=== PATIENT | female | born 1950 | race African-American/Black ===

== ENCOUNTER 2020-06-19 00:21 | Inpatient (IN) | payer MEDICARE, SELFPAY ==
[2020-06-19] VITALS (215 sets, daily range): BP systolic 77–139; BP diastolic 38–87; PULSE 59–93; RESP 18–24; TEMP 34.8–37.1; O2SAT 84–99
[2020-06-19] MEDS: DOPamine drip 400 MG/250 ML PREMIX 9.5 MG IV (00:21)
[2020-06-19 00:55] LABS: ABG PCO2 25.8 mmHg (35-45); ABG PH Result 7.26 (7.35-7.45); Base Excess ABG -14.2 mmol/L (-2.0-2.0); Blood Gas Operator Identificat HARKR; Blood Gas Sample Site Brachial, right; Blood Gas Sample Type Arterial; HCO3 ABG 11.5 mmol/L (22-26); Oxygen Device VENT
[2020-06-19 01:41] LABS: Basophils % 0.1 %; Hematocrit 26.6 % (37.0-47.0); Hemoglobin 8.3 g/dL (11.5-15.3); Lymphocytes # 0.5 10^3/uL (0.8-4.8); Lymphocytes % 3.6 %; Mean Corpuscular HGB Conc 31.2 g/dL (30.0-36.0); Mean Corpuscular Hemoglobin 25.2 pg (28.0-34.0); Mean Corpuscular Volume 80.9 fL (81-99); Mean Platelet Volume 9.8 fL (7.4-10.4); Monocytes # 0.3 10^3/uL (0.2-0.9); Monocytes % 2.1 %; Neutrophils # 13.28 10^3/uL (1.8-7.7); Neutrophils % 92.3 %; Nucleated Red Blood Cells % 0.1 %; Platelet Count 378 10^3/cmm (130-400); Red Blood Count 3.29 10^6/uL (4.1-5.3); Red Cell Distribution Width 15.2 % (12.1-15.1); White Blood Count 14.4 10^3/uL (4.0-10.0)
[2020-06-19 02:02] LABS: Lactate (Lactic Acid level) 2.1 mmol/L (0.5-2.2)
[2020-06-19 02:07] LABS: Slide Review Slide Review Perform
[2020-06-19 02:11] LABS: NT Pro B Type Natriuretic Pept 7933 pg/mL (0-125)
[2020-06-19] MEDS: insulin regular-human 10 UNIT in SYRINGE 1 EACH IVP (02:24)
--- NOTE | 2020-06-19 03:01 | ED_ITS ---
HPI - COVID COVID Results: No Data to Display Procedures Central Line Placement Left IJ: Time Out Performed: Yes Patient Placed on Monitor/Pulse Ox: Yes MD Prep: mask, gown and gloves Central Line Prep: Chlorhexidine scrub Ultrasound Used for Placement: Yes Central Line Lumen Inserted: triple Post Procedure: sutured in place, good blood return, all ports aspirated, flushed, capped and sterile dressing applied Post Procedure X-Ray: tip of catheter in good position and other (pneumothorax) Patient Tolerated Procedure: well Complications: pneumothorax Chest Tube Chest Tube 1: Chest Tube Location: left and mid axillary line Size of Tube (cm): 28 Chest Tube Prep: Yes betadine prep and sterile drapes applied Incision Made With: #11 blade Post Procedure: sutured to skin and sterile dressing applied Tube Drainage: none Post Procedure CXR?: Yes Patient Tolerated Procedure: Yes Course Vital Signs: Vital signs: Vital Signs Respiratory Rate 24 H 06/19/20 02:30 MDM - COVID MDM Narrative: Medical decision making narrative: I was called over to the VICU to help with a central line placement. When I arrived Dr. Mccord was attempting central line and had multiple attempts. I placed the line under ultrasound guidance with the first stick. I had no ear return. Did the x-ray and the pneumothorax was present unsure if it was caused by previous attempts before I got there. I then placed a 28 Pashto chest tube in the left side got good air return and x-ray showed chest tube in place. Lab Data: Labs: Lab Results 06/19/20 06/19/20 06/19/20 Range/Units 00:20 01:20 01:20 WBC 14.4 H (4.0-10.0) 10^3/ uL RBC 3.29 L (4.1-5.3) 10^6/u L Hgb 8.3 L (11.5-15.3) g/dL Hct 26.6 L (37.0-47.0) % MCV 80.9 L (81-99) fL MCH 25.2 L (28.0-34.0) pg MCHC 31.2 (30.0-36.0) g/dL RDW 15.2 H (12.1-15.1) % Plt Count 378 (130-400) 10^3/c mm MPV 9.8 (7.4-10.4) fL Neut % (Auto) 92.3 % Lymph % (Auto) 3.6 % [place] % (Auto) 2.1 % Eos % (Auto) 0.0 % Baso % (Auto) 0.1 % Neut # (Auto) 13.28 H (1.8-7.7) 10^3/u L Lymph # (Auto) 0.5 L (0.8-4.8) 10^3/u L [place] # (Auto) 0.3 (0.2-0.9) 10^3/u L Eos # (Auto) 0.0 (0.0-0.8) 10^3/u L Baso # (Auto) 0.0 (0.0-0.1) 10^3/u L Nucleated RBC % (a uto) 0.1 % Nucleated RBCs # 0.0 /100WBC D-Dimer (0-0.59) ug/mIFE U Specimen Type Arterial Sample Site Brachial, right ABG pH 7.26 L (7.35-7.45) ABG pCO2 25.8 L (35-45) mmHg ABG pO2 257.0 H (80.0-100.0) mmH g ABG HCO3 11.5 L (22-26) mmol/L ABG Base Excess -14.2 L (-2.0-2.0) mmol/ L Jaguar Test N/a Hematocrit 26.0 L (37-47) % O2 Delivery Device Vent FiO2 100.0 % Tidal Volume 0.40 PEEP 10.0 cmH20 Tufting Machine Fixer ID Harkr Lactate (0.5-2.2) mmol/L NT-Pro-B Natriuret Pep 7933 H (0-125) pg/mL 06/19/20 06/19/20 Range/Units 01:20 01:20 WBC (4.0-10.0) 10^3/ uL RBC (4.1-5.3) 10^6/u L Hgb (11.5-15.3) g/dL Hct (37.0-47.0) % MCV (81-99) fL MCH (28.0-34.0) pg MCHC (30.0-36.0) g/dL RDW (12.1-15.1) % Plt Count (130-400) 10^3/c mm MPV (7.4-10.4) fL Neut % (Auto) % Lymph % (Auto) % [place] % (Auto) % Eos % (Auto) % Baso % (Auto) % Neut # (Auto) (1.8-7.7) 10^3/u L Lymph # (Auto) (0.8-4.8) 10^3/u L [place] # (Auto) (0.2-0.9) 10^3/u L Eos # (Auto) (0.0-0.8) 10^3/u L Baso # (Auto) (0.0-0.1) 10^3/u L Nucleated RBC % (a uto) % Nucleated RBCs # /100WBC D-Dimer 3.60 H (0-0.59) ug/mIFE U Specimen Type Sample Site ABG pH (7.35-7.45) ABG pCO2 (35-45) mmHg ABG pO2 (80.0-100.0) mmH g ABG HCO3 (22-26) mmol/L ABG Base Excess (-2.0-2.0) mmol/ L Jaguar Test Hematocrit (37-47) % O2 Delivery Device FiO2 % Tidal Volume PEEP cmH20 Tufting Machine Fixer ID Lactate 2.1 (0.5-2.2) mmol/L NT-Pro-B Natriuret Pep (0-125) pg/mL COVID Results: No Data to Display Coding Level of Care Code ED Senior Php Developer for Chg Eliot
--- NOTE | 2020-06-19 03:03 | P.HP_ITS ---
Providers/Chief Complaint Admitting Physician: Candice Mccord MD Chief Complaint: covid, pneumonia History of Present Illness Thomas Rain is a 69 year old female who got transferred from [facility]. This patient has history of cardiovascular disease femoral bypass bilateral, breast cancer, she was seen at the clinic 4 days ago for anorexia, generalized malaise and fever. She was sent to the ER for further evaluation secondary to pneumonia and ERUM she was admitted and was kept in the ER because there was no bed availability and most of the hospitals were on divert. Her baseline creatinine seems to be around 1.5-1.6 her creatinine was 3.8 in the ER she was also complaining of anorexia nausea vomiting decreased p.o. intake, her O2 saturation was 83% on 5 L which was subsequently switched to nonrebreather mask ABG 7.2 02/10//100% on nonrebreather mask and she was saturating 99% until today when her shortness of breath got worse and she was intubated in the ER. She was intubated around 1900 on 06/18, PRVC vent settings tidal volume 300 respiratory 12 PEEP 5 and she was started on propofol and she was at 21 I called to get the report, her heart rate was in 60s blood pressure 102/52 bicarb improved from 7-13 1 amp of bicarb was given there. She was also given calcium because of hypocalcemia which improved from 5-8, calcium chloride 20 mg was given in the ER I requested calcium gluconate as well, she was also given mag sulfate. Lactic acid 1.1, CRP 13, chest x-ray was showing worsening patchy infiltrate. Sodium 137 Potassium 6.2 Chloride 106 bicarb 30 BUN 76 Creatinine 3.7 Leukocytosis 14, hemoglobin 8, platelet 325 I requested to switch propofol to fentanyl because of her bradycardia however did not have fentanyl at their facility I requested them to hold bicarb infusion secondary to hypercalcemia and give calcium gluconate At the time of transfer patient was intubated and sedated on propofol. At the time of evaluation in vital ICU her pH 7.26 PCO2 25 PO2 257 bicarb 11 she is showing signs of metabolic acidosis I placed right radial arterial line, and left central line was placed by Dr Gonzalez Her propofol was switched to fentanyl, she was started on Levophed and dopamine after giving atropine because of bradycardia which seemed to improve her heart rate, I am still waiting on BMP to know about her calcium before starting bicarb Currently she is on 2 pressors Levophed and dopamine Sedated with fentanyl Follow-up chest x-ray after central line placement revealed left-sided tension pneumothorax, chest tube was placed by Dr. Gonzalez Patient's vitals stayed stable throughout her procedure Review of Systems General: Reports: ROS unobtainable due to endotracheal tube PFSH Acute PFSH: Medical History Breast cancer, left Coronary atherosclerosis GERD (gastroesophageal reflux disease) Hyperlipidemia Hypertensive disorder Myocardial infarction Ovarian cancer Disseminated Surgical History H/O abdominal hysterectomy H/O heart artery stent S/P femoral-femoral bypass surgery Bilateral femoral bypass S/P lumpectomy of breast Family History Other Unknown family medical history Social History Smoking and tobacco status: former smoker Alcohol intake: never Substance/Drug Use: never Household members: family Housing: House Vitals/I&O/Wt Last Vital Signs Resp 24 H 06/19/20 02:30 Weight last 48 hrs Weight 50.802 kg Weight 50.802 kg Physical Exam Narrative: EXAM NARRATIVE: -[place] middle-aged female who appears more than stated age Currently sedated with fentanyl, intubated, currently on Levophed and dopamine Heart rate improved to 70s after starting Levophed and dopamine on arrival her heart rate was in 40s S1, S2 no murmur appreciated clinically does not look fluid overloaded Abdomen soft nondistended Right radial arterial line Left IJ central line Left-sided chest tube fourth intercostal space mid axillary Mean arterial pressure range 65-69 Neuro exam limited Bilateral assisted breath sounds improved after placement of chest Data : 06/19/20 01:20 A&P Assessment and plan (1) Acute respiratory failure with hypoxia: Status: Acute (2) Metabolic acidosis: Status: Acute (3) Acute kidney injury superimposed on chronic kidney disease: Status: Acute (4) Hyperkalemia: Status: Acute (5) New onset of congestive heart failure: Status: Acute (6) COVID-19: Status: Acute Additional A&P Information Sepsis and acute hypoxic respiratory failure secondary to COVID-19 pneumonia Intubated at outside facility Currently ABGs revealing metabolic acidosis I am holding off on bicarb infusion because of hypocalcemia, I am still waiting on BMP before making decision to start bicarb Lactic acid 2.1 Sepsis criteria met with leukocytosis, tachypnea secondary to COVID-19 We will check procalcitonin level before initiating antibiotics Metabolic acidosis This most likely is due to uremia lactic acid is 2 We will check ketone level Also noticed hyperglycemia, rule out DKA Most of her lab work is pending because she was critically ill at the time of presentation and a lot of effort was put in for stabilization putting lines and chest tube Bradycardia As per the report she was showing signs of sinus bradycardia however at the time of my evaluation she was hypothermic temperature 94 she was started on bear hugger's, she was also given 1 mg of atropine and then was started on Levophed and dopamine We will follow EKG and serial troponin Avoid propofol as it has cardio suppressant effect Check TSH, magnesium Acute on chronic kidney disease Creatinine at outside facility 3.8, her baseline creatinine seems to be 1.5-1.6 as per previous records This seems multifactorial to hypotension, sepsis and CHF exacerbation Hold nephrotoxic agents Hyperkalemia: She was given 10 units of regular insulin, I also administer 1 g calcium gluconate Her bradycardia seems to be sinus, will repeat EKG and administer Kayexalate via OG tube 10 mg albuterol x1 Hold off on bicarb secondary to hypercalcemia New onset CHF with underlying history of coronary disease and peripheral vascular disease Patient carries history of coronary disease but I do not see any mention of CHF in her records We will repeat echo in the morning Not a candidate to be on Lasix clinically looks euvolemic BNP around 8000 Will obtain serial EKGs and troponin High D-dimer: Patient recently had chest tube placement I would wait to start any anticoagulation to cover for a possible PE However high D-dimer is also seen with severe COVID-19 inflammation Tension pneumothorax After placement of central line however no earlier x-ray available, chest tube was placed by Dr. Lisa shirley in lung inflation Procedures on 06/19 lines: Right radial artery Left central line Santoyo catheter will be placed Left chest tube Full code DVT prophylaxis I would use SCDs for now she just had chest tube placed, I would avoid anticoagulation to avoid postprocedural hemorrhage Guarded prognosis N.p.o. Attestations Medical Necessity Statement*: Spitting stay in the hospital cross more than 2 midnights for multiple comorbidities carries guarded prognosis for sepsis, CHF, ERUM hyperkalemia Time Spent in Patient Care: 120mins Critical Care Time: Initial evaluation, data gathering, right radial artery placement, assisted for chest tube placement and central line Critical Care Time (min): 90 Coding Level of Care Code Acute Laboratory Geneticist for g Fwd Diagnoses Acute respiratory failure with hypoxia J96.01 Metabolic acidosis E87.2 Acute kidney injury superimposed on chronic kidney disease N17.9; N18.9 Hyperkalemia E87.5 New onset of congestive heart failure I50.9 COVID-19 U07.1
--- NOTE | 2020-06-19 03:05 | XR_ITS ---
WS: [id number] Exam: XR chest 1V portable [id number] Date/Time of Exam: 06/19/2020 3:05 AM Reason For Exam: CENTRAL LINE PLACEMENT No priors. There is approximately 75% pneumothorax of the left lung. There are diffuse bilateral pulmonary infil trates. Endotracheal tube is in place appearing to be in good position ending about 4 cm above the ca jessie. A left-sided IJ catheter ends near the cavoatrial junction. Signs of median sternotomy. The med iastinum is not widened. Bony structures are grossly intact. XR/XR chest 1V portable [id number] IMPRESSION: 1. 75% pneumothorax of the left lung. No significant tension or shift noted. 2. ET tube and left-sided IJ catheter both in good position. 3. Diffuse interstitial infiltrates throughout both lungs.
--- NOTE | 2020-06-19 03:08 | XR_ITS ---
WS: [id number] Exam: XR chest 1V portable [id number] Date/Time of Exam: 06/19/2020 3:08 AM Reason For Exam: CHEST TUBE PLACEMENT Comparison with the most recent study on 06/19/2020 at 0218 hours. A left-sided chest tube has been placed. There is almost complete expansion of the left lung. Very sm all left upper lobe pneumothorax remains. There are bilateral interstitial infiltrates throughout bot h lungs. Normal heart size. The mediastinum is not widened. An ET tube is in place ending about 4 cm above the rylan. A left-sided IJ catheter ends near the cavoatrial junction. XR/XR chest 1V portable [id number] IMPRESSION: 1. Left-sided chest tube position in the upper medial left pleural cavity. The left lung is almost completely expanded with very small left upper lobe pneumot horax. 2. Diffuse interstitial infiltrates throughout both lungs. 3. ET tube and left-sided IJ catheter both in good position.
--- NOTE | 2020-06-19 03:36 | PM.ACPR ---
Procedure/Consent Procedure Narrative: Right radial artery placement for monitoring of blood pressure due to bradycardia Acute Procedures Arterial Line: Time out performed: Yes Size (Gauge): 18 Technique used: guide wire technique Post-Procedure: dry sterile dressing placed Patient tolerated procedure: well Complications: none Site: right Additional comments: 5 mL blood loss
--- NOTE | 2020-06-19 03:38 | USCV_ITS ---
Koffi Alainagaurav Age: 69 Gender: F : 1950 Exam Date: 06/19/2020 06:13 Ordering Phys: Candice Mccord MD Technologist: Hailey Ng [place] [facility] [place]: COVID ICU CHF BP: 122 / 52 HR: 79 Rhythm: Sinus Technical Quality: Fair MEASUREMENTS (Male / Female) Normal Values 2D ECHO LV Diastolic Diameter PLAX 3.6 cm 4.2 - 5.9 / 3.9 - 5.3 cm LV Systolic Diameter PLAX 2.8 cm LV Chamber Size 3.3 cm IVS Diastolic Thickness 1.6 cm 0.6 - 1.0 / 0.6 - 0.9 cm IVS Systolic Thickness 1.7 cm LVPW Diastolic Thickness 1.4 cm 0.6 - 1.0 / 0.6 - 0.9 cm LVPW Systolic Thickness 1.9 cm RV Chamber Size 3.1 cm LVOT Diameter 2.0 cm LV Ejection Fraction 2D Teich 46.1 % LV Ejection Fraction MOD 2C 68.0 % LV Ejection Fraction 2C AL 69.1 % LA Diameter 2.8 cm LA Width 2.5 cm LA Height 3.8 cm RA Width 2.8 cm RA Height 2.9 cm Aorta at Sinotubular Diameter 3.0 cm M-MODE LV Diastolic Diameter MM 4.7 cm 4.2 - 5.9 / 3.9 - 5.3 cm LV Systolic Diameter MM 3.9 cm LV Ejection Fraction MM Teich 36.6 % IVS Diastolic Thickness MM 0.9 cm 0.6 - 1.0 / 0.6 - 0.9 cm IVS Systolic Thickness MM 1.4 cm LVPW Diastolic Thickness MM 0.8 cm 0.6 - 1.0 / 0.6 - 0.9 cm LVPW Systolic Thickness MM 1.3 cm RV Diastolic Diameter MM 1.3 cm Aortic Annulus Diameter 3.4 cm LA Ao Ratio MM 0.9 MV E Point Septal Separation 0.8 cm DOPPLER AV Peak Velocity 172.0 cm/s LVOT Peak Velocity 77.0 cm/s AV Area Cont Eq vti 2.2 cm squared AV Area Cont Eq pk 1.5 cm squared MV Area PHT 3.9 cm squared Mitral E to A Ratio 1.3 MV E' Velocity 57.5 cm/s Mitral E to MV E' Ratio 15.4 Mitral E to LV E' Lateral Ratio 14.9 Mitral E to LV E' Septal Ratio 15.8 TR Peak Velocity 258.3 cm/s TR Peak Gradient 26.7 mmHg TR Mean Velocity 203.6 cm/s TR Mean Gradient 17.7 mmHg TR Velocity Time Integral 73.2 cm TV Peak E Velocity 53.0 cm/s Right Atrial Pressure 15.0 mmHg Pulmonary Artery Systolic Pressu 41.7 mmHg PV Peak Velocity 74.0 cm/s RV Acceleration Time 0.1 s RV Ejection Time 0.3 s RV AcT/ET 0.4 FINDINGS Left Ventricle Normal left ventricular size and systolic function with EF of 50 to 55%. No regional wall motion abnormalities are noted. Abnormal diastolic function. Right Ventricle The right ventricle is normal in size and function. Right Atrium The right atrium is normal in size. Left Atrium The left atrium is normal in size. Mitral Valve Mitral valve is thickened. No significant stenosis is noted. There is no mitral regurgitation. Aortic Valve Aortic valve is thickened. There is no significant aortic stenosis noted. There is no aortic regurgitation. Tricuspid Valve Structurally normal tricuspid valve without significant stenosis or regurgitation. Insufficient TR jet to calculate RVSP. RA Pressure is 0 to 5 mmHg. Pulmonic Valve Not well-visualized. Pericardium Normal pericardium without effusion. Aorta Normal ascending aorta dimension. CONCLUSIONS LV systolic function is normal with EF of 50 to 55%. Diastolic function is abnormal. Mitral and aortic valves are thickened. However no significant aortic or mitral stenosis is noted. Insufficient TR jet to calculate RVSP. RA pressure is 0 to 5 mmHg. No comparison studies are available José Luis Unger MD (Electronically Signed) Final Date: 19 June 2020 15:43 S
--- NOTE | 2020-06-19 03:39 | ECG_ITS ---
[facility] ED Test Date: 2020-06-19 Pat Name: Thomas Rain Department: Room: ICU19 Gender: Female Pourer Metal: : 1950 Requested By: Candice Mccord Order Number: [id number] Marianna MD: Pamella William M.D. Measurements Intervals [place] Rate: 70 P: [place]: QRS: 68 QRSD: 108 T: 62 QT: 372 QTc: 403 Interpretive Statements SUPRAVENTRICULAR RHYTHM WITH PVC'S NONSPECIFIC T-WAVE ABNORMALITY INTERPRETATION BASED ON A DEFAULT AGE OF 40 YEARS No previous ECG available for comparison Electronically Signed On 06-19-2020 21:29:55 SAND SYSTEM OPERATOR by Pamella William M.D. [id number] f
[2020-06-19 03:54] LABS: ABG PCO2 25.7 mmHg (35-45); ABG PH Result 7.21 (7.35-7.45); Arterial Blood Gas Hematocrit 24.2 % (37-47); Blood Gas Operator Identificat CAK; Blood Gas Sample Site ALINE; Blood Gas Sample Type Arterial; Blood Gas Tidal Volume 0.38; HCO3 ABG 10.3 mmol/L (22-26); Oxygen Device VENT
--- NOTE | 2020-06-19 04:17 | P.PCN_ITS ---
Procedure/Consent Procedure Narrative: Patient was hypotensive, was requiring on 2 vasopressors, decision was made to insert central line and left internal jugular vein Patient was prepped and draped, two ICU nurses were present at the bedside Trendelenburg position PPE MD, sterile gloves, gown, glasses, head covering, shoe covering, probe covering, Clinical landmarks were identified, ultrasound probe was used to identify left internal jugular vein, site was prepped in sterile fashion Under ultrasound guidance needle was inserted, after 2 attempts I did not get venous flush, requested Dr. Gonzalez from the ER to assist with the central line placement. Kindly review his procedure note for further details. Postpro cedural x-ray revealed pneumothorax, Dr. Gonzalez placed 28F chest tube with good air return, chest x-ray shows chest tube placement with tip pointing towards the apex of the left lung
--- NOTE | 2020-06-19 04:35 | PC.NURSE ---
Patient arrived via flight ambulance as a direct admit to VICU at 0000. Patient already intubated at admission. Flight ambulance had Levophed running to maintain BP. Called Dr. Mccord to floor to administer interventions to stabilize patient. Upon arrival crash cart was opened per Dr. Mccord at 0043 to administer atropine 1mg IVP per verbal orders from Dr. Mccord at bedside. 0050 Dopamine gtt administered from crash cart per orders and protocol. Arterial line placed via Dr. Mccord at 0110 in right radial wrist and hooked to transducer. 0140 Dr Mccord attempted to place central line in left jugular vein using sterile technique, unsuccessfully. Dr. Gonzalez joined Dr Mccord and helped with placement. After placement of central line, patients O2 sats began to decrease, stat chest xray ordered, which showed a pnuemothorax, Dr. Gonzalez inserted chest tube on left side chest at 0244. [place] atrium used and hooked to intermittent suction per orders.
--- NOTE | 2020-06-19 05:21 | PC.NURSE ---
Heparin gtt not administered per MAR due to placement of chest tube. MD gave orders to hold heparin and apply SCDs.
--- NOTE | 2020-06-19 05:35 | PC.NURSE ---
Patient's granddaughter Argelia Rasmussen phoned this AM for update on patient's status. RN explained there was a Wilbur Rain listed as her next of kin. Granddaughter conference called pt's daughter, and both explained that she had been for many years at this point. Daughter Dalila Green gave permission for information and status updates to be given to the pt's granddaughter Argelia. RN verbalized a need for family to contact hospital facility to update contact information. According to patient's family, the patient is to remain a full code, with no restorationist factors affecting her care. Argelia Green [phone] Dalila Green [phone]
--- NOTE | 2020-06-19 05:39 | ECG_ITS ---
[facility] ED Test Date: 2020-06-19 Pat Name: Thomas Rain Department: Room: ICU19 Gender: Female Shake Cutter: : 1950 Requested By: Candice Mccord Order Number: [id number] Marianna MD: Pamella William M.D. Measurements Intervals [place] Rate: 74 P: 85 MS: 148 QRS: 73 QRSD: 98 T: -31 QT: 348 QTc: 387 Interpretive Statements SINUS RHYTHM NONSPECIFIC T-WAVE ABNORMALITY Compared to ECG 06/19/2020 04:31:43 Supraventricular rhythm no longer present T-wave abnormality still present Electronically Signed On 06-19-2020 16:54:58 SHEARING MACHINE TENDER by Pamella William M.D. [id number] f
[2020-06-19 05:42] LABS: Basophils % 0.1 %; Eosinophils % 0.1 %; Hematocrit 26.3 % (37.0-47.0); Hemoglobin 8.3 g/dL (11.5-15.3); Lymphocytes # 0.6 10^3/uL (0.8-4.8); Mean Corpuscular HGB Conc 31.6 g/dL (30.0-36.0); Mean Corpuscular Hemoglobin 25.5 pg (28.0-34.0); Mean Corpuscular Volume 80.7 fL (81-99); Monocytes # 0.4 10^3/uL (0.2-0.9); Monocytes % 2.5 %; Neutrophils # 14.31 10^3/uL (1.8-7.7); Neutrophils % 92.8 %; Nucleated Red Blood Cells % 0 %; Platelet Count 374 10^3/cmm (130-400); Red Blood Count 3.26 10^6/uL (4.1-5.3); Red Cell Distribution Width 15.2 % (12.1-15.1); White Blood Count 15.4 10^3/uL (4.0-10.0)
[2020-06-19 05:57] LABS: D Dimer 3.52 ug/mIFEU (0-0.59)
[2020-06-19 06:11] LABS: Glucose Point of Care 317 mg/dL (70-110)
[2020-06-19 07:45] LABS: Lactic Sepsis W/Reflex 1.7 mmol/L (0.5-2.2)
[2020-06-19] MEDS: ipratropium-albuterol 3 mL Neb INHALATION ×3 (07:53→19:45)
--- NOTE | 2020-06-19 08:00 | XR_ITS ---
WS: [id number] Exam: XR chest 1V portable [id number] Date/Time of Exam: 06/19/2020 6:01 AM Reason For Exam: PTX Comparison 06/19/2020 at 0245 hours Diffuse infiltrates noted throughout both lungs showing slight increase since previous exam. Right pl eural effusion has developed. Normal cardiomediastinal structures. ET tube is in good position ending about 4 cm above the rylan. Left-sided IJ catheter ends in the lower one third of the SVC in good p osition. An enteric tube is positioned in the body the stomach. Monitoring leads superimpose the ches t. Signs of previous median sternotomy. Left-sided chest tube in place unchanged in position. XR/XR chest 1V portable [id number] IMPRESSION: 1. Bilateral pulmonary infiltrates slightly increased since previous exam. Right-sided pleural effusion. 2. Left-sided chest tube in place unchanged. 3. ET tube, enteric tube and central line all in satisfactory position.
--- NOTE | 2020-06-19 08:10 | PC.NURSE ---
Patient's family was updated on her current status as well as the emergency interventions that were done including central line placement, art line placement, bare hugger, and chest tube placement.
[2020-06-19 08:49] LABS: Troponin(5th) Baseline 48 ng/L (0-10)
[2020-06-19] MEDS: aspirin 81 mg EC Tablet PO (09:04)
[2020-06-19] MEDS: clopidogrel 75 mg Tablet PO (09:04)
[2020-06-19] MEDS: sennosides-docusate Tablet 1 TAB PO (09:04)
[2020-06-19 09:20] LABS: Procalcitonin 16.44 ng/mL (0-0.5); Thyroid Stimulating Hormone 0.22 uIU/mL (0.27-4.20)
[2020-06-19 09:34] LABS: Alanine Aminotransferase 11 U/L (0-33); Albumin Level 2.4 g/dL (3.5-5.2); Alkaline Phosphatase 68 IU/L (35-105); Anion Gap 23.8 (5-19); Aspartate Amino Transferase 27 U/L (0-32); Blood Urea Nitrogen 73 mg/dL (8-23); C Reactive Protein 216.9 mg/L (0.0-4.9); Calcium 8.6 mg/dL (8.5-10.5); Carbon Dioxide 12 mmol/L (22-29); Chloride 108 mmol/L (98-107); Globulin 3.5 g/dL (1.3-4.6); Glomerular Filtration Rate 13.1 mL/min (90-130); Glucose 371 mg/dL (65-115); Lactate Dehydrogenase 342 U/L (135-214); Magnesium 2.4 mg/dL (1.7-2.3); Osmolality Calculated 323 mOsm/kg (285-295); Potassium 5.8 mmol/L (3.5-5.1); Sodium 138 mmol/L (136-145); Total Bilirubin 0.2 mg/dL (0.15-1.2); Total Protein 5.9 g/dL (6.6-8.7)
--- NOTE | 2020-06-19 09:39 | ECG_ITS ---
[facility] ED Test Date: 2020-06-19 Pat Name: Thomas Rain Department: Room: ICU19 Gender: Female Science Liaison: : 1950 Requested By: Candice Mccord Order Number: [id number] Marianna MD: Pamella William M.D. Measurements Intervals [place] Rate: 87 P: [place]: QRS: 71 QRSD: 96 T: 78 QT: 333 QTc: 402 Interpretive Statements SUPRAVENTRICULAR RHYTHM NONSPECIFIC T-WAVE ABNORMALITY Compared to ECG 06/19/2020 07:08:10 No significant changes Electronically Signed On 06-28-2020 14:00:35 LINUX SYSTEM ADMIN by Pamella William M.D. [id number]
[2020-06-19] MEDS: sodium polystyrene sulfonate 15 gm/60 mL Btl PO (09:54)
[2020-06-19 10:13] LABS: Troponin 5 2HR 46.77 ng/L (0-10)
[2020-06-19 10:16] LABS: Troponin 5 2HR Delta -1.23 ABS# (0-10)
[2020-06-19 10:32] LABS: ABG PCO2 25.7 mmHg (35-45); ABG PH Result 7.29 (7.35-7.45); Alveolar-Arterial Oxygen Gradi 35.1 mmHg (5-10); Arterial Blood Gas Hematocrit 26.3 % (37-47); Blood Gas Operator Identificat CAK; Blood Gas Sample Site ALINE; Blood Gas Sample Type Arterial; Blood Gas Tidal Volume 0.38; Carboxyhemoglobin 0.8 %THgb (0.4-20.1); HCO3 ABG 12.3 mmol/L (22-26); HGB O2 Sat 85.2 % (95-100); Ionized Calcium Level - ABG 1.2 mmol/L (1.1-1.4); Methemoglobin 0.9 % (0.4-1.5); Oxygen Device VENT; Oxygen Saturation ABG 86.6; PO2 ABG 53.8 mmHg (80.0-100.0); Potassium Level - ABG 5.4 mmol/L (3.5-5.0); Total Hemoglobin 8.6 g/dL (12-16)
[2020-06-19 10:44] LABS: Ketone (Acetest) Serum Positive (Negative)
[2020-06-19] MEDS: vancomycin 750 MG in sodium chloride 0.9% 250 ML 250 MG IV (11:28)
[2020-06-19 11:46] LABS: Glucose Point of Care 406 mg/dL (70-110)
[2020-06-19] MEDS: insulin regular-human 250 UNIT in sodium chloride 0.9% 250 ML 10.5 UNIT IV (12:13)
[2020-06-19] MEDS: DOPamine drip 400 MG/250 ML PREMIX 23.8 MG IV (12:43)
[2020-06-19 12:58] LABS: Glucose Point of Care 337 mg/dL (70-110)
[2020-06-19 13:50] LABS: Glucose Point of Care 286 mg/dL (70-110)
[2020-06-19] MEDS: FUROsemide 10 mg/mL SDV 4mL 40 MG IVP (13:55)
[2020-06-19 15:32] LABS: Glucose Point of Care 222 mg/dL (70-110)
--- NOTE | 2020-06-19 15:45 | P.PN_ITS ---
Subjective Subjective: Interval history: 69-year-old female with past medical history significant for breast cancer completed chemotherapy 2 years prior, coronary artery disease with history of CABG, gastroesophageal reflux disease, hypertension, hyperlipidemia, peripheral vascular disease with prior bilateral femoral bypass and chronic kidney disease with a baseline creatinine around 1.4 who presented to the [facility] in [place] with respiratory distress. this was associated with fever and generalized weakness. The symptoms have been progressing for about 4 days prior. While in emergency room a rapid COVID 19 antigen was checked and found to be positive. PCR was sent however this is still pending. Initially she was noted to have hypoxia with O2 saturation of 83% while on 5 L of O2. This was transitioned to non-rebreather however ventrally patient was intubated and placed on mechanical ventilation. She was initially started on propofol however due to bradycardia this was transition to fentanyl drip. Prior to that she was given atropine. Patient was then airlifted to [facility] for further care. Upon arrival to be ICU patient had repeat laboratory workup performed. WBC of 14.4, hemoglobin of 8.3, hematocrit of 26.6 and a platelet count of 378. sodium 138, potassium 5.8, chloride 108, bicarb 12, BUN 73 and creatinine of 4.1. Glucose of 317. Calcium 8.6. LDH 342. C reactive protein of 216. troponin delta of -1.23. Procalcitonin was elevated at 16.44. TSH of 0.22. Noted to be hypotensive and bradycardic on initial evaluation. She was started on Levophed and dopamine drip. Arterial line was placed . Subsequently a central line was placed. Chest x-ray performed for line placement assessment noted left-sided pneumothorax For which a chest tube was placed and noted to be in position in the upper left pleural cavity. Appeared to be in sepsis with shock for which she required up to 3 pressers including levofed,vasopressin and dopamine to maintain MAP > 65. Patient was started on broad-spectrum antibiotics including vancomycin and Primaxin 500 mg IV q.6 hours. Blood cultures were taken. Sputum culture was also taken. Pulmonary Medicine was consulted. Patient was found to be oliguria. No improvement in urine out put after lasix 40 mg IV x 1 challenge. Nephrology was consulted. Femoral HD catheter was placed by surgery and with consent from family she was imitated on dialysis. Multiple discussions with family included daughter and step daughter regarding poor prognosis. Code status was discussed and at family request was changed to D.N.R status with limited interventions. Ok to continue vent, hd, pressers, icu care, shock if needed however no resuscitation in the event of cardiac arrest. Medications: Reviewed: Yes Medication Review Details: Current Medications Albuterol/Ipratropium (Ipratropium-Albuterol 3 Ml Neb) 3 ml INHALATION Q6H PRN PRN Reason: SHORTNESS OF BREATH Last Admin: 06/20/20 02:01 Dose: 3 ml Documented by: Aspirin (Aspirin 81 Mg Ec Tablet) 81 mg PO DAILY IGOR Last Admin: 06/19/20 09:04 Dose: 81 mg Documented by: Atorvastatin Calcium (Atorvastatin 40 Mg Tablet) 20 mg PO BEDTIME IGOR Last Admin: 06/19/20 21:04 Dose: 20 mg Documented by: Clopidogrel Bisulfate (Clopidogrel 75 Mg Tablet) 75 mg PO DAILY IGOR Last Admin: 06/19/20 09:04 Dose: 75 mg Documented by: Dextrose (Dextrose 50% Syringe 50 Ml) 25 ml IVP ONCE PRN; Protocol PRN Reason: hypoglycemia protocol Dextrose (Dextrose 50% Syringe 50 Ml) 50 ml IVP PRN PRN; Protocol PRN Reason: hypoglycemia protocol Famotidine (Famotidine 20 Mg/2 Ml Inj) 40 mg IVP Q12H IGOR Last Admin: 06/19/20 23:48 Dose: 40 mg Documented by: Glucagon (Glucagon 1 Mg/Ml Inj 1 Ml) 1 mg IM ONCE PRN; Protocol PRN Reason: Adult Acute Hypoglycemia Prot. Dopamine HCl/Dextrose (Intropin Drip) 400 mg in 250 mls @ 9.525 mls/hr IV CONT GIOR; Protocol Last Titration: 06/20/20 00:12 Dose: 0 mcg/kg/min, 0 mls/hr Documented by: Fentanyl 1,000 mcg/ Sodium (Chloride) 100 mls @ 0 mls/hr IV .Q0M IGOR; Protocol Last Titration: 06/20/20 04:39 Dose: 50 mcg/hr, 5 mls/hr Documented by: Midazolam HCl 100 mg/ Sodium (Chloride) 100 mls @ 0 mls/hr IV .Q0M IGOR; Protocol Last Admin: 06/19/20 03:41 Dose: 1 mg/hr, 1 mls/hr Documented by: Dextrose (D5w) 500 mls @ 100 mls/hr IV ONCE PRN; Protocol PRN Reason: Adult Acute Hypoglycemia Prot Vancomycin HCl 750 mg/ Sodium (Chloride) 250 mls @ 250 mls/hr IV Q48H IGOR; Protocol Last Infusion: 06/19/20 14:32 Dose: Infused Documented by: Imipenem/Cilastatin Sodium 250 (mg/ Sodium Chloride) 100 mls @ 200 mls/hr IV Q12H IGOR; Protocol Last Infusion: 06/20/20 00:40 Dose: Infused Documented by: Insulin Human Regular 250 unit (/ Sodium Chloride) 252.5 mls @ 0 mls/hr IV .Q0M IGOR; Protocol Last Titration: 06/20/20 05:11 Dose: 5 unit/hr, 5.1 mls/hr Documented by: Vasopressin 100 unit/ Sodium (Chloride) 100 mls @ 0 mls/hr IV .Q0M IGOR; Protocol Last Admin: 06/19/20 14:53 Dose: 0.04 unit/min, 2.4 mls/hr Documented by: Norepinephrine Bitartrate 8 mg (/ Dextrose) 508 mls @ 0 mls/hr IV .Q0M IGOR; Protocol Last Admin: 06/20/20 04:39 Dose: 12 mcg/min, 45.7 mls/hr Documented by: Albumin Human (Albumin) 12.5 gm in 50 mls @ 60 mls/hr IV PRN PRN PRN Reason: Hypotension and/or symptomatic Insulin Aspart (Insulin Aspart 100 Unit/1 Ml) 0 unit SUBCUT WM&BEDTIME IGOR; Protocol Last Admin: 06/19/20 21:05 Dose: Not Given Documented by: Lanolin (Lanolin Oint 7 Gm) 1 applic TOPICAL PRN PRN PRN Reason: DRYNESS Last Admin: 06/20/20 03:07 Dose: 1 applic Documented by: Senna/Docusate Sodium (Sennosides-Docusate Tablet) 1 tab PO DAILY IGOR Last Admin: 06/19/20 09:04 Dose: 1 tab Documented by: Vitals/I&O/Wt Last Vital Signs Temp 98.2 F 06/19/20 12:00 Pulse 78 06/19/20 15:01 Resp 22 H 06/19/20 14:56 BP 128/50 06/19/20 14:05 Pulse Ox 90 06/19/20 14:56 06/19/20 06/19/20 06/19/20 06:59 14:59 22:59 Intake Total 168.435 / 168.435 929.503 / 929.503 226.324 / 1155.827 Output Total 240 / 240 220 / 220 Balance -71.565 / -71.565 709.503 / 709.503 226.324 / 935.827 Weight last 48 hrs Weight 50.802 kg Weight 50.802 kg Physical Exam Narrative: EXAM NARRATIVE: General- sedated on mechanical ventilation HEENT-ET tube in place Chest -Nonlabored respiration, on vent CVS- Normal sinus rhythm Abdomen -Nondistended Extremities-No edema Lines- Left IJ, right femoral dialysis, [place], ET tube, left chest tube Data : 06/20/20 03:52 06/20/20 11:45 Micro: Microbiology 06/19/20 11:13 Blood Culture - Preliminary Blood SPECIMEN COLLECTED 06/19/20 11:02 Blood Culture - Preliminary Blood SPECIMEN COLLECTED 06/19/20 04:30 Gram Stain - Final Sputum - Endotracheal Tube Aspirate A&P Assessment and plan (1) Acute respiratory failure with hypoxia: Status: Acute (2) Metabolic acidosis: Status: Acute (3) Acute kidney injury superimposed on chronic kidney disease: Status: Acute (4) Hyperkalemia: Status: Acute (5) New onset of congestive heart failure: Status: Acute (6) COVID-19: Status: Acute (7) Septic shock: Status: Acute Acute hypoxic respiratory failure - Etiology multifactorial - COVID-19 pneumonia, pneumothorax status post chest tube, superimposed bacterial pneumonia suspected - Continue vent, pulmonary consulted Suspected superimposed Bacterial Pneumonia - Procalcitonin 16.44 -> 15.48 - Empirically started on Vancomycin pharmacy to dose - Primixin 250 mg IV q12 hr - Renal dosing of meds - Thacker culture Acute kidney injury / ATN on CKD stage 3 - Creatinine baseline 1.4 - Cr. 4.1 - Nephrology consulted - Femoral HD catheter placed by general surgery - Started on HD Diabetes Mellitus with hyperglycemia / DKA on arrival - AG metabolic acidosis - Multi-factorial component of acidosis - Was started on Insulin ggt - Goal Blood sugar 140-180 - Q1hr BS checks - Ketone positive Acute anemia - Multifactorial - Acute blood loss from CT in setting of renal disease - Hb 8.3 on arrival - Monitor h/h Coronary artery disease s/p CABG / PVD s/p b/l femoral bypass / Hypertension - Holding aspirin 81 mg PO daily and Plavix 75 mg PO daily - Will resume once hemoglobin stabilizes - ECHO - pEF - Continue Lipitor 20 mg PO daily - Monitor on tele Hx of Breast cancer - S/P chemo > 2 year prior - No new recommendation FEN - Tube feeding - Dietary consulted - Pulmcal 1.2 at 20ml/hr - Will increase to goal based on residuals and recs GI ppx - Pepcid 20 mg IV daily DVT ppx - SCDSs only due to anemia Condition: Critical Prognosis : Poor Code status- Changed to DNR, allow natural as discussed above in HPI Attestations Medical Necessity Statement*: Require further hospitalization for management of COVID-19 respiratory failure, pneumothorax status post chest tube, renal failure requiring dialysis. Time Spent in Patient Care: Greater than 35 minutes (>than 50% of time spent in counselling and/or direct pt care on unit) . Critical Care Time: Critical Care Time (min): 70 Procedures Arterial Line Size (Gauge): 18 Coding Level of Care Code Acute Silver Lap Machine Tender for Chg Fwd Diagnoses Acute respiratory failure with hypoxia J96.01 Metabolic acidosis E87.2 Acute kidney injury superimposed on chronic kidney disease N17.9; N18.9 Hyperkalemia E87.5 New onset of congestive heart failure I50.9 COVID-19 U07.1 Septic shock A41.9; R65.21
[2020-06-19 16:11] LABS: Glucose Point of Care 214 mg/dL (70-110)
[2020-06-19 16:32] LABS: ABG PCO2 28.4 mmHg (35-45); ABG PH Result 7.22 (7.35-7.45); Base Excess ABG -14.7 mmol/L (-2.0-2.0); Blood Gas Allen Test Pos; Blood Gas Sample Site ART LINE; Blood Gas Sample Type Arterial; Carboxyhemoglobin 0.7 %THgb (0.4-20.1); HCO3 ABG 11.7 mmol/L (22-26); HGB O2 Sat 92.1 % (95-100); Ionized Calcium Level - ABG 1.1 mmol/L (1.1-1.4); Methemoglobin 0.7 % (0.4-1.5); Oxygen Saturation ABG 93.5; PO2 ABG 77.4 mmHg (80.0-100.0); Potassium Level - ABG 4.2 mmol/L (3.5-5.0); Total Hemoglobin 7.5 g/dL (12-16)
[2020-06-19 16:33] LABS: Alveolar-Arterial Oxygen Gradi 50.1 mmHg (5-10); Blood Gas Operator Identificat MONROous; Blood Gas Tidal Volume 0.38; Oxygen Device VENT
[2020-06-19 17:05] LABS: Glucose Point of Care 144 mg/dL (70-110)
[2020-06-19 17:31] LABS: Hematocrit 27.3 % (37.0-47.0); Hemoglobin 8.4 g/dL (11.5-15.3)
[2020-06-19 18:03] LABS: Calcium 8.3 mg/dL (8.5-10.5); Carbon Dioxide 13 mmol/L (22-29); Chloride 108 mmol/L (98-107); Glomerular Filtration Rate 12.4 mL/min (90-130); Glucose 177 mg/dL (65-115); Osmolality Calculated 313 mOsm/kg (285-295); Sodium 137 mmol/L (136-145)
[2020-06-19 18:05] LABS: Troponin 5 6HR 48.47 ng/L (0-10)
--- NOTE | 2020-06-19 18:19 | P.CONIM_ITS ---
Providers/Reason For Consult Consulting Physican/Specialty*: Ruben Perla MD / telenephrology Reason for Consult*: ERUM/ metabolic acidosis Attending Physician: Olga Dumont History of Present Illness History of Present Illness Thomas Rain is a 69 year old female who was transferred from [facility]. She has H/O CAD s/p CABG, CKD stage 3 - b/l cr 1.5, PVD s/p femoral bypass bilateral, breast cancer. She was admitted for COVID-19 + PNA. She c/o anorexia, generalized malaise and fever. In the ER, her cr was 3.7,hyperkalemic, and acidotic. She had an a-line and central line placed. She was hypoxic and intubated. Follow-up chest x-ray after central line placement revealed left-sided tension pneumothorax, chest tube was placed by Dr. Gonzalez Patient had a chest tube and admitted to [facility]- ICU. Renal called as pt is oliguric, hyperkalemic, and ERUM. She is on multiple pressers and intubated w/ Fi02 requirements of 70%. Review of Systems General: Reports: ROS unobtainable due to mental status Meds/Allergies Home Medications and Allergies Allergies Allergy/AdvReac Type Severity Reaction Status Date / Time No Known Allergies Allergy Verified 06/19/20 04:35 Current Medications Current Medications Generic Name Dose Route Start Last Admin Trade Name Freq PRN Reason Stop Dose Admin Albuterol/Ipratropium 3 ml 06/19/20 03:38 06/19/20 14:56 Ipratropium-Albuterol 3 Ml Neb INHALATION 3 ml Q6H PRN Administration SHORTNESS OF BREATH Aspirin 81 mg 06/19/20 09:00 06/19/20 09:04 Aspirin 81 Mg Ec Tablet PO 81 mg DAILY IGOR Administration Clopidogrel Bisulfate 75 mg 06/19/20 09:00 06/19/20 09:04 Clopidogrel 75 Mg Tablet PO 75 mg DAILY IGOR Administration Dopamine HCl/Dextrose 400 mg in 250 mls @ 9.525 mls/hr 06/19/20 01:00 06/19/20 15:31 Intropin Drip IV 5 mcg/kg/min CONT IGOR 9.5 mls/hr Titration Protocol 5 MCG/KG/MIN Fentanyl 1,000 mcg/ Sodium 100 mls @ 0 mls/hr 06/19/20 01:00 06/19/20 16:42 Chloride IV 100 mcg/hr .Q0M IGOR 10 mls/hr Administration Protocol Per Protocol Midazolam HCl 100 mg/ Sodium 100 mls @ 0 mls/hr 06/19/20 01:15 06/19/20 03:41 Chloride IV 1 mg/hr .Q0M IGOR 1 mls/hr Administration Protocol Per Protocol Vancomycin HCl 750 mg/ Sodium 250 mls @ 250 mls/hr 06/19/20 11:30 06/19/20 14:32 Chloride IV Infused Q48H IGOR Infusion Protocol Imipenem/Cilastatin Sodium 250 100 mls @ 200 mls/hr 06/19/20 11:00 06/19/20 12:15 mg/ Sodium Chloride IV Infused Q12H IGOR Infusion Protocol Insulin Human Regular 250 unit 252.5 mls @ 0 mls/hr 06/19/20 10:30 06/19/20 17:14 / Sodium Chloride IV 0 unit/hr .Q0M IGOR 0 mls/hr Titration Protocol Per Protocol Vasopressin 100 unit/ Sodium 100 mls @ 0 mls/hr 06/19/20 13:45 06/19/20 14:53 Chloride IV 0.04 unit/min .Q0M IGOR 2.4 mls/hr Administration Protocol Per Protocol Insulin Aspart 0 unit 06/19/20 08:00 06/19/20 17:13 Insulin Aspart 100 Unit/1 Ml SUBCUT Not Given WM&BEDTIME IGOR Protocol Senna/Docusate Sodium 1 tab 06/19/20 09:00 06/19/20 09:04 Sennosides-Docusate Tablet PO 1 tab DAILY IGOR Administration PFSH Acute PFSH: Medical History Breast cancer, left Coronary atherosclerosis GERD (gastroesophageal reflux disease) Hyperlipidemia Hypertensive disorder Myocardial infarction Ovarian cancer Disseminated Surgical History H/O abdominal hysterectomy H/O heart artery stent S/P femoral-femoral bypass surgery Bilateral femoral bypass S/P lumpectomy of breast Family History Other Unknown family medical history Social History Smoking and tobacco status: former smoker Alcohol intake: never Substance/Drug Use: never Household members: family Housing: House Vitals/I&O/Wt Last Vital Signs Temp 98.2 F 06/19/20 12:00 Pulse 78 06/19/20 15:01 Resp 18 06/19/20 16:59 BP 128/50 06/19/20 14:05 Pulse Ox 90 06/19/20 14:56 06/19/20 06/19/20 06/19/20 06:59 14:59 22:59 Intake Total 168.435 / 168.435 929.503 / 929.503 248.361 / 1177.864 Output Total 240 / 240 220 / 220 Balance -71.565 / -71.565 709.503 / 709.503 248.361 / 957.864 Weight last 48 hrs Weight 50.802 kg Weight 50.802 kg Physical Exam Narrative: EXAM NARRATIVE: intubated, fio2=70%, TV 380, PEEP 8, RR18 pressers norepi 20, dopamine 5, vasopressin 0.04 heent- nca/t lungs ronchi and crfackles heart reg abd soft ext edema neuro- sedated exam by TELEGRAPHER AGENT Data Micro: Micro: Microbiology 06/19/20 11:13 Blood Culture - Pr eliminary Blood SPECIMEN [facility] 06/19/20 11:02 Blood Culture - Pr eliminary Blood SPECIMEN [facility] 06/19/20 04:30 Gram Stain - Final Sputum - Endotrac heal Tube Aspirate Other Data: Other data: echo- ef-50-55%, abnormal diastolic dysfunction A&P Additional A&P Information 69 yr old female CAD, PVD, CKD stage 3- b/l cr 1.5. Pt here w/ septic shock f rom COVID-19 pna. Pt has VDRF and oligo-anuric renal failure 1. ERUM- likely ATN- u/a acidotic w/ 1+ ketones, 2+ blood -can check ck -check renal us -check urine lytes -pt has metabolic acidosis w/ resp compensation, hyperkalemia, and hypoxemia- her prognosis is very poor. this was discussed w/ Dr. Dumont who discussed this with family. Pt is now DNR. However, family understands the risks of dialysis and are willing to attempt HD. -surgery will place access -HD for 3 hrs, 2k, no fluid removal, QB 300, QD 500 -monitor vs pressers as needed renal dose meds poor prognosis discussed w/ RN and hospitalist Consult Attestations Medical Necessity Statement: erum, septic shock, covid-19 pna Time Spent in Patient Care: Greater than 35 minutes Procedures Arterial Line Size (Gauge): 18 Coding Level of Care Code Acute Marble Worker for Chg Eliot
[2020-06-19 18:20] LABS: Urine Appearance Clear (CLEAR); Urine Color Yellow (Yellow)
[2020-06-19 18:21] LABS: Add Urine Culture? Yes; Add Urine Microscopic? YES; Amorphous Sediment Urine 1+ /hpf; Bacteria Urine 2+ /hpf; Bilirubin Urine Neg (Negative); Blood Urine 2+ (Negative); Glucose Urine UA Norm (Normal); Ketones Urine 1+ (Negative); Leukocyte Esterase Urine Negative (Negative); Nitrate Urine Negative (Negative); Protein Urine Neg (Negative); Specific Gravity, Urine 1.025 (1.005-1.030); Squamous Epithelial Cell Urine 0-4 /hpf (0-5); Urobilinogen Urine Norm (Negative); WBC Urine 0-4 /hpf (0-5); pH Urine 5 (5-7)
[2020-06-19 18:22] LABS: Glucose Point of Care 156 mg/dL (70-110)
[2020-06-19 18:50] LABS: Blood Urea Nitrogen 83 mg/dL (8-23)
[2020-06-19 18:52] LABS: Troponin 5 6HR Delta -0.47 ng/L (0-12)
[2020-06-19 19:13] LABS: Creatine Phosphokinase 184 U/L (26-192)
[2020-06-19 19:24] LABS: Hepatitis B Surface AB 44.1 (0-8.5); Hepatitis B Surface Antigen Non-Reactive (Nonreactive); Hepatitis C Virus Antibody Non-Reactive (Nonreactive)
--- NOTE | 2020-06-19 19:29 | P.PCN_ITS ---
Procedure/Consent Procedure Narrative: Left Femoral line HD 11.5 Fr 16 cm Pre Procedure diagnosis; acute renal failure associated with sepsis and severe acidosis Postprocedure diagnoses the same Procedure done; placement of 11.5 Burkinan temporary dialysis catheter left femoral vein Indication acute renal failure under ultrasound guidance and all interpretation was done by me through the whole entire procedure. Medications were reviewed to assess for anticoagulant usage. Risks and benefits and prevention of central line associated blood stream infection (CLABSI) were discussed with the patient/CPOA, and a consent was obtained. Monitors were in place and monitored throughout the procedure. All necessary supplies were available prior to start. Hand hygiene was completed prior to starting. Maximum barrier technique was utilized including a sterile gown, sterile gloves with a hat and mask. Site was was prepped with [chlorhexidine] and a full body drape was placed. 5 mL of 2% lidocaine was injected into the skin with a 25 gauge needle. Description Pre-prep ultrasound was done shows patency of the left femoral vein without intraluminal thrombosis with my personal interpretation Local anesthetic in the form of 1% lidocaine infiltrated at the site of insertion of the catheter Prep& drape was done under the usual sterile technique of left groin area,ultrasound guidance left femoral vein stick showed retrieval of venous blood,then a guidewire was placed through the needle, the guidewire was secured to the drapes with a hemostat and the needle was taken out, 11 blade knife was used to create a skin incision at the site of insertion of the catheter followed by that serial dilators, yet there was some bending of the wire and I have to withdraw it and hold pressure for 10-minute and use a new kit with a new stick to the left femoral vein which again retrieved venous blood, followed by placement of the guidewire and serial dilators were placed the dilator was then taken out, guide wire maintained to be in good position and the hemodialysis catheter 11.5 Burkinan was introduced onto the guidewire, with venous and arterial hubs were flushed and retrieved venous blood without difficulty. Hep-Lock's were then applied Followed by 3-0 Nylon sutures were applied to secure the catheter to the marla ent's skin TYPE OF PLACEMENT: Temporary dialysis catheter Left femoral vein TUNNELED:(NO) IMAGING UTILIZED:~ [Ultrasound guided approach/and interpretation of images done by me through the procedure] Piano Case And Bench Assembler Caring Nurs ANESTHESIA: [Local lidocaine 1%], Estimated blood loss less than 10 ml No specimen Location VICU I was present for the whole entire procedure Acute Procedures Arterial Line: Size (Gauge): 18
[2020-06-19] MEDS: norepinephrine 8 MG in dextrose 5 % 500 ML 68.6 MG IV (19:33)
[2020-06-19 19:38] LABS: Glucose Point of Care 165 mg/dL (70-110)
[2020-06-19 20:31] LABS: Glucose Point of Care 163 mg/dL (70-110)
[2020-06-19] MEDS: atorvastatin 40 mg Tablet 20 MG PO (21:04)
--- NOTE | 2020-06-19 21:21 | PM.CONSULT ---
Providers/Reason For Consult Consulting Physican/Specialty*: Josue Edwards MD/ Pulmonary Critical Care Reason for Consult*: Acute hypoxic respiratory failure secondary to COVID-19 pneumonia complicated by left chest pneumothorax Requesting Mariocian: Olga Dumont Attending Physician: Olga Dumont History of Present Illness History of Present Illness Thomas Rain is a 69 year old female with past medical history of CAD, femoral bypass bilateral, CKD stage III, h/o breast cancer and metastatic ovarian cancer,, transferred from [facility]. Patient was intubated in the ER, noted to be hypothermic, hypotensive, bradycardic, hypocalcemic, metabolic acidosis. Left central line placed during admission to start pressors. Postprocedure chest x-ray showed large left pneumothorax for which 28 English chest tube placed. Pulmonary critical care consult called for management of critically ill patient including hemodynamics, vent management, metabolic acidosis Patient seen at bedside today morning Left chest tube connected to suction and air leak still noted Poor urine output since August insertion yesterday night < 150 mL over 12 hours Review of Systems General: Reports: ROS unobtainable due to endotracheal tube, ROS unobtainable due to medical condition and ROS unobtainable due to mental status Meds/Allergies Home Medications and Allergies Allergies Allergy/AdvReac Type Severity Reaction Status Date / Time No Known Allergies Allergy Verified 06/19/20 04:35 Current Medications Current Medications Generic Name Dose Route Start Last Admin Trade Name Freq PRN Reason Stop Dose Admin Albuterol/Ipratropium 3 ml 06/19/20 03:38 06/19/20 19:45 Ipratropium-Albuterol 3 Ml Neb INHALATION 3 ml Q6H PRN Administration SHORTNESS OF BREATH Aspirin 81 mg 06/19/20 09:00 06/19/20 09:04 Aspirin 81 Mg Ec Tablet PO 81 mg DAILY IGOR Administration Atorvastatin Calcium 20 mg 06/19/20 21:00 06/19/20 21:04 Atorvastatin 40 Mg Tablet PO 20 mg BEDTIME IGOR Administration Clopidogrel Bisulfate 75 mg 06/19/20 09:00 06/19/20 09:04 Clopidogrel 75 Mg Tablet PO 75 mg DAILY IGOR Administration Dopamine HCl/Dextrose 400 mg in 250 mls @ 9.525 mls/hr 06/19/20 01:00 06/19/20 21:17 Intropin Drip IV 5 mcg/kg/min CONT IGOR 9.5 mls/hr Titration Protocol 5 MCG/KG/MIN Fentanyl 1,000 mcg/ Sodium 100 mls @ 0 mls/hr 06/19/20 01:00 06/19/20 16:42 Chloride IV 100 mcg/hr .Q0M IGOR 10 mls/hr Administration Protocol Per Protocol Midazolam HCl 100 mg/ Sodium 100 mls @ 0 mls/hr 06/19/20 01:15 06/19/20 03:41 Chloride IV 1 mg/hr .Q0M IGOR 1 mls/hr Administration Protocol Per Protocol Vancomycin HCl 750 mg/ Sodium 250 mls @ 250 mls/hr 06/19/20 11:30 06/19/20 14:32 Chloride IV Infused Q48H IGOR Infusion Protocol Imipenem/Cilastatin Sodium 250 100 mls @ 200 mls/hr 06/19/20 11:00 06/19/20 12:15 mg/ Sodium Chloride IV Infused Q12H IGOR Infusion Protocol Insulin Human Regular 250 unit 252.5 mls @ 0 mls/hr 06/19/20 10:30 06/19/20 17:14 / Sodium Chloride IV 0 unit/hr .Q0M IGOR 0 mls/hr Titration Protocol Per Protocol Vasopressin 100 unit/ Sodium 100 mls @ 0 mls/hr 06/19/20 13:45 06/19/20 14:53 Chloride IV 0.04 unit/min .Q0M IGOR 2.4 mls/hr Administration Protocol Per Protocol Norepinephrine Bitartrate 8 mg 508 mls @ 0 mls/hr 06/19/20 15:45 06/19/20 21:16 / Dextrose IV 20 mcg/min .Q0M IGOR 76.2 mls/hr Titration Protocol Per Protocol Insulin Aspart 0 unit 06/19/20 08:00 06/19/20 21:05 Insulin Aspart 100 Unit/1 Ml SUBCUT Not Given WM&BEDTIME IGOR Protocol Senna/Docusate Sodium 1 tab 06/19/20 09:00 06/19/20 09:04 Sennosides-Docusate Tablet PO 1 tab DAILY IGOR Administration PFSH Acute PFSH: Medical History Breast cancer, left Coronary atherosclerosis GERD (gastroesophageal reflux disease) Hyperlipidemia Hypertensive disorder Myocardial infarction Ovarian cancer Disseminated Surgical History H/O abdominal hysterectomy H/O heart artery stent S/P femoral-femoral bypass surgery Bilateral femoral bypass S/P lumpectomy of breast Family History Other Unknown family medical history Social History Smoking and tobacco status: former smoker Alcohol intake: never Substance/Drug Use: never Household members: family Housing: House Vitals/I&O/Wt Last Vital Signs Temp 98.7 F 06/19/20 16:00 Pulse 68 06/19/20 21:06 Resp 18 06/19/20 21:06 BP 121/59 06/19/20 18:25 Pulse Ox 98 06/19/20 21:06 06/19/20 06/19/20 06/19/20 06:59 14:59 22:59 Intake Total 168.435 / 168.435 929.503 / 929.503 420.907 / 1350.410 Output Total 240 / 240 220 / 220 10 / 230 Balance -71.565 / -71.565 709.503 / 709.503 410.907 / 1120.410 Weight last 48 hrs Weight 112 lb Weight 112 lb Physical Exam Narrative: EXAM NARRATIVE: PHYSICAL EXAM: General: lying in bed, sedated and intubated. HEENT:NCAT, PERRLA, EOMI Neck: Supple Lungs: Bibasilar crepitations Heart: s1/s2, RRR Abd: soft, NT, ND, BS + Normoactive Extremities: 1+ pedal edema DONOR SERVICES TECHNICIAN: sedated and limited DONOR SERVICES TECHNICIAN exam possible. SKIN: no rash LDA: # CVC: Left IJ 06/18/2020 # HD Cath : Left femoral HD 06/19/2020 # August: 06/18/2020 # A line: Right radial 06/18/2020 # Chest tubes: 42 English left chest tube 06/19 Data Micro: Micro: Microbiology 06/19/20 11:13 Blood Culture - Pr eliminary Blood SPECIMEN [facility] MARISOL 06/19/20 11:02 Blood Culture - Pr eliminary Blood SPECIMEN [facility] MAR[facility]OL 06/19/20 04:30 Gram Stain - Final Sputum - Endotrac heal Tube Aspirate Other Data: Other data: Reviewed labs, imaging, other investigations in [facility] A&P Assessment and plan (1) COVID-19: Status: Acute (2) New onset of congestive heart failure: Status: Acute (3) Acute respiratory failure with hypoxia: Status: Acute (4) Acute kidney injury superimposed on chronic kidney disease: Status: Acute (5) Metabolic acidosis: Status: Acute (6) Septic shock: Status: Acute 69-year-old female with metastatic ovarian cancer, CKD, admitted to viral ICU for acute hypoxic respiratory failure secondary to COVID-19 pneumonia, septic shock due to unspecified organism requiring 3 pressors, leading to acute renal failure on top of chronic kidney disease. NEURO: #Altered mental status secondary to sedation #Cannot rule out hypoxic encephalopathy due to hypoperfusion -Currently on fentanyl 100/Versed 1 PULM: #Acute hypoxic respiratory failure secondary to ARDS due to COVID pna cannot rule out coexisting bacterial infection #Left pneumothorax -Intubated on 06/18/2020 -ABG On CMV TV 380/FiO2 80 %/RR 18/PEEP 8-7.2 08/18//11/92% -Post central line placement chest x-ray showed today morning showed left pneumothorax -Post left chest tube chest x-ray showed Left-sided chest tube position in the upper medial left pleural cavity. The left lung is almost completely expanded with very small left upper lobe pneumothorax. Diffuse interstitial infiltrates throughout both lungs. -Recommended to maintain PEEP less than 8 to avoid high positive pressures and increased FiO2 if required for oxygenation -Small air leak noted in the chamber under suction. -When no air leak is noted then recommended to turn off suction and clamp chest tube. Repeat x-ray after 6 to 8 hours to see for any recurrence of pneumothorax. If no pneumothorax seen after 12 hours of clamping then can take out the chest tube. If there is recurrence of pneumothorax then unclamp and connect to suction again and increased FiO2 100%. -Increased inflammatory markers D-dimer, LDH, CRP, and repeat every 2 days to trend markers of inflammation Cannot give remdesivir due to impaired renal function -On vancomycin, imipenem; Follow-up final cultures and adjust antibiotics CVS: -Septic shock likely secondary to sepsis -Elevated troponins can be secondary to renal failure and demand ischemia -Currently on Levophed 15 (can go up to 30 max dose), vasopressin 0.04 and on dopamine 12 -Please maintain MAP > 65 -Monitor blood pressure and taper of pressors as feasible -BNP is 7933, Echo ejection fraction 50 to 55% impaired diastolic function -Held aspirin and Plavix (history of CAD) held in view of bleeding from ET tube yesterday -On Lipitor GI: -N.p.o. -On senna 1 tab p.o. daily -Start PPI daily for GI prophylaxis > 48 hours of mechanical ventilation -LFTs normal today morning-likely to worsen in the next couple of days due to hypoperfusion please monitor LFTs RENAL: #Acute on chronic CKD -worsened due to hypoperfusion secondary to septic shock -Worsening renal functions -K5.8-patient on insulin drip and repeat potassium 5 -Severe metabolic acidosis based on pH and bicarb and significantly decreased urine output since admission -no response to Lasix 40 -Nephrology consulted and recommended sled and family agreed -Start the replaced left femoral hemodialysis catheter today evening -Continue august cath for input output monitoring -Avoid nephrotoxins -Monitor BUN/creatinine and electrolytes and supplement accordingly if clinically indicated -Nephrology to follow-up HEM: #History of? Disseminated ovarian cancer and breast cancer H&H stable Plts stable,will trend DVT prophylaxis: Held as patient has bloody secretions from the ET tube ENDO: -Uncontrolled sugars frequently more than 300 -Currently on IV insulin-monitor sugars every hour -Monitor potassium supplement on hold IV insulin if potassium less than 3.3 ID: #Septic shock secondary to COVID pna and possible coexisting bacterial infection -WBC 14 K> 15 K -hypothermia on admission 94.6 and hypotension requiring 3 pressors -Covered with vancomycin, imipenem -Procalcitonin 16 and lactic acid 1.7 -Follow-up final sputum and blood cultures - send urine culture Prognosis: Extremely critical Disposition: Remains in ICU Code: DNR Plan of care and recommendations conveyed to Dr. Dumont hospitalist on the case, RN and RT ICU CHECKLIST: Problem list updated Verbal orders reviewed and signed Analgesia: Fentanyl Glycemic Control: IV insulin Nutrition: N.p.o. Restraint Renewal (within 24 hrs): Yes Ulcer Prophylaxis:PPI not yet Chemical Thromboprophylaxis: Prophylaxis: Held in view of bleeding ET tube Mechanical Thromboprophylaxis: Yes Need for Central line: Yes requiring any infusions sedation and pressors Need for August catheter: Yes for urine output monitoring Critical Care Time (No Overlap): 45 min This patient has a high probability of sudden, clinically significant deterioration, which requires the highest level of physician preparedness to intervene urgently. I managed/supervised life or organ supporting interventions that required frequent physician assessment. I devoted my full attention in the ICU to the direct care of this patient for the period of time indicated above. Time I spent with family or surrogate(s) is included only if the patient was incapable of providing necessary information or participating in decision making. Time devoted to teaching and to any procedures I billed separately is not included. Services Provided: Telemetry review Mechanical Ventilation Hemodynamic interpretation, assessment and management Review and interpretation of CXR Review and interpretation of lab values Review and interpretation of microbiologic data and culture results Review of medications and administration Review and interpretation of Nutrition requirements and management Discussion of management with other consultants and services Clinical update to family members Consult Attestations Medical Necessity Statement: acute hypoxic respiratory failure secondary to COVID-19 pneumonia, septic shock due to unspecified organism requiring 3 pressors, leading to acute renal failure requiring dialysis complicated by left pneumothorax. Patient is extremely critical requiring close hemodynamic monitoring and ventilator management along with slow dialysis while on 3 pressors and IV insulin for management of sugars. Time Spent in Patient Care: Greater than 35 minutes (>than 50% of time spent in counselling and/or direct pt care on unit). Critical Care Time: Critical Care Time (min): 60 Procedures Arterial Line Size (Gauge): 18 Coding Level of Care Code New Pt Acute Yeast Maker for Chg Fwd Patient Type New History Comprehensive Exam Comprehensive Medical Decision Making High Complexity Diagnoses COVID-19 U07.1 New onset of congestive heart failure I50.9 Acute respiratory failure with hypoxia J96.01 Acute kidney injury superimposed on chronic kidney disease N17.9; N18.9 Metabolic acidosis E87.2 Septic shock A41.9; R65.21 Time Spent (min) 60
[2020-06-19 21:32] LABS: Glucose Point of Care 146 mg/dL (70-110)
--- NOTE | 2020-06-19 21:50 | PC.NURSE ---
0 -- Received bedside report form BELINDA Rodriguez. Dr. Woods at bedside placing Dual luman Dialysis cath. V/S stable with levophed, vasopressin, and dopamine infusing. Resp unlabored to vent. L Pleural Chest tube noted to have a + air leak with respirations. 1999 -- Left femoral dual lumen dialysis cath placed per Dr. woods using sterile technique. Cleaned with chlorhexadine and sterile dressing placed over site. 2043 -- Consent obtained from patients daughter Argelia Rasmussen for Hemodialysis to be performed. 2099 -- Hemodialysis started.
[2020-06-19 22:13] LABS: Potassium, Radom Urine 38 mmol/L; Urine Random Chloride 74 mmol/L; Urine Random Sodium 63 mmol/L
--- NOTE | 2020-06-19 22:24 | PC.NURSE ---
2130 -- Core temp 96.3, warming blanket placed back on patient.
[2020-06-19 22:31] LABS: Glucose Point of Care 140 mg/dL (70-110)
[2020-06-19] MEDS: famotidine 20 mg/2 mL INJ 40 MG IVP (23:48)
[2020-06-19 23:57] LABS: Glucose Point of Care 146 mg/dL (70-110)
[2020-06-20] VITALS (110 sets, daily range): BP systolic 92–142; BP diastolic 46–66; PULSE 61–78; RESP 18–21; TEMP 36.1–37.1; O2SAT 89–98
[2020-06-20 00:44] LABS: Glucose Point of Care 196 mg/dL (70-110)
[2020-06-20] MEDS: ipratropium-albuterol 3 mL Neb INHALATION ×4 (02:01→20:19)
[2020-06-20 02:06] LABS: Glucose Point of Care 208 mg/dL (70-110)
--- NOTE | 2020-06-20 02:57 | PC.NURSE ---
0210 - Family here to see patient. Instructed family on donning full PPE. Full PPE donned. Informed family that they would be entering the viral unit which has Covid + patients and that they are doing this at their own risk. Family understands. Daughter Argelia and her to bedside.
[2020-06-20] MEDS: lanolin oint 7 gm 1 APPLIC TOPICAL (03:07)
[2020-06-20 03:20] LABS: Glucose Point of Care 219 mg/dL (70-110)
[2020-06-20 03:53] LABS: ABG PCO2 28.1 mmHg (35-45); ABG PH Result 7.43 (7.35-7.45); Arterial Blood Gas Hematocrit 23.3 % (37-47); Blood Gas Allen Test Pos; Blood Gas Sample Type Arterial; HCO3 ABG 18.6 mmol/L (22-26); PO2 ABG 71.2 mmHg (80.0-100.0)
[2020-06-20 04:00] LABS: Blood Gas Sample Site Not specified; Blood Gas Tidal Volume 0.38; Oxygen Device VENT
[2020-06-20 04:09] LABS: Basophils % 0.1 %; Hemoglobin 7.1 g/dL (11.5-15.3); Lymphocytes # 0.8 10^3/uL (0.8-4.8); Lymphocytes % 4.4 %; Mean Corpuscular HGB Conc 34.1 g/dL (30.0-36.0); Mean Corpuscular Hemoglobin 25.4 pg (28.0-34.0); Mean Corpuscular Volume 74.6 fL (81-99); Mean Platelet Volume 9.8 fL (7.4-10.4); Monocytes # 0.2 10^3/uL (0.2-0.9); Monocytes % 1.4 %; Neutrophils # 15.68 10^3/uL (1.8-7.7); Neutrophils % 92.8 %; Nucleated Red Blood Cells # 0.1 /100WBC; Nucleated Red Blood Cells % 0.3 %; Platelet Count 354 10^3/cmm (130-400); Red Blood Count 2.79 10^6/uL (4.1-5.3); Red Cell Distribution Width 14.6 % (12.1-15.1); White Blood Count 16.9 10^3/uL (4.0-10.0)
[2020-06-20 04:20] LABS: Glucose Point of Care 208 mg/dL (70-110)
[2020-06-20 04:27] LABS: Lactate (Lactic Acid level) 1.5 mmol/L (0.5-2.2)
[2020-06-20 04:36] LABS: C Reactive Protein 136.6 mg/L (0.0-4.9)
[2020-06-20 04:37] LABS: Procalcitonin 15.48 ng/mL (0-0.5)
[2020-06-20] MEDS: norepinephrine 8 MG in dextrose 5 % 500 ML 45.7 MG IV (04:39)
[2020-06-20 04:44] LABS: Calcium 7.6 mg/dL (8.5-10.5); Parathyroid Hormone 228.7 pg/mL (15-65)
[2020-06-20 04:48] LABS: Alanine Aminotransferase 10 U/L (0-33); Albumin Level 2.2 g/dL (3.5-5.2); Alkaline Phosphatase 69 IU/L (35-105); Anion Gap 17.2 (5-19); Aspartate Amino Transferase 27 U/L (0-32); Blood Urea Nitrogen 54 mg/dL (8-23); Calcium 7.5 mg/dL (8.5-10.5); Carbon Dioxide 18 mmol/L (22-29); Chloride 105 mmol/L (98-107); Globulin 2.6 g/dL (1.3-4.6); Glucose 214 mg/dL (65-115); Osmolality Calculated 303 mOsm/kg (285-295); Phosphorus 4.1 mg/dL (2.5-4.5); Potassium 4.2 mmol/L (3.5-5.1); Sodium 136 mmol/L (136-145); Total Bilirubin 0.2 mg/dL (0.15-1.2); Total Protein 4.8 g/dL (6.6-8.7)
[2020-06-20 05:14] LABS: Glucose Point of Care 210 mg/dL (70-110)
[2020-06-20 05:21] LABS: Ferritin 1235 ng/mL (15-150)
[2020-06-20 05:46] LABS: Hematocrit 20.8 % (37.0-47.0)
[2020-06-20 06:04] LABS: Glucose Point of Care 201 mg/dL (70-110)
--- NOTE | 2020-06-20 06:32 | PM.PN ---
Subjective Subjective: Interval history: intubated, sedated Medications: Reviewed: Yes Medication Review Details: Current Medications Albuterol/Ipratropium (Ipratropium-Albuterol 3 Ml Neb) 3 ml INHALATION Q6H PRN PRN Reason: SHORTNESS OF BREATH Last Admin: 06/20/20 02:01 Dose: 3 ml Documented by: Aspirin (Aspirin 81 Mg Ec Tablet) 81 mg PO DAILY IGOR Last Admin: 06/19/20 09:04 Dose: 81 mg Documented by: Atorvastatin Calcium (Atorvastatin 40 Mg Tablet) 20 mg PO BEDTIME IGOR Last Admin: 06/19/20 21:04 Dose: 20 mg Documented by: Clopidogrel Bisulfate (Clopidogrel 75 Mg Tablet) 75 mg PO DAILY IGOR Last Admin: 06/19/20 09:04 Dose: 75 mg Documented by: Dextrose (Dextrose 50% Syringe 50 Ml) 25 ml IVP ONCE PRN; Protocol PRN Reason: hypoglycemia protocol Dextrose (Dextrose 50% Syringe 50 Ml) 50 ml IVP PRN PRN; Protocol PRN Reason: hypoglycemia protocol Famotidine (Famotidine 20 Mg/2 Ml Inj) 40 mg IVP Q12H IGOR Last Admin: 06/19/20 23:48 Dose: 40 mg Documented by: Glucagon (Glucagon 1 Mg/Ml Inj 1 Ml) 1 mg IM ONCE PRN; Protocol PRN Reason: Adult Acute Hypoglycemia Prot. Dopamine HCl/Dextrose (Intropin Drip) 400 mg in 250 mls @ 9.525 mls/hr IV CONT IGOR; Protocol Last Titration: 06/20/20 00:12 Dose: 0 mcg/kg/min, 0 mls/hr Documented by: Fentanyl 1,000 mcg/ Sodium (Chloride) 100 mls @ 0 mls/hr IV .Q0M IGOR; Protocol Last Titration: 06/20/20 04:39 Dose: 50 mcg/hr, 5 mls/hr Documented by: Midazolam HCl 100 mg/ Sodium (Chloride) 100 mls @ 0 mls/hr IV .Q0M IGOR; Protocol Last Admin: 06/19/20 03:41 Dose: 1 mg/hr, 1 mls/hr Documented by: Dextrose (D5w) 500 mls @ 100 mls/hr IV ONCE PRN; Protocol PRN Reason: Adult Acute Hypoglycemia Prot Vancomycin HCl 750 mg/ Sodium (Chloride) 250 mls @ 250 mls/hr IV Q48H IGOR; Protocol Last Infusion: 06/19/20 14:32 Dose: Infused Documented by: Imipenem/Cilastatin Sodium 250 (mg/ Sodium Chloride) 100 mls @ 200 mls/hr IV Q12H IGOR; Protocol Last Infusion: 06/20/20 00:40 Dose: Infused Documented by: Insulin Human Regular 250 unit (/ Sodium Chloride) 252.5 mls @ 0 mls/hr IV .Q0M IGOR; Protocol Last Titration: 06/20/20 05:11 Dose: 5 unit/hr, 5.1 mls/hr Documented by: Vasopressin 100 unit/ Sodium (Chloride) 100 mls @ 0 mls/hr IV .Q0M IGOR; Protocol Last Admin: 06/19/20 14:53 Dose: 0.04 unit/min, 2.4 mls/hr Documented by: Norepinephrine Bitartrate 8 mg (/ Dextrose) 508 mls @ 0 mls/hr IV .Q0M IGOR; Protocol Last Admin: 06/20/20 04:39 Dose: 12 mcg/min, 45.7 mls/hr Documented by: Albumin Human (Albumin) 12.5 gm in 50 mls @ 60 mls/hr IV PRN PRN PRN Reason: Hypotension and/or symptomatic Insulin Aspart (Insulin Aspart 100 Unit/1 Ml) 0 unit SUBCUT WM&BEDTIME [facility]; Protocol Last Admin: 06/19/20 21:05 Dose: Not Given Documented by: Lanolin (Lanolin Oint 7 Gm) 1 applic TOPICAL PRN PRN PRN Reason: DRYNESS Last Admin: 06/20/20 03:07 Dose: 1 applic Documented by: Senna/Docusate Sodium (Sennosides-Docusate Tablet) 1 tab PO DAILY [facility] Last Admin: 06/19/20 09:04 Dose: 1 tab Documented by: Vitals/I&O/Wt Last Vital Signs Temp 97.7 F 06/20/20 06:00 Pulse 66 06/20/20 06:15 Resp 21 H 06/20/20 06:00 BP 100/52 06/20/20 06:15 Pulse Ox 97 06/20/20 06:15 06/19/20 06/19/20 06/20/20 14:59 22:59 06:59 Intake Total 929.503 / 929.503 503.907 / 1433.410 600.270 / 2033.680 Output Total 220 / 220 30 / 250 190 / 440 Balance 709.503 / 709.503 473.907 / 1183.410 410.270 / 1593.680 Weight last 48 hrs Weight 52.617 kg Weight 50.802 kg Weight 50.802 kg Physical Exam Narrative: EXAM NARRATIVE: intubated, fio2=70%, TV 380, PEEP 8, RR18 pressers norepi 12, dopamine off, vasopressin 0.04 heent- nca/t lungs ronchi and crackles left sided chest tube w/ air leak heart reg abd soft ext edemadec rt femral catrachito neuro- sedated exam by ENVIRONMENTAL ENGINEER SCIENTIST Data : 06/20/20 03:52 06/20/20 03:52 Micro: Microbiology 06/19/20 11:13 Blood Culture - Preliminary Blood SPECIMEN COLLECTED 06/19/20 11:02 Blood Culture - Preliminary Blood SPECIMEN COLLECTED 06/19/20 04:30 Gram Stain - Final Sputum - Endotracheal Tube Aspirate A&P Additional A&P Information 69 yr old female CAD, PVD, CKD stage 3- b/l cr 1.5. Pt here w/ septic shock from COVID-19 pna. Pt has VDRF and oligo-anuric renal failure 1. ERUM- likely ATN- u/a acidotic w/ 1+ ketones, 2+ blood -can check ck doubt rhabdo - normal lfts -check renal us - urine lytes noted- ur na 63- c/w ATN s/p HD last night and improved acidosis ph 7.43- w/ resp alkalosis from vent k 4.2 -surgery- Dr. Woods placed rt femoral access -will give lasix -repeat labs at noon to assess for further HD needs -or if pulm feels that they need fluids removed. -pt had clots w/ HD- a/c per pulm/ medicine 2. met acidosis improved w/ HD 3. leukocytosis- renal dose abx 4. anemia- w/u per medicine. consider 1-2 u prbc tx 5. dm control 6. s/p chest tube for pneumothorax 7. renal dose meds poor prognosis discussed w/ RN and hospitalist Attestations Medical Necessity Statement*: erum, vdrf, covid-19 SARS, anemia Time Spent in Patient Care: Greater than 35 minutes Procedures Arterial Line Size (Gauge): 18 Coding Level of Care Code Acute [employer] for Ezra Mccabe
[2020-06-20 06:57] LABS: Glucose Point of Care 178 mg/dL (70-110)
[2020-06-20] MEDS: FUROsemide 10 mg/mL SDV 4mL 60 MG IVP ×2 (07:39→18:12)
[2020-06-20 08:23] LABS: Glucose Point of Care 142 mg/dL (70-110)
[2020-06-20] MEDS: sennosides-docusate Tablet 1 TAB PO (08:26)
[2020-06-20 09:19] LABS: Glucose Point of Care 126 mg/dL (70-110)
[2020-06-20 10:02] LABS: Glucose Point of Care 141 mg/dL (70-110)
[2020-06-20] MEDS: famotidine 20 mg/2 mL INJ 40 MG IVP ×2 (10:16→23:38)
[2020-06-20 11:09] LABS: Glucose Point of Care 150 mg/dL (70-110)
[2020-06-20 12:57] LABS: Glucose Point of Care 191 mg/dL (70-110)
[2020-06-20 12:58] LABS: Glucose Point of Care 159 mg/dL (70-110)
[2020-06-20 13:07] LABS: Anion Gap 17.5 (5-19); Blood Urea Nitrogen 58 mg/dL (8-23); Calcium 7.4 mg/dL (8.5-10.5); Carbon Dioxide 18 mmol/L (22-29); Chloride 106 mmol/L (98-107); Glomerular Filtration Rate 15.7 mL/min (90-130); Glucose 169 mg/dL (65-115); Osmolality Calculated 304 mOsm/kg (285-295); Potassium 4.5 mmol/L (3.5-5.1); Sodium 137 mmol/L (136-145)
[2020-06-20 13:12] LABS: Creatine Phosphokinase 393 U/L (26-192)
[2020-06-20 14:29] LABS: Glucose Point of Care 205 mg/dL (70-110)
--- NOTE | 2020-06-20 14:54 | PM.PN ---
Subjective Subjective: Interval history: 69-year-old female with past medical history significant for breast cancer completed chemotherapy 2 years prior, coronary artery disease with history of CABG, gastroesophageal reflux disease, hypertension, hyperlipidemia, peripheral vascular disease with prior bilateral femoral bypass and chronic kidney disease with a baseline creatinine around 1.[address] [facility] in [place] with respiratory distress. this was associated with fever and generalized weakness. The symptoms have been progressing for about 4 days prior. While in emergency room a rapid COVID 19 antigen was checked and found to be positive. PCR was sent however this is still pending. Initially she was noted to have hypoxia with O2 saturation of 83% while on 5 L of O2. This was transitioned to non-rebreather however ventrally patient was intubated and placed on mechanical ventilation. She was initially started on propofol however due to bradycardia this was transition to fentanyl drip. Prior to that she was given atropine. Patient was then airlifted to [facility] for further care. Upon arrival to be ICU patient had repeat laboratory workup performed. WBC of 14.4, hemoglobin of 8.3, hematocrit of 26.6 and a platelet count of 378. sodium 138, potassium 5.8, chloride 108, bicarb 12, BUN 73 and creatinine of 4.1. Glucose of 317. Calcium 8.6. LDH 342. C reactive protein of 216. troponin delta of -1.23. Procalcitonin was elevated at 16.44. TSH of 0.22. Noted to be hypotensive and bradycardic on initial evaluation. She was started on Levophed and dopamine drip. Arterial line was placed . Subsequently a central line was placed. Chest x-ray performed for line placement assessment noted left-sided pneumothorax For which a chest tube was placed and noted to be in position in the upper left pleural cavity. Appeared to be in sepsis with shock for which she required up to 3 pressors including levofed,vasopressin and dopamine to maintain MAP > 65. Patient was started on broad-spectrum antibiotics including vancomycin and Primaxin 500 mg IV q.6 hours. Blood cultures were taken. Sputum culture was also taken. Pulmonary Medicine was consulted. Patient was found to be oliguria. No improvement in urine out put after lasix 40 mg IV x 1 challenge. Nephrology was consulted. Femoral HD catheter was placed by surgery and with consent from family she was imitated on dialysis. Multiple discussions with family included daughter and step daughter regarding poor prognosis. Code status was discussed and at family request was changed to D.N.R status with limited interventions. Ok to continue vent, hd, pressors, icu care, shock if needed however no resuscitation in the event of cardiac arrest. On day 2 of hospitalization patients overall condition remained critical however stabilized. She was weaned off dopamine after which she maintained normal sinus rhythm and vasopressin. Continued to levophed. Repeat chest x-ray showed bilateral pulmonary infiltrates slightly increased since prior. Right-sided pleural effusion. Left-sided chest tube in place and ET tube in satisfactory position. Medications: Reviewed: Yes Vitals/I&O/Wt Last Vital Signs Temp 98.8 F 06/20/20 12:00 Pulse 70 06/20/20 14:15 Resp 18 06/20/20 14:02 BP 97/47 06/20/20 14:15 Pulse Ox 90 06/20/20 14:15 06/19/20 06/20/20 06/20/20 22:59 06:59 14:59 Intake Total 503.907 / 1433.410 604.895 / 2038.305 944.133 / 944.133 Output Total 30 / 250 190 / 440 Balance 473.907 / 1183.410 414.895 / 1598.305 924.133 / 924.133 Weight last 48 hrs Weight 52.617 kg Weight 50.802 kg Weight 50.802 kg Physical Exam Narrative: EXAM NARRATIVE: General- sedated on mechanical ventilation HEENT-ET tube in place Chest -Nonlabored respiration, on vent CVS- Normal sinus rhythm Abdomen -Nondistended Extremities-No edema Lines- Left IJ, right femoral dialysis, Santoyo, ET tube Data : 06/20/20 03:52 06/20/20 11:45 Micro: Microbiology 06/19/20 11:02 Blood Culture - Preliminary Blood NEGATIVE TO DATE 06/19/20 11:13 Blood Culture - Preliminary Blood NEGATIVE TO DATE 06/19/20 04:30 Gram Stain - Final Sputum - Endotracheal Tube Aspirate Sputum Culture - Preliminary A&P Assessment and plan (1) Septic shock: Status: Acute (2) COVID-19: Status: Acute (3) Hyperkalemia: Status: Acute (4) Acute kidney injury superimposed on chronic kidney disease: Status: Acute (5) Metabolic acidosis: Status: Acute (6) Acute respiratory failure with hypoxia: Status: Acute Acute hypoxic respiratory failure - Etiology multifactorial - COVID-19 pneumonia, pneumothorax status post chest tube, superimposed bacterial pneumonia suspected - Vent settings- CMV, tidal volume 380, respiratory rate 18, PIP 25, I-time 1:2, peep of 8 with FiO2 at 60% - Patients actual RR 18, minute ventilation 6.8, lung compliance 20 and airway resistance 16. - Follow-up on repeat ABGs from above vent settings - Chest x-ray - bilateral pulmonary infiltrates slightly increased, left-sided chest tube in place, ET tube in satisfactory position. - Continue to wean Fio2 - Continue chest tube management - Repeat ABG/Chest x-ray in am COVID-19 pneumonia - Will initiate Decadron 6 mg IV daily - Will hold of on Remdesivir ( based on new guidelines - no added benefit ) - Ferritin 1235, LDH 342, Pro-moe as below - Droplet precautions Suspected superimposed Bacterial Pneumonia - Procalcitonin 16.44 -> 15.48 - Empirically started on Vancomycin pharmacy to dose - Primixin 250 mg IV q12 hr - Renal dosing of meds - 06/19- Blood culture x 2 - NGTD - 06/19 -Sputum culture - negative to date - Continue to trend pro-moe Acute kidney injury / ATN on CKD stage 3 - Creatinine baseline 1.4 - Cr. 4.1 -> 3.5 - Nephrology consulted - Femoral HD catheter placed - HD on 06/19 - next session per nephro - K.5.8 -> 4.5 - CK -> 393 - Lasix 60 mg IV x 1 again today - Minimal urine output - Santoyo in place Diabetes Mellitus with hyperglycemia / DKA on arrival - AG metabolic acidosis - Multi-factorial component of acidosis - Was started on Insulin ggt - Goal Blood sugar 140-180 - Q1hr BS checks Acute anemia - Multifactorial - Acute blood loss from CT in setting of renal disease - Hb 8.3 - > 7.1 - Will transfuse 1 unit of PRBC with HD - Epo per HD - Will d/w nephrology - Holding heparin/asa/plavix for dvt ppx due to worsening anemia Coronary artery disease s/p CABG / PVD s/p b/l femoral bypass / Hypertension - Holding aspirin 81 mg PO daily and Plavix 75 mg PO daily - Will resume once hemoglobin stabilizes - ECHO - pEF - Continue Lipitor 20 mg PO daily - Monitor on tele Hx of Breast cancer - S/P chemo > 2 year prior - No new recommendation FEN - Tube feeding - Dietary consulted - Pulmcal 1.2 at 20ml/hr - Will increase to goal based on residuals and recs GI ppx - Pepcid 20 mg IV daily DVT ppx - SCDSs only due to anemia Condition: Critical Prognosis : Poor Attestations Medical Necessity Statement*: Require further hospitalization for management of COVID-19 related respiratory failure requiring mechanical ventilation, shock requiring pressor support renal failure requiring dialysis. Time Spent in Patient Care: Greater than 35 minutes (>than 50% of time spent in counselling and/or direct pt care on unit). Critical Care Time: Critical Care Time (min): 65 Procedures Arterial Line Size (Gauge): 18 Coding Level of Care Code Acute Director Regulatory Affairs for Chg Fwd Diagnoses Septic shock A41.9; R65.21 COVID-19 U07.1 Hyperkalemia E87.5 Acute kidney injury superimposed on chronic kidney disease N17.9; N18.9 Metabolic acidosis E87.2 Acute respiratory failure with hypoxia J96.01
[2020-06-20 15:16] LABS: Glucose Point of Care 192 mg/dL (70-110)
[2020-06-20] MEDS: dexamethasone 4 mg/mL INJ 6 MG IVP (15:58)
[2020-06-20 16:09] LABS: Glucose Point of Care 203 mg/dL (70-110)
[2020-06-20 17:41] LABS: Glucose Point of Care 156 mg/dL (70-110)
[2020-06-20 18:11] LABS: Glucose Point of Care 156 mg/dL (70-110)
[2020-06-20 18:49] LABS: Glucose Point of Care 140 mg/dL (70-110)
[2020-06-20] MEDS: norepinephrine 8 MG in dextrose 5 % 500 ML 38.1 MG IV (20:19)
[2020-06-20 20:23] LABS: Glucose Point of Care 188 mg/dL (70-110)
--- NOTE | 2020-06-20 20:57 | PC.NURSE ---
Received in report that instructions to titrate insulin gtt are to titrate per nursing judgment. Also was informed that the insulin gtt was for metabolic acidosis et hyperkalemia not for hyperglycemia or DKA. Insulin gtt was off when RN assumed care. 2000 BG within target glucose range. To seek clarification on management, notified Dr. Mccord for further instructions. Notified Dr. Mccord of patient's ABG, K+ level, anion gap levels, etc. Order to discontinue insulin gtt given. Will continue to monitor.
[2020-06-20] MEDS: atorvastatin 40 mg Tablet 20 MG PO (21:36)
[2020-06-21] VITALS (106 sets, daily range): BP systolic 77–143; BP diastolic 33–73; PULSE 58–104; RESP 0–20; TEMP 36.2–37.4; O2SAT 86–98
[2020-06-21 00:32] LABS: Glucose Point of Care 227 mg/dL (70-110)
[2020-06-21] MEDS: ipratropium-albuterol 3 mL Neb INHALATION ×2 (02:00→08:44)
[2020-06-21 04:52] LABS: Basophils % 0.1 %; Hematocrit 25.6 % (37.0-47.0); Hemoglobin 8.9 g/dL (11.5-15.3); Lymphocytes # 0.7 10^3/uL (0.8-4.8); Lymphocytes % 4.2 %; Mean Corpuscular HGB Conc 34.8 g/dL (30.0-36.0); Mean Corpuscular Hemoglobin 27.1 pg (28.0-34.0); Mean Platelet Volume 9.4 fL (7.4-10.4); Monocytes # 0.5 10^3/uL (0.2-0.9); Monocytes % 2.9 %; Neutrophils # 13.98 10^3/uL (1.8-7.7); Neutrophils % 91.2 %; Nucleated Red Blood Cells # 0.1 /100WBC; Nucleated Red Blood Cells % 0.5 %; Platelet Count 276 10^3/cmm (130-400); Red Blood Count 3.28 10^6/uL (4.1-5.3); Red Cell Distribution Width 16.5 % (12.1-15.1); White Blood Count 15.3 10^3/uL (4.0-10.0)
--- NOTE | 2020-06-21 05:00 | XR_ITS ---
WS: [id number] Exam: XR chest 1V portable [id number] Date/Time of Exam: 06/21/2020 7:16 AM Reason For Exam: Intubation Comparison 06/19/2020. Bilateral pulmonary infiltrates show minimal improvement since prior study. The lungs are fully infla charleen. No pleural effusions noted. Heart size is normal. The mediastinum is not widened. An ET tube rem ains in good position ending about 4 cm above the rylan. Left IJ catheter ends at the cavoatrial hayes ction. An NG tube enters the stomach but the tip is out of the colna-vg-kofl. Left-sided chest tube r emains in place unchanged. No pneumothorax is noted XR/XR chest 1V portable [id number] IMPRESSION: 1. Diffuse bilateral infiltrates show some improvement since previous exam. No other change.
[2020-06-21 06:22] LABS: Alanine Aminotransferase 10 U/L (0-33); Albumin Level 2.2 g/dL (3.5-5.2); Alkaline Phosphatase 67 IU/L (35-105); Aspartate Amino Transferase 28 U/L (0-32); Blood Urea Nitrogen 67 mg/dL (8-23); Calcium 7.4 mg/dL (8.5-10.5); Carbon Dioxide 17 mmol/L (22-29); Globulin 2.7 g/dL (1.3-4.6); Glomerular Filtration Rate 12.7 mL/min (90-130); Glucose 189 mg/dL (65-115); Phosphorus 4.5 mg/dL (2.5-4.5); Total Bilirubin 0.4 mg/dL (0.15-1.2); Total Protein 4.9 g/dL (6.6-8.7)
[2020-06-21] MEDS: FUROsemide 10 mg/mL SDV 4mL 60 MG IVP ×2 (06:22→21:18)
[2020-06-21 06:56] LABS: Anion Gap 18.1 (5-19); Chloride 102 mmol/L (98-107); Osmolality Calculated 300 mOsm/kg (285-295); Potassium 4.1 mmol/L (3.5-5.1); Sodium 133 mmol/L (136-145)
--- NOTE | 2020-06-21 07:00 | PC.NURSE ---
Vassopressin infusing at 0.02 units/min upon shift change.
[2020-06-21 08:45] LABS: Glucose Point of Care 182 mg/dL (70-110)
[2020-06-21] MEDS: famotidine 20 mg/2 mL INJ 40 MG IVP ×2 (10:15→23:24)
[2020-06-21] MEDS: sodium chloride 0.9% (100 ml) 100 ML (10:15)
[2020-06-21] MEDS: vancomycin 750 MG in sodium chloride 0.9% 250 ML 250 MG IV (11:08)
[2020-06-21 11:45] LABS: Glucose Point of Care 172 mg/dL (70-110)
--- NOTE | 2020-06-21 12:04 | PM.PN ---
Subjective Subjective: Interval history: She remains intubated, ventilated, critically sick in the intensive care unit. She did have a unit of blood yesterday, dialysis planned for today for her second unit of blood. Ventilator settings noted FiO2 50% PEEP of 8, Levophed down at 2 with fixed dose vasopressin. Urine output noted to be 500 cc yesterday and 200 cc so far today. Vitals/I&O/Wt Last Vital Signs Temp 97.8 F 06/21/20 08:30 Pulse 65 06/21/20 11:15 Resp 17 06/21/20 10:54 BP 125/57 06/21/20 11:15 Pulse Ox 95 06/21/20 11:15 06/20/20 06/21/20 06/21/20 22:59 06:59 14:59 Intake Total 680.227 / 1624.360 247.035 / 1871.395 100 / 100 Output Total 160 / 180 500 / 680 Balance 520.227 / 1444.360 -252.965 / 1191.395 100 / 100 Weight last 48 hrs Weight 55.973 kg Weight 52.617 kg Physical Exam Narrative: EXAM NARRATIVE: Constitutional: sedated and vented HEENT: Wet mucosa, no jvp, non icteric Lungs: Bilaterally diminished without discernible wheeze or rales in all lung zones CVS: S1 S2, no murmurs Abdo: Soft, BS ok Ext 4: Minimal edema, peripheral perfusion with no cyanosis Neurological: Sedated Data : 06/21/20 04:00 06/21/20 04:00 Micro: Microbiology 06/19/20 04:30 Gram Stain - Final Sputum - Endotracheal Tube Aspirate Sputum Culture - Final 06/19/20 13:35 Urine Culture - Final Urine Catheterized 06/19/20 11:02 Blood Culture - Preliminary Blood NEGATIVE TO DATE 06/19/20 11:13 Blood Culture - Preliminary Blood NEGATIVE TO DATE A&P Additional A&P Information 1. Oliguiric Renal failure - ischemic/septic ATN - creatinine still increasing and remains oliguric - dialysis planned for today - am eval - dose meds for eGFR < 15 on dialysis - strict Is and Os 2. Covid pneumonitis - on Abx coverage, steroids etc - VDRF; mgmt per ICU team, weaning as tolerated 3. Lytes stable 4. Anemia - second unit of blood with dialysis today Thank you for consultation, it is a pleasure to follow these cases with you Exam and interview performed with aid of bedside RN using telemedicine Time spent 20 min inc > 50% of time in face to face counseling Kiran Stephens MD [facility] [place] [id number] Attestations Medical Necessity Statement*: eval for ERUM Procedures Arterial Line Size (Gauge): 18 Coding Level of Care Code Acute Catering Administrative Assistant for g Eliot
--- NOTE | 2020-06-21 12:52 | PC.NURSE ---
Vasopressin infusing at 0.03mcg/min upon shift change.
[2020-06-21 14:22] LABS: Glucose Point of Care 188 mg/dL (70-110)
[2020-06-21] MEDS: dexamethasone 4 mg/mL INJ 6 MG IVP (16:13)
--- NOTE | 2020-06-21 16:19 | XRR_ITS ---
PROCEDURE INFORMATION: Exam: XR Chest, 1 View Exam date and time: 06/21/2020 4:41 PM Age: 69 years old Clinical indication: Shortness of breath; Additional info: Neck swelling TECHNIQUE: Imaging protocol: XR of the chest Views: 1 view. COMPARISON: CR XR chest 1V portable [id number] 06/21/2020 7:32 AM FINDINGS: Lungs: A diffuse interstitial densities seen in the right mid and lower lobe. There also parenchymal densities in the left lower lobe Pleural space: Bilateral lower lobe pleural effusion. No pneumothorax. Heart/Mediastinum: Unremarkable. No cardiomegaly. Bones/joints: Metallic sternotomy wires are in place. A left central line extends into the SVC NG tube extends into the subdiaphragmatic tissues the distal aspect is not visible. A chest tube is present in the left upper lobe. The side hole of this tube is in the chest wall stable since prior Comparison to prior examination similar findings is seen XR/XR chest 1V [id number] IMPRESSION: 1. Bilateral lower lobe pleural effusions. 2. Diffuse interstitial densities right mid, and bilateral lower lobe. 3. Endotracheal tube is above the rylan. 4. Enteric tube is in the subdiaphragmatic tissues 5. Left central line extends to the SVC 6. Chest tube extends into the left upper lung.
[2020-06-21 16:31] LABS: ABG PCO2 28.4 mmHg (35-45); Arterial Blood Gas Hematocrit 32.2 % (37-47); Base Excess ABG -0.1 mmol/L (-2.0-2.0); Blood Gas Sample Site Not specified; Blood Gas Sample Type Arterial; Carboxyhemoglobin 0.8 %THgb (0.4-20.1); HCO3 ABG 22.3 mmol/L (22-26); HGB O2 Sat 94.3 % (95-100); Methemoglobin 0.3 % (0.4-1.5); Oxygen Device VENT; Oxygen Saturation ABG 95.4; PO2 ABG 70.7 mmHg (80.0-100.0); Potassium Level - ABG 3.1 mmol/L (3.5-5.0); Total Hemoglobin 10.5 g/dL (12-16)
--- NOTE | 2020-06-21 16:46 | CTR_ITS ---
PROCEDURE INFORMATION: Exam: CT Chest Without Contrast; Diagnostic Exam date and time: 06/21/2020 4:59 PM Age: 69 years old Clinical indication: Dyspnea; Additional info: Chest tube TECHNIQUE: Imaging protocol: Diagnostic computed tomography of the chest without contrast. Radiation optimization: All CT scans at this facility use at least one of these dose optimization techniques: automated exposure control; mA and/or kV adjustment per patient size (includes targeted exams where dose is matched to clinical indication); or iterative reconstruction. COMPARISON: CR XR chest 1V [id number] 06/21/2020 4:36 PM RADIATION DOSE METRICS: Total DLP (mGy-cm): 639.08 FINDINGS: Tubes, catheters and devices: There is a left-sided chest tube. There is an ET tube with tip just below the clavicular heads and well above the rylan. There is an orogastric tube with tip off the film. Lungs: Nonspecific bibasilar consolidation is present, consistent with atelectasis, edema, or pneumonia. Severe emphysematous changes are noted. Multifocal less dense diffuse interstitial and ground-glass opacities are noted in the remaining lungs compatible with less dense pneumonic infiltrates and/or airspace edema. Pleural space: There is a small right pleural effusion. There is a moderate sized left pneumothorax greatest at the left lung base. Heart: The heart is enlarged. Sternotomy wires and mediastinal surgical clips are present, consistent with previous coronary arterial bypass grafting. Aorta: Unremarkable. No aortic aneurysm. Lymph nodes: Unremarkable. No enlarged lymph nodes. Gallbladder and bile ducts: The gallbladder demonstrates layering density consistent with noncalcified stones or sludge. There is no common bile duct dilation. There is no gallbladder wall thickening or pericholecystic fluid to suggest cholecystitis. Kidneys and ureters: There are multiple bilateral renal collecting system calcifications. There is no evidence of hydronephrosis. Bones/joints: Chronic appearing anterior wedging fracture deformity of L1 is noted. No acute bony abnormality. Soft tissues: There is poorly marginated abundant infiltration of the subcutaneous fat and skin of the neck and upper chest wall concerning for hematoma/soft tissue hemorrhage without well-defined fluid collection. No discrete mass. CT/CT chest wo con [id number] IMPRESSION: 1. There is poorly marginated abundant infiltration of the subcutaneous fat and skin of the neck and upper chest wall concerning for poorly marginated hematoma/soft tissue hemorrhage without well-defined fluid collection. No discrete mass. 2. Nonspecific bibasilar consolidation is present, consistent with atelectasis, edema, or pneumonia. There is a right pleural effusion. 3. Multifocal less dense diffuse interstitial and ground-glass opacities are noted in the remaining lungs compatible with less dense pneumonic infiltrates and/or airspace edema. 4. There is a moderate sized left basilar pneumothorax. A chest tube is present. Severe emphysematous changes are noted. Radiation Dose CTDIVOL = (mGy): DLP = 639.08 (mGy-cm)
[2020-06-21 18:14] LABS: Glucose Point of Care 111 mg/dL (70-110)
--- NOTE | 2020-06-21 18:51 | XRR_ITS ---
PROCEDURE INFORMATION: Exam: XR Chest, 1 View Exam date and time: 06/21/2020 7:12 PM Age: 69 years old Clinical indication: Device placement; Chest tube; Additional info: Chest tube placement TECHNIQUE: Imaging protocol: XR of the chest Views: 1 view. COMPARISON: CT chest wo con [id number] 06/21/2020 5:16 PM FINDINGS: Tubes, catheters and devices: There is an ET tube with tip at the clavicular heads, orogastric tube with tip off the film and a left IJ central line with tip in the superior vena cava. Lungs: Previously visualized pneumothorax is smaller but there is still a component loculated between the left lung base and diaphragm. Bilateral peripheral ground-glass and interstitial lung opacities are noted concerning for pneumonic infiltrates/pneumonitis versus CHF. Pleural space: See Lungs finding. Heart/Mediastinum: Unremarkable. No cardiomegaly. Bones/joints: Previously visualized chest tube has been removed and now there is a pigtail catheter in the left thoracic cavity. XR/XR chest 1V [id number] IMPRESSION: 1. Previously visualized pneumothorax is smaller after new chest tube but there is still a component loculated between the left lung base and diaphragm. 2. Unchanged bilateral peripheral ground-glass and interstitial lung opacities are noted concerning for pneumonic infiltrates/pneumonitis versus CHF.
--- NOTE | 2020-06-21 19:16 | PC.NURSE ---
1600- This nurse entered room and notice swelling to left side of neck. Doctor notified immediately. Chest xray ordered.
[2020-06-21] MEDS: atorvastatin 40 mg Tablet 20 MG PO (21:31)
--- NOTE | 2020-06-21 22:42 | PM.PN ---
Subjective Subjective: Interval history: 69-year-old female with past medical history significant for breast cancer completed chemotherapy 2 years prior, coronary artery disease with history of CABG, gastroesophageal reflux disease, hypertension, hyperlipidemia, peripheral vascular disease with prior bilateral femoral bypass and chronic kidney disease with a baseline creatinine around 1.4 who presented to the [facility] in [place] with respiratory distress. this was associated with fever and generalized weakness. The symptoms have been progressing for about 4 days prior. While in emergency room a rapid COVID 19 antigen was checked and found to be positive. PCR was sent however this is still pending. Initially she was noted to have hypoxia with O2 saturation of 83% while on 5 L of O2. This was transitioned to non-rebreather however ventrally patient was intubated and placed on mechanical ventilation. She was initially started on propofol however due to bradycardia this was transition to fentanyl drip. Prior to that she was given atropine. Patient was then airlifted to [facility] for further care. Upon arrival to be ICU patient had repeat laboratory workup performed. WBC of 14.4, hemoglobin of 8.3, hematocrit of 26.6 and a platelet count of 378. sodium 138, potassium 5.8, chloride 108, bicarb 12, BUN 73 and creatinine of 4.1. Glucose of 317. Calcium 8.6. LDH 342. C reactive protein of 216. troponin delta of -1.23. Procalcitonin was elevated at 16.44. TSH of 0.22. Noted to be hypotensive and bradycardic on initial evaluation. She was started on Levophed and dopamine drip. Arterial line was placed . Subsequently a central line was placed. Chest x-ray performed for line placement assessment noted left-sided pneumothorax For which a chest tube was placed and noted to be in position in the upper left pleural cavity. Appeared to be in sepsis with shock for which she required up to 3 pressers including levofed,vasopressin and dopamine to maintain MAP > 65. Patient was started on broad-spectrum antibiotics including vancomycin and Primaxin 500 mg IV q.6 hours. Blood cultures were taken. Sputum culture was also taken. Pulmonary Medicine was consulted. Patient was found to be oliguria. No improvement in urine out put after lasix 40 mg IV x 1 challenge. Nephrology was consulted. Femoral HD catheter was placed by surgery and with consent from family she was imitated on dialysis. Multiple discussions with family included daughter and step daughter regarding poor prognosis. Code status was discussed and at family request was changed to D.N.R status with limited interventions. Ok to continue vent, hd, pressers, icu care, shock if needed however no resuscitation in the event of cardiac arrest. Subjective - Patient was started on HD, noted to have developed SQ emphysema. No fever. remained on vent. Medications: Reviewed: Yes Medication Review Details: Current Medications Albuterol/Ipratropium (Ipratropium-Albuterol 3 Ml Neb) 3 ml INHALATION Q6H PRN PRN Reason: SHORTNESS OF BREATH Last Admin: 06/20/20 02:01 Dose: 3 ml Documented by: Aspirin (Aspirin 81 Mg Ec Tablet) 81 mg PO DAILY IGOR Last Admin: 06/19/20 09:04 Dose: 81 mg Documented by: Atorvastatin Calcium (Atorvastatin 40 Mg Tablet) 20 mg PO BEDTIME IGOR Last Admin: 06/19/20 21:04 Dose: 20 mg Documented by: Clopidogrel Bisulfate (Clopidogrel 75 Mg Tablet) 75 mg PO DAILY IGOR Last Admin: 06/19/20 09:04 Dose: 75 mg Documented by: Dextrose (Dextrose 50% Syringe 50 Ml) 25 ml IVP ONCE PRN; Protocol PRN Reason: hypoglycemia protocol Dextrose (Dextrose 50% Syringe 50 Ml) 50 ml IVP PRN PRN; Protocol PRN Reason: hypoglycemia protocol Famotidine (Famotidine 20 Mg/2 Ml Inj) 40 mg IVP Q12H IGOR Last Admin: 06/19/20 23:48 Dose: 40 mg Documented by: Glucagon (Glucagon 1 Mg/Ml Inj 1 Ml) 1 mg IM ONCE PRN; Protocol PRN Reason: Adult Acute Hypoglycemia Prot. Dopamine HCl/Dextrose (Intropin Drip) 400 mg in 250 mls @ 9.525 mls/hr IV CONT IGOR; Protocol Last Titration: 06/20/20 00:12 Dose: 0 mcg/kg/min, 0 mls/hr Documented by: Fentanyl 1,000 mcg/ Sodium (Chloride) 100 mls @ 0 mls/hr IV .Q0M IGOR; Protocol Last Titration: 06/20/20 04:39 Dose: 50 mcg/hr, 5 mls/hr Documented by: Midazolam HCl 100 mg/ Sodium (Chloride) 100 mls @ 0 mls/hr IV .Q0M IGOR; Protocol Last Admin: 06/19/20 03:41 Dose: 1 mg/hr, 1 mls/hr Documented by: Dextrose (D5w) 500 mls @ 100 mls/hr IV ONCE PRN; Protocol PRN Reason: Adult Acute Hypoglycemia Prot Vancomycin HCl 750 mg/ Sodium (Chloride) 250 mls @ 250 mls/hr IV Q48H IGOR; Protocol Last Infusion: 06/19/20 14:32 Dose: Infused Documented by: Imipenem/Cilastatin Sodium 250 (mg/ Sodium Chloride) 100 mls @ 200 mls/hr IV Q12H IGOR; Protocol Last Infusion: 06/20/20 00:40 Dose: Infused Documented by: Insulin Human Regular 250 unit (/ Sodium Chloride) 252.5 mls @ 0 mls/hr IV .Q0M IGOR; Protocol Last Titration: 06/20/20 05:11 Dose: 5 unit/hr, 5.1 mls/hr Documented by: Vasopressin 100 unit/ Sodium (Chloride) 100 mls @ 0 mls/hr IV .Q0M IGOR; Protocol Last Admin: 06/19/20 14:53 Dose: 0.04 unit/min, 2.4 mls/hr Documented by: Norepinephrine Bitartrate 8 mg (/ Dextrose) 508 mls @ 0 mls/hr IV .Q0M IGOR; Protocol Last Admin: 06/20/20 04:39 Dose: 12 mcg/min, 45.7 mls/hr Documented by: Albumin Human (Albumin) 12.5 gm in 50 mls @ 60 mls/hr IV PRN PRN PRN Reason: Hypotension and/or symptomatic Insulin Aspart (Insulin Aspart 100 Unit/1 Ml) 0 unit SUBCUT WM&BEDTIME IGOR; Protocol Last Admin: 06/19/20 21:05 Dose: Not Given Documented by: Lanolin (Lanolin Oint 7 Gm) 1 applic TOPICAL PRN PRN PRN Reason: DRYNESS Last Admin: 06/20/20 03:07 Dose: 1 applic Documented by: Senna/Docusate Sodium (Sennosides-Docusate Tablet) 1 tab PO DAILY [facility] Last Admin: 06/19/20 09:04 Dose: 1 tab Documented by: Vitals/I&O/Wt Last Vital Signs Temp 97.9 F 06/21/20 13:45 Pulse 72 06/21/20 19:19 Resp 18 06/21/20 19:19 BP 77/50 06/21/20 19:15 Pulse Ox 97 06/21/20 19:19 06/21/20 06/21/20 06/21/20 06:59 14:59 22:59 Intake Total 247.035 / 1871.395 117.54 / 117.54 93.417 / 210.957 Output Total 500 / 680 650 / 650 Balance -252.965 / 1191.395 117.54 / 117.54 -556.583 / -439.043 Weight last 48 hrs Weight 55.973 kg Weight 52.617 kg Physical Exam Narrative: EXAM NARRATIVE: General- sedated on mechanical ventilation HEENT-ET tube in place Chest -Nonlabored respiration, on vent - Hemilich valve palced. CVS- Normal sinus rhythm Abdomen -Nondistended Extremities-No edema Lines- Left IJ, right femoral dialysis, [place], ET tube, left hemilich valve Data : 06/22/20 03:45 06/22/20 03:45 Micro: Microbiology 06/19/20 04:30 Gram Stain - Final Sputum - Endotracheal Tube Aspirate Sputum Culture - Final 06/19/20 13:35 Urine Culture - Final Urine Catheterized A&P Assessment and plan (1) Acute respiratory failure with hypoxia: Status: Acute (2) Metabolic acidosis: Status: Acute (3) Acute kidney injury superimposed on chronic kidney disease: Status: Acute (4) Hyperkalemia: Status: Acute (5) New onset of congestive heart failure: Status: Acute (6) COVID-19: Status: Acute (7) Septic shock: Status: Acute Acute hypoxic respiratory failure - Etiology multifactorial - COVID-19 pneumonia, pneumothorax status post chest tube, superimposed bacterial pneumonia suspected - Continue vent, pulmonary consulted. - Continue to wean FIo2 - Repeat chest x-ray / abg in am Left sided tension pneumothorax with development of SQ emphysema - Noted on admission - Left -sided chest tube placed - Now noted to have air leak - Chest x-ray / CT chest obtained - Consult with general surgery - Left tube removed - Hemlich one way valve was placed ( see procedure note ) - Chest -xray in am Suspected superimposed Bacterial Pneumonia - Procalcitonin 16.44 -> 15.48 - Empirically started on Vancomycin pharmacy to dose - Primixin 250 mg IV q12 hr - Renal dosing of meds - Thacker culture - NGTD Acute kidney injury / ATN on CKD stage 3 - Creatinine baseline 1.4 - Cr. 4.1 - Nephrology consulted - Femoral HD catheter placed by general surgery - Started on HD today - Continue per nephrology Diabetes Mellitus with hyperglycemia / DKA on arrival - AG metabolic acidosis - Multi-factorial component of acidosis - Was started on Insulin ggt - Goal Blood sugar 140-180 - Q1hr BS checks - Ketone positive - Repeat labs in am Acute anemia - Multifactorial - Acute blood loss from CT in setting of renal disease - Hb 8.3 on arrival - Monitor h/h Coronary artery disease s/p CABG / PVD s/p b/l femoral bypass / Hypertension - Holding aspirin 81 mg PO daily and Plavix 75 mg PO daily - Will resume once hemoglobin stabilizes - ECHO - pEF - Continue Lipitor 20 mg PO daily - Monitor on tele Hx of Breast cancer - S/P chemo > 2 year prior - No new recommendation FEN - Tube feeding - Dietary consulted - Pulmcal 1.2 at 20ml/hr - Will increase to goal based on residuals and recs GI ppx - Pepcid 20 mg IV daily DVT ppx - SCDSs only due to anemia Condition: Critical Prognosis : Poor Code status- Changed to DNR, allow natural as discussed above in HPI Attestations Medical Necessity Statement*: Patient tena require further hospitalization for managment of sepsis with shock on vent Time Spent in Patient Care: Greater than 35 minutes (>than 50% of time spent in counselling and/or direct pt care on unit). Critical Care Time: Critical Care Time (min): 75 Procedures Arterial Line Size (Gauge): 18 Chest Tube^ Chest Tube 1: Chest tube location: Mid-Clavicular Chest Size of tube: 13 Chest tube procedure: Yes sterile drapes applied and other Tube sutured to skin: Yes Sterile dressing applied: Yes Anesthesia: 1% Lidocaine Volume anesthetic (ml): 5 Incision made with: #11 blade Post procedure: sutured to skin Nielson of air heard: No Tube Drainage: none Post procedure CXR?: Yes Patient tolerated procedure: Yes Progress: Procedure : Heimlich valve Chest tube placement Supervision: Dr. Woods Consent: Emergency Procedure Indication: 69 year old admitted to hospital with acute respiratory failure on mechanical ventilation who on arrival developed a pneumothorax. Left chest tube was placed however in afternoon patient developed air leak leading to subcutaneous emphysema. This was noted to be progressively worsening. Chest tube was noted to have air-leak. Due to this chest tube was placed: Time out was called. Left second intercostal space in mid-clavicular line was identified by manual palpation. Skin was preped wiht chlorhexidine solution. Drape was placed. Lidocaine 1% was injected in SQ space. Eleven blade scalpel was used to create a 1 cm incision at site. 13 tuvaluan catheter was then inserted, obturator removed and subscequenlty connected to heimlich one-way valve. This was then secured to patient via adhesive tape and sutured via 2-0 silk. Post procedure chest x-ray was obtained and placement confirmed. This was then connected to pleur-evac. Complications : None Coding Level of Care Code Acute Heel Coverer for [facility] Fwd Diagnoses Acute respiratory failure with hypoxia J96.01 Metabolic acidosis E87.2 Acute kidney injury superimposed on chronic kidney disease N17.9; N18.9 Hyperkalemia E87.5 New onset of congestive heart failure I50.9 COVID-19 U07.1 Septic shock A41.9; R65.21
--- NOTE | 2020-06-21 22:59 | XRR_ITS ---
PROCEDURE INFORMATION: Exam: XR Chest, 1 View Exam date and time: 06/21/2020 11:02 PM Age: 69 years old Clinical indication: Shortness of breath; Prior surgery; Surgery type: Chest tube; Patient HX: Decreased 02 sats. Covid +. Intubated. ; Additional info: Change in patient condition/oxygen desaturation TECHNIQUE: Imaging protocol: XR of the chest Views: 1 view. COMPARISON: CR XR chest 1V [id number] 06/21/2020 7:02 PM FINDINGS: Lungs: Pigtail catheter left hemithorax is again identified but has retracted and the tip is outside of the pleural cavity. Improving interstitial and ground-glass opacities are noted in the lungs. Pleural space: The left pneumothorax is smaller than the prior exam. There is a small right pleural effusion. Heart/Mediastinum: Unremarkable. No cardiomegaly. Vasculature: There is an ET tube with tip at the clavicular heads and a left IJ central line with tip in the superior vena cava. Bones/joints: No acute abnormality. Soft tissues: There is increasing subcutaneous emphysema along the left chest wall. XR/XR chest 1V portable [id number] IMPRESSION: 1. Pigtail catheter left hemithorax is again identified but has retracted and the tip is outside of the pleural cavity. 2. The left pneumothorax is smaller than the prior exam. 3. Improving interstitial and ground-glass opacities are noted in the lungs.
--- NOTE | 2020-06-21 23:45 | PC.NURSE ---
Upon turning patient to change bloody sheets, previous chest tube site dressing was saturated with blood et coming off. Air was was heard coming out of previous chest tube site. After air was heard coming from previous site, patient was turned back to her back. Since the dressing was coming off et saturated with blood, RN obtained some new vasaline gauze et 4x4s to attempt to reinforce or potentially replace the current dressing if was unable to keep the previous site occlusive. The dressing status was assessed et determined by two RNs that reinforcing the current drain was not feasible. Current chest tube dressing was changed. New vasaline gauze et 4x4s were quickly placed over site to make it occlusive. Patient tolerated it well. No audible noise from air coming from previous chest tube site.
[2020-06-22] VITALS (97 sets, daily range): BP systolic 83–148; BP diastolic 51–98; PULSE 67–89; RESP 16–17; TEMP 36.6–37.1; O2SAT 92–100
--- NOTE | 2020-06-22 00:30 | PC.NURSE ---
Patient's swelling of the left side of the neck et left face appears to be increasing. Bilateral breath sounds are present but patient's hemodynamic status has been worsening. Chest x-ray obtained. Will notify physician commercial solar sales consultant.
--- NOTE | 2020-06-22 00:45 | PC.NURSE ---
Called Dr. Mccord to notify of patient's changing hemodyanmic status et chest x-ray results. Updated on patient condition et chest x-ray results. No new orders given.
--- NOTE | 2020-06-22 01:15 | PC.NURSE ---
RN decided to notify Dr. Woods of patient's chest x-ray results et changing hemodynamic status. Dr Woods was not please with RN changing the dressing of the previous chest tube site. RN attempted to explain that the dressing was not intact, that air et blood were coming from the previous chest tube site et that the dressing was not occlusive et was unable to be reinforced to make it occlusive. The physician was also read the chest x-ray report word for word to inform him that the pigtail chest tube catheter was no longer in the pleural space but the pneumothorax was improved from the previous exam. RN et physian had a long discussion about this patient's current status, changes in condition et gtt changes. New orders were placed et implemented. RN will complete an incident report as instructed by the physician.
--- NOTE | 2020-06-22 02:30 | PC.NURSE ---
Dr. Woods called wanting the RN to check for blood return on left IJ central line. RN checked all three lumens on the central line. The proximal et medial lumens returned blood when checked. The distal lumen did not. Informed Dr. Woods of findings. He would like for the distal lumen to not be used for infusion. All patient's gtts were switched to the proximal et medial lumens as instructed.
--- NOTE | 2020-06-22 02:30 | PC.NURSE ---
Invasive milliner helper form comment: Proximal et medial lumens returned blood flow. All gtts were switched to proximal et medial lumens.
[2020-06-22 03:47] LABS: ABG PCO2 27.2 mmHg (35-45); Arterial Blood Gas Hematocrit 21.9 % (37-47); Base Excess ABG -6.9 mmol/L (-2.0-2.0); Blood Gas Sample Type Arterial; Blood Gas Tidal Volume 0.38; Oxygen Device VENT
[2020-06-22 03:57] LABS: Glucose Point of Care 271 mg/dL (70-110)
--- NOTE | 2020-06-22 04:00 | XRR_ITS ---
PROCEDURE INFORMATION: Exam: XR Chest, 1 View Exam date and time: 06/22/2020 2:37 AM Age: 69 years old Clinical indication: Other vascular access device placement or adjustment; Central line, tunnelled; Additional info: Chest and central line placement TECHNIQUE: Imaging protocol: XR of the chest Views: 1 view. COMPARISON: CR XR chest 1V portable [id number] 06/21/2020 11:07 PM FINDINGS: Tubes, catheters and devices: An endotracheal tube nasogastric tube and central venous catheter projects in satisfactory position. A catheter projects along the left upper lateral chest wall and it appears outside the chest cavity. There is adjacent subcutaneous emphysema. Lungs: Bilateral interstitial pulmonary infiltrates are present especially in the left upper lobe. The left upper lobe infiltrate has significantly worsened since previous study. There is left basilar atelectasis which is stable. Pleural space: There is stable loculated pneumothorax in the left base. A small right pleural effusion is present and stable. Heart/Mediastinum: Unremarkable. No cardiomegaly. Bones/joints: Unremarkable. XR/XR chest 1V portable [id number] IMPRESSION: 1. The left chest tube lies along the lateral aspect of the chest and appears outside the pleural cavity. 2. Stable loculated pneumothorax in the left base. 3. Worsening interstitial pulmonary infiltrates especially in the left upper lobe.
[2020-06-22] MEDS: norepinephrine 8 MG in dextrose 5 % 500 ML 41.9 MG IV (05:43)
[2020-06-22 06:03] LABS: Basophils % 0.1 %; Hematocrit 23.1 % (37.0-47.0); Hemoglobin 7.9 g/dL (11.5-15.3); Lymphocytes # 0.7 10^3/uL (0.8-4.8); Lymphocytes % 4.1 %; Mean Corpuscular HGB Conc 34.2 g/dL (30.0-36.0); Mean Corpuscular Hemoglobin 27.7 pg (28.0-34.0); Mean Corpuscular Volume 81.1 fL (81-99); Mean Platelet Volume 10.2 fL (7.4-10.4); Monocytes # 0.8 10^3/uL (0.2-0.9); Monocytes % 4.3 %; Neutrophils # 16.02 10^3/uL (1.8-7.7); Neutrophils % 89.1 %; Nucleated Red Blood Cells # 0.8 /100WBC; Nucleated Red Blood Cells % 4.7 %; Platelet Count 256 10^3/cmm (130-400); Red Blood Count 2.85 10^6/uL (4.1-5.3); Red Cell Distribution Width 15.5 % (12.1-15.1)
[2020-06-22 06:22] LABS: Alanine Aminotransferase 9 U/L (0-33); Albumin Level 2.1 g/dL (3.5-5.2); Alkaline Phosphatase 62 IU/L (35-105); Anion Gap 18.1 (5-19); Aspartate Amino Transferase 23 U/L (0-32); Blood Urea Nitrogen 41 mg/dL (8-23); Calcium 6.9 mg/dL (8.5-10.5); Carbon Dioxide 19 mmol/L (22-29); Chloride 99 mmol/L (98-107); Globulin 2.1 g/dL (1.3-4.6); Glomerular Filtration Rate 17.4 mL/min (90-130); Glucose 273 mg/dL (65-115); Magnesium 1.8 mg/dL (1.7-2.3); Osmolality Calculated 294 mOsm/kg (285-295); Phosphorus 5.7 mg/dL (2.5-4.5); Potassium 4.1 mmol/L (3.5-5.1); Sodium 132 mmol/L (136-145); Total Bilirubin 0.4 mg/dL (0.15-1.2); Total Protein 4.2 g/dL (6.6-8.7)
--- NOTE | 2020-06-22 06:30 | P.CONIM_ITS ---
Providers/Reason For Consult Consulting Physican/Specialty*: Dr Titus Reason for Consult*: Dialysis access catheter placement and Chest tube care Attending Physician: Olga Dumont History of Present Illness History of Present Illness Ms. Rain is a pleasant 69 years old female patient with multiple medical comorbidities including but not limited to cardiovascular disease, femoral bypass, history of breast cancer.Patient initially had generalized malaise anorexia and fever and she was further evaluated in the ER as she was found to have pneumonia and acute kidney injury.Patient subsequently was intubated and was admitted to the VICU on the hospitalist service. Patient was found to be septic and severely acidotic as nephrology service last Wednesday contacted me for urgent placement of hemodialysis catheter to start acutely hemodialysis for her worsening acidosis.That was placed uneventfully at the left femoral vein and patient received hemodialysis and started to show some improvement At some point patient did have a central line placement and developed subsequently a left pneumothorax and a chest tube was placed by the ER team.Yesterday hospitalist service contacted me that the patient has subcutaneous emphysema concerning for malposition of the chest tube.At the same time a CT scan of the chest was ordered that showed: 1. There is poorly marginated abundant infiltration of the subcutaneous fat and skin of the neck and upper chest wall concerning for poorly marginated hematoma/soft tissue hemorrhage without well-defined fluid collection. No discrete mass. 2. Nonspecific bibasilar consolidation is present, consistent with atelectasis, edema, or pneumonia. There is a right pleural effusion. 3. Multifocal less dense diffuse interstitial and ground-glass opacities are noted in the remaining lungs compatible with less dense pneumonic infiltrates and/or airspace edema. 4. There is a moderate sized left basilar pneumothorax. A chest tube is present. Severe emphysematous changes are noted. Upon further evaluation and clinical examination in the VICU,was noticed that the patient had a segment of the chest tube inserted on the left hemithorax in the subcutaneous layer with obvious leak.At this point emergently Heimlich valve 13 Maltese chest tube was placed in the left second intercostal space and the ind ex chest tube was removed bedside.And following the procedure a chest x-ray was done that showed: 1. Previously visualized pneumothorax is smaller after new chest tube but there is still a component loculated between the left lung base and diaphragm. 2. Unchanged bilateral peripheral ground-glass and interstitial lung opacities are noted concerning for pneumonic infiltrates/pneumonitis versus CHF. Overnight a repeat chest x-ray was done and showed: 1. Pigtail catheter left hemithorax is again identified but has retracted and the tip is outside of the pleural cavity. 2. The left pneumothorax is smaller than the prior exam. 3. Improving interstitial and ground-glass opacities are noted in the lungs. And today's chest x-ray was done as a follow-up at 4 am: 1. The left chest tube lies along the lateral aspect of the chest and appears outside the pleural cavity. 2. Stable loculated pneumothorax in the left base. 3. Worsening interstitial pulmonary infiltrates especially in the left upper lobe. At this point as I continue to follow on the patient I elected to remove the left 13 Maltese tube since it is outside the pleural cavity likely due to the expansion of the left lung. Patient continues to be on mechanical ventilation requiring relativley less pressors due to her septic picture and maintained to have stable uncomplicated left femoral vein hemodialysis catheter. Overnight per nursing report the dressing was soaked at the site of the index chest tube removal and that was changed but apparently the wound was exposed without sealing for few minutes ~Fresh dressing was applied. A repaet CXR at 1300 today showed: IMPRESSION: 1. Decreasing size of a small loculated pneumothorax in the left base. 2. Stable bilateral interstitial pulmonary infiltrates. Patient at FiO2 of 35 making improvement and less surgical emphysema per nursing reporting. Review of Systems General: Reports: ROS unobtainable due to endotracheal tube and ROS unobtainable due to medical condition Meds/Allergies Home Medications and Allergies Allergies Allergy/AdvReac Type Severity Reaction Status Date / Time No Known Allergies Allergy Verified 06/22/20 06:32 Current Medications Current Medications Generic Name Dose Route Start Last Admin Trade Name Freq PRN Reason Stop Dose Admin Albuterol/Ipratropium 3 ml 06/19/20 03:38 06/21/20 08:44 Ipratropium-Albuterol 3 Ml Neb INHALATION 3 ml Q6H PRN Administration SHORTNESS OF BREATH Aspirin 81 mg 06/19/20 09:00 06/19/20 09:04 Aspirin 81 Mg Ec Tablet PO 81 mg DAILY IGOR Administration Atorvastatin Calcium 20 mg 06/19/20 21:00 06/21/20 21:31 Atorvastatin 40 Mg Tablet PO 20 mg BEDTIME IGOR Administration Clopidogrel Bisulfate 75 mg 06/19/20 09:00 06/19/20 09:04 Clopidogrel 75 Mg Tablet PO 75 mg DAILY IGOR Administration Dexamethasone 6 mg 06/20/20 15:00 06/21/20 16:13 Dexamethasone 4 Mg/Ml Inj IVP 6 mg Q24H IGOR Administration Famotidine 40 mg 06/19/20 23:15 06/21/20 23:24 Famotidine 20 Mg/2 Ml Inj IVP 40 mg Q12H IGOR Administration Furosemide 60 mg 06/20/20 07:00 06/21/20 21:18 Furosemide 10 Mg/Ml Sdv 4ml IVP 60 mg Q12H IGOR Administration Dopamine HCl/Dextrose 400 mg in 250 mls @ 9.525 mls/hr 06/19/20 01:00 06/22/20 00:52 Intropin Drip IV Not Given CONT IGOR Protocol 5 MCG/KG/MIN Fentanyl 1,000 mcg/ Sodium 100 mls @ 0 mls/hr 06/19/20 01:00 06/21/20 15:02 Chloride IV 50 mcg/hr .Q0M IGOR 5 mls/hr Administration Protocol Per Protocol Midazolam HCl 100 mg/ Sodium 100 mls @ 0 mls/hr 06/19/20 01:15 06/22/20 06:05 Chloride IV Infused .Q0M IGOR Titration Protocol Per Protocol Vancomycin HCl 750 mg/ Sodium 250 mls @ 250 mls/hr 06/19/20 11:30 06/21/20 11:08 Chloride IV 250 mls/hr Q48H IGOR Administration Protocol Imipenem/Cilastatin Sodium 250 100 mls @ 200 mls/hr 06/19/20 11:00 06/21/20 23:51 mg/ Sodium Chloride IV Infused Q12H IGOR Infusion Protocol Vasopressin 100 unit/ Sodium 100 mls @ 0 mls/hr 06/19/20 13:45 06/21/20 23:45 Chloride IV 0.04 unit/min .Q0M IGOR 2.4 mls/hr Titration Protocol Per Protocol Norepinephrine Bitartrate 8 mg 508 mls @ 0 mls/hr 06/19/20 15:45 06/22/20 06:04 / Dextrose IV 10 mcg/min .Q0M IGOR 38.1 mls/hr Titration Protocol Per Protocol Insulin Aspart 0 unit 06/21/20 06:00 06/21/20 18:14 Insulin Aspart 100 Unit/1 Ml SUBCUT Not Given TIDWM [facility] Protocol Lanolin 1 applic 06/20/20 02:20 06/20/20 03:07 Lanolin Oint 7 Gm TOPICAL 1 applic PRN PRN Administration DRYNESS Senna/Docusate Sodium 1 tab 06/19/20 09:00 06/21/20 08:09 Sennosides-Docusate Tablet PO Not Given DAILY [facility] PFSH Acute PFSH: Medical History Breast cancer, left Coronary atherosclerosis GERD (gastroesophageal reflux disease) Hyperlipidemia Hypertensive disorder Myocardial infarction Ovarian cancer Disseminated Surgical History H/O abdominal hysterectomy H/O heart artery stent S/P femoral-femoral bypass surgery Bilateral femoral bypass S/P lumpectomy of breast Family History Other Unknown family medical history Social History Smoking and tobacco status: former smoker Alcohol intake: never Substance/Drug Use: never Household members: family Housing: House Vitals/I&O/Wt Last Vital Signs Temp 98.8 F 06/22/20 05:00 Pulse 76 06/22/20 05:15 Resp 17 06/22/20 03:18 BP 129/66 06/22/20 05:15 Pulse Ox 100 06/22/20 05:15 06/21/20 06/21/20 06/22/20 14:59 22:59 06:59 Intake Total 217.54 / 217.54 289.792 / 507.332 414.821 / 922.153 Output Total 650 / 650 400 / 1050 Balance 217.54 / 217.54 -360.208 / -142.668 14.821 / -127.847 Weight last 48 hrs Weight 122 lb 9.6 oz Weight 123 lb 6.4 oz Physical Exam Narrative: EXAM NARRATIVE: Patient is conscious alert oriented X3 BMI 22 Head and neck examination shows much less surgical emphysema definitely responding to chest tube placement yesterday. Cardiac examination audible S1-S2 no murmurs no gallops no arrhythmias Chest fair air entry bilateral,less surgical emphysema Left second intercostal space chest tube in place without complication Left lateral dressing in place status post removal of the index chest tube Abdomen nontender nondistended soft no organomegaly guarding or rigidity/no signs of peritonitis Anasarca, left groin HD catheter in place without complications or hematoma formation Data Micro: Micro: Microbiology 06/19/20 04:30 Gram Stain - Final Sputum - Endotrac heal Tube Aspirate Sputum Culture - F inal 06/19/20 13:35 Urine Culture - Fi nal Urine Catheterize d A&P Assessment and plan (1) Septic shock: Plan of care; After history physical examination and reviewing the chart,Family was counseled for Temporary Hemodialysis catheter placement, indications, risks potential injury of major vascular structures, benefits,indications and alternatives were all discussed with the patient's family, patient's family understands and is interested to proceed. Appropriate informed consent have been reviewed and signed on urgent basis. Follow nephrology recommendations for further hemodialysis Continue sepsis managment per Hospitalist service Status: Acute (2) Pneumothorax on left: Plan to replace the current chest tube by 13 latvian Hemlich valve catheter and discontinuation of the left Hemithorax chest tube previuosly placed due to worsening Chest tube leak and surgical emphysema.On emergency basis.06/21/20 Emergency consent obtained by Attendings at bed side in the VICU.Family was informed in the intreim. Today's plan DC chest tube Obtain chest x-ray in 4 to 6 hours as a follow-up If patient continues to have localized pneumothorax with any clinical concern I would recommend a CT-guided placement of pigtail catheter by interventional r adiology. 14:45 Plan to repeat cxr tomorrow at 4 am Thank you for consulting general surgery to participate taking care Status: Acute Consult Attestations Medical Necessity Statement: Continue inpatient hospitalization for critical care Time Spent in Patient Care: Greater than 35 minutes (>than 50% of time spent in counselling and/or direct pt care on unit) . Procedures Arterial Line Size (Gauge): 18 Coding Level of Care Code Acute Car Rider for Chg Fwd Diagnoses Septic shock A41.9; R65.21 Pneumothorax on left J93.9
--- NOTE | 2020-06-22 07:00 | PC.NURSE ---
Patient's 0700 lasix dose held. Reported to day shift RN et requested that the 60 mg lasix dose be clarified with physician due to patient's hemodynamic status.
--- NOTE | 2020-06-22 07:00 | PC.NURSE ---
Report given to Anna TREVINO. New bags of Fentanyl, Versed, vasopressin and Levophed handed off.
--- NOTE | 2020-06-22 07:45 | PC.SOCIAL ---
IM follow up discussed with daughter Dalila by phone. She verbalized understanding. Daughter did not need number at this time since patient is currently still intubated and knows not close to discharge.
[2020-06-22 07:52] LABS: Glucose Point of Care 209 mg/dL (70-110)
[2020-06-22] MEDS: ipratropium-albuterol 3 mL Neb INHALATION (08:21)
[2020-06-22] MEDS: sennosides-docusate Tablet 1 TAB PO (09:07)
--- NOTE | 2020-06-22 10:34 | P.PCN_ITS ---
Procedure/Consent Time out: Time Out Performed: Yes Consent: Consent for Procedure: Emergency procedure Procedure Narrative: Pre Procedure diagnosis;Surgical emphysema status post left chest tube placement with air leak Post procedure diagnosis the same Procedure done; placement of 13 Cypriot catheter connected to Heimlich valve chamber under local anesthetic done in emergency setting Description Local anesthetic in the form of 1% lidocaine infiltrated at the second intercostal space midclavicular line on the left hemithorax. Prep and drape of the left pectoral region under the standard sterile technique. Small incision created by 11 blade knife comes with the kit Placement of the catheter loaded by the obturator, once the catheter is in good position the obturator was taken out, immediately the patient felt relief The Heimlich valve chamber was secured to the chest wall by the adhesive component of the chamber, additional 2-0 silk were used to secure the box to the anterior chest wall. Pleur-evac was connected to the Heimlich valve Postprocedure imaging showed improvement and inflation of the lung Patient tolerated the procedure well No immediate complication Estimated blood loss less than 5 mm I Was present for the whole entire procedure Reading Efficiency Course Director Hospitalist RN Anna Acute Procedures Arterial Line: Size (Gauge): 18 Epistaxis Control: Time out performed: Yes
[2020-06-22] MEDS: famotidine 20 mg/2 mL INJ 40 MG IVP ×2 (11:41→22:26)
[2020-06-22 11:50] LABS: Glucose Point of Care 181 mg/dL (70-110)
--- NOTE | 2020-06-22 12:03 | P.PN_ITS ---
Subjective Subjective: Interval history: Remains intubated and ventilated. Chest tube has now been removed. Remains on Levophed at 10 without recent escalation and also vasopressin. Dialysis went well yesterday tolerating ultrafiltration. FiO2 also decreased to 40, maintaining oxygen saturation of 99%. UO ~1L last 24hrs Medications: Reviewed: Yes Medication Review Details: Current Medications Albuterol/Ipratropium (Ipratropium-Albuterol 3 Ml Neb) 3 ml INHALATION Q6H PRN PRN Reason: SHORTNESS OF BREATH Last Admin: 06/20/20 02:01 Dose: 3 ml Documented by: Aspirin (Aspirin 81 Mg Ec Tablet) 81 mg PO DAILY IGOR Last Admin: 06/19/20 09:04 Dose: 81 mg Documented by: Atorvastatin Calcium (Atorvastatin 40 Mg Tablet) 20 mg PO BEDTIME IGOR Last Admin: 06/19/20 21:04 Dose: 20 mg Documented by: Clopidogrel Bisulfate (Clopidogrel 75 Mg Tablet) 75 mg PO DAILY IGOR Last Admin: 06/19/20 09:04 Dose: 75 mg Documented by: Dextrose (Dextrose 50% Syringe 50 Ml) 25 ml IVP ONCE PRN; Protocol PRN Reason: hypoglycemia protocol Dextrose (Dextrose 50% Syringe 50 Ml) 50 ml IVP PRN PRN; Protocol PRN Reason: hypoglycemia protocol Famotidine (Famotidine 20 Mg/2 Ml Inj) 40 mg IVP Q12H IGOR Last Admin: 06/19/20 23:48 Dose: 40 mg Documented by: Glucagon (Glucagon 1 Mg/Ml Inj 1 Ml) 1 mg IM ONCE PRN; Protocol PRN Reason: Adult Acute Hypoglycemia Prot. Dopamine HCl/Dextrose (Intropin Drip) 400 mg in 250 mls @ 9.525 mls/hr IV CONT IGOR; Protocol Last Titration: 06/20/20 00:12 Dose: 0 mcg/kg/min, 0 mls/hr Documented by: Fentanyl 1,000 mcg/ Sodium (Chloride) 100 mls @ 0 mls/hr IV .Q0M IGOR; Protocol Last Titration: 06/20/20 04:39 Dose: 50 mcg/hr, 5 mls/hr Documented by: Midazolam HCl 100 mg/ Sodium (Chloride) 100 mls @ 0 mls/hr IV .Q0M IGOR; Protocol Last Admin: 06/19/20 03:41 Dose: 1 mg/hr, 1 mls/hr Documented by: Dextrose (D5w) 500 mls @ 100 mls/hr IV ONCE PRN; Protocol PRN Reason: Adult Acute Hypoglycemia Prot Vancomycin HCl 750 mg/ Sodium (Chloride) 250 mls @ 250 mls/hr IV Q48H IGOR; Protocol Last Infusion: 06/19/20 14:32 Dose: Infused Documented by: Imipenem/Cilastatin Sodium 250 (mg/ Sodium Chloride) 100 mls @ 200 mls/hr IV Q12H IGOR; Protocol Last Infusion: 06/20/20 00:40 Dose: Infused Documented by: Insulin Human Regular 250 unit (/ Sodium Chloride) 252.5 mls @ 0 mls/hr IV .Q0M IGOR; Protocol Last Titration: 06/20/20 05:11 Dose: 5 unit/hr, 5.1 mls/hr Documented by: Vasopressin 100 unit/ Sodium (Chloride) 100 mls @ 0 mls/hr IV .Q0M IGOR; Protocol Last Admin: 06/19/20 14:53 Dose: 0.04 unit/min, 2.4 mls/hr Documented by: Norepinephrine Bitartrate 8 mg (/ Dextrose) 508 mls @ 0 mls/hr IV .Q0M IGOR; Protocol Last Admin: 06/20/20 04:39 Dose: 12 mcg/min, 45.7 mls/hr Documented by: Albumin Human (Albumin) 12.5 gm in 50 mls @ 60 mls/hr IV PRN PRN PRN Reason: Hypotension and/or symptomatic Insulin Aspart (Insulin Aspart 100 Unit/1 Ml) 0 unit SUBCUT WM&BEDTIME IGOR; Protocol Last Admin: 06/19/20 21:05 Dose: Not Given Documented by: Lanolin (Lanolin Oint 7 Gm) 1 applic TOPICAL PRN PRN PRN Reason: DRYNESS Last Admin: 06/20/20 03:07 Dose: 1 applic Documented by: Senna/Docusate Sodium (Sennosides-Docusate Tablet) 1 tab PO DAILY [facility] Last Admin: 06/19/20 09:04 Dose: 1 tab Documented by: Vitals/I&O/Wt Last Vital Signs Temp 98.8 F 06/22/20 05:00 Pulse 74 06/22/20 06:00 Resp 16 06/22/20 11:06 BP 129/66 06/22/20 05:15 Pulse Ox 100 06/22/20 05:15 06/21/20 06/22/20 06/22/20 22:59 06:59 14:59 Intake Total 289.792 / 507.332 414.821 / 922.153 Output Total 650 / 650 400 / 1050 Balance -360.208 / -142.668 14.821 / -127.847 Weight last 48 hrs Weight 55.61 kg Weight 55.973 kg Physical Exam Narrative: EXAM NARRATIVE: Constitutional: sedated and vented HEENT: Wet mucosa, no jvp, non icteric Lungs: Bilaterally diminished without discernible wheeze or rales in all lung zones CVS: S1 S2, no murmurs Abdo: Soft, BS ok Ext 4: Minimal edema, peripheral perfusion with no cyanosis Neurological: Sedated Data : 06/22/20 03:45 06/22/20 03:45 Micro: Microbiology 06/19/20 04:30 Gram Stain - Final Sputum - Endotracheal Tube Aspirate Sputum Culture - Final 06/19/20 13:35 Urine Culture - Final Urine Catheterized A&P Additional A&P Information 1. Oliguiric Renal failure - ischemic/septic ATN - UO picked up since yesterday, now 1L! This may herald recovery of renal f ailure - am eval - dose meds for eGFR < 15 on dialysis - strict Is and Os 2. Covid pneumonitis - on Abx coverage, steroids etc - VDRF; mgmt per ICU team, weaning as tolerated; SBTs and hopefully extubation today 3. Lytes stable 4. Anemia - second unit of blood with dialysis yesterday - serial H/Hs Thank you for consultation, it is a pleasure to follow these cases with you Exam and interview performed with aid of bedside RN using telemedicine Time spent 20 min inc > 50% of time in face to face counseling Kiran Stephens MD [facility] [phone] Attestations Medical Necessity Statement*: Eval for ERUM Procedures Arterial Line Size (Gauge): 18 Coding Level of Care Code Acute [employer] Executive Producer for Chg Eliot
--- NOTE | 2020-06-22 13:00 | XRR_ITS ---
PROCEDURE INFORMATION: Exam: XR Chest, 1 View Exam date and time: 06/22/2020 1:16 PM Age: 69 years old Clinical indication: Device placement; Other: Removal of left upper chest tube; Additional info: S/P removal of left upper chest tube TECHNIQUE: Imaging protocol: XR of the chest Views: 1 view. COMPARISON: CR (CHEST, ) 06/22/2020 7:23 AM FINDINGS: Tubes, catheters and devices: An endotracheal tube, nasogastric tube and central venous catheter projects in satisfactory position. The left chest tube has been removed. Lungs: Bilateral interstitial pulmonary infiltrates are present which are unchanged since previous examination. There is atelectasis in the medial left lung base. Pleural space: Unremarkable. No pleural effusion. There is small loculated pneumothorax in the left base along the diaphragm. This may have decreased in size since previous study.. Heart/Mediastinum: Unremarkable. No cardiomegaly. Bones/joints: Unremarkable. Soft tissues: Small amount of subcutaneous emphysema is present over the left side of the chest. XR/XR chest 1V portable [id number] IMPRESSION: 1. Decreasing size of a small loculated pneumothorax in the left base. 2. Stable bilateral interstitial pulmonary infiltrates.
[2020-06-22] MEDS: dexamethasone 4 mg/mL INJ 6 MG IVP (14:28)
[2020-06-22 17:24] LABS: Glucose Point of Care 113 mg/dL (70-110)
[2020-06-22] MEDS: FUROsemide 10 mg/mL SDV 4mL 60 MG IVP (19:03)
--- NOTE | 2020-06-22 19:45 | P.PN_ITS ---
Subjective Subjective: Interval history: 69-year-old female with past medical history significant for breast cancer completed chemotherapy 2 years prior, coronary artery disease with history of CABG, gastroesophageal reflux disease, hypertension, hyperlipidemia, peripheral vascular disease with prior bilateral femoral bypass and chronic kidney disease with a baseline creatinine around 1.4 who presented to the [facility] in [place] with respiratory distress. this was associated with fever and generalized weakness. The symptoms have been progressing for about 4 days prior. While in emergency room a rapid COVID 19 antigen was checked and found to be positive. PCR was sent however this is still pending. Initially she was noted to have hypoxia with O2 saturation of 83% while on 5 L of O2. This was transitioned to non-rebreather however ventrally patient was intubated and placed on mechanical ventilation. She was initially started on propofol however due to bradycardia this was transition to fentanyl drip. Prior to that she was given atropine. Patient was then airlifted to [facility] for further care. Upon arrival to be ICU patient had repeat laboratory workup performed. WBC of 14.4, hemoglobin of 8.3, hematocrit of 26.6 and a platelet count of 378. sodium 138, potassium 5.8, chloride 108, bicarb 12, BUN 73 and creatinine of 4.1. Glucose of 317. Calcium 8.6. LDH 342. C reactive protein of 216. troponin delta of -1.23. Procalcitonin was elevated at 16.44. TSH of 0.22. Noted to be hypotensive and bradycardic on initial evaluation. She was started on Levophed and dopamine drip. Arterial line was placed . Subsequently a central line was placed. Chest x-ray performed for line placement assessment noted left-sided pneumothorax For which a chest tube was placed and noted to be in position in the upper left pleural cavity. Appeared to be in sepsis with shock for which she required up to 3 pressers including levofed,vasopressin and dopamine to maintain MAP > 65. Patient was started on broad-spectrum antibiotics including vancomycin and Primaxin 500 mg IV q.6 hours. Blood cultures were taken. Sputum culture was also taken. Pulmonary Medicine was consulted. Patient was found to be oliguria. No improvement in urine out put after lasix 40 mg IV x 1 challenge. Nephrology was consulted. Femoral HD catheter was placed by surgery and with consent from family she was imitated on dialysis. Multiple discussions with family included daughter and step daughter regarding poor prognosis. Code status was discussed and at family request was changed to D.N.R status with limited interventions. Ok to continue vent, hd, pressers, icu care, shock if needed however no resuscitation in the event of cardiac arrest. Subjective 06/21/19 Patient was started on HD, noted to have developed SQ emphysema. No fever. remained on vent. 06/22/19 Patient overnight was noted have developement of SQ emphysema. Chest tube was removed and replaced. Fio2 was weaned to 35%. No fever overnight. Medications: Reviewed: Yes Medication Review Details: Current Medications Albuterol/Ipratropium (Ipratropium-Albuterol 3 Ml Neb) 3 ml INHALATION Q6H PRN PRN Reason: SHORTNESS OF BREATH Last Admin: 06/20/20 02:01 Dose: 3 ml Documented by: Aspirin (Aspirin 81 Mg Ec Tablet) 81 mg PO DAILY [facility] Last Admin: 06/19/20 09:04 Dose: 81 mg Documented by: Atorvastatin Calcium (Atorvastatin 40 Mg Tablet) 20 mg PO BEDTIME [facility] Last Admin: 06/19/20 21:04 Dose: 20 mg Documented by: Clopidogrel Bisulfate (Clopidogrel 75 Mg Tablet) 75 mg PO DAILY [facility] Last Admin: 06/19/20 09:04 Dose: 75 mg Documented by: Dextrose (Dextrose 50% Syringe 50 Ml) 25 ml IVP ONCE PRN; Protocol PRN Reason: hypoglycemia protocol Dextrose (Dextrose 50% Syringe 50 Ml) 50 ml IVP PRN PRN; Protocol PRN Reason: hypoglycemia protocol Famotidine (Famotidine 20 Mg/2 Ml Inj) 40 mg IVP Q12H [facility] Last Admin: 06/19/20 23:48 Dose: 40 mg Documented by: Glucagon (Glucagon 1 Mg/Ml Inj 1 Ml) 1 mg IM ONCE PRN; Protocol PRN Reason: Adult Acute Hypoglycemia Prot. Dopamine HCl/Dextrose (Intropin Drip) 400 mg in 250 mls @ 9.525 mls/hr IV CONT [facility]; Protocol Last Titration: 06/20/20 00:12 Dose: 0 mcg/kg/min, 0 mls/hr Documented by: Fentanyl 1,000 mcg/ Sodium (Chloride) 100 mls @ 0 mls/hr IV .Q0M [facility]; Protocol Last Titration: 06/20/20 04:39 Dose: 50 mcg/hr, 5 mls/hr Documented by: Midazolam HCl 100 mg/ Sodium (Chloride) 100 mls @ 0 mls/hr IV .Q0M [facility]; Protocol Last Admin: 06/19/20 03:41 Dose: 1 mg/hr, 1 mls/hr Documented by: Dextrose (D5w) 500 mls @ 100 mls/hr IV ONCE PRN; Protocol PRN Reason: Adult Acute Hypoglycemia Prot Vancomycin HCl 750 mg/ Sodium (Chloride) 250 mls @ 250 mls/hr IV Q48H [facility]; Protocol Last Infusion: 06/19/20 14:32 Dose: Infused Documented by: Imipenem/Cilastatin Sodium 250 (mg/ Sodium Chloride) 100 mls @ 200 mls/hr IV Q12H [facility]; Protocol Last Infusion: 06/20/20 00:40 Dose: Infused Documented by: Insulin Human Regular 250 unit (/ Sodium Chloride) 252.5 mls @ 0 mls/hr IV .Q0M [facility]; Protocol Last Titration: 06/20/20 05:11 Dose: 5 unit/hr, 5.1 mls/hr Documented by: Vasopressin 100 unit/ Sodium (Chloride) 100 mls @ 0 mls/hr IV .Q0M [facility]; Protocol Last Admin: 06/19/20 14:53 Dose: 0.04 unit/min, 2.4 mls/hr Documented by: Norepinephrine Bitartrate 8 mg (/ Dextrose) 508 mls @ 0 mls/hr IV .Q0M [facility]; Protocol Last Admin: 06/20/20 04:39 Dose: 12 mcg/min, 45.7 mls/hr Documented by: Albumin Human (Albumin) 12.5 gm in 50 mls @ 60 mls/hr IV PRN PRN PRN Reason: Hypotension and/or symptomatic Insulin Aspart (Insulin Aspart 100 Unit/1 Ml) 0 unit SUBCUT WM&BEDTIME [facility]; Protocol Last Admin: 06/19/20 21:05 Dose: Not Given Documented by: Lanolin (Lanolin Oint 7 Gm) 1 applic TOPICAL PRN PRN PRN Reason: DRYNESS Last Admin: 06/20/20 03:07 Dose: 1 applic Documented by: Senna/Docusate Sodium (Sennosides-Docusate Tablet) 1 tab PO DAILY [facility] Last Admin: 06/19/20 09:04 Dose: 1 tab Documented by: Vitals/I&O/Wt Last Vital Signs Temp 97.8 F 06/22/20 15:00 Pulse 70 06/22/20 19:15 Resp 16 06/22/20 16:25 BP 112/58 06/22/20 19:15 Pulse Ox 98 06/22/20 19:15 06/22/20 06/22/20 06/22/20 06:59 14:59 22:59 Intake Total 414.821 / 922.153 295.275 / 295.275 40.667 / 335.942 Output Total 400 / 1050 200 / 200 Balance 14.821 / -127.847 295.275 / 295.275 -159.333 / 135.942 Weight last 48 hrs Weight 55.61 kg Weight 55.973 kg Physical Exam Narrative: EXAM NARRATIVE: General- sedated on mechanical ventilation HEENT-ET tube in place Chest -Nonlabored respiration, on vent Hemilich valve removed - dressing covered CVS- Normal sinus rhythm Abdomen -Nondistended Extremities-No edema Lines- Left IJ, right femoral dialysis, [place], ET tube, left hemilich valve revmoved Data : 06/22/20 03:45 06/22/20 03:45 A&P Assessment and plan (1) Acute respiratory failure with hypoxia: Status: Acute (2) Metabolic acidosis: Status: Acute (3) Acute kidney injury superimposed on chronic kidney disease: Status: Acute (4) Hyperkalemia: Status: Acute (5) New onset of congestive heart failure: Status: Acute (6) COVID-19: Status: Acute (7) Septic shock: Status: Acute Acute Hypoxic respiratory failure - Etiology multi-factorial - COVID-19 pneumonia, PTX, superimposed bacterial - Vent Settings: CMV, TV 380, RR 16, PEEP of 8 Fio2 of 35% - Patient: RR of 16, M.V of 8.1 - ABG: PH 7.40, Po2 of 108, HCO3 17 - On Fio2 of 50 percent -> 35% - Chest x-ray - > Decreasing size of small loculated ptx in the left base, stable b/l interstitial pulmonary infiltrates - Propofol, Fentanyl, versed per protocol for sedation - Maintain RASS - 3 - Unable to prone - Repeat chest x-ray / abg in am - Pulmonary medcine on board Septic shock due to COVID-19 Pneumonia - Suspected superimposed Bacterial Pneumonia - Procalcitonin 16.44 -> 15.48 - Renal dosing of meds - Lactic Acid 1.7 - 06/19 - Sputum culture - Negative - 06/19 - Blood culture x 2 - NGTD - 06/19 - Urine culture - negative - Vancomycin pharmacy to dose - Primixin 250 mg IV q12 hr - Repeat Pro-calcitonin in am - Afebrile Left sided tension pneumothorax with development of SQ emphysema - Noted on admission - Left -sided chest tube was placed - 06/21 - Helmich valve placed - Removed on 06/22 - Repeat chest x-ray reviewed - Consult with general surgery - SQ emphysema improving - Repeat chest x-ray in am Acute kidney injury / ATN on CKD stage 3 - Creatinine baseline 1.4- > Cr. 4.1 - Nephrology consulted - Femoral HD catheter placed by general surgery - HD on 06/21/19 - > plan for next HD on 06/23 - Continue per nephrology Diabetes Mellitus with hyperglycemia mild DKA on arrival - AG metabolic acidosis - Multi-factorial component of acidosis - continue insulin - Goal Blood sugar 140-180 - Q1hr BS checks - Repeat labs in am Acute anemia - Multi-factorial - Acute blood loss from CT in setting of renal disease - Hb 8.3 on arrival - Monitor h/h Coronary artery disease s/p CABG / PVD s/p b/l femoral bypass / Hypertension - Holding aspirin 81 mg PO daily and Plavix 75 mg PO daily - Will resume once hemoglobin stabilizes and no further invasive procedures - ECHO - pEF - Continue Lipitor 20 mg PO daily - Monitor on tele Hx of Breast cancer - S/P chemo > 2 year prior - No new recommendation FEN - Tube feeding - Dietary consulted - Pulmcal 1.2 at 20ml/hr - Will increase to goal based on residuals and recs GI ppx - Pepcid 20 mg IV daily DVT ppx - SCDs only due to anemia Condition: Critical Prognosis : Poor Code status- Changed to DNR, allow natural as discussed above in HPI Attestations Medical Necessity Statement*: Continue hospital stay for managment of acute respiratory failure on vent, renal failure on HD Procedures Arterial Line Size (Gauge): 18 Coding Level of Care Code Acute Consumer Relations Complaint Clerk for g Fwd Diagnoses Acute respiratory failure with hypoxia J96.01 Metabolic acidosis E87.2 Acute kidney injury superimposed on chronic kidney disease N17.9; N18.9 Hyperkalemia E87.5 New onset of congestive heart failure I50.9 COVID-19 U07.1 Septic shock A41.9; R65.21
--- NOTE | 2020-06-22 20:00 | PC.NURSE ---
Gastric Tube Maintenance comment: Patient's TF currently on hold due to high residuals. Confirmed gastric tube placement via bolus. Aspirated 125 mL of preston/ tube feeding colored contents out of stomach. Will hold tube feeds for an hour et re-assess.
[2020-06-22] MEDS: atorvastatin 40 mg Tablet 20 MG PO (21:16)
[2020-06-22 22:56] LABS: Glucose Point of Care 120 mg/dL (70-110)
[2020-06-23] VITALS (100 sets, daily range): BP systolic 63–193; BP diastolic 31–125; PULSE 70–102; RESP 14–22; TEMP 36.1–37.1; O2SAT 88–98; BMI 21.7
[2020-06-23 03:43] LABS: ABG PCO2 31.5 mmHg (35-45); ABG PH Result 7.43 (7.35-7.45); Arterial Blood Gas Hematocrit 23.7 % (37-47); Base Excess ABG -2.8 mmol/L (-2.0-2.0); Blood Gas Sample Type Arterial; Blood Gas Tidal Volume 0.38; Oxygen Device VENT; PO2 ABG 73.4 mmHg (80.0-100.0)
[2020-06-23 03:52] LABS: Basophils % 0.1 %; Lymphocytes # 0.8 10^3/uL (0.8-4.8); Lymphocytes % 5.6 %; Mean Corpuscular HGB Conc 32.8 g/dL (30.0-36.0); Mean Corpuscular Hemoglobin 27.4 pg (28.0-34.0); Mean Corpuscular Volume 83.5 fL (81-99); Mean Platelet Volume 10.1 fL (7.4-10.4); Monocytes # 0.4 10^3/uL (0.2-0.9); Neutrophils # 11.95 10^3/uL (1.8-7.7); Neutrophils % 88.6 %; Nucleated Red Blood Cells # 0.5 /100WBC; Nucleated Red Blood Cells % 3.4 %; Platelet Count 164 10^3/cmm (130-400); Red Cell Distribution Width 15.2 % (12.1-15.1); White Blood Count 13.5 10^3/uL (4.0-10.0)
--- NOTE | 2020-06-23 04:00 | XRR_ITS ---
PROCEDURE INFORMATION: Exam: XR Chest, 1 View Exam date and time: 06/22/2020 11:59 PM Age: 69 years old Clinical indication: Shortness of breath; Additional info: Pneumothorax TECHNIQUE: Imaging protocol: XR of the chest Views: 1 view. COMPARISON: CR (CHEST, ) 06/22/2020 1:08 PM FINDINGS: Tubes, catheters and devices: An endotracheal tube is present in satisfactory position. The tip of the nasogastric tube is about 10 cm below the diaphragm in the projection of the stomach. A central venous catheter projects on the SVC. Lungs: There is increasing opacity of the left lung base consistent with lower lobe atelectasis. Hazy interstitial pulmonary infiltrates are present and unchanged. Pleural space: No pneumothorax is seen. Heart/Mediastinum: Unremarkable. No cardiomegaly. Bones/joints: Unremarkable. XR/XR chest 1V portable [id number] IMPRESSION: 1. Increasing left basilar atelectasis. 2. No pneumothorax. 3. Stable interstitial pulmonary infiltrates.
[2020-06-23 04:18] LABS: Hematocrit 19.2 % (37.0-47.0); Hemoglobin 6.3 g/dL (11.5-15.3)
[2020-06-23 04:19] LABS: Lactate (Lactic Acid level) 1.2 mmol/L (0.5-2.2)
[2020-06-23 04:29] LABS: Procalcitonin 4.04 ng/mL (0-0.5)
--- NOTE | 2020-06-23 04:30 | PC.NURSE ---
Received critical lab values from lab. Called Dr. Mccord to notify. New orders noted et implemented. Will continue to monitor.
[2020-06-23 04:43] LABS: Alanine Aminotransferase 18 U/L (0-33); Albumin Level 2.1 g/dL (3.5-5.2); Alkaline Phosphatase 69 IU/L (35-105); Anion Gap 17.1 (5-19); Aspartate Amino Transferase 38 U/L (0-32); Blood Urea Nitrogen 57 mg/dL (8-23); Calcium 6.7 mg/dL (8.5-10.5); Carbon Dioxide 20 mmol/L (22-29); Chloride 99 mmol/L (98-107); Ferritin 969 ng/mL (15-150); Globulin 2.2 g/dL (1.3-4.6); Glomerular Filtration Rate 13.4 mL/min (90-130); Glucose 179 mg/dL (65-115); Osmolality Calculated 294 mOsm/kg (285-295); Potassium 4.1 mmol/L (3.5-5.1); Sodium 132 mmol/L (136-145); Total Bilirubin 0.4 mg/dL (0.15-1.2); Total Protein 4.3 g/dL (6.6-8.7)
--- NOTE | 2020-06-23 07:19 | PM.PN ---
Subjective Subjective: Interval history: sedated, intubated, pressers Medications: Reviewed: Yes Medication Review Details: Current Medications Albuterol/Ipratropium (Ipratropium-Albuterol 3 Ml Neb) 3 ml INHALATION Q6H PRN PRN Reason: SHORTNESS OF BREATH Last Admin: 06/22/20 08:21 Dose: 3 ml Documented by: Aspirin (Aspirin 81 Mg Ec Tablet) 81 mg PO DAILY [facility] Last Admin: 06/19/20 09:04 Dose: 81 mg Documented by: Atorvastatin Calcium (Atorvastatin 40 Mg Tablet) 20 mg PO BEDTIME [facility] Last Admin: 06/22/20 21:16 Dose: 20 mg Documented by: Clopidogrel Bisulfate (Clopidogrel 75 Mg Tablet) 75 mg PO DAILY [facility] Last Admin: 06/19/20 09:04 Dose: 75 mg Documented by: Dexamethasone (Dexamethasone 4 Mg/Ml Inj) 6 mg IVP Q24H [facility] Last Admin: 06/22/20 14:28 Dose: 6 mg Documented by: Dextrose (Dextrose 50% Syringe 50 Ml) 25 ml IVP ONCE PRN; Protocol PRN Reason: hypoglycemia protocol Dextrose (Dextrose 50% Syringe 50 Ml) 50 ml IVP PRN PRN; Protocol PRN Reason: hypoglycemia protocol Famotidine (Famotidine 20 Mg/2 Ml Inj) 40 mg IVP Q12H [facility] Last Admin: 06/22/20 22:26 Dose: 40 mg Documented by: Furosemide (Furosemide 10 Mg/Ml Sdv 4ml) 60 mg IVP Q12H [facility] Last Admin: 06/22/20 19:03 Dose: 60 mg Documented by: Glucagon (Glucagon 1 Mg/Ml Inj 1 Ml) 1 mg IM ONCE PRN; Protocol PRN Reason: Adult Acute Hypoglycemia Prot. Dopamine HCl/Dextrose (Intropin Drip) 400 mg in 250 mls @ 9.525 mls/hr IV CONT [facility]; Protocol Last Admin: 06/22/20 00:52 Dose: Not Given Documented by: Dextrose (D5w) 500 mls @ 100 mls/hr IV ONCE PRN; Protocol PRN Reason: Adult Acute Hypoglycemia Prot Vancomycin HCl 750 mg/ Sodium (Chloride) 250 mls @ 250 mls/hr IV Q48H [facility]; Protocol Last Admin: 06/21/20 11:08 Dose: 250 mls/hr Documented by: Imipenem/Cilastatin Sodium 250 (mg/ Sodium Chloride) 100 mls @ 200 mls/hr IV Q12H [facility]; Protocol Last Infusion: 06/22/20 22:34 Dose: Infused Documented by: Vasopressin 100 unit/ Sodium (Chloride) 100 mls @ 0 mls/hr IV .Q0M [facility]; Protocol Last Titration: 06/21/20 23:45 Dose: 0.04 unit/min, 2.4 mls/hr Documented by: Norepinephrine Bitartrate 8 mg (/ Dextrose) 508 mls @ 0 mls/hr IV .Q0M [facility]; Protocol Last Titration: 06/22/20 21:45 Dose: 3 mcg/min, 11.4 mls/hr Documented by: Albumin Human (Albumin) 12.5 gm in 50 mls @ 60 mls/hr IV PRN PRN PRN Reason: Hypotension and/or symptomatic Insulin Aspart (Insulin Aspart 100 Unit/1 Ml) 0 unit SUBCUT TIDWM [facility]; Protocol Last Admin: 06/22/20 17:53 Dose: Not Given Documented by: Lanolin (Lanolin Oint 7 Gm) 1 applic TOPICAL PRN PRN PRN Reason: DRYNESS Last Admin: 06/20/20 03:07 Dose: 1 applic Documented by: Senna/Docusate Sodium (Sennosides-Docusate Tablet) 1 tab PO DAILY [facility] Last Admin: 06/22/20 09:07 Dose: 1 tab Documented by: Vitals/I&O/Wt Last Vital Signs Temp 97 F L 06/23/20 06:00 Pulse 82 06/23/20 07:00 Resp 14 06/23/20 06:00 BP 142/62 06/23/20 07:00 Pulse Ox 94 06/23/20 07:00 06/22/20 06/23/20 06/23/20 22:59 06:59 14:59 Intake Total 263.032 / 658.307 Output Total 400 / 400 450 / 850 Balance -136.968 / 258.307 -450 / -191.693 Weight last 48 hrs Weight 55.61 kg Weight 55.61 kg Physical Exam Narrative: EXAM NARRATIVE: intubated,CMV, fio2=35%, TV 380, PEEP 8, RR15 pressers norepi 1.5, vasopressin 0.04 heent- nca/t lungs ronchi and crackles. chest tube removed heart reg abd soft ext edema 3+ rt femral shiley neuro- sedated exam by RN CORONARY CARE UNIT Data : 06/23/20 03:40 06/23/20 03:40 A&P Additional A&P Information 1. Oliguiric Renal failure - ischemic/septic ATN - cr still rising. swollen, repeat HD 3 hrs, 3k, remove 2l - dose meds for eGFR < 15 on dialysis - strict Is and Os 2. Covid pneumonitis - on Abx coverage, steroids etc - VDRF; mgmt per ICU team, weaning as tolerated; SBTs and hopefully extubation today 3. Lytes stable 4. Anemia - tx 2 u prbc. -not sure where bleeding from 5. DM control 6. chest tube removed- monitor improving pneumothorax 7. renal dose abx 8. hyponatremia -from erum 9. replace ca- check vit d levels -if eating- use ca based phos binder pth 228- zemplar Thank you for consultation, it is a pleasure to follow these cases with you Exam and interview performed with aid of bedside RN using telemedicine Time spent 30 min inc > 50% of time in face to face counseling Attestations Medical Necessity Statement*: ERUM, VDRF, anemia Time Spent in Patient Care: Greater than 35 minutes Procedures Arterial Line Size (Gauge): 18 Coding Level of Care Code Acute Director Report for Ch[facility]
[2020-06-23] MEDS: FUROsemide 10 mg/mL SDV 4mL 60 MG IVP (07:29)
--- NOTE | 2020-06-23 08:54 | PM.PN ---
Subjective Subjective: Interval history: No acute events from surgical standpoint of view, still in critical condition requiring pressors but being requiring less. Repeat chest x-ray today showed: 1. Increasing left basilar atelectasis. 2. No pneumothorax. 3. Stable interstitial pulmonary infiltrates. Still on mechanical ventilation Vitals/I&O/Wt Last Vital Signs Temp 97 F L 06/23/20 06:00 Pulse 82 06/23/20 07:00 Resp 15 06/23/20 08:03 BP 142/62 06/23/20 07:00 Pulse Ox 94 06/23/20 07:00 06/22/20 06/23/20 06/23/20 22:59 06:59 14:59 Intake Total 263.032 / 658.307 77.72 / 77.72 Output Total 400 / 400 450 / 850 Balance -136.968 / 258.307 -450 / -191.693 77.72 / 77.72 Weight last 48 hrs Weight 122 lb 9.6 oz Weight 122 lb 9.6 oz Physical Exam Narrative: EXAM NARRATIVE: Patient is sedated on mechanical ventilation BMI 22 Head and neck examination shows almost subsidence of the surgical emphysema but as the left upper chest Air entry is fair bilateral on chest examination Chest tube sites shows no bleeding except for some scanty sanguinous on the left upper chest Otherwise dressing is intact Abdomen nontender nondistended soft no organomegaly guarding or rigidity/no signs of peritonitis Left groin stable dialysis catheter Data : 06/23/20 03:40 06/23/20 03:40 A&P Assessment and plan (1) Septic shock: Plan of care; Follow nephrology recommendations for further hemodialysis Continue sepsis managment per Hospitalist service Blood transfusion per protocol Status: Acute (2) Pneumothorax on left: Condition resolved Caution is needed when dressing is changed at the explantation of the chest tube sites to prevent potential recurrent pneumothorax. Vaseline gauze followed by 4 x 4's and secure tape Thank you for consulting general surgery to participate taking care Status: Acute Attestations Medical Necessity Statement*: Patient requires critical medical care at the [facility] ICU Time Spent in Patient Care: (>than 50% of time spent in counselling and/or direct pt care on unit). Procedures Arterial Line Size (Gauge): 18 Coding Level of Care Code Acute Sales Representative [employer] for [facility] Fwd Diagnoses Septic shock A41.9; R65.21 Pneumothorax on left J93.9
[2020-06-23 09:32] LABS: 25 Hydroxy Vitamin D 18 ng/mL (30-100)
[2020-06-23] MEDS: calcitriol 0.25 mcg Capsule PO (09:37)
[2020-06-23] MEDS: sennosides-docusate Tablet 1 TAB PO (09:37)
[2020-06-23 09:50] LABS: Glucose Point of Care 191 mg/dL (70-110)
[2020-06-23] MEDS: sodium chloride 0.9% (100 ml) 100 ML (10:58)
--- NOTE | 2020-06-23 11:07 | PC.NURSE ---
ended blood time previous blood transfusion time not completed by previous nurse. this nurse completed blood time so intractions with vital signs do not occur.
[2020-06-23 11:17] LABS: Vancomycin Trough 15.4 ug/mL (10-15)
[2020-06-23] MEDS: famotidine 20 mg/2 mL INJ 40 MG IVP ×2 (11:49→23:34)
[2020-06-23 12:17] LABS: Glucose Point of Care 140 mg/dL (70-110)
[2020-06-23] MEDS: vancomycin 750 MG in sodium chloride 0.9% 250 ML 250 MG IV (12:22)
--- NOTE | 2020-06-23 13:25 | PM.PN ---
Subjective Subjective: Interval history: 69-year-old female with past medical history significant for breast cancer completed chemotherapy 2 years prior, coronary artery disease with history of CABG, gastroesophageal reflux disease, hypertension, hyperlipidemia, peripheral vascular disease with prior bilateral femoral bypass and chronic kidney disease with a baseline creatinine around 1.4 who presented to the [facility] in [place] with respiratory distress. this was associated with fever and generalized weakness. The symptoms have been progressing for about 4 days prior. While in emergency room a rapid COVID 19 antigen was checked and found to be positive. PCR was sent however this is still pending. Initially she was noted to have hypoxia with O2 saturation of 83% while on 5 L of O2. This was transitioned to non-rebreather however ventrally patient was intubated and placed on mechanical ventilation. She was initially started on propofol however due to bradycardia this was transition to fentanyl drip. Prior to that she was given atropine. Patient was then airlifted to [facility] for further care. Upon arrival to be ICU patient had repeat laboratory workup performed. WBC of 14.4, hemoglobin of 8.3, hematocrit of 26.6 and a platelet count of 378. sodium 138, potassium 5.8, chloride 108, bicarb 12, BUN 73 and creatinine of 4.1. Glucose of 317. Calcium 8.6. LDH 342. C reactive protein of 216. troponin delta of -1.23. Procalcitonin was elevated at 16.44. TSH of 0.22. Noted to be hypotensive and bradycardic on initial evaluation. She was started on Levophed and dopamine drip. Arterial line was placed . Subsequently a central line was placed. Chest x-ray performed for line placement assessment noted left-sided pneumothorax For which a chest tube was placed and noted to be in position in the upper left pleural cavity. Appeared to be in sepsis with shock for which she required up to 3 pressers including levofed,vasopressin and dopamine to maintain MAP > 65. Patient was started on broad-spectrum antibiotics including vancomycin and Primaxin 500 mg IV q.6 hours. Blood cultures were taken. Sputum culture was also taken. Pulmonary Medicine was consulted. Patient was found to be oliguria. No improvement in urine out put after lasix 40 mg IV x 1 challenge. Nephrology was consulted. Femoral HD catheter was placed by surgery and with consent from family she was imitated on dialysis. Multiple discussions with family included daughter and step daughter regarding poor prognosis. Code status was discussed and at family request was changed to D.N.R status with limited interventions. Ok to continue vent, hd, pressers, icu care, shock if needed however no resuscitation in the event of cardiac arrest. Subjective 06/21/19 Patient was started on HD, noted to have developed SQ emphysema. No fever. remained on vent. 06/22/20 Patient overnight was noted have developement of SQ emphysema. Chest tube was removed and replaced. Fio2 was weaned to 35%. No fever overnight. 06/23/20 unchanged Medications: Reviewed: Yes Medication Review Details: Current Medications Albuterol/Ipratropium (Ipratropium-Albuterol 3 Ml Neb) 3 ml INHALATION Q6H PRN PRN Reason: SHORTNESS OF BREATH Last Admin: 06/20/20 02:01 Dose: 3 ml Documented by: Aspirin (Aspirin 81 Mg Ec Tablet) 81 mg PO DAILY [facility] Last Admin: 06/19/20 09:04 Dose: 81 mg Documented by: Atorvastatin Calcium (Atorvastatin 40 Mg Tablet) 20 mg PO BEDTIME [facility] Last Admin: 06/19/20 21:04 Dose: 20 mg Documented by: Clopidogrel Bisulfate (Clopidogrel 75 Mg Tablet) 75 mg PO DAILY [facility] Last Admin: 06/19/20 09:04 Dose: 75 mg Documented by: Dextrose (Dextrose 50% Syringe 50 Ml) 25 ml IVP ONCE PRN; Protocol PRN Reason: hypoglycemia protocol Dextrose (Dextrose 50% Syringe 50 Ml) 50 ml IVP PRN PRN; Protocol PRN Reason: hypoglycemia protocol Famotidine (Famotidine 20 Mg/2 Ml Inj) 40 mg IVP Q12H [facility] Last Admin: 06/19/20 23:48 Dose: 40 mg Documented by: Glucagon (Glucagon 1 Mg/Ml Inj 1 Ml) 1 mg IM ONCE PRN; Protocol PRN Reason: Adult Acute Hypoglycemia Prot. Dopamine HCl/Dextrose (Intropin Drip) 400 mg in 250 mls @ 9.525 mls/hr IV CONT IGOR; Protocol Last Titration: 06/20/20 00:12 Dose: 0 mcg/kg/min, 0 mls/hr Documented by: Fentanyl 1,000 mcg/ Sodium (Chloride) 100 mls @ 0 mls/hr IV .Q0M [facility]; Protocol Last Titration: 06/20/20 04:39 Dose: 50 mcg/hr, 5 mls/hr Documented by: Midazolam HCl 100 mg/ Sodium (Chloride) 100 mls @ 0 mls/hr IV .Q0M [facility]; Protocol Last Admin: 06/19/20 03:41 Dose: 1 mg/hr, 1 mls/hr Documented by: Dextrose (D5w) 500 mls @ 100 mls/hr IV ONCE PRN; Protocol PRN Reason: Adult Acute Hypoglycemia Prot Vancomycin HCl 750 mg/ Sodium (Chloride) 250 mls @ 250 mls/hr IV Q48H [facility]; Protocol Last Infusion: 06/19/20 14:32 Dose: Infused Documented by: Imipenem/Cilastatin Sodium 250 (mg/ Sodium Chloride) 100 mls @ 200 mls/hr IV Q12H [facility]; Protocol Last Infusion: 06/20/20 00:40 Dose: Infused Documented by: Insulin Human Regular 250 unit (/ Sodium Chloride) 252.5 mls @ 0 mls/hr IV .Q0M [facility]OR; Protocol Last Titration: 06/20/20 05:11 Dose: 5 unit/hr, 5.1 mls/hr Documented by: Vasopressin 100 unit/ Sodium (Chloride) 100 mls @ 0 mls/hr IV .Q0M [facility]; Protocol Last Admin: 06/19/20 14:53 Dose: 0.04 unit/min, 2.4 mls/hr Documented by: Norepinephrine Bitartrate 8 mg (/ Dextrose) 508 mls @ 0 mls/hr IV .Q0M [facility]; Protocol Last Admin: 06/20/20 04:39 Dose: 12 mcg/min, 45.7 mls/hr Documented by: Albumin Human (Albumin) 12.5 gm in 50 mls @ 60 mls/hr IV PRN PRN PRN Reason: Hypotension and/or symptomatic Insulin Aspart (Insulin Aspart 100 Unit/1 Ml) 0 unit SUBCUT WM&BEDTIME [facility]OR; Protocol Last Admin: 06/19/20 21:05 Dose: Not Given Documented by: Lanolin (Lanolin Oint 7 Gm) 1 applic TOPICAL PRN PRN PRN Reason: DRYNESS Last Admin: 06/20/20 03:07 Dose: 1 applic Documented by: Senna/Docusate Sodium (Sennosides-Docusate Tablet) 1 tab PO DAILY [facility] Last Admin: 06/19/20 09:04 Dose: 1 tab Documented by: Vitals/I&O/Wt Last Vital Signs Temp 97.3 F L 06/23/20 17:00 Pulse 92 06/23/20 20:07 Resp 16 06/23/20 20:07 BP 119/74 06/23/20 19:30 Pulse Ox 94 06/23/20 20:07 06/23/20 06/23/20 06/23/20 06:59 14:59 22:59 Intake Total 1149.598 / 1149.598 765.285 / 4.883 Output Total 450 / 850 Balance -450 / -972.908 6997.598 / 1149.598 765.285 / 1914.883 Weight last 48 hrs Weight 55.61 kg Weight 55.61 kg Physical Exam Narrative: EXAM NARRATIVE: General- sedated on mechanical ventilation HEENT-ET tube in place Chest -Nonlabored respiration, on vent Hemilich valve removed - dressing covered CVS- Normal sinus rhythm Abdomen -Nondistended Extremities-No edema Lines- Left IJ, right femoral dialysis, [place], ET tube, left hemilich valve revmoved Data : 06/23/20 03:40 06/23/20 03:40 A&P Assessment and plan (1) Acute respiratory failure with hypoxia: Status: Acute (2) Metabolic acidosis: Status: Acute (3) Acute kidney injury superimposed on chronic kidney disease: Status: Acute (4) Hyperkalemia: Status: Acute (5) New onset of congestive heart failure: Status: Acute (6) COVID-19: Status: Acute (7) Septic shock: Status: Acute Acute Hypoxic respiratory failure - Etiology multi-factorial - COVID-19 pneumonia, PTX, superimposed bacterial - Vent Settings: CMV, TV 380, RR 16, PEEP of 8 Fio2 of 35% - Patient: RR of 16, M.V of 8.1 - ABG: PH 7.40, Po2 of 108, HCO3 17 - On Fio2 of 50 percent -> 35% - Chest x-ray - > Decreasing size of small loculated ptx in the left base, stable b/l interstitial pulmonary infiltrates - Propofol, Fentanyl, versed per protocol for sedation - Maintain RASS - 3 - Unable to prone - Repeat chest x-ray / abg in am - Pulmonary medcine on board Septic shock due to COVID-19 Pneumonia - Suspected superimposed Bacterial Pneumonia - Procalcitonin 16.44 -> 15.48 - Renal dosing of meds - Lactic Acid 1.7 - 06/19 - Sputum culture - Negative - 06/19 - Blood culture x 2 - NGTD - 06/19 - Urine culture - negative - Vancomycin pharmacy to dose - Primixin 250 mg IV q12 hr - Repeat Pro-calcitonin in am - Afebrile Left sided tension pneumothorax with development of SQ emphysema - Noted on admission - Left -sided chest tube was placed - 06/21 - Helmich valve placed - Removed on 06/22 - Repeat chest x-ray reviewed - Consult with general surgery - SQ emphysema improving - Repeat chest x-ray in am Acute kidney injury / ATN on CKD stage 3 - Creatinine baseline 1.4- > Cr. 4.1 - Nephrology consulted - Femoral HD catheter placed by general surgery - HD on 06/21/19 - > plan for next HD on 06/23 - Continue per nephrology Diabetes Mellitus with hyperglycemia mild DKA on arrival - AG metabolic acidosis - Multi-factorial component of acidosis - continue insulin - Goal Blood sugar 140-180 - Q1hr BS checks - Repeat labs in am Acute anemia - Multi-factorial - Acute blood loss from CT in setting of renal disease - Hb 8.3 on arrival - Monitor h/h Coronary artery disease s/p CABG / PVD s/p b/l femoral bypass / Hypertension - Holding aspirin 81 mg PO daily and Plavix 75 mg PO daily - Will resume once hemoglobin stabilizes and no further invasive procedures - ECHO - pEF - Continue Lipitor 20 mg PO daily - Monitor on tele Hx of Breast cancer - S/P chemo > 2 year prior - No new recommendation FEN - Tube feeding - Dietary consulted - Pulmcal 1.2 at 20ml/hr - Will increase to goal based on residuals and recs GI ppx - Pepcid 20 mg IV daily DVT ppx - SCDs only due to anemia Condition: Critical Prognosis : Poor Code status- Changed to DNR, allow natural as discussed above in HPI Attestations Medical Necessity Statement*: critical continue hospitalization Procedures Arterial Line Size (Gauge): 18 Coding Level of Care Code Acute School Social Worker for Chg Fwd Diagnoses Acute respiratory failure with hypoxia J96.01 Metabolic acidosis E87.2 Acute kidney injury superimposed on chronic kidney disease N17.9; N18.9 Hyperkalemia E87.5 New onset of congestive heart failure I50.9 COVID-19 U07.1 Septic shock A41.9; R65.21
[2020-06-23] MEDS: dexamethasone 4 mg/mL INJ 6 MG IVP (15:25)
[2020-06-23 17:11] LABS: Glucose Point of Care 141 mg/dL (70-110)
--- NOTE | 2020-06-23 18:35 | PC.NURSE ---
blood pressure during dialysis patient blood pressure dropped to MAP of 40. vasopressin increased to 0.04mcg, levophed increased to 10mcg. call to physician to inform of patient condition, no answer. in unit, verbal to order phenylepharine gtt. Patient blood pressure is currently 156/49.all other vital signs WNL
--- NOTE | 2020-06-23 19:48 | PC.NURSE ---
On dialysis at this time, does not follow commands but turns away from oral suctioning, tolorating Vent at this time, degrees call light within reach
[2020-06-23 22:04] LABS: Glucose Point of Care 235 mg/dL (70-110)
[2020-06-23] MEDS: atorvastatin 40 mg Tablet 20 MG PO (22:07)
[2020-06-24] VITALS (57 sets, daily range): BP systolic 82–170; BP diastolic 49–77; PULSE 71–104; RESP 14–24; TEMP 35.9–36.3; O2SAT 92–99
[2020-06-24] MEDS: norepinephrine 8 MG in dextrose 5 % 500 ML 22.9 MG IV (00:16)
--- NOTE | 2020-06-24 00:17 | PC.NURSE ---
Levo running at 8 mcg/kg/min at beginning of shift, Mar shows running at 10 mcg/kg/min, decreased to 6 mcg/kg/min for BP per protocol
[2020-06-24] MEDS: FUROsemide 10 mg/mL SDV 4mL 60 MG IVP ×2 (06:01→18:34)
[2020-06-24 06:07] LABS: Alanine Aminotransferase 13 U/L (0-33); Albumin Level 2.5 g/dL (3.5-5.2); Alkaline Phosphatase 85 IU/L (35-105); Anion Gap 18.9 (5-19); Aspartate Amino Transferase 25 U/L (0-32); Blood Urea Nitrogen 49 mg/dL (8-23); Carbon Dioxide 21 mmol/L (22-29); Chloride 96 mmol/L (98-107); Globulin 2.2 g/dL (1.3-4.6); Glucose 254 mg/dL (65-115); Magnesium 1.9 mg/dL (1.7-2.3); Osmolality Calculated 296 mOsm/kg (285-295); Phosphorus 5.1 mg/dL (2.5-4.5); Potassium 3.9 mmol/L (3.5-5.1); Sodium 132 mmol/L (136-145); Total Bilirubin 0.5 mg/dL (0.15-1.2); Total Protein 4.7 g/dL (6.6-8.7)
[2020-06-24 07:51] LABS: Glucose Point of Care 254 mg/dL (70-110)
--- NOTE | 2020-06-24 08:51 | XRR_ITS ---
PROCEDURE INFORMATION: Exam: XR Chest, 1 View Exam date and time: 06/24/2020 9:24 AM Age: 69 years old Clinical indication: Device placement; Other: Hd cath placement TECHNIQUE: Imaging protocol: XR of the chest Views: 1 view. COMPARISON: CR (CHEST, ) 06/23/2020 7:43 AM FINDINGS: Tubes, catheters and devices: The endotracheal tube is above the level of the rylan. Central venous catheter via the left jugular approach with the tip projecting over the superior vena cava. nasogastric tube extends below the diaphragm although the location of the tip not identified as it is outside of the [id number]. Lungs: Mild airspace disease within the left lung base. Pleural space: Unremarkable. No pleural effusion. No pneumothorax. Heart/Mediastinum: Unremarkable. No cardiomegaly. Vasculature: Dialysis catheter via the right internal jugular approach with the tip in the region of the superior vena cava. Bones/joints: Prior sternotomy XR/XR chest 1V portable [id number] IMPRESSION: Mild airspace disease within the left lung base.
--- NOTE | 2020-06-24 08:56 | PM.PN ---
Subjective Subjective: Interval history: sedated, low dose levo, remains intubated- new dialysis catheter Medications: Reviewed: Yes Medication Review Details: Current Medications Albuterol/Ipratropium (Ipratropium-Albuterol 3 Ml Neb) 3 ml INHALATION Q6H PRN PRN Reason: SHORTNESS OF BREATH Last Admin: 06/22/20 08:21 Dose: 3 ml Documented by: Aspirin (Aspirin 81 Mg Ec Tablet) 81 mg PO DAILY [facility] Last Admin: 06/19/20 09:04 Dose: 81 mg Documented by: Atorvastatin Calcium (Atorvastatin 40 Mg Tablet) 20 mg PO BEDTIME [facility] Last Admin: 06/23/20 22:07 Dose: 20 mg Documented by: Calcitriol (Calcitriol 0.25 Mcg Capsule) 0.25 mcg PO DAILY [facility] Last Admin: 06/23/20 09:37 Dose: 0.25 mcg Documented by: Clopidogrel Bisulfate (Clopidogrel 75 Mg Tablet) 75 mg PO DAILY [facility] Last Admin: 06/19/20 09:04 Dose: 75 mg Documented by: Dexamethasone (Dexamethasone 4 Mg/Ml Inj) 6 mg IVP Q24H [facility] Last Admin: 06/23/20 15:25 Dose: 6 mg Documented by: Dextrose (Dextrose 50% Syringe 50 Ml) 25 ml IVP ONCE PRN; Protocol PRN Reason: hypoglycemia protocol Dextrose (Dextrose 50% Syringe 50 Ml) 50 ml IVP PRN PRN; Protocol PRN Reason: hypoglycemia protocol Famotidine (Famotidine 20 Mg/2 Ml Inj) 40 mg IVP Q12H [facility] Last Admin: 06/23/20 23:34 Dose: 40 mg Documented by: Furosemide (Furosemide 10 Mg/Ml Sdv 4ml) 60 mg IVP Q12H [facility] Last Admin: 06/24/20 06:01 Dose: 60 mg Documented by: Glucagon (Glucagon 1 Mg/Ml Inj 1 Ml) 1 mg IM ONCE PRN; Protocol PRN Reason: Adult Acute Hypoglycemia Prot. Dopamine HCl/Dextrose (Intropin Drip) 400 mg in 250 mls @ 9.525 mls/hr IV CONT [facility]; Protocol Last Admin: 06/24/20 01:01 Dose: Not Given Documented by: Dextrose (D5w) 500 mls @ 100 mls/hr IV ONCE PRN; Protocol PRN Reason: Adult Acute Hypoglycemia Prot Vancomycin HCl 750 mg/ Sodium (Chloride) 250 mls @ 250 mls/hr IV Q48H [facility]; Protocol Last Infusion: 06/23/20 14:34 Dose: Infused Documented by: Imipenem/Cilastatin Sodium 250 (mg/ Sodium Chloride) 100 mls @ 200 mls/hr IV Q12H [facility]; Protocol Last Infusion: 06/24/20 05:55 Dose: Infused Documented by: Vasopressin 100 unit/ Sodium (Chloride) 100 mls @ 0 mls/hr IV .Q0M [facility]; Protocol Last Titration: 06/24/20 05:55 Dose: 0 unit/min, 0 mls/hr Documented by: Norepinephrine Bitartrate 8 mg (/ Dextrose) 508 mls @ 0 mls/hr IV .Q0M [facility]; Protocol Last Titration: 06/24/20 05:55 Dose: 4 mcg/min, 15.2 mls/hr Documented by: Albumin Human (Albumin) 12.5 gm in 50 mls @ 60 mls/hr IV PRN PRN PRN Reason: Hypotension and/or symptomatic Albumin Human (Albumin) 12.5 gm in 50 mls @ 60 mls/hr IV PRN PRN PRN Reason: Hypotension and/or symptomatic Fentanyl 1,000 mcg/ Sodium (Chloride) 100 mls @ 0 mls/hr IV .Q0M [facility]; Protocol Last Titration: 06/24/20 06:19 Dose: 50 mcg/hr, 5 mls/hr Documented by: Phenylephrine HCl 25 mg/ (Sodium Chloride) 252.5 mls @ 0 mls/hr IV .Q0M [facility]; Protocol Insulin Aspart (Insulin Aspart 100 Unit/1 Ml) 0 unit SUBCUT TIDWM [facility]; Protocol Last Admin: 06/23/20 17:21 Dose: Not Given Documented by: Lanolin (Lanolin Oint 7 Gm) 1 applic TOPICAL PRN PRN PRN Reason: DRYNESS Last Admin: 06/20/20 03:07 Dose: 1 applic Documented by: Senna/Docusate Sodium (Sennosides-Docusate Tablet) 1 tab PO DAILY [facility] Last Admin: 06/23/20 09:37 Dose: 1 tab Documented by: Vitals/I&O/Wt Last Vital Signs Temp 96.9 F L 06/24/20 08:00 Pulse 89 06/24/20 08:04 Resp 16 06/24/20 08:04 BP 121/61 06/24/20 08:00 Pulse Ox 96 01/04/21 08:04 06/23/20 06/24/20 06/24/20 22:59 06:59 14:59 Intake Total 784.230 / 1933.828 299.625 / 2233.453 Output Total 350 / 350 Balance 784.230 / 1933.828 -50.375 / 1883.453 Weight last 48 hrs Weight 55.792 kg Weight 55.61 kg Physical Exam Narrative: EXAM NARRATIVE: intubated,CMV, fio2=35%, TV 380, PEEP 8, RR15 pressers norepi 3 heent- nca/t lungs ronchi and crackles. chest tube removed rt ACW dialysis catheter heart reg, no rub abd soft ext edema 3+ rt femoral shiley neuro- sedated exam by MACHINE OR MACHINERY MECHANIC and hospitalist Data : 06/23/20 03:40 06/24/20 04:15 A&P Additional A&P Information 1. Oliguiric Renal failure - ischemic/septic ATN - cr improved s/p HD. - repeat HD 3 hrs, 3k, remove 1.5 l as tolerated - dose meds for eGFR < 15 on dialysis - strict Is and Os 2. Covid pneumonitis - on Abx coverage, steroids etc - VDRF; mgmt per ICU team, weaning as tolerated; SBTs and hopefully extubation today 3. electrolytes -monitor hyponatremia w/ HD -hyperphosphatemia improving -await vit d levels, ca is low -pth 228- cont zemplar w/ hd 4. Anemia - repeat cbc s/p prrbc tx yesterday -not sure where bleeding from 5. DM control 6. chest tube removed- monitor improving pneumothorax 7. renal dose abx 8. leukocytosis improving 9. covid-19 per medicine Thank you for consultation, it is a pleasure to follow these cases with you Exam and interview performed with aid of bedside RN using telemedicine Time spent 30 min inc > 50% of time in face to face counseling Attestations Medical Necessity Statement*: vdrf, nishant, covid-19 pna, anemia, presser dependnet Time Spent in Patient Care: 16 - 35 minutes Procedures Arterial Line Size (Gauge): 18 Coding Level of Care Code Acute Panel Assembler for Chg Eliot
[2020-06-24] MEDS: sennosides-docusate Tablet 1 TAB PO (09:31)
[2020-06-24] MEDS: calcitriol 0.25 mcg Capsule PO (09:31)
--- NOTE | 2020-06-24 10:02 | P.PCN_ITS ---
Procedure/Consent Time out: Time Out Performed: Yes Consent: Consent for Procedure: Consent obtained from other (indicate) (Daughter ) Procedure Narrative: Right internal jugular vein hemodialysis catheter placed 11.5 [place] 16 cm in length Pre Procedure diagnosis; acute renal failure associated with sepsis and severe acidosis Postprocedure diagnoses the same Procedure done; placement of 11.5 [place] temporary dialysis catheter right internal jugular vein Indication acute renal failure under ultrasound guidance and all interpretation was done by me through the whole entire procedure. Medications were reviewed to assess for anticoagulant usage. Risks and benefits and prevention of central line associated blood stream infection (CLABSI) were discussed with the patient/CPOA, and a consent was obtained. Monitors were in place and monitored throughout the procedure. All necessary supplies were available prior to start. Hand hygiene was completed prior to starting. Maximum barrier technique was utilized including a sterile gown, sterile gloves with a hat and mask. Site was was prepped with [chlorhexidine] and a full body drape was placed. 5 mL of 2% lidocaine was injected into the skin with a 25 gauge needle. Description Pre-prep ultrasound was done shows patency of the right internal jugular vein without intraluminal thrombosis with my personal interpretation Local anesthetic in the form of 1% lidocaine infiltrated at the site of insertion of the catheter Prep& drape was done under the usual sterile technique of right side of the neck,ultrasound guidance right internal jugular vein stick showed retrieval of venous blood,then a guidewire was placed through the needle, the guidewire was secured to the drapes with a hemostat and the needle was taken out, 11 blade knife was used to create a skin incision at the site of insertion of the catheter followed by that serial dilators,hemodialysis catheter 11.5 [place] was introduced onto the guidewire, with venous and arterial hubs were flushed and retrieved venous blood without difficulty. Hep-Lock's were then applied Followed by 3-0 Nylon sutures were applied to secure the catheter to the patient's skin TYPE OF PLACEMENT: Temporary dialysis catheter right internal jugular vein TUNNELED:(NO) IMAGING UTILIZED:~ [Ultrasound guided approach/and interpretation of images done by me through the procedure] Armhole Baster Hand Caring Nurs [facility] ANESTHESIA: [Local lidocaine 1%], Estimated blood loss less than 10 ml No specimen Location VICU I was present for the whole entire procedure Acute Procedures Arterial Line: Size (Gauge): 18 Epistaxis Control: Time out performed: Yes
[2020-06-24] MEDS: ipratropium-albuterol 3 mL Neb INHALATION (10:12)
[2020-06-24] MEDS: famotidine 20 mg/2 mL INJ 40 MG IVP ×2 (11:44→22:34)
[2020-06-24 12:13] LABS: Glucose Point of Care 218 mg/dL (70-110)
--- NOTE | 2020-06-24 14:28 | PC.NURSE ---
New HD catheter placed today to the right IJ. Performed by Dr Corrales. Procedure uneventful. Dialysis ordered for later today
--- NOTE | 2020-06-24 14:30 | PC.NURSE ---
Per Dr Dumont, nurse stopped fentanyl, only sedation used, to wake patient up for possible extubation. Pt expected to continue to be sedated for extended time due to decreased kidney function.
--- NOTE | 2020-06-24 14:31 | P.PN_ITS ---
Subjective Subjective: Interval history: 69-year-old female with past medical history significant for breast cancer completed chemotherapy 2 years prior, coronary artery disease with history of CABG, gastroesophageal reflux disease, hypertension, hyperlipidemia, peripheral vascular disease with prior bilateral femoral bypass and chronic kidney disease with a baseline creatinine around 1.4 who presented to the [facility] in [place] with respiratory distress. this was associated with fever and generalized weakness. The symptoms have been progressing for about 4 days prior. While in emergency room a rapid COVID 19 antigen was checked and found to be positive. PCR was sent however this is still pending. Initially she was noted to have hypoxia with O2 saturation of 83% while on 5 L of O2. This was transitioned to non-rebreather however ventrally patient was intubated and placed on mechanical ventilation. She was initially started on propofol however due to bradycardia this was transition to fentanyl drip. Prior to that she was given atropine. Patient was then airlifted to [facility] for further care. Upon arrival to be ICU patient had repeat laboratory workup performed. WBC of 14.4, hemoglobin of 8.3, hematocrit of 26.6 and a platelet count of 378. sodium 138, potassium 5.8, chloride 108, bicarb 12, BUN 73 and creatinine of 4.1. Glucose of 317. Calcium 8.6. LDH 342. C reactive protein of 216. troponin delta of -1.23. Procalcitonin was elevated at 16.44. TSH of 0.22. Noted to be hypotensive and bradycardic on initial evaluation. She was started on Levophed and dopamine drip. Arterial line was placed . Subsequently a central line was placed. Chest x-ray performed for line placement assessment noted left-sided pneumothorax For which a chest tube was placed and noted to be in position in the upper left pleural cavity. Appeared to be in sepsis with shock for which she required up to 3 pressers including levofed,vasopressin and dopamine to maintain MAP > 65. Patient was started on broad-spectrum antibiotics including vancomycin and Primaxin 500 mg IV q.6 hours. Blood cultures were taken. Sputum culture was also taken. Pulmonary Medicine was consulted. Patient was found to be oliguria. No improvement in urine out put after lasix 40 mg IV x 1 challenge. Nephrology was consulted. Femoral HD catheter was placed by surgery and with consent from family she was imitated on dialysis. Multiple discussions with family included daughter and step daughter regarding poor prognosis. Code status was discussed and at family request was changed to D.N.R status with limited interventions. Ok to continue vent, hd, pressers, icu care, shock if needed however no resuscitation in the event of cardiac arrest. Subjective 06/21/19 Patient was started on HD, noted to have developed SQ emphysema. No fever. remained on vent. 06/22/20 Patient overnight was noted have developement of SQ emphysema. Chest tube was removed and replaced. Fio2 was weaned to 35%. No fever overnight. 06/23/20 unchanged 06/24/20 Patient was noted to have difficulty with HD yesterday due to femoral HD line, This am a right IJ HD catheter was placed No fever. Fio2 was decreased to 35%, PEEP of 8. D/w general surgery/Nephrology Medications: Reviewed: Yes Medication Review Details: Current Medications Albuterol/Ipratropium (Ipratropium-Albuterol 3 Ml Neb) 3 ml INHALATION Q6H PRN PRN Reason: SHORTNESS OF BREATH Last Admin: 06/20/20 02:01 Dose: 3 ml Documented by: Aspirin (Aspirin 81 Mg Ec Tablet) 81 mg PO DAILY [facility] Last Admin: 06/19/20 09:04 Dose: 81 mg Documented by: Atorvastatin Calcium (Atorvastatin 40 Mg Tablet) 20 mg PO BEDTIME [facility] Last Admin: 06/19/20 21:04 Dose: 20 mg Documented by: Clopidogrel Bisulfate (Clopidogrel 75 Mg Tablet) 75 mg PO DAILY [facility] Last Admin: 06/19/20 09:04 Dose: 75 mg Documented by: Dextrose (Dextrose 50% Syringe 50 Ml) 25 ml IVP ONCE PRN; Protocol PRN Reason: hypoglycemia protocol Dextrose (Dextrose 50% Syringe 50 Ml) 50 ml IVP PRN PRN; Protocol PRN Reason: hypoglycemia protocol Famotidine (Famotidine 20 Mg/2 Ml Inj) 40 mg IVP Q12H [facility] Last Admin: 06/19/20 23:48 Dose: 40 mg Documented by: Glucagon (Glucagon 1 Mg/Ml Inj 1 Ml) 1 mg IM ONCE PRN; Protocol PRN Reason: Adult Acute Hypoglycemia Prot. Dopamine HCl/Dextrose (Intropin Drip) 400 mg in 250 mls @ 9.525 mls/hr IV CONT [facility]; Protocol Last Titration: 06/20/20 00:12 Dose: 0 mcg/kg/min, 0 mls/hr Documented by: Fentanyl 1,000 mcg/ Sodium (Chloride) 100 mls @ 0 mls/hr IV .Q0M [facility]; Protocol Last Titration: 06/20/20 04:39 Dose: 50 mcg/hr, 5 mls/hr Documented by: Midazolam HCl 100 mg/ Sodium (Chloride) 100 mls @ 0 mls/hr IV .Q0M [facility]; Protocol Last Admin: 06/19/20 03:41 Dose: 1 mg/hr, 1 mls/hr Documented by: Dextrose (D5w) 500 mls @ 100 mls/hr IV ONCE PRN; Protocol PRN Reason: Adult Acute Hypoglycemia Prot Vancomycin HCl 750 mg/ Sodium (Chloride) 250 mls @ 250 mls/hr IV Q48H [facility]; Protocol Last Infusion: 06/19/20 14:32 Dose: Infused Documented by: Imipenem/Cilastatin Sodium 250 (mg/ Sodium Chloride) 100 mls @ 200 mls/hr IV Q12H [facility]; Protocol Last Infusion: 06/20/20 00:40 Dose: Infused Documented by: Insulin Human Regular 250 unit (/ Sodium Chloride) 252.5 mls @ 0 mls/hr IV .Q0M [facility]; Protocol Last Titration: 06/20/20 05:11 Dose: 5 unit/hr, 5.1 mls/hr Documented by: Vasopressin 100 unit/ Sodium (Chloride) 100 mls @ 0 mls/hr IV .Q0M [facility]; Protocol Last Admin: 06/19/20 14:53 Dose: 0.04 unit/min, 2.4 mls/hr Documented by: Norepinephrine Bitartrate 8 mg (/ Dextrose) 508 mls @ 0 mls/hr IV .Q0M [facility]; Protocol Last Admin: 06/20/20 04:39 Dose: 12 mcg/min, 45.7 mls/hr Documented by: Albumin Human (Albumin) 12.5 gm in 50 mls @ 60 mls/hr IV PRN PRN PRN Reason: Hypotension and/or symptomatic Insulin Aspart (Insulin Aspart 100 Unit/1 Ml) 0 unit SUBCUT WM&BEDTIME [facility]; Protocol Last Admin: 06/19/20 21:05 Dose: Not Given Documented by: Lanolin (Lanolin Oint 7 Gm) 1 applic TOPICAL PRN PRN PRN Reason: DRYNESS Last Admin: 06/20/20 03:07 Dose: 1 applic Documented by: Senna/Docusate Sodium (Sennosides-Docusate Tablet) 1 tab PO DAILY [facility] Last Admin: 06/19/20 09:04 Dose: 1 tab Documented by: Vitals/I&O/Wt Last Vital Signs Temp 96.7 F L 06/24/20 12:00 Pulse 90 06/24/20 14:00 Resp 20 H 06/24/20 14:00 BP 94/57 06/24/20 14:00 Pulse Ox 99 06/24/20 13:30 06/23/20 06/24/20 06/24/20 22:59 06:59 14:59 Intake Total 784.230 / 1933.828 299.625 / 2233.453 139.124 / 139.124 Output Total 350 / 350 Balance 784.230 / 1933.828 -50.375 / 1883.453 139.124 / 139.124 Weight last 48 hrs Weight 55.792 kg Weight 55.61 kg Physical Exam Narrative: EXAM NARRATIVE: General- sedated on mechanical ventilation HEENT-ET tube in place Chest -Nonlabored respiration, on vent Hemilich valve removed - dressing covered CVS- Normal sinus rhythm Abdomen -Nondistended Extremities-No edema Lines- Left IJ, right femoral dialysis -> right IJ, [place], ET tube, left hemilich valve revmoved Data : 06/23/20 03:40 06/24/20 04:15 Micro: Microbiology 06/19/20 11:02 Blood Culture - Final Blood NO GROWTH AFTER 5 DAYS 06/19/20 11:13 Blood Culture - Final Blood NO GROWTH AFTER 5 DAYS A&P Assessment and plan (1) Acute respiratory failure with hypoxia: Status: Acute (2) Metabolic acidosis: Status: Acute (3) Acute kidney injury superimposed on chronic kidney disease: Status: Acute (4) Hyperkalemia: Status: Acute (5) New onset of congestive heart failure: Status: Acute (6) COVID-19: Status: Acute (7) Septic shock: Status: Acute Acute Hypoxic respiratory failure - Etiology multi-factorial - COVID-19 pneumonia, PTX, superimposed bacterial 06/22 - Vent Settings: CMV, TV 380, RR 16, PEEP of 8 Fio2 of 35% - Patient: RR of 16, M.V of 8.1 - ABG: PH 7.40, Po2 of 108, HCO3 17 - On Fio2 of 50 percent -> 35% 06/24 - Vent: CMV TV 380, RR 14, PEEP of 6 Fio2 35% - ABG - Pending - Chest x-ray - > Decreasing size of small loculated ptx in the left base, stable b/l interstitial pulmonary infiltrates - Propofol, Fentanyl, versed per protocol for sedation - Wean sedation today - Will trial on MMV - Repeat chest x-ray / abg in am - Pulmonary medicine on board Septic shock due to COVID-19 Pneumonia - Improving - Suspected superimposed Bacterial Pneumonia - Procalcitonin 16.44 -> 15.48 - > 4.04 - Renal dosing of meds - Lactic Acid 1.7 - 06/19 - Sputum culture - Negative - 06/19 - Blood culture x 2 - NGTD - 06/19 - Urine culture - negative - Vancomycin pharmacy to dose - Primixin 250 mg IV q12 hr - Repeat Pro-calcitonin in am - Afebrile Left sided tension pneumothorax with development of SQ emphysema - Noted on admission - Left -sided chest tube was placed - 06/21 - Helmich valve placed - Removed on 06/22 - Repeat chest x-ray reviewed - Consult with general surgery - SQ emphysema improving - Repeat chest x-ray in am Acute kidney injury / ATN on CKD stage 3 on HD - Creatinine baseline 1.4- > Cr. 4.1 - > 3.1 - Nephrology consulted - Femoral HD catheter placed by general surgery - Femoral line change to right IJ HD catherter ( 06/24 ) - HD on 06/21/19 - > plan for next HD on 06/24 - Continue per nephrology Diabetes Mellitus with hyperglycemia mild DKA on arrival - AG metabolic acidosis - Multi-factorial component of acidosis - continue insulin SQ - Goal Blood sugar 140-180 - Q1hr BS checks - Repeat labs in am Acute anemia - Multi-factorial - Acute blood loss from CT in setting of renal disease - Hb 8.3 - > 6.8 - s/p 2 units PRBC transfusion on 06/23 - Follow up on H/H today - Holding anticoagulation/Antiplatelets - Monitor h/h Coronary artery disease s/p CABG / PVD s/p b/l femoral bypass / Hypertension - Holding aspirin 81 mg PO daily and Plavix 75 mg PO daily - Will resume once hemoglobin stabilizes and no further invasive procedures - ECHO - pEF - Continue Lipitor 20 mg PO daily - Monitor on tele Hx of Breast cancer - S/P chemo > 2 year prior - No new recommendation FEN - Tube feeding - Dietary consulted - Pulmcal 1.2 at 20ml/hr - Will increase to goal based on residuals and recs GI ppx - Pepcid 20 mg IV daily DVT ppx - SCDs only due to anemia Condition: Critical Prognosis : Poor Code status- Changed to DNR, allow natural as discussed above in HPI Disposition: Will attempt to wean vent and trial today Attestations Medical Necessity Statement*: [facility] Time Spent in Patient Care: Greater than 35 minutes (>than 50% of time spent in counselling and/or direct pt care on unit) . Critical Care Time: Critical Care Time (min): 50 Procedures Arterial Line Size (Gauge): 18 Coding Level of Care Code Acute Supervisor Coil Winding for Chg Fwd Diagnoses Acute respiratory failure with hypoxia J96.01 Metabolic acidosis E87.2 Acute kidney injury superimposed on chronic kidney disease N17.9; N18.9 Hyperkalemia E87.5 New onset of congestive heart failure I50.9 COVID-19 U07.1 Septic shock A41.9; R65.21
[2020-06-24 16:08] LABS: Basophils # 0.1 10^3/uL (0.0-0.1); Basophils % 0.2 %; Hematocrit 27.2 % (37.0-47.0); Hemoglobin 9.3 g/dL (11.5-15.3); Lymphocytes # 0.7 10^3/uL (0.8-4.8); Lymphocytes % 3.5 %; Mean Corpuscular HGB Conc 34.2 g/dL (30.0-36.0); Mean Corpuscular Volume 84.7 fL (81-99); Monocytes # 1.5 10^3/uL (0.2-0.9); Monocytes % 7.1 %; Neutrophils # 18.11 10^3/uL (1.8-7.7); Neutrophils % 84.8 %; Nucleated Red Blood Cells # 0.5 /100WBC; Nucleated Red Blood Cells % 2.1 %; Platelet Count 201 10^3/cmm (130-400); Red Blood Count 3.21 10^6/uL (4.1-5.3); Red Cell Distribution Width 14.6 % (12.1-15.1); White Blood Count 21.4 10^3/uL (4.0-10.0)
--- NOTE | 2020-06-24 16:18 | PC.NURSE ---
Dialysis nurse in room with patient. Despite being off of all sedation for 3 hours and receiving dialysis, pt continues to be unresponsive.
--- NOTE | 2020-06-24 17:03 | PC.NURSE ---
Dialysis completed. 944 ML of fluid removed.
[2020-06-24] MEDS: dexamethasone 4 mg/mL INJ 6 MG IVP (17:04)
--- NOTE | 2020-06-24 17:26 | PC.NURSE ---
1700 blood sugar is 125. Glucometer not syncing. 1800 insulin not given per sliding scale.
[2020-06-24 17:27] LABS: Glucose Point of Care 122 mg/dL (70-110)
--- NOTE | 2020-06-24 19:15 | PC.NURSE ---
Family Contact : Best contact is Patient's daughter Argelia. [phone]. She prefers to get the calls and she will update rest of family so everyone is given the same info at the same time. Alternative contact is Dalila at [phone]
[2020-06-24] MEDS: atorvastatin 40 mg Tablet 20 MG PO (20:13)
--- NOTE | 2020-06-24 23:30 | P.PN_ITS ---
Subjective Subjective: Interval history: Patient is off sedation, opens eyes and tracks but does not follow commands. Recommended to obtain CT head today and to keep off sedation Medications: Reviewed: Yes Medication Review Details: Current Medications Albuterol/Ipratropium (Ipratropium-Albuterol 3 Ml Neb) 3 ml INHALATION Q6H PRN PRN Reason: SHORTNESS OF BREATH Last Admin: 06/20/20 02:01 Dose: 3 ml Documented by: Aspirin (Aspirin 81 Mg Ec Tablet) 81 mg PO DAILY [facility] Last Admin: 06/19/20 09:04 Dose: 81 mg Documented by: Atorvastatin Calcium (Atorvastatin 40 Mg Tablet) 20 mg PO BEDTIME [facility] Last Admin: 06/19/20 21:04 Dose: 20 mg Documented by: Clopidogrel Bisulfate (Clopidogrel 75 Mg Tablet) 75 mg PO DAILY [facility] Last Admin: 06/19/20 09:04 Dose: 75 mg Documented by: Dextrose (Dextrose 50% Syringe 50 Ml) 25 ml IVP ONCE PRN; Protocol PRN Reason: hypoglycemia protocol Dextrose (Dextrose 50% Syringe 50 Ml) 50 ml IVP PRN PRN; Protocol PRN Reason: hypoglycemia protocol Famotidine (Famotidine 20 Mg/2 Ml Inj) 40 mg IVP Q12H [facility] Last Admin: 06/19/20 23:48 Dose: 40 mg Documented by: Glucagon (Glucagon 1 Mg/Ml Inj 1 Ml) 1 mg IM ONCE PRN; Protocol PRN Reason: Adult Acute Hypoglycemia Prot. Dopamine HCl/Dextrose (Intropin Drip) 400 mg in 250 mls @ 9.525 mls/hr IV CONT [facility]; Protocol Last Titration: 06/20/20 00:12 Dose: 0 mcg/kg/min, 0 mls/hr Documented by: Fentanyl 1,000 mcg/ Sodium (Chloride) 100 mls @ 0 mls/hr IV .Q0M [facility]; Protocol Last Titration: 06/20/20 04:39 Dose: 50 mcg/hr, 5 mls/hr Documented by: Midazolam HCl 100 mg/ Sodium (Chloride) 100 mls @ 0 mls/hr IV .Q0M [facility]; Protocol Last Admin: 06/19/20 03:41 Dose: 1 mg/hr, 1 mls/hr Documented by: Dextrose (D5w) 500 mls @ 100 mls/hr IV ONCE PRN; Protocol PRN Reason: Adult Acute Hypoglycemia Prot Vancomycin HCl 750 mg/ Sodium (Chloride) 250 mls @ 250 mls/hr IV Q48H [facility]; Protocol Last Infusion: 06/19/20 14:32 Dose: Infused Documented by: Imipenem/Cilastatin Sodium 250 (mg/ Sodium Chloride) 100 mls @ 200 mls/hr IV Q12H [facility]; Protocol Last Infusion: 06/20/20 00:40 Dose: Infused Documented by: Insulin Human Regular 250 unit (/ Sodium Chloride) 252.5 mls @ 0 mls/hr IV .Q0M [facility]; Protocol Last Titration: 06/20/20 05:11 Dose: 5 unit/hr, 5.1 mls/hr Documented by: Vasopressin 100 unit/ Sodium (Chloride) 100 mls @ 0 mls/hr IV .Q0M [facility]; Protocol Last Admin: 06/19/20 14:53 Dose: 0.04 unit/min, 2.4 mls/hr Documented by: Norepinephrine Bitartrate 8 mg (/ Dextrose) 508 mls @ 0 mls/hr IV .Q0M [facility]; Protocol Last Admin: 06/20/20 04:39 Dose: 12 mcg/min, 45.7 mls/hr Documented by: Albumin Human (Albumin) 12.5 gm in 50 mls @ 60 mls/hr IV PRN PRN PRN Reason: Hypotension and/or symptomatic Insulin Aspart (Insulin Aspart 100 Unit/1 Ml) 0 unit SUBCUT WM&BEDTIME [facility]; Protocol Last Admin: 06/19/20 21:05 Dose: Not Given Documented by: Lanolin (Lanolin Oint 7 Gm) 1 applic TOPICAL PRN PRN PRN Reason: DRYNESS Last Admin: 06/20/20 03:07 Dose: 1 applic Documented by: Senna/Docusate Sodium (Sennosides-Docusate Tablet) 1 tab PO DAILY [facility] Last Admin: 06/19/20 09:04 Dose: 1 tab Documented by: Vitals/I&O/Wt Last Vital Signs Temp 97.3 F L 06/24/20 18:00 Pulse 88 06/24/20 23:07 Resp 16 06/24/20 23:07 BP 161/74 06/24/20 23:00 Pulse Ox 93 06/24/20 23:07 06/24/20 06/24/20 06/25/20 14:59 22:59 06:59 Intake Total 139.124 / 139.124 100 / 239.124 Output Total 350 / 350 Balance 139.124 / 139.124 -250 / -110.876 Weight last 48 hrs Weight 123 lb Weight 122 lb 9.6 oz Physical Exam Narrative: EXAM NARRATIVE: PHYSICAL EXAM: General: lying in bed, opens eyes HEENT:NCAT, PERRLA, EOMI Neck: Supple Lungs: Mild crepitations in the left lower base Heart: s1/s2, RRR Abd: soft, NT, ND, BS + Normoactive Extremities: 1+ pedal edema FIRER LOCOMOTIVE: Opening eyes and tracks but does not follow commands limited FIRER LOCOMOTIVE exam possible. SKIN: no rash LDA: # CVC: Left IJ 06/18/2020 # HD Cath : Right IJ HD 06/24/2020 # August: 06/18/2020 # A line: Right radial 06/18/2020 Data : 06/25/20 04:00 06/25/20 04:00 Micro: Microbiology 06/19/20 11:02 Blood Culture - Final Blood NO GROWTH AFTER 5 DAYS 06/19/20 11:13 Blood Culture - Final Blood NO GROWTH AFTER 5 DAYS A&P Assessment and plan (1) COVID-19: Status: Acute (2) New onset of congestive heart failure: Status: Acute (3) Acute respiratory failure with hypoxia: Status: Acute (4) Acute kidney injury superimposed on chronic kidney disease: Status: Acute (5) Metabolic acidosis: Status: Acute (6) Septic shock: Status: Acute 69-year-old female with metastatic ovarian cancer, CKD, admitted to viral ICU for acute hypoxic respiratory failure secondary to COVID-19 pneumonia, septic shock due to unspecified organism requiring 3 pressors, leading to acute renal failure on chronic kidney disease requiring hemodialysis. Currently off pressors and can be extubated once mentation is good. NEURO: #Altered mental status secondary to sedation #Cannot rule out hypoxic encephalopathy due to hypoperfusion -Currently off sedation -Patient opens eyes and tracks but does not really follow commands -there is a slight improvement from yesterday -Hold off sedation and see if takes time for her to follow commands -CT head 06/25/2019 no acute events; Severe chronic appearing white matter disease. Yoon-white matter differentiation still intact with no sulcal effacement PULM: #Acute hypoxic respiratory failure secondary to ARDS due to COVID pna -cannot rule out coexisting bacterial infection #Left pneumothorax -resolved -Intubated on 06/18/2020 -ABG On CMV TV 380/FiO2 30%/PEEP 6/rate 14-7.54///; reduce the rate to 12 and TV to 360 -Chest x-ray 06/24/2020:Mild airspace disease within the left lung base. -Recommended to maintain PEEP less than 8 to avoid high positive pressures and increased FiO2 if required for oxygenation -Improving inflammatory markers D-dimer, LDH, CRP, and repeat every 2 days to trend markers of inflammation -On dexamethasone 6 mg daily -Cultures so far negative- Covered with vancomycin, imipenem since 06/19 -Discontinue antibiotics after total 7 days -on 06/26/2019 -Elevated procalcitonin could be secondary to ESRD -We will start spontaneous breathing trial tomorrow and if mentation is better we will plan to extubate soon CVS: -Septic shock likely secondary to sepsis-resolved -Elevated troponins can be secondary to renal failure and demand ischemia -Off pressors -Please maintain MAP > 65 -Monitor blood pressure and taper of pressors as feasible -BNP is 7933, Echo ejection fraction 50 to 55% impaired diastolic function -Held aspirin and Plavix (history of CAD) held in view of bleeding from ET tube earlier and currently due to drop in H&H -On Lipitor GI: -N.p.o. in view of suspected GI bleed -On senna 1 tab p.o. daily -On famotidine for GI prophylaxis -Normal LFTs RENAL: #Acute on chronic CKD -worsened due to hypoperfusion secondary to septic shock -Currently on dialysis -patient is making urine -Electrolytes within normal limits -On Lasix 60 twice daily -Nephrology following -Continue august cath for input output monitoring -Avoid nephrotoxins -Monitor BUN/creatinine and electrolytes and supplement accordingly if clinically indicated HEM: #History of? Disseminated ovarian cancer and breast cancer #H&H stable -dropping hemoglobin hematocrit -Transfuse to keep H&H more than 01/08 -Send for stool occult - Plts stable -Held DVT prophylaxis in view of drop in H&H ENDO: -DKA-resolved -Ketones negative; anion gap still persists likely secondary to renal failure -Currently on I scale coverage -Monitor every 6 sugars ID: #Septic shock secondary to COVID pna and possible coexisting bacterial infection #Shock resolved -Hypothermic on admission and was requiring 3 pressors -currently off pressors -WBC 16 K, afebrile, - Cultures so far negative- Covered with vancomycin, imipenem since 06/19 -Discontinue antibiotics after total 7 days -Elevated procalcitonin could be secondary to ESRD Prognosis: Guarded Disposition: Remains in ICU Code: DNR Plan of care and recommendations conveyed to Dr. Dumont hospitalist on the case, RN and RT ICU CHECKLIST: Problem list updated Verbal orders reviewed and signed Analgesia: Fentanyl Glycemic Control: Scale coverage Nutrition: N.p.o. Restraint Renewal (within 24 hrs): Yes Ulcer Prophylaxis: Famotidine Chemical Thromboprophylaxis: Prophylaxis: Held in view of dropping H&H Mechanical Thromboprophylaxis: Yes Need for Central line: Yes requiring any infusions sedation and pressors Need for August catheter: Yes for urine output monitoring Critical Care Time (No Overlap): 45 min This patient has a high probability of sudden, clinically significant deterioration, which requires the highest level of physician preparedness to intervene urgently. I managed/supervised life or organ supporting interventions that required frequent physician assessment. I devoted my full attention in the ICU to the direct care of this patient for the period of time indicated above. Time I spent with family or surrogate(s) is included only if the patient was incapable of providing necessary information or participating in decision making. Time devoted to teaching and to any procedures I billed separately is not included. Services Provided: Telemetry review Mechanical Ventilation Hemodynamic interpretation, assessment and management Review and interpretation of CXR Review and interpretation of lab values Review and interpretation of microbiologic data and culture results Review of medications and administration Review and interpretation of Nutrition requirements and management Discussion of management with other consultants and services Clinical update to family members Attestations Medical Necessity Statement*: Acute hypoxic respiratory failure secondary to COVID-19 pneumonia and altered mental status due to hypoperfusion due to initial septic shock on admission, still requiring mechanical ventilation and hemodialysis. Time Spent in Patient Care: (>than 50% of time spent in counselling and/or direct pt care on unit) . Critical Care Time: Critical Care Time (min): 45 Procedures Arterial Line Size (Gauge): 18 Coding Level of Care Code Acute Law Firm Consultant for [facility] Diagnoses COVID-19 U07.1 New onset of congestive heart failure I50.9 Acute respiratory failure with hypoxia J96.01 Acute kidney injury superimposed on chronic kidney disease N17.9; N18.9 Metabolic acidosis E87.2 Septic shock A41.9; R65.21
[2020-06-25] VITALS (51 sets, daily range): BP systolic 128–201; BP diastolic 68–109; PULSE 79–117; RESP 14–26; TEMP 36.6; O2SAT 87–98
[2020-06-25 03:53] LABS: ABG PCO2 30.3 mmHg (35-45); ABG PH Result 7.54 (7.35-7.45); Arterial Blood Gas Hematocrit 23.5 % (37-47); Base Excess ABG 3.5 mmol/L (-2.0-2.0); Blood Gas Sample Type Arterial; Blood Gas Tidal Volume 0.38; HCO3 ABG 26.1 mmol/L (22-26); Oxygen Device VENT; PO2 ABG 71.4 mmHg (80.0-100.0)
[2020-06-25 04:42] LABS: Basophils % 0.2 %; Hematocrit 22.7 % (37.0-47.0); Hemoglobin 7.6 g/dL (11.5-15.3); Lymphocytes # 0.5 10^3/uL (0.8-4.8); Lymphocytes % 3.2 %; Mean Corpuscular HGB Conc 33.5 g/dL (30.0-36.0); Mean Corpuscular Hemoglobin 28.6 pg (28.0-34.0); Mean Corpuscular Volume 85.3 fL (81-99); Monocytes # 0.9 10^3/uL (0.2-0.9); Monocytes % 5.6 %; Neutrophils # 13.84 10^3/uL (1.8-7.7); Neutrophils % 86.4 %; Nucleated Red Blood Cells # 0.2 /100WBC; Nucleated Red Blood Cells % 1.4 %; Platelet Count 160 10^3/cmm (130-400); Red Blood Count 2.66 10^6/uL (4.1-5.3); Red Cell Distribution Width 14.5 % (12.1-15.1)
[2020-06-25 05:23] LABS: Lactate (Lactic Acid level) 1.2 mmol/L (0.5-2.2)
[2020-06-25 05:31] LABS: C Reactive Protein 44.5 mg/L (0.0-4.9); Ferritin 617 ng/mL (15-150); Magnesium 1.8 mg/dL (1.7-2.3); Phosphorus 3.9 mg/dL (2.5-4.5)
[2020-06-25] MEDS: FUROsemide 10 mg/mL SDV 4mL 60 MG IVP ×2 (06:05→18:32)
--- NOTE | 2020-06-25 07:05 | P.PN_ITS ---
Subjective Subjective: Interval history: not responsive in icu Medications: Reviewed: Yes Medication Review Details: Current Medications Albuterol/Ipratropium (Ipratropium-Albuterol 3 Ml Neb) 3 ml INHALATION Q6H PRN PRN Reason: SHORTNESS OF BREATH Last Admin: 06/24/20 10:12 Dose: 3 ml Documented by: Aspirin (Aspirin 81 Mg Ec Tablet) 81 mg PO DAILY [facility] Last Admin: 06/19/20 09:04 Dose: 81 mg Documented by: Atorvastatin Calcium (Atorvastatin 40 Mg Tablet) 20 mg PO BEDTIME [facility] Last Admin: 06/24/20 20:13 Dose: 20 mg Documented by: Calcitriol (Calcitriol 0.25 Mcg Capsule) 0.25 mcg PO DAILY [facility] Last Admin: 06/24/20 09:31 Dose: 0.25 mcg Documented by: Clopidogrel Bisulfate (Clopidogrel 75 Mg Tablet) 75 mg PO DAILY [facility] Last Admin: 06/19/20 09:04 Dose: 75 mg Documented by: Dexamethasone (Dexamethasone 4 Mg/Ml Inj) 6 mg IVP Q24H [facility] Last Admin: 06/24/20 17:04 Dose: 6 mg Documented by: Dextrose (Dextrose 50% Syringe 50 Ml) 25 ml IVP ONCE PRN; Protocol PRN Reason: hypoglycemia protocol Dextrose (Dextrose 50% Syringe 50 Ml) 50 ml IVP PRN PRN; Protocol PRN Reason: hypoglycemia protocol Famotidine (Famotidine 20 Mg/2 Ml Inj) 40 mg IVP Q12H [facility] Last Admin: 06/24/20 22:34 Dose: 40 mg Documented by: Furosemide (Furosemide 10 Mg/Ml Sdv 4ml) 60 mg IVP Q12H [facility] Last Admin: 06/25/20 06:05 Dose: 60 mg Documented by: Glucagon (Glucagon 1 Mg/Ml Inj 1 Ml) 1 mg IM ONCE PRN; Protocol PRN Reason: Adult Acute Hypoglycemia Prot. Dopamine HCl/Dextrose (Intropin Drip) 400 mg in 250 mls @ 9.525 mls/hr IV CONT [facility]; Protocol Last Admin: 06/25/20 03:12 Dose: Not Given Documented by: Dextrose (D5w) 500 mls @ 100 mls/hr IV ONCE PRN; Protocol PRN Reason: Adult Acute Hypoglycemia Prot Vancomycin HCl 750 mg/ Sodium (Chloride) 250 mls @ 250 mls/hr IV Q48H [facility]; Protocol Last Infusion: 06/23/20 14:34 Dose: Infused Documented by: Imipenem/Cilastatin Sodium 250 (mg/ Sodium Chloride) 100 mls @ 200 mls/hr IV Q12H [facility]; Protocol Last Admin: 06/24/20 22:33 Dose: 200 mls/hr Documented by: Vasopressin 100 unit/ Sodium (Chloride) 100 mls @ 0 mls/hr IV .Q0M [facility]; Protocol Last Titration: 06/24/20 05:55 Dose: 0 unit/min, 0 mls/hr Documented by: Norepinephrine Bitartrate 8 mg (/ Dextrose) 508 mls @ 0 mls/hr IV .Q0M [facility]; Protocol Last Titration: 06/24/20 13:12 Dose: 0.52 mcg/min, 2 mls/hr Documented by: Albumin Human (Albumin) 12.5 gm in 50 mls @ 60 mls/hr IV PRN PRN PRN Reason: Hypotension and/or symptomatic Albumin Human (Albumin) 12.5 gm in 50 mls @ 60 mls/hr IV PRN PRN PRN Reason: Hypotension and/or symptomatic Fentanyl 1,000 mcg/ Sodium (Chloride) 100 mls @ 0 mls/hr IV .Q0M [facility]; Protocol Last Titration: 06/24/20 12:00 Dose: 0 mcg/hr, 0 mls/hr Documented by: Phenylephrine HCl 25 mg/ (Sodium Chloride) 252.5 mls @ 0 mls/hr IV .Q0M [facility]; Protocol Albumin Human (Albumin) 12.5 gm in 50 mls @ 60 mls/hr IV PRN PRN PRN Reason: Hypotension and/or symptomatic Insulin Aspart (Insulin Aspart 100 Unit/1 Ml) 0 unit SUBCUT TIDWM [facility]; Protocol Last Admin: 06/24/20 17:26 Dose: Not Given Documented by: Lanolin (Lanolin Oint 7 Gm) 1 applic TOPICAL PRN PRN PRN Reason: DRYNESS Last Admin: 06/20/20 03:07 Dose: 1 applic Documented by: Senna/Docusate Sodium (Sennosides-Docusate Tablet) 1 tab PO DAILY [facility] Last Admin: 06/24/20 09:31 Dose: 1 tab Documented by: Vitals/I&O/Wt Last Vital Signs Temp 97.3 F L 06/24/20 18:00 Pulse 86 06/25/20 06:00 Resp 15 06/25/20 03:36 BP 152/74 06/25/20 06:00 Pulse Ox 93 06/25/20 06:00 06/24/20 06/25/20 06/25/20 22:59 06:59 14:59 Intake Total 100 / 239.124 Output Total 350 / 350 550 / 900 Balance -250 / -110.876 -550 / -660.876 Weight last 48 hrs Weight 56.019 kg Weight 55.792 kg Physical Exam Narrative: EXAM NARRATIVE: intubated,CMV, fio2=35%, TV 380, PEEP 6, RR12- pt is overbreathing vent to 18 pressers and sedatives are off heent- nca/t lungs -good air movement b/l. chest tube removed rt ACW dialysis catheter heart reg, no rub abd soft ext edema 2+ neuro- pulls from suction. not following commands. poor reflexes exam by [employer] Data : 06/25/20 04:00 06/24/20 04:15 Micro: Microbiology 06/19/20 11:02 Blood Culture - Final Blood NO GROWTH AFTER 5 DAYS 06/19/20 11:13 Blood Culture - Final Blood NO GROWTH AFTER 5 DAYS A&P Additional A&P Information 1. Acute Renal failure - ischemic/septic ATN - cr improved s/p HD. - uop improving -resp alkalosis- hold HD - dose meds for eGFR < 15 on dialysis - strict Is and Os 2. Covid pneumonitis - on Abx coverage, steroids etc - VDRF; mgmt per ICU team, weaning as tolerated; SBTs and hopefully extubation today -KEEP VANCO LEVEL UNDER 20 3. electrolytes -monitor hyponatremia w/ HD -hyperphosphatemia improving -await vit d levels, ca is low -pth 228- cont zemplar w/ hd 4. Anemia - repeat cbc s/p prbc tx -hgb dropping -not sure where bleeding from 5. DM control 6. chest tube removed- monitor improving pneumothorax 7. renal dose abx 8. leukocytosis improving 9. covid-19 per medicine 10. 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
[2020-06-25 08:33] LABS: Glucose Point of Care 177 mg/dL (70-110)
[2020-06-25 08:49] LABS: Alanine Aminotransferase 12 U/L (0-33); Albumin Level 2.6 g/dL (3.5-5.2); Alkaline Phosphatase 69 IU/L (35-105); Anion Gap 19.8 (5-19); Aspartate Amino Transferase 24 U/L (0-32); Blood Urea Nitrogen 30 mg/dL (8-23); Calcium 7.4 mg/dL (8.5-10.5); Carbon Dioxide 23 mmol/L (22-29); Chloride 98 mmol/L (98-107); Globulin 2.2 g/dL (1.3-4.6); Glomerular Filtration Rate 25.4 mL/min (90-130); Glucose 151 mg/dL (65-115); Osmolality Calculated 293 mOsm/kg (285-295); Potassium 3.8 mmol/L (3.5-5.1); Sodium 137 mmol/L (136-145); Total Bilirubin 0.5 mg/dL (0.15-1.2); Total Protein 4.8 g/dL (6.6-8.7)
[2020-06-25] MEDS: sennosides-docusate Tablet 1 TAB PO (09:05)
[2020-06-25] MEDS: calcitriol 0.25 mcg Capsule PO (09:52)
[2020-06-25 10:04] LABS: Ketone (Acetest) Serum Negative (Negative)
[2020-06-25 10:21] LABS: Procalcitonin 1.84 ng/mL (0-0.5)
[2020-06-25] MEDS: famotidine 20 mg/2 mL INJ 40 MG IVP ×2 (11:56→23:21)
[2020-06-25] MEDS: vancomycin 750 MG in sodium chloride 0.9% 250 ML 250 MG IV (11:57)
[2020-06-25 12:16] LABS: Glucose Point of Care 173 mg/dL (70-110)
--- NOTE | 2020-06-25 15:51 | PM.PN ---
Subjective Subjective: Interval history: 69-year-old female with past medical history significant for breast cancer completed chemotherapy 2 years prior, coronary artery disease with history of CABG, gastroesophageal reflux disease, hypertension, hyperlipidemia, peripheral vascular disease with prior bilateral femoral bypass and chronic kidney disease with a baseline creatinine around 1.4 who presented to the [facility] in [place] with respiratory distress. this was associated with fever and generalized weakness. The symptoms have been progressing for about 4 days prior. While in emergency room a rapid COVID 19 antigen was checked and found to be positive. PCR was sent however this is still pending. Initially she was noted to have hypoxia with O2 saturation of 83% while on 5 L of O2. This was transitioned to non-rebreather however ventrally patient was intubated and placed on mechanical ventilation. She was initially started on propofol however due to bradycardia this was transition to fentanyl drip. Prior to that she was given atropine. Patient was then airlifted to [facility] for further care. Upon arrival to be ICU patient had repeat laboratory workup performed. WBC of 14.4, hemoglobin of 8.3, hematocrit of 26.6 and a platelet count of 378. sodium 138, potassium 5.8, chloride 108, bicarb 12, BUN 73 and creatinine of 4.1. Glucose of 317. Calcium 8.6. LDH 342. C reactive protein of 216. troponin delta of -1.23. Procalcitonin was elevated at 16.44. TSH of 0.22. Noted to be hypotensive and bradycardic on initial evaluation. She was started on Levophed and dopamine drip. Arterial line was placed . Subsequently a central line was placed. Chest x-ray performed for line placement assessment noted left-sided pneumothorax For which a chest tube was placed and noted to be in position in the upper left pleural cavity. Appeared to be in sepsis with shock for which she required up to 3 pressers including levofed,vasopressin and dopamine to maintain MAP > 65. Patient was started on broad-spectrum antibiotics including vancomycin and Primaxin 500 mg IV q.6 hours. Blood cultures were taken. Sputum culture was also taken. Pulmonary Medicine was consulted. Patient was found to be oliguria. No improvement in urine out put after lasix 40 mg IV x 1 challenge. Nephrology was consulted. Femoral HD catheter was placed by surgery and with consent from family she was imitated on dialysis. Multiple discussions with family included daughter and step daughter regarding poor prognosis. Code status was discussed and at family request was changed to D.N.R status with limited interventions. Ok to continue vent, hd, pressers, icu care, shock if needed however no resuscitation in the event of cardiac arrest. Subjective 06/21/19 Patient was started on HD, noted to have developed SQ emphysema. No fever. remained on vent. 06/22/20 Patient overnight was noted have development of SQ emphysema. Chest tube was removed and replaced. Fio2 was weaned to 35%. No fever overnight. 06/23/20 unchanged 06/24/20 Patient was noted to have difficulty with HD yesterday due to femoral HD line, This am a right IJ HD catheter was placed No fever. Fio2 was decreased to 35%, PEEP of 8. D/w general surgery/Nephrology 06/25/20 Patient is off sedation, very sedated. Does open her eyes however does not follow commands. Tolerated HD on 06/24. Medications: Reviewed: Yes Medication Review Details: Current Medications Albuterol/Ipratropium (Ipratropium-Albuterol 3 Ml Neb) 3 ml INHALATION Q6H PRN PRN Reason: SHORTNESS OF BREATH Last Admin: 06/20/20 02:01 Dose: 3 ml Documented by: Aspirin (Aspirin 81 Mg Ec Tablet) 81 mg PO DAILY [facility] Last Admin: 06/19/20 09:04 Dose: 81 mg Documented by: Atorvastatin Calcium (Atorvastatin 40 Mg Tablet) 20 mg PO BEDTIME [facility] Last Admin: 06/19/20 21:04 Dose: 20 mg Documented by: Clopidogrel Bisulfate (Clopidogrel 75 Mg Tablet) 75 mg PO DAILY [facility] Last Admin: 06/19/20 09:04 Dose: 75 mg Documented by: Dextrose (Dextrose 50% Syringe 50 Ml) 25 ml IVP ONCE PRN; Protocol PRN Reason: hypoglycemia protocol Dextrose (Dextrose 50% Syringe 50 Ml) 50 ml IVP PRN PRN; Protocol PRN Reason: hypoglycemia protocol Famotidine (Famotidine 20 Mg/2 Ml Inj) 40 mg IVP Q12H [facility] Last Admin: 06/19/20 23:48 Dose: 40 mg Documented by: Glucagon (Glucagon 1 Mg/Ml Inj 1 Ml) 1 mg IM ONCE PRN; Protocol PRN Reason: Adult Acute Hypoglycemia Prot. Dopamine HCl/Dextrose (Intropin Drip) 400 mg in 250 mls @ 9.525 mls/hr IV CONT [facility]; Protocol Last Titration: 06/20/20 00:12 Dose: 0 mcg/kg/min, 0 mls/hr Documented by: Fentanyl 1,000 mcg/ Sodium (Chloride) 100 mls @ 0 mls/hr IV .Q0M [facility]; Protocol Last Titration: 06/20/20 04:39 Dose: 50 mcg/hr, 5 mls/hr Documented by: Midazolam HCl 100 mg/ Sodium (Chloride) 100 mls @ 0 mls/hr IV .Q0M [facility]; Protocol Last Admin: 06/19/20 03:41 Dose: 1 mg/hr, 1 mls/hr Documented by: Dextrose (D5w) 500 mls @ 100 mls/hr IV ONCE PRN; Protocol PRN Reason: Adult Acute Hypoglycemia Prot Vancomycin HCl 750 mg/ Sodium (Chloride) 250 mls @ 250 mls/hr IV Q48H [facility]; Protocol Last Infusion: 06/19/20 14:32 Dose: Infused Documented by: Imipenem/Cilastatin Sodium 250 (mg/ Sodium Chloride) 100 mls @ 200 mls/hr IV Q12H [facility]; Protocol Last Infusion: 06/20/20 00:40 Dose: Infused Documented by: Insulin Human Regular 250 unit (/ Sodium Chloride) 252.5 mls @ 0 mls/hr IV .Q0M [facility]; Protocol Last Titration: 06/20/20 05:11 Dose: 5 unit/hr, 5.1 mls/hr Documented by: Vasopressin 100 unit/ Sodium (Chloride) 100 mls @ 0 mls/hr IV .Q0M [facility]; Protocol Last Admin: 06/19/20 14:53 Dose: 0.04 unit/min, 2.4 mls/hr Documented by: Norepinephrine Bitartrate 8 mg (/ Dextrose) 508 mls @ 0 mls/hr IV .Q0M [facility]; Protocol Last Admin: 06/20/20 04:39 Dose: 12 mcg/min, 45.7 mls/hr Documented by: Albumin Human (Albumin) 12.5 gm in 50 mls @ 60 mls/hr IV PRN PRN PRN Reason: Hypotension and/or symptomatic Insulin Aspart (Insulin Aspart 100 Unit/1 Ml) 0 unit SUBCUT WM&BEDTIME [facility]; Protocol Last Admin: 06/19/20 21:05 Dose: Not Given Documented by: Lanolin (Lanolin Oint 7 Gm) 1 applic TOPICAL PRN PRN PRN Reason: DRYNESS Last Admin: 06/20/20 03:07 Dose: 1 applic Documented by: Senna/Docusate Sodium (Sennosides-Docusate Tablet) 1 tab PO DAILY [facility] Last Admin: 06/19/20 09:04 Dose: 1 tab Documented by: Vitals/I&O/Wt Last Vital Signs Temp 97.8 F 06/25/20 14:00 Pulse 92 06/25/20 14:30 Resp 26 H 06/25/20 14:00 BP 185/80 06/25/20 14:30 Pulse Ox 96 06/25/20 14:30 06/25/20 06/25/20 06/25/20 06:59 14:59 22:59 Intake Total 100 / 339.124 Output Total 550 / 900 Balance -450 / -560.876 Weight last 48 hrs Weight 56.019 kg Weight 55.792 kg Physical Exam Narrative: EXAM NARRATIVE: General- sedated on mechanical ventilation HEENT-ET tube in place Chest -Nonlabored respiration, on vent Hemilich valve removed - dressing covered CVS- Normal sinus rhythm Abdomen -Nondistended Extremities-No edema Lines- Left IJ, right femoral dialysis -> right IJ, [place], ET tube, left hemilich valve revmoved Data : 06/25/20 04:00 06/25/20 04:00 Micro: Microbiology 06/19/20 11:02 Blood Culture - Final Blood NO GROWTH AFTER 5 DAYS 06/19/20 11:13 Blood Culture - Final Blood NO GROWTH AFTER 5 DAYS A&P Assessment and plan (1) Acute respiratory failure with hypoxia: Status: Acute (2) Metabolic acidosis: Status: Acute (3) Acute kidney injury superimposed on chronic kidney disease: Status: Acute (4) Hyperkalemia: Status: Acute (5) New onset of congestive heart failure: Status: Acute (6) COVID-19: Status: Acute (7) Septic shock: Status: Acute Acute Hypoxic respiratory failure - Etiology multi-factorial - COVID-19 pneumonia, PTX, superimposed bacterial 06/22 - Vent Settings: CMV, TV 380, RR 16, PEEP of 8 Fio2 of 35% - Patient: RR of 16, M.V of 8.1 - ABG: PH 7.40, Po2 of 108, HCO3 17 - On Fio2 of 50 percent -> 35% 06/24 - Vent: CMV TV 380, RR 14, PEEP of 6 Fio2 35% - ABG - Pending - Chest x-ray - > Decreasing size of small loculated ptx in the left base, stable b/l interstitial pulmonary infiltrates - Propofol, Fentanyl, versed per protocol for sedation - Wean sedation today - Will trial on MMV - Repeat chest x-ray / abg in am - Pulmonary medicine on board Septic shock due to COVID-19 Pneumonia - Improving - Suspected superimposed Bacterial Pneumonia - Procalcitonin 16.44 -> 15.48 - > 4.04 - Renal dosing of meds - Lactic Acid 1.7 - 06/19 - Sputum culture - Negative - 06/19 - Blood culture x 2 - NGTD - 06/19 - Urine culture - negative - Vancomycin pharmacy to dose - Primixin 250 mg IV q12 hr - Repeat Pro-calcitonin in am - Afebrile Left sided tension pneumothorax with development of SQ emphysema - Noted on admission - Left -sided chest tube was placed - 06/21 - Helmich valve placed - Removed on 06/22 - Repeat chest x-ray reviewed - Consult with general surgery - SQ emphysema improving - Repeat chest x-ray in am Acute kidney injury / ATN on CKD stage 3 on HD - Creatinine baseline 1.4- > Cr. 4.1 - > 3.1 - Nephrology consulted - Femoral HD catheter placed by general surgery - Femoral line change to right IJ HD catherter ( 06/24 ) - HD on 06/21/19 - > plan for next HD on 06/24 - Continue per nephrology Diabetes Mellitus with hyperglycemia mild DKA on arrival - AG metabolic acidosis - Multi-factorial component of acidosis - continue insulin SQ - Goal Blood sugar 140-180 - Q1hr BS checks - Repeat labs in am Acute anemia - Multi-factorial - Acute blood loss from CT in setting of renal disease - Hb 8.3 - > 6.8 - s/p 2 units PRBC transfusion on 06/23 - Follow up on H/H today - Holding anticoagulation/Antiplatelets - Monitor h/h Coronary artery disease s/p CABG / PVD s/p b/l femoral bypass / Hypertension - Holding aspirin 81 mg PO daily and Plavix 75 mg PO daily - Will resume once hemoglobin stabilizes and no further invasive procedures - ECHO - pEF - Continue Lipitor 20 mg PO daily - Monitor on tele Hx of Breast cancer - S/P chemo > 2 year prior - No new recommendation FEN - Tube feeding - Dietary consulted - Pulmcal 1.2 at 20ml/hr - Will increase to goal based on residuals and recs GI ppx - Pepcid 20 mg IV daily DVT ppx - SCDs only due to anemia Condition: Critical Prognosis : Poor Code status- Changed to DNR, allow natural as discussed above in HPI Disposition: Will attempt to wean vent and trial today Attestations Medical Necessity Statement*: Conitnue hospitalization for management of respiratory failure on vent Time Spent in Patient Care: Greater than 35 minutes (>than 50% of time spent in counselling and/or direct pt care on unit). 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
[2020-06-25] MEDS: dexamethasone 4 mg/mL INJ 6 MG IVP (15:56)
--- NOTE | 2020-06-25 17:22 | CT_ITS ---
WS: [id number] CT HEAD NONCONTRAST HISTORY: Rule out anoxic brain injury TECHNIQUE: Contiguous axial imaging performed through the brain in 2.5 mm imaging. Bone and soft tiss ue windows. Sagittal and coronal reformats reviewed. All CT scans at [facility] use at le ast one of these dose optimization techniques: automated exposure control; mA and/or kV adjustment pe r patient size (includes targeted exams where dose is matched to clinical indication); or iterative r econstruction. DLP: 731.3 mGy.cm COMPARISON: None available. No acute intracranial hemorrhage, midline shift or mass effect. Mild atrophy with extensive low-attenuation within the white matter. Yoon-white matter differentiatio n is still intact. No infarcts in the cerebellum. Ventricles: Normal size with no hydrocephalus. Patient is intubated. Paranasal sinuses: Mild mucoperiosteal thickening in the maxillary sinuses. There is an air-fluid lev el in the LEFT sphenoid sinus. Mastoid air cells: Well pneumatized. Calvarium and scalp: Skull is intact with no soft tissue edema or swelling. CT/CT head wo con* [id number] IMPRESSION: 1. No acute intracranial hemorrhage. 2. Severe chronic appearing white matter disease. 3. The yoon-white matter differentiation is still intact with no sulcal efface ment.
[2020-06-25] MEDS: metoprolol tartrate 1 mg/1 mL SDV 5 mL 2.5 MG IV (18:32)
--- NOTE | 2020-06-25 20:03 | PC.NURSE ---
patient restless, shook head yes to being uncomfortable, moves eyes to this nurse when name is spoken
[2020-06-25 20:09] LABS: Glucose Point of Care 125 mg/dL (70-110)
--- NOTE | 2020-06-25 20:26 | PC.NURSE ---
Addendum entered by Cristel Frost RN 06/25/20 20:28: Witness waste of 32ml. Original Note: Wasted 32 ml Fentanyl from IV drip bag that sat in room past 48 hrs
[2020-06-25] MEDS: atorvastatin 40 mg Tablet 20 MG PO (20:40)
[2020-06-26] VITALS (57 sets, daily range): BP systolic 114–203; BP diastolic 68–129; PULSE 67–122; RESP 4–31; TEMP 36.1–37.2; O2SAT 94–99
[2020-06-26] MEDS: metoprolol tartrate 1 mg/1 mL SDV 5 mL 2.5 MG IV ×2 (00:04→08:52)
--- NOTE | 2020-06-26 00:12 | PC.NURSE ---
PRN Metoprolol administered for BP 203/84, BP currently 179/77
[2020-06-26 04:34] LABS: ABG PH Result 7.52 (7.35-7.45); Arterial Blood Gas Hematocrit 25.9 % (37-47); Base Excess ABG 5.4 mmol/L (-2.0-2.0); Blood Gas Sample Type Arterial; HCO3 ABG 28.6 mmol/L (22-26); PO2 ABG 80.6 mmHg (80.0-100.0)
[2020-06-26 04:35] LABS: Basophils % 0.1 %; Hematocrit 22.9 % (37.0-47.0); Hemoglobin 7.6 g/dL (11.5-15.3); Lymphocytes # 0.4 10^3/uL (0.8-4.8); Lymphocytes % 2.9 %; Mean Corpuscular HGB Conc 33.2 g/dL (30.0-36.0); Mean Corpuscular Hemoglobin 29.3 pg (28.0-34.0); Mean Corpuscular Volume 88.4 fL (81-99); Mean Platelet Volume 11.1 fL (7.4-10.4); Monocytes # 0.7 10^3/uL (0.2-0.9); Monocytes % 4.7 %; Neutrophils # 13.46 10^3/uL (1.8-7.7); Neutrophils % 89.6 %; Nucleated Red Blood Cells # 0.2 /100WBC; Platelet Count 171 10^3/cmm (130-400); Red Blood Count 2.59 10^6/uL (4.1-5.3); Red Cell Distribution Width 14.4 % (12.1-15.1)
[2020-06-26 04:36] LABS: Blood Gas Operator Identificat HARKR; Blood Gas Tidal Volume 0.36; Oxygen Device VENT
[2020-06-26 05:06] LABS: Alanine Aminotransferase 14 U/L (0-33); Albumin Level 2.6 g/dL (3.5-5.2); Alkaline Phosphatase 71 IU/L (35-105); Anion Gap 15.3 (5-19); Aspartate Amino Transferase 29 U/L (0-32); Blood Urea Nitrogen 42 mg/dL (8-23); Calcium 7.9 mg/dL (8.5-10.5); Carbon Dioxide 28 mmol/L (22-29); Chloride 98 mmol/L (98-107); Globulin 2.4 g/dL (1.3-4.6); Glomerular Filtration Rate 24.2 mL/min (90-130); Glucose 149 mg/dL (65-115); Osmolality Calculated 299 mOsm/kg (285-295); Potassium 3.3 mmol/L (3.5-5.1); Sodium 138 mmol/L (136-145); Total Bilirubin 0.7 mg/dL (0.15-1.2)
--- NOTE | 2020-06-26 05:07 | PC.NURSE ---
Rectal temp 97.0, ax temp 96.4, warm blankets placed on patient
[2020-06-26 05:12] LABS: Procalcitonin 1.25 ng/mL (0-0.5)
[2020-06-26 05:23] LABS: Magnesium 1.8 mg/dL (1.7-2.3); Phosphorus 4.2 mg/dL (2.5-4.5)
[2020-06-26 05:46] LABS: Ferritin 537 ng/mL (15-150)
[2020-06-26] MEDS: FUROsemide 10 mg/mL SDV 4mL 60 MG IVP (06:20)
--- NOTE | 2020-06-26 07:00 | XR_ITS ---
WS: [id number] PORTABLE CHEST HISTORY: respiratory failure COMPARISON: 06/24/2020 Nasogastric tube is in good position with tip directed towards the antrum of the stomach. Endotrachea l tube remains in good position and terminates 2 cm above the rylan. Bilateral central lines are pre sent with tips terminating in the distal SVC. Obscuration of the LEFT diaphragm by consolidation in the lung and pleural fluid. RIGHT lung is clear . There is a small LEFT pleural effusion along with the LEFT basilar consolidation. Very tiny LEFT ap ical pneumothorax is suspected. There is subcutaneous gas emphysema persisting over the LEFT lateral thorax. Cardiac size: Normal. Mediastinum/Aorta: Moderate atherosclerosis aorta. No osseous abnormality seen. XR/XR chest 1V portable [id number] IMPRESSION: 1. Nasogastric and endotracheal tubes are in good position. 2. Consolidation at the LEFT lung base is probably a combination of atelectasi s, pleural fluid and pneumonia is not excluded. 3. Very tiny LEFT apical pneumothorax persists with a small amount of subcutan eous emphysema.
--- NOTE | 2020-06-26 07:07 | PM.PN ---
Subjective Subjective: Interval history: intubated. unable to obtain. Medications: Reviewed: Yes Medication Review Details: Current Medications Albuterol/Ipratropium (Ipratropium-Albuterol 3 Ml Neb) 3 ml INHALATION Q6H PRN PRN Reason: SHORTNESS OF BREATH Last Admin: 06/24/20 10:12 Dose: 3 ml Documented by: Aspirin (Aspirin 81 Mg Ec Tablet) 81 mg PO DAILY [facility] Last Admin: 06/19/20 09:04 Dose: 81 mg Documented by: Atorvastatin Calcium (Atorvastatin 40 Mg Tablet) 20 mg PO BEDTIME [facility] Last Admin: 06/25/20 20:40 Dose: 20 mg Documented by: Calcitriol (Calcitriol 0.25 Mcg Capsule) 0.25 mcg PO DAILY [facility] Last Admin: 06/25/20 09:52 Dose: 0.25 mcg Documented by: Clopidogrel Bisulfate (Clopidogrel 75 Mg Tablet) 75 mg PO DAILY [facility] Last Admin: 06/19/20 09:04 Dose: 75 mg Documented by: Dexamethasone (Dexamethasone 4 Mg/Ml Inj) 6 mg IVP Q24H [facility] Last Admin: 06/25/20 15:56 Dose: 6 mg Documented by: Dextrose (Dextrose 50% Syringe 50 Ml) 25 ml IVP ONCE PRN; Protocol PRN Reason: hypoglycemia protocol Dextrose (Dextrose 50% Syringe 50 Ml) 50 ml IVP PRN PRN; Protocol PRN Reason: hypoglycemia protocol Famotidine (Famotidine 20 Mg/2 Ml Inj) 40 mg IVP Q12H [facility] Last Admin: 06/25/20 23:21 Dose: 40 mg Documented by: Furosemide (Furosemide 10 Mg/Ml Sdv 4ml) 60 mg IVP Q12H [facility] Last Admin: 06/26/20 06:20 Dose: 60 mg Documented by: Glucagon (Glucagon 1 Mg/Ml Inj 1 Ml) 1 mg IM ONCE PRN; Protocol PRN Reason: Adult Acute Hypoglycemia Prot. Dopamine HCl/Dextrose (Intropin Drip) 400 mg in 250 mls @ 9.525 mls/hr IV CONT [facility]; Protocol Last Admin: 06/26/20 02:00 Dose: Not Given Documented by: Dextrose (D5w) 500 mls @ 100 mls/hr IV ONCE PRN; Protocol PRN Reason: Adult Acute Hypoglycemia Prot Vancomycin HCl 750 mg/ Sodium (Chloride) 250 mls @ 250 mls/hr IV Q48H [facility]; Protocol Last Infusion: 06/25/20 13:00 Dose: Infused Documented by: Imipenem/Cilastatin Sodium 250 (mg/ Sodium Chloride) 100 mls @ 200 mls/hr IV Q12H [facility]; Protocol Last Admin: 06/25/20 23:21 Dose: 200 mls/hr Documented by: Vasopressin 100 unit/ Sodium (Chloride) 100 mls @ 0 mls/hr IV .Q0M [facility]; Protocol Last Titration: 06/24/20 05:55 Dose: 0 unit/min, 0 mls/hr Documented by: Norepinephrine Bitartrate 8 mg (/ Dextrose) 508 mls @ 0 mls/hr IV .Q0M [facility]; Protocol Last Titration: 06/24/20 13:12 Dose: 0.52 mcg/min, 2 mls/hr Documented by: Albumin Human (Albumin) 12.5 gm in 50 mls @ 60 mls/hr IV PRN PRN PRN Reason: Hypotension and/or symptomatic Albumin Human (Albumin) 12.5 gm in 50 mls @ 60 mls/hr IV PRN PRN PRN Reason: Hypotension and/or symptomatic Fentanyl 1,000 mcg/ Sodium (Chloride) 100 mls @ 0 mls/hr IV .Q0M [facility]; Protocol Last Titration: 06/25/20 23:21 Dose: 50 mcg/hr, 5 mls/hr Documented by: Phenylephrine HCl 25 mg/ (Sodium Chloride) 252.5 mls @ 0 mls/hr IV .Q0M [facility]; Protocol Albumin Human (Albumin) 12.5 gm in 50 mls @ 60 mls/hr IV PRN PRN PRN Reason: Hypotension and/or symptomatic Insulin Aspart (Insulin Aspart 100 Unit/1 Ml) 0 unit SUBCUT TIDWM [facility]; Protocol Last Admin: 06/25/20 18:48 Dose: Not Given Documented by: Lanolin (Lanolin Oint 7 Gm) 1 applic TOPICAL PRN PRN PRN Reason: DRYNESS Last Admin: 06/20/20 03:07 Dose: 1 applic Documented by: Metoprolol Tartrate (Metoprolol Tartrate 1 Mg/1 Ml Sdv 5 Ml) 2.5 mg IV Q6H PRN PRN Reason: Hypertension Last Admin: 06/26/20 00:04 Dose: 2.5 mg Documented by: Senna/Docusate Sodium (Sennosides-Docusate Tablet) 1 tab PO DAILY [facility] Last Admin: 06/25/20 09:05 Dose: 1 tab Documented by: Vitals/I&O/Wt Last Vital Signs Temp 97.2 F L 06/26/20 06:00 Pulse 69 06/26/20 06:00 Resp 12 06/26/20 05:14 BP 167/77 06/26/20 06:00 Pulse Ox 96 06/26/20 06:00 06/25/20 06/26/20 06/26/20 22:59 06:59 14:59 Intake Total 0 / 350 7.542 / 357.542 Output Total 450 / 450 600 / 1050 Balance -450 / -100 -592.458 / -692.458 Weight last 48 hrs Weight 53.524 kg Weight 56.019 kg Physical Exam Narrative: EXAM NARRATIVE: intubated,CMV, fio2=30%, TV 360, PEEP 6, pressers and sedatives are off heent- nca/t lungs -good air movement b/l. chest tube removed rt ACW dialysis catheter heart reg, no rub abd soft + femoral dialysis catheter ext edema 2+ neuro- pulls from suction. not following commands. poor reflexes exam by [facility] [facility] [employer]IST Data : 06/26/20 04:05 06/26/20 04:05 A&P Additional A&P Information 1. Acute Renal failure - ischemic/septic ATN - cr improved s/p HD. - uop improving - dec lasix - dose meds for eGFR < 15 on dialysis - strict Is and Os PLEASE REMOVE FEMORAL DIALYSSIS CATHEETR 2. Covid pneumonitis - on Abx coverage, steroids etc - VDRF; mgmt per ICU team, weaning as tolerated; SBTs and hopefully extubation today -KEEP VANCO LEVEL UNDER 20 3. electrolytes -hyperphosphatemia improved -await vit d levels, ca is low- but improving -pth 228- cont zemplar w/ hd 4. Anemia - hgb remains stable at 7.6 5. DM control 6. chest tube removed- monitor improving pneumothorax 7. renal dose abx 8. leukocytosis remains 9. covid-19 per medicine 10. CAD/ PVD 11. replace k Attestations Medical Necessity Statement*: COVID-19 PNA, ANEMIA, vdrf, nishant Time Spent in Patient Care: Greater than 35 minutes Procedures Arterial Line Size (Gauge): 18 Coding Level of Care Code Acute Checkout Operator for Ezra Mccabe
[2020-06-26 08:02] LABS: Glucose Point of Care 148 mg/dL (70-110)
[2020-06-26] MEDS: ipratropium-albuterol 3 mL Neb INHALATION (08:10)
[2020-06-26] MEDS: FUROsemide 10 mg/mL SDV 10mL 60 MG IVP (08:44)
[2020-06-26] MEDS: calcitriol 0.25 mcg Capsule PO (08:44)
[2020-06-26] MEDS: potassium chloride oral liq 20 mEq/15 mL UDC 40 MEQ PO (08:44)
[2020-06-26] MEDS: sennosides-docusate Tablet 1 TAB PO (08:45)
--- NOTE | 2020-06-26 11:19 | PC.NURSE ---
Washed hands and face
[2020-06-26 11:56] LABS: Glucose Point of Care 125 mg/dL (70-110)
[2020-06-26] MEDS: famotidine 20 mg/2 mL INJ 40 MG IVP (12:06)
[2020-06-26 13:22] LABS: Vancomycin Random 23.4 ug/mL (20.0-40.0)
--- NOTE | 2020-06-26 13:55 | P.PN_ITS ---
Subjective Subjective: Interval history: 69-year-old female with past medical history significant for breast cancer completed chemotherapy 2 years prior, coronary artery disease with history of CABG, gastroesophageal reflux disease, hypertension, hyperlipidemia, peripheral vascular disease with prior bilateral femoral bypass and chronic kidney disease with a baseline creatinine around 1.4 who presented to the [facility] in [place] with respiratory distress. this was associated with fever and generalized weakness. The symptoms have been progressing for about 4 days prior. While in emergency room a rapid COVID 19 antigen was checked and found to be positive. PCR was sent however this is still pending. Initially she was noted to have hypoxia with O2 saturation of 83% while on 5 L of O2. This was transitioned to non-rebreather however ventrally patient was intubated and placed on mechanical ventilation. She was initially started on propofol however due to bradycardia this was transition to fentanyl drip. Prior to that she was given atropine. Patient was then airlifted to [facility] [place] for further care. Upon arrival to be ICU patient had repeat laboratory workup performed. WBC of 14.4, hemoglobin of 8.3, hematocrit of 26.6 and a platelet count of 378. sodium 138, potassium 5.8, chloride 108, bicarb 12, BUN 73 and creatinine of 4.1. Glucose of 317. Calcium 8.6. LDH 342. C reactive protein of 216. troponin delta of -1.23. Procalcitonin was elevated at 16.44. TSH of 0.22. Noted to be hypotensive and bradycardic on initial evaluation. She was started on Levophed and dopamine drip. Arterial line was placed . Subsequently a central line was placed. Chest x-ray performed for line placement assessment noted left-sided pneumothorax For which a chest tube was placed and noted to be in position in the upper left pleural cavity. Appeared to be in sepsis with shock for which she required up to 3 pressers including levofed,vasopressin and dopamine to maintain MAP > 65. Patient was started on broad-spectrum antibiotics including vancomycin and Primaxin 500 mg IV q.6 hours. Blood cultures were taken. Sputum culture was also taken. Pulmonary Medicine was consulted. Patient was found to be oliguria. No improvement in urine out put after lasix 40 mg IV x 1 challenge. Nephrology was consulted. Femoral HD catheter was placed by surgery and with consent from family she was imitated on dialysis. Multiple discussions with family included daughter and step daughter regarding poor prognosis. Code status was discussed and at family request was changed to D.N.R status with limited interventions. Ok to continue vent, hd, pressers, icu care, shock if needed however no resuscitation in the event of cardiac arrest. Subjective 06/21/19 Patient was started on HD, noted to have developed SQ emphysema. No fever. remained on vent. 06/22/20 Patient overnight was noted have development of SQ emphysema. Chest tube was removed and replaced. Fio2 was weaned to 35%. No fever overnight. 06/23/20 unchanged 06/24/20 Patient was noted to have difficulty with HD yesterday due to femoral HD line, This am a right IJ HD catheter was placed No fever. Fio2 was decreased to 35%, PEEP of 8. D/w general surgery/Nephrology 06/25/20 Patient is off sedation, very sedated. Does open her eyes however does not follow commands. Tolerated HD on 06/24. 06/26/20 Patient extubated, poor mentation, baseilne unknown Medications: Reviewed: Yes Medication Review Details: Current Medications Albuterol/Ipratropium (Ipratropium-Albuterol 3 Ml Neb) 3 ml INHALATION Q6H PRN PRN Reason: SHORTNESS OF BREATH Last Admin: 06/20/20 02:01 Dose: 3 ml Documented by: Aspirin (Aspirin 81 Mg Ec Tablet) 81 mg PO DAILY [facility] Last Admin: 06/19/20 09:04 Dose: 81 mg Documented by: Atorvastatin Calcium (Atorvastatin 40 Mg Tablet) 20 mg PO BEDTIME [facility] Last Admin: 06/19/20 21:04 Dose: 20 mg Documented by: Clopidogrel Bisulfate (Clopidogrel 75 Mg Tablet) 75 mg PO DAILY [facility] Last Admin: 06/19/20 09:04 Dose: 75 mg Documented by: Dextrose (Dextrose 50% Syringe 50 Ml) 25 ml IVP ONCE PRN; Protocol PRN Reason: hypoglycemia protocol Dextrose (Dextrose 50% Syringe 50 Ml) 50 ml IVP PRN PRN; Protocol PRN Reason: hypoglycemia protocol Famotidine (Famotidine 20 Mg/2 Ml Inj) 40 mg IVP Q12H [facility] Last Admin: 06/19/20 23:48 Dose: 40 mg Documented by: Glucagon (Glucagon 1 Mg/Ml Inj 1 Ml) 1 mg IM ONCE PRN; Protocol PRN Reason: Adult Acute Hypoglycemia Prot. Dopamine HCl/Dextrose (Intropin Drip) 400 mg in 250 mls @ 9.525 mls/hr IV CONT [facility]; Protocol Last Titration: 06/20/20 00:12 Dose: 0 mcg/kg/min, 0 mls/hr Documented by: Fentanyl 1,000 mcg/ Sodium (Chloride) 100 mls @ 0 mls/hr IV .Q0M [facility]; Protocol Last Titration: 06/20/20 04:39 Dose: 50 mcg/hr, 5 mls/hr Documented by: Midazolam HCl 100 mg/ Sodium (Chloride) 100 mls @ 0 mls/hr IV .Q0M [facility]; Protocol Last Admin: 06/19/20 03:41 Dose: 1 mg/hr, 1 mls/hr Documented by: Dextrose (D5w) 500 mls @ 100 mls/hr IV ONCE PRN; Protocol PRN Reason: Adult Acute Hypoglycemia Prot Vancomycin HCl 750 mg/ Sodium (Chloride) 250 mls @ 250 mls/hr IV Q48H [facility]; Protocol Last Infusion: 06/19/20 14:32 Dose: Infused Documented by: Imipenem/Cilastatin Sodium 250 (mg/ Sodium Chloride) 100 mls @ 200 mls/hr IV Q12H [facility]; Protocol Last Infusion: 06/20/20 00:40 Dose: Infused Documented by: Insulin Human Regular 250 unit (/ Sodium Chloride) 252.5 mls @ 0 mls/hr IV .Q0M [facility]; Protocol Last Titration: 06/20/20 05:11 Dose: 5 unit/hr, 5.1 mls/hr Documented by: Vasopressin 100 unit/ Sodium (Chloride) 100 mls @ 0 mls/hr IV .Q0M [facility]; Protocol Last Admin: 06/19/20 14:53 Dose: 0.04 unit/min, 2.4 mls/hr Documented by: Norepinephrine Bitartrate 8 mg (/ Dextrose) 508 mls @ 0 mls/hr IV .Q0M [facility]; Protocol Last Admin: 06/20/20 04:39 Dose: 12 mcg/min, 45.7 mls/hr Documented by: Albumin Human (Albumin) 12.5 gm in 50 mls @ 60 mls/hr IV PRN PRN PRN Reason: Hypotension and/or symptomatic Insulin Aspart (Insulin Aspart 100 Unit/1 Ml) 0 unit SUBCUT WM&BEDTIME [facility]; Protocol Last Admin: 06/19/20 21:05 Dose: Not Given Documented by: Lanolin (Lanolin Oint 7 Gm) 1 applic TOPICAL PRN PRN PRN Reason: DRYNESS Last Admin: 06/20/20 03:07 Dose: 1 applic Documented by: Senna/Docusate Sodium (Sennosides-Docusate Tablet) 1 tab PO DAILY [facility] Last Admin: 06/19/20 09:04 Dose: 1 tab Documented by: Vitals/I&O/Wt Last Vital Signs Temp 97.8 F 06/27/20 00:26 Pulse 85 06/27/20 00:19 Resp 16 06/27/20 00:00 BP 111/78 06/27/20 00:00 Pulse Ox 98 06/27/20 00:00 06/26/20 06/26/20 06/27/20 14:59 22:59 06:59 Intake Total 50.75 / 50.75 100 / 150.75 Output Total 1250 / 1250 575 / 1825 Balance -1199.25 / -1199.25 -475 / -1674.25 Weight last 48 hrs Weight 53.524 kg Weight 56.019 kg Physical Exam Narrative: EXAM NARRATIVE: General- sedated on mechanical ventilation HEENT-ET tube in place Chest -Nonlabored respiration, on vent Hemilich valve removed - dressing covered CVS- Normal sinus rhythm Abdomen -Nondistended Extremities-No edema Lines- Left IJ, right femoral dialysis -> right IJ, [place], ET tube, left hemilich valve revmoved Data : 06/26/20 04:05 06/26/20 04:05 A&P Assessment and plan (1) Acute respiratory failure with hypoxia: Status: Acute (2) Metabolic acidosis: Status: Acute (3) Acute kidney injury superimposed on chronic kidney disease: Status: Acute (4) Hyperkalemia: Status: Acute (5) New onset of congestive heart failure: Status: Acute (6) COVID-19: Status: Acute (7) Septic shock: Status: Acute Acute Hypoxic respiratory failure - Etiology multi-factorial - COVID-19 pneumonia, PTX, superimposed bacterial - Extubated today - Weaned to 2 L of o2 via NC Septic shock due to COVID-19 Pneumonia - Improving - Suspected superimposed Bacterial Pneumonia - Procalcitonin 16.44 -> 15.48 - > 4.04 - Renal dosing of meds - Lactic Acid 1.7 on admit - 06/19 - Sputum culture - Negative - 06/19 - Blood culture x 2 - NGTD - 06/19 - Urine culture - negative - Vancomycin pharmacy to dose - Primixin 250 mg IV q12 hr - Source unknown - Will continue abx addtional day and stop - Afebrile Left sided tension pneumothorax with development of SQ emphysema - resolved - Noted on admission - Left -sided chest tube was placed - 06/21 - Helmich valve placed - Removed on 06/22 - Repeat chest x-ray reviewed - Consult with general surgery - SQ emphysema improving - Repeat chest x-ray in am Acute kidney injury / ATN on CKD stage 3 on HD - Creatinine baseline 1.4- > Cr. 4.1 - > 3.1 - Nephrology consulted - Femoral HD catheter removed - Right IJ HD cath in place - HD on 06/21/19 -> u/o improving - Continue per nephrology Diabetes Mellitus with hyperglycemia mild DKA on arrival - AG metabolic acidosis - Multi-factorial component of acidosis - continue insulin SQ - Goal Blood sugar 140-180 - Repeat labs in am Acute anemia - Multi-factorial - Acute blood loss from CT in setting of renal disease - Hb 8.3 - > 6.8 - . 7.3 - s/p 2 units PRBC transfusion on 06/23 - Follow up on H/H today - Holding anticoagulation/Antiplatelets - Monitor h/h Coronary artery disease s/p CABG / PVD s/p b/l femoral bypass / Hypertension - Holding aspirin 81 mg PO daily and Plavix 75 mg PO daily - Will resume once hemoglobin stabilizes and no further invasive procedures - ECHO - pEF - Continue Lipitor 20 mg PO daily - Monitor on tele Hx of Breast cancer - S/P chemo > 2 year prior - No new recommendation FEN - Tube feeding - Dietary consulted - Pulmcal 1.2 at 20ml/hr - Will increase to goal based on residuals and recs GI ppx - Pepcid 20 mg IV daily DVT ppx - SCDs only due to anemia Condition: Critical Prognosis : Poor Code status- D.N.R Attestations Medical Necessity Statement*: Continue hospital stay for management of above respiratory failure Time Spent in Patient Care: Greater than 35 minutes (>than 50% of time spent in counselling and/or direct pt care on unit) . Procedures Arterial Line Size (Gauge): 18 Coding Level of Care Code Acute Equipment Tech for Chg Fwd Diagnoses Acute respiratory failure with hypoxia J96.01 Metabolic acidosis E87.2 Acute kidney injury superimposed on chronic kidney disease N17.9; N18.9 Hyperkalemia E87.5 New onset of congestive heart failure I50.9 COVID-19 U07.1 Septic shock A41.9; R65.21
[2020-06-26] MEDS: dexamethasone 4 mg/mL INJ 6 MG IVP (15:54)
[2020-06-26 17:53] LABS: Glucose Point of Care 145 mg/dL (70-110)
[2020-06-26 20:46] LABS: Glucose Point of Care 187 mg/dL (70-110)
[2020-06-26 23:24] LABS: Glucose Point of Care 205 mg/dL (70-110)
[2020-06-27] VITALS (36 sets, daily range): BP systolic 92–134; BP diastolic 58–85; PULSE 58–106; RESP 7–29; TEMP 36.1–36.7; O2SAT 88–100; BMI 19.4
[2020-06-27] MEDS: famotidine 20 mg/2 mL INJ 40 MG IVP ×3 (00:35→23:25)
[2020-06-27 05:07] LABS: Basophils % 0.1 %; Hematocrit 23.2 % (37.0-47.0); Hemoglobin 7.4 g/dL (11.5-15.3); Lymphocytes # 0.3 10^3/uL (0.8-4.8); Lymphocytes % 2.3 %; Mean Corpuscular HGB Conc 31.9 g/dL (30.0-36.0); Mean Corpuscular Hemoglobin 28.5 pg (28.0-34.0); Mean Corpuscular Volume 89.2 fL (81-99); Monocytes # 0.7 10^3/uL (0.2-0.9); Monocytes % 4.4 %; Neutrophils % 91.6 %; Nucleated Red Blood Cells % 0.2 %; Platelet Count 191 10^3/cmm (130-400); Red Cell Distribution Width 14.6 % (12.1-15.1); White Blood Count 14.9 10^3/uL (4.0-10.0)
[2020-06-27 05:38] LABS: Alanine Aminotransferase 11 U/L (0-33); Albumin Level 2.9 g/dL (3.5-5.2); Alkaline Phosphatase 79 IU/L (35-105); Aspartate Amino Transferase 25 U/L (0-32); Blood Urea Nitrogen 58 mg/dL (8-23); Calcium 8.1 mg/dL (8.5-10.5); Carbon Dioxide 30 mmol/L (22-29); Chloride 97 mmol/L (98-107); Globulin 2.4 g/dL (1.3-4.6); Glomerular Filtration Rate 17.4 mL/min (90-130); Glucose 200 mg/dL (65-115); Osmolality Calculated 316 mOsm/kg (285-295); Sodium 142 mmol/L (136-145); Total Bilirubin 0.7 mg/dL (0.15-1.2); Total Protein 5.3 g/dL (6.6-8.7)
[2020-06-27 06:03] LABS: Magnesium 1.8 mg/dL (1.7-2.3); Phosphorus 4.9 mg/dL (2.5-4.5)
[2020-06-27 07:41] LABS: Glucose Point of Care 207 mg/dL (70-110)
--- NOTE | 2020-06-27 11:10 | PM.PN ---
Subjective Subjective: Interval history: extubated, follows simple commands Medications: Reviewed: Yes Medication Review Details: Current Medications Albuterol/Ipratropium (Ipratropium-Albuterol 3 Ml Neb) 3 ml INHALATION Q6H PRN PRN Reason: SHORTNESS OF BREATH Last Admin: 06/26/20 08:10 Dose: 3 ml Documented by: Aspirin (Aspirin 81 Mg Ec Tablet) 81 mg PO DAILY [facility] Last Admin: 06/19/20 09:04 Dose: 81 mg Documented by: Atorvastatin Calcium (Atorvastatin 40 Mg Tablet) 20 mg PO BEDTIME [facility] Last Admin: 06/26/20 20:44 Dose: Not Given Documented by: Calcitriol (Calcitriol 0.25 Mcg Capsule) 0.25 mcg PO DAILY [facility] Last Admin: 06/27/20 09:08 Dose: Not Given Documented by: Clopidogrel Bisulfate (Clopidogrel 75 Mg Tablet) 75 mg PO DAILY [facility] Last Admin: 06/19/20 09:04 Dose: 75 mg Documented by: Dexamethasone (Dexamethasone 4 Mg/Ml Inj) 6 mg IVP Q24H [facility] Last Admin: 06/26/20 15:54 Dose: 6 mg Documented by: Dextrose (Dextrose 50% Syringe 50 Ml) 25 ml IVP ONCE PRN; Protocol PRN Reason: hypoglycemia protocol Dextrose (Dextrose 50% Syringe 50 Ml) 50 ml IVP PRN PRN; Protocol PRN Reason: hypoglycemia protocol Famotidine (Famotidine 20 Mg/2 Ml Inj) 40 mg IVP Q12H [facility] Last Admin: 06/27/20 00:35 Dose: 40 mg Documented by: Glucagon (Glucagon 1 Mg/Ml Inj 1 Ml) 1 mg IM ONCE PRN; Protocol PRN Reason: Adult Acute Hypoglycemia Prot. Dopamine HCl/Dextrose (Intropin Drip) 400 mg in 250 mls @ 9.525 mls/hr IV CONT [facility]; Protocol Last Admin: 06/27/20 03:43 Dose: Not Given Documented by: Dextrose (D5w) 500 mls @ 100 mls/hr IV ONCE PRN; Protocol PRN Reason: Adult Acute Hypoglycemia Prot Vancomycin HCl 750 mg/ Sodium (Chloride) 250 mls @ 250 mls/hr IV Q48H [facility]; Protocol Last Infusion: 06/25/20 13:00 Dose: Infused Documented by: Imipenem/Cilastatin Sodium 250 (mg/ Sodium Chloride) 100 mls @ 200 mls/hr IV Q12H [facility]; Protocol Last Infusion: 06/27/20 04:58 Dose: Infused Documented by: Vasopressin 100 unit/ Sodium (Chloride) 100 mls @ 0 mls/hr IV .Q0M [facility]; Protocol Last Titration: 06/24/20 05:55 Dose: 0 unit/min, 0 mls/hr Documented by: Norepinephrine Bitartrate 8 mg (/ Dextrose) 508 mls @ 0 mls/hr IV .Q0M [facility]; Protocol Last Titration: 06/24/20 13:12 Dose: 0.52 mcg/min, 2 mls/hr Documented by: Albumin Human (Albumin) 12.5 gm in 50 mls @ 60 mls/hr IV PRN PRN PRN Reason: Hypotension and/or symptomatic Albumin Human (Albumin) 12.5 gm in 50 mls @ 60 mls/hr IV PRN PRN PRN Reason: Hypotension and/or symptomatic Phenylephrine HCl 25 mg/ (Sodium Chloride) 252.5 mls @ 0 mls/hr IV .Q0M [facility]; Protocol Albumin Human (Albumin) 12.5 gm in 50 mls @ 60 mls/hr IV PRN PRN PRN Reason: Hypotension and/or symptomatic Sodium Chloride (Sodium Chloride 0.9%) 1,000 mls @ 90 mls/hr IV .Q11H7M [facility] Insulin Aspart (Insulin Aspart 100 Unit/1 Ml) 0 unit SUBCUT TIDWM [facility]; Protocol Last Admin: 06/27/20 09:07 Dose: 6 unit Documented by: Lanolin (Lanolin Oint 7 Gm) 1 applic TOPICAL PRN PRN PRN Reason: DRYNESS Last Admin: 06/20/20 03:07 Dose: 1 applic Documented by: Metoprolol Tartrate (Metoprolol Tartrate 1 Mg/1 Ml Sdv 5 Ml) 2.5 mg IV Q6H PRN PRN Reason: Hypertension Last Admin: 06/26/20 08:52 Dose: 2.5 mg Documented by: Senna/Docusate Sodium (Sennosides-Docusate Tablet) 1 tab PO DAILY [facility] Last Admin: 06/27/20 09:09 Dose: Not Given Documented by: Vitals/I&O/Wt Last Vital Signs Temp 97.3 F L 06/27/20 08:00 Pulse 94 06/27/20 10:00 Resp 16 06/27/20 10:00 BP 109/73 06/27/20 10:00 Pulse Ox 99 06/27/20 10:00 06/26/20 06/27/20 06/27/20 22:59 06:59 14:59 Intake Total 100 / 150.75 100 / 250.75 Output Total 575 / 1825 1200 / 3025 Balance -475 / -1674.25 -1100 / -2774.25 Weight last 48 hrs Weight 49.697 kg Weight 53.524 kg Physical Exam Narrative: EXAM NARRATIVE: extubated, vss heent- nca/t lungs -good air movement b/l. chest tube removed rt ACW dialysis catheter heart reg, no rub abd soft ext edema 2+ neuro- + reflexes, follows simple commands exam by PIPE FITTER AMMONIA Data : 06/27/20 04:20 06/27/20 04:20 A&P Additional A&P Information 1. Acute Renal failure - ischemic/septic ATN - cr improved s/p HD. cr flex again - uop improving -give ivf - dose meds for eGFR < 15 - strict Is and Os 2. Covid pneumonitis - on Abx coverage, steroids etc - VDRF; mgmt per ICU team, weaning as tolerated; SBTs and hopefully extubation today -KEEP VANCO LEVEL UNDER 20 3. electrolytes -hyperphosphatemia improving -await vit d levels, ca is low- but improving -pth 228- cont zemplar w/ hd 4. Anemia - hgb relatively stable at 7.4 -consider transfuse 1 u prbc 5. DM control 6. chest tube removed- extubated- monitor pulm status 7. renal dose abx- keep vanco level <19.5 8. leukocytosis remains 9. covid-19 per medicine 10. CAD/ PVD 11. resp alkalosis and met alkalosis Attestations Medical Necessity Statement*: nishant, covid Time Spent in Patient Care: 16 - 35 minutes Procedures Arterial Line Size (Gauge): 18 Coding Level of Care Code Acute Endless Track Vehicle Mechanic for Chg Eliot
[2020-06-27 11:20] LABS: Glucose Point of Care 154 mg/dL (70-110)
[2020-06-27] MEDS: sodium chloride 0.9% 1,000 ML 90 ML IV ×2 (11:42→23:22)
[2020-06-27] MEDS: vancomycin 750 MG in sodium chloride 0.9% 250 ML 250 MG IV (11:43)
--- NOTE | 2020-06-27 11:45 | PM.PN ---
Subjective Subjective: Interval history: Patient is less responsive, baseline mentation unkown. Has remained afebrile , and is currently saturating above 90 % on 2Ls Oxygen. Other vitals and labs have been reviewed Medications: Reviewed: Yes Medication Review Details: Current Medications Albuterol/Ipratropium (Ipratropium-Albuterol 3 Ml Neb) 3 ml INHALATION Q6H PRN PRN Reason: SHORTNESS OF BREATH Last Admin: 06/26/20 08:10 Dose: 3 ml Documented by: Aspirin (Aspirin 81 Mg Ec Tablet) 81 mg PO DAILY ON LICENSE OF [facility] Last Admin: 06/19/20 09:04 Dose: 81 mg Documented by: Atorvastatin Calcium (Atorvastatin 40 Mg Tablet) 20 mg PO BEDTIME [facility] Last Admin: 06/26/20 20:44 Dose: Not Given Documented by: Calcitriol (Calcitriol 0.25 Mcg Capsule) 0.25 mcg PO DAILY [facility] Last Admin: 06/27/20 09:08 Dose: Not Given Documented by: Clopidogrel Bisulfate (Clopidogrel 75 Mg Tablet) 75 mg PO DAILY ON LICENSE OF [facility] Last Admin: 06/19/20 09:04 Dose: 75 mg Documented by: Dexamethasone (Dexamethasone 4 Mg/Ml Inj) 6 mg IVP Q24H [facility] Last Admin: 06/26/20 15:54 Dose: 6 mg Documented by: Dextrose (Dextrose 50% Syringe 50 Ml) 25 ml IVP ONCE PRN; Protocol PRN Reason: hypoglycemia protocol Dextrose (Dextrose 50% Syringe 50 Ml) 50 ml IVP PRN PRN; Protocol PRN Reason: hypoglycemia protocol Famotidine (Famotidine 20 Mg/2 Ml Inj) 40 mg IVP Q12H [facility] Last Admin: 06/27/20 00:35 Dose: 40 mg Documented by: Glucagon (Glucagon 1 Mg/Ml Inj 1 Ml) 1 mg IM ONCE PRN; Protocol PRN Reason: Adult Acute Hypoglycemia Prot. Dopamine HCl/Dextrose (Intropin Drip) 400 mg in 250 mls @ 9.525 mls/hr IV CONT [facility]; Protocol Last Admin: 06/27/20 03:43 Dose: Not Given Documented by: Dextrose (D5w) 500 mls @ 100 mls/hr IV ONCE PRN; Protocol PRN Reason: Adult Acute Hypoglycemia Prot Vancomycin HCl 750 mg/ Sodium (Chloride) 250 mls @ 250 mls/hr IV Q48H [facility]; Protocol Last Infusion: 06/25/20 13:00 Dose: Infused Documented by: Imipenem/Cilastatin Sodium 250 (mg/ Sodium Chloride) 100 mls @ 200 mls/hr IV Q12H ON LICENSE OF [facility]; Protocol Last Infusion: 06/27/20 04:58 Dose: Infused Documented by: Vasopressin 100 unit/ Sodium (Chloride) 100 mls @ 0 mls/hr IV .Q0M [facility]; Protocol Last Titration: 06/24/20 05:55 Dose: 0 unit/min, 0 mls/hr Documented by: Norepinephrine Bitartrate 8 mg (/ Dextrose) 508 mls @ 0 mls/hr IV .Q0M [facility]; Protocol Last Titration: 06/24/20 13:12 Dose: 0.52 mcg/min, 2 mls/hr Documented by: Albumin Human (Albumin) 12.5 gm in 50 mls @ 60 mls/hr IV PRN PRN PRN Reason: Hypotension and/or symptomatic Albumin Human (Albumin) 12.5 gm in 50 mls @ 60 mls/hr IV PRN PRN PRN Reason: Hypotension and/or symptomatic Phenylephrine HCl 25 mg/ (Sodium Chloride) 252.5 mls @ 0 mls/hr IV .Q0M [facility]; Protocol Albumin Human (Albumin) 12.5 gm in 50 mls @ 60 mls/hr IV PRN PRN PRN Reason: Hypotension and/or symptomatic Sodium Chloride (Sodium Chloride 0.9%) 1,000 mls @ 90 mls/hr IV .Q11H7M [facility] Insulin Aspart (Insulin Aspart 100 Unit/1 Ml) 0 unit SUBCUT TIDWM ON LICENSE OF [facility]; Protocol Last Admin: 06/27/20 09:07 Dose: 6 unit Documented by: Lanolin (Lanolin Oint 7 Gm) 1 applic TOPICAL PRN PRN PRN Reason: DRYNESS Last Admin: 06/20/20 03:07 Dose: 1 applic Documented by: Metoprolol Tartrate (Metoprolol Tartrate 1 Mg/1 Ml Sdv 5 Ml) 2.5 mg IV Q6H PRN PRN Reason: Hypertension Last Admin: 06/26/20 08:52 Dose: 2.5 mg Documented by: Senna/Docusate Sodium (Sennosides-Docusate Tablet) 1 tab PO DAILY [facility] Last Admin: 06/27/20 09:09 Dose: Not Given Documented by: Vitals/I&O/Wt Last Vital Signs Temp 97.3 F L 06/27/20 08:00 Pulse 94 06/27/20 10:00 Resp 16 06/27/20 10:00 BP 109/73 06/27/20 10:00 Pulse Ox 99 06/27/20 10:00 06/26/20 06/27/20 06/27/20 22:59 06:59 14:59 Intake Total 100 / 150.75 100 / 250.75 Output Total 575 / 1825 1200 / 3025 Balance -475 / -1674.25 -1100 / -2774.25 Weight last 48 hrs Weight 49.697 kg Weight 53.524 kg Physical Exam Narrative: EXAM NARRATIVE: Drowsy and least responsive. Chest: CHEST: Yes Symmetrical chest wall rise Resp: COMMON NORMALS: normal respiratory effort, No retractions, No use of accessory muscles and clear to auscultation bilaterally EFFORT & INSPECTION: Yes symmetric chest movement AUSCULTATION: clear to auscultation bilaterally Cardio: COMMON NORMALS: regular rate, regular rhythm, S1 normal heart sound present, S2 normal heart sound present, No gallops present (Cardio), No murmurs present (Cardio), No rub (Cardio) and Peripheral pulses 2+ throughout RATE: regular rate RHYTHM: regular rhythm HEART SOUNDS: S1 normal heart sound present and S2 normal heart sound present PERIPHERAL PULSES: Peripheral pulses 2+ throughout GI: COMMON NORMALS: Normal to inspection, nondistended, normoactive bowel sounds present, Soft to palpation, non-tender, No hepatosplenomegaly present and no masses AUSCULTATION: Yes normoactive bowel sounds PALPATION: Yes Soft to palpation and Yes No hepatosplenomegaly present RECTAL EXAM: deferred Data : 06/27/20 04:20 06/27/20 04:20 A&P Assessment and plan (1) Acute respiratory failure with hypoxia: Status: Acute (2) Metabolic acidosis: Status: Acute (3) Acute kidney injury superimposed on chronic kidney disease: Status: Acute (4) Hyperkalemia: Status: Acute (5) New onset of congestive heart failure: Status: Acute (6) COVID-19: Status: Acute (7) Septic shock: Status: Acute Acute Hypoxic respiratory failure - Etiology multi-factorial - COVID-19 pneumonia, PTX, superimposed bacterial - Extubated today - Weaned to 2 L of o2 via NC Septic shock due to COVID-19 Pneumonia - Improving - Suspected superimposed Bacterial Pneumonia - Procalcitonin 16.44 -> 15.48 - > 4.04 - Renal dosing of meds - Lactic Acid 1.7 on admit - 06/19 - Sputum culture - Negative - 06/19 - Blood culture x 2 - NGTD - 06/19 - Urine culture - negative - Vancomycin pharmacy to dose - Primixin 250 mg IV q12 hr - Source unknown - Afebrile Left sided tension pneumothorax with development of SQ emphysema - resolved - Noted on admission - Left -sided chest tube was placed - 06/21 - Helmich valve placed - Removed on 06/22 - Repeat chest x-ray reviewed - Consult with general surgery - SQ emphysema improving - Repeat chest x-ray in am Acute kidney injury / ATN on CKD stage 3 on HD - Creatinine baseline 1.4- > Cr. 4.1 - > 3.1 - Nephrology consulted - Femoral HD catheter removed - Right IJ HD cath in place - HD on 06/21/19 -> u/o improving - Continue per nephrology Diabetes Mellitus with hyperglycemia mild DKA on arrival - AG metabolic acidosis - Multi-factorial component of acidosis - continue insulin SQ - Goal Blood sugar 140-180 - Repeat labs in am Acute anemia - Multi-factorial - Acute blood loss from CT in setting of renal disease - Hb 8.3 - > 6.8 - . 7.3 - s/p 2 units PRBC transfusion on 06/23 - Follow up on H/H today - Holding anticoagulation/Antiplatelets - Monitor h/h Coronary artery disease s/p CABG / PVD s/p b/l femoral bypass / Hypertension - Holding aspirin 81 mg PO daily and Plavix 75 mg PO daily - Will resume once hemoglobin stabilizes and no further invasive procedures - ECHO - pEF - Continue Lipitor 20 mg PO daily - Monitor on tele Hx of Breast cancer - S/P chemo > 2 year prior - No new recommendation FEN - Tube feeding - Dietary consulted - Pulmcal 1.2 at 20ml/hr - Will increase to goal based on residuals and recs GI ppx - Pepcid 20 mg IV daily DVT ppx - SCDs only due to anemia Condition: Critical Prognosis : Poor Code status- D.N.R Additional A&P Information Sepsis and acute hypoxic respiratory failure secondary to COVID-19 pneumonia Intubated at outside facility Currently ABGs revealing metabolic acidosis I am holding off on bicarb infusion because of hypocalcemia, I am still waiting on BMP before making decision to start bicarb Lactic acid 2.1 Sepsis criteria met with leukocytosis, tachypnea secondary to COVID-19 We will check procalcitonin level before initiating antibiotics Metabolic acidosis This most likely is due to uremia lactic acid is 2 We will check ketone level Also noticed hyperglycemia, rule out DKA Most of her lab work is pending because she was critically ill at the time of presentation and a lot of effort was put in for stabilization putting lines and chest tube Bradycardia As per the report she was showing signs of sinus bradycardia however at the time of my evaluation she was hypothermic temperature 94 she was started on bear hugger's, she was also given 1 mg of atropine and then was started on Levophed and dopamine We will follow EKG and serial troponin Avoid propofol as it has cardio suppressant effect Check TSH, magnesium Acute on chronic kidney disease Creatinine at outside facility 3.8, her baseline creatinine seems to be 1.5-1.6 as per previous records This seems multifactorial to hypotension, sepsis and CHF exacerbation Hold nephrotoxic agents Hyperkalemia: She was given 10 units of regular insulin, I also administer 1 g calcium gluconate Her bradycardia seems to be sinus, will repeat EKG and administer Kayexalate via OG tube 10 mg albuterol x1 Hold off on bicarb secondary to hypercalcemia New onset CHF with underlying history of coronary disease and peripheral vascular disease Patient carries history of coronary disease but I do not see any mention of CHF in her records We will repeat echo in the morning Not a candidate to be on Lasix clinically looks euvolemic BNP around 8000 Will obtain serial EKGs and troponin High D-dimer: Patient recently had chest tube placement I would wait to start any anticoagulation to cover for a possible PE However high D-dimer is also seen with severe COVID-19 inflammation Tension pneumothorax After placement of central line however no earlier x-ray available, chest tube was placed by Dr. Lisa shirley in lung inflation Procedures on 06/19 lines: Right radial artery Left central line Santoyo catheter will be placed Left chest tube Full code DVT prophylaxis I would use SCDs for now she just had chest tube placed, I would avoid anticoagulation to avoid postprocedural hemorrhage Guarded prognosis N.p.o. Attestations Medical Necessity Statement*: Patient needs to be in hospital for the management of sepsis and r/f 2/2 COVID Procedures Arterial Line Size (Gauge): 18 Coding Level of Care Code Acute Household Assistant for Chg Fwd Diagnoses Acute respiratory failure with hypoxia J96.01 Metabolic acidosis E87.2 Acute kidney injury superimposed on chronic kidney disease N17.9; N18.9 Hyperkalemia E87.5 New onset of congestive heart failure I50.9 COVID-19 U07.1 Septic shock A41.9; R65.21
[2020-06-27 13:03] LABS: Vit D 1,25 (Oh)2, Total 45 pg/mL (18-72); Vit D2 1,25 (Oh)2 <8 pg/mL; Vit D3 1,25 (Oh)2 45 pg/mL
[2020-06-27] MEDS: dexamethasone 4 mg/mL INJ 6 MG IVP (15:35)
[2020-06-27 20:38] LABS: Glucose Point of Care 145 mg/dL (70-110)
[2020-06-27] MEDS: atorvastatin 40 mg Tablet 20 MG PO (21:14)
[2020-06-28] VITALS (43 sets, daily range): BP systolic 105–229; BP diastolic 71–102; PULSE 54–98; RESP 1–26; TEMP 36.3–37.1; O2SAT 91–100; BMI 19.4
[2020-06-28 00:17] LABS: Alanine Aminotransferase 13 U/L (0-33); Albumin Level 2.6 g/dL (3.5-5.2); Alkaline Phosphatase 80 IU/L (35-105); Anion Gap 14.1 (5-19); Aspartate Amino Transferase 45 U/L (0-32); Blood Urea Nitrogen 57 mg/dL (8-23); Calcium 7.6 mg/dL (8.5-10.5); Carbon Dioxide 32 mmol/L (22-29); Chloride 104 mmol/L (98-107); Globulin 2.4 g/dL (1.3-4.6); Glomerular Filtration Rate 24.2 mL/min (90-130); Glucose 144 mg/dL (65-115); Osmolality Calculated 320 mOsm/kg (285-295); Potassium 4.1 mmol/L (3.5-5.1); Sodium 146 mmol/L (136-145); Total Bilirubin 0.7 mg/dL (0.15-1.2)
[2020-06-28 06:09] LABS: Alanine Aminotransferase 11 U/L (0-33); Albumin Level 2.6 g/dL (3.5-5.2); Alkaline Phosphatase 85 IU/L (35-105); Blood Urea Nitrogen 56 mg/dL (8-23); Calcium 7.8 mg/dL (8.5-10.5); Carbon Dioxide 33 mmol/L (22-29); Chloride 104 mmol/L (98-107); Globulin 2.1 g/dL (1.3-4.6); Glomerular Filtration Rate 23.1 mL/min (90-130); Glucose 114 mg/dL (65-115); Magnesium 1.7 mg/dL (1.7-2.3); Osmolality Calculated 318 mOsm/kg (285-295); Phosphorus 4.3 mg/dL (2.5-4.5); Sodium 146 mmol/L (136-145); Total Bilirubin 0.7 mg/dL (0.15-1.2); Total Protein 4.7 g/dL (6.6-8.7)
[2020-06-28 06:19] LABS: Anion Gap 12.9 (5-19); Aspartate Amino Transferase 34 U/L (0-32); Potassium 3.9 mmol/L (3.5-5.1)
[2020-06-28 07:43] LABS: Glucose Point of Care 127 mg/dL (70-110)
--- NOTE | 2020-06-28 08:12 | PM.PN ---
Subjective Subjective: Interval history: extubated, feels weak but no complaints Medications: Reviewed: Yes Vitals/I&O/Wt Last Vital Signs Temp 97.6 F 06/28/20 02:00 Pulse 72 06/28/20 06:00 Resp 21 H 06/28/20 06:00 BP 105/85 06/28/20 06:00 Pulse Ox 97 06/28/20 06:00 06/27/20 06/28/20 06/28/20 22:59 06:59 14:59 Intake Total 1100 / 1100 100 / 1200 Output Total 2250 / 2500 650 / 3150 Balance -1150 / -1400 -550 / -1950 Weight last 48 hrs Weight 49.697 kg Weight 49.697 kg Data : 06/27/20 04:20 06/28/20 02:50 Other Labs: calcium 7.8, phos 4.3, Mg 1.7 A&P Additional A&P Information 1. Acute kidney injury, nonoliguric 2. COVID pneumonia 3. Hypernatremia 4. Combination metabolic and respiratory alkalosis based on most recent ABG and BMP 5. Anemia, consider transfusion pRBC Recommend: no indication for dialysis at this time. Change IVF to 1/2NSS Attestations Medical Necessity Statement*: critically ill in ICU Time Spent in Patient Care: 16 - 35 minutes Procedures Arterial Line Size (Gauge): 18 Coding Level of Care Code Acute Weaving Supervisor for Chg [place]
[2020-06-28 08:56] LABS: Glucose Point of Care 51 mg/dL (70-110)
--- NOTE | 2020-06-28 09:18 | PC.SOCIAL ---
*IMM* not given, Pt is critial not Dc within the next couple days.
[2020-06-28 11:37] LABS: Glucose Point of Care 128 mg/dL (70-110)
[2020-06-28] MEDS: famotidine 20 mg/2 mL INJ 40 MG IVP ×2 (11:44→21:33)
[2020-06-28] MEDS: dexamethasone 4 mg/mL INJ 6 MG IVP (15:36)
[2020-06-28] MEDS: sodium chloride 0.45% 1,000 ML 75 ML IV (15:37)
[2020-06-28 17:01] LABS: Glucose Point of Care 131 mg/dL (70-110)
[2020-06-28] MEDS: cloNIDine 0.1 mg Tablet 0.2 MG PO (17:19)
--- NOTE | 2020-06-28 17:35 | PM.PN ---
Subjective Subjective: Interval history: is alert and awake.She has been started on mechanical soft diet and Physical Therapy is on Board. She has remained afebrile and is saturating well on 2ls oxygen via [place]. Documented Urine output :650 cc Medications: Reviewed: Yes Medication Review Details: Current Medications Albuterol/Ipratropium (Ipratropium-Albuterol 3 Ml Neb) 3 ml INHALATION Q6H PRN PRN Reason: SHORTNESS OF BREATH Last Admin: 06/26/20 08:10 Dose: 3 ml Documented by: Aspirin (Aspirin 81 Mg Ec Tablet) 81 mg PO DAILY [facility] Last Admin: 06/19/20 09:04 Dose: 81 mg Documented by: Atorvastatin Calcium (Atorvastatin 40 Mg Tablet) 20 mg PO BEDTIME [facility] Last Admin: 06/26/20 20:44 Dose: Not Given Documented by: Calcitriol (Calcitriol 0.25 Mcg Capsule) 0.25 mcg PO DAILY [facility] Last Admin: 06/27/20 09:08 Dose: Not Given Documented by: Clopidogrel Bisulfate (Clopidogrel 75 Mg Tablet) 75 mg PO DAILY [facility] Last Admin: 06/19/20 09:04 Dose: 75 mg Documented by: Dexamethasone (Dexamethasone 4 Mg/Ml Inj) 6 mg IVP Q24H [facility] Last Admin: 06/26/20 15:54 Dose: 6 mg Documented by: Dextrose (Dextrose 50% Syringe 50 Ml) 25 ml IVP ONCE PRN; Protocol PRN Reason: hypoglycemia protocol Dextrose (Dextrose 50% Syringe 50 Ml) 50 ml IVP PRN PRN; Protocol PRN Reason: hypoglycemia protocol Famotidine (Famotidine 20 Mg/2 Ml Inj) 40 mg IVP Q12H [facility] Last Admin: 06/27/20 00:35 Dose: 40 mg Documented by: Glucagon (Glucagon 1 Mg/Ml Inj 1 Ml) 1 mg IM ONCE PRN; Protocol PRN Reason: Adult Acute Hypoglycemia Prot. Dopamine HCl/Dextrose (Intropin Drip) 400 mg in 250 mls @ 9.525 mls/hr IV CONT [facility]; Protocol Last Admin: 06/27/20 03:43 Dose: Not Given Documented by: Dextrose (D5w) 500 mls @ 100 mls/hr IV ONCE PRN; Protocol PRN Reason: Adult Acute Hypoglycemia Prot Vancomycin HCl 750 mg/ Sodium (Chloride) 250 mls @ 250 mls/hr IV Q48H [facility]; Protocol Last Infusion: 06/25/20 13:00 Dose: Infused Documented by: Imipenem/Cilastatin Sodium 250 (mg/ Sodium Chloride) 100 mls @ 200 mls/hr IV Q12H [facility]; Protocol Last Infusion: 06/27/20 04:58 Dose: Infused Documented by: Vasopressin 100 unit/ Sodium (Chloride) 100 mls @ 0 mls/hr IV .Q0M [facility]; Protocol Last Titration: 06/24/20 05:55 Dose: 0 unit/min, 0 mls/hr Documented by: Norepinephrine Bitartrate 8 mg (/ Dextrose) 508 mls @ 0 mls/hr IV .Q0M [facility]; Protocol Last Titration: 06/24/20 13:12 Dose: 0.52 mcg/min, 2 mls/hr Documented by: Albumin Human (Albumin) 12.5 gm in 50 mls @ 60 mls/hr IV PRN PRN PRN Reason: Hypotension and/or symptomatic Albumin Human (Albumin) 12.5 gm in 50 mls @ 60 mls/hr IV PRN PRN PRN Reason: Hypotension and/or symptomatic Phenylephrine HCl 25 mg/ (Sodium Chloride) 252.5 mls @ 0 mls/hr IV .Q0M [facility]; Protocol Albumin Human (Albumin) 12.5 gm in 50 mls @ 60 mls/hr IV PRN PRN PRN Reason: Hypotension and/or symptomatic Sodium Chloride (Sodium Chloride 0.9%) 1,000 mls @ 90 mls/hr IV .Q11H7M [facility] Insulin Aspart (Insulin Aspart 100 Unit/1 Ml) 0 unit SUBCUT TIDWM [facility]; Protocol Last Admin: 06/27/20 09:07 Dose: 6 unit Documented by: Lanolin (Lanolin Oint 7 Gm) 1 applic TOPICAL PRN PRN PRN Reason: DRYNESS Last Admin: 06/20/20 03:07 Dose: 1 applic Documented by: Metoprolol Tartrate (Metoprolol Tartrate 1 Mg/1 Ml Sdv 5 Ml) 2.5 mg IV Q6H PRN PRN Reason: Hypertension Last Admin: 06/26/20 08:52 Dose: 2.5 mg Documented by: Senna/Docusate Sodium (Sennosides-Docusate Tablet) 1 tab PO DAILY [facility] Last Admin: 06/27/20 09:09 Dose: Not Given Documented by: Vitals/I&O/Wt Last Vital Signs Temp 98.8 F 06/28/20 11:00 Pulse 78 06/28/20 14:00 Resp 14 06/28/20 14:00 BP 123/83 06/28/20 14:00 Pulse Ox 99 06/28/20 14:00 06/28/20 06/28/20 06/28/20 06:59 14:59 22:59 Intake Total 100 / 1200 200 / 200 Output Total 650 / 3150 Balance -550 / -1950 200 / 200 Weight last 48 hrs Weight 49.697 kg Weight 49.697 kg Physical Exam Narrative: EXAM NARRATIVE: Drowsy and least responsive. HENMT: COMMON NORMALS: normocephalic and atraumatic HEAD & SCALP: normocephalic and atraumatic Resp: COMMON NORMALS: normal respiratory effort, No retractions, No use of accessory muscles and clear to auscultation bilaterally EFFORT & INSPECTION: Yes symmetric chest movement AUSCULTATION: clear to auscultation bilaterally Cardio: COMMON NORMALS: regular rate, regular rhythm, S1 normal heart sound present, S2 normal heart sound present, No gallops present (Cardio), No murmurs present (Cardio), No rub (Cardio) and Peripheral pulses 2+ throughout RATE: regular rate RHYTHM: regular rhythm HEART SOUNDS: S1 normal heart sound present and S2 normal heart sound present PERIPHERAL PULSES: Peripheral pulses 2+ throughout GI: COMMON NORMALS: Normal to inspection, nondistended, normoactive bowel sounds present, Soft to palpation, non-tender, No hepatosplenomegaly present and no masses AUSCULTATION: Yes normoactive bowel sounds PALPATION: Yes Soft to palpation and Yes No hepatosplenomegaly present RECTAL EXAM: deferred Extremity: COMMON NORMALS: no clubbing, cyanosis or edema and no pedal edema Data : 06/27/20 04:20 06/28/20 02:50 A&P Assessment and plan (1) Acute respiratory failure with hypoxia: Status: Acute (2) Metabolic acidosis: Status: Acute (3) Acute kidney injury superimposed on chronic kidney disease: Status: Acute (4) Hyperkalemia: Status: Acute (5) New onset of congestive heart failure: Status: Acute (6) COVID-19: Status: Acute (7) Septic shock: Status: Acute Acute Hypoxic respiratory failure - Etiology multi-factorial - COVID-19 pneumonia, PTX, superimposed bacterial - Extubated today - Weaned to 2 L of o2 via NC Septic shock due to COVID-19 Pneumonia - Improving - Suspected superimposed Bacterial Pneumonia - Procalcitonin 16.44 -> 15.48 - > 4.04 - Renal dosing of meds - Lactic Acid 1.7 on admit - 06/19 - Sputum culture - Negative - 06/19 - Blood culture x 2 - NGTD - 06/19 - Urine culture - negative - Vancomycin pharmacy to dose - Primixin 250 mg IV q12 hr - Source unknown - Afebrile Left sided tension pneumothorax with development of SQ emphysema - resolved - Noted on admission - Left -sided chest tube was placed - 06/21 - Helmich valve placed - Removed on 06/22 - Repeat chest x-ray reviewed - Consult with general surgery - SQ emphysema improving - Repeat chest x-ray in am Acute kidney injury / ATN on CKD stage 3 on HD - Creatinine baseline 1.4- > Cr. 4.1 - > 3.1 - Nephrology consulted - Femoral HD catheter removed - Right IJ HD cath in place - HD on 06/21/19 -> u/o improving - Continue per nephrology Diabetes Mellitus with hyperglycemia mild DKA on arrival - AG metabolic acidosis - Multi-factorial component of acidosis - continue insulin SQ - Goal Blood sugar 140-180 - Repeat labs in am Acute anemia - Multi-factorial - Acute blood loss from CT in setting of renal disease - Hb 8.3 - > 6.8 - . 7.3 - s/p 2 units PRBC transfusion on 06/23 - Follow up on H/H today - Holding anticoagulation/Antiplatelets - Monitor h/h Coronary artery disease s/p CABG / PVD s/p b/l femoral bypass / Hypertension - Holding aspirin 81 mg PO daily and Plavix 75 mg PO daily - Will resume once hemoglobin stabilizes and no further invasive procedures - ECHO - pEF - Continue Lipitor 20 mg PO daily - Monitor on tele Hx of Breast cancer - S/P chemo > 2 year prior - No new recommendation FEN - Tube feeding - Dietary consulted - Pulmcal 1.2 at 20ml/hr - Will increase to goal based on residuals and recs GI ppx - Pepcid 20 mg IV daily DVT ppx - SCDs only due to anemia Condition: Critical Prognosis : Poor Code status- D.N.R Additional A&P Information Sepsis and acute hypoxic respiratory failure secondary to COVID-19 pneumonia Intubated at outside facility Currently ABGs revealing metabolic acidosis I am holding off on bicarb infusion because of hypocalcemia, I am still waiting on BMP before making decision to start bicarb Lactic acid 2.1 Sepsis criteria met with leukocytosis, tachypnea secondary to COVID-19 We will check procalcitonin level before initiating antibiotics Metabolic acidosis This most likely is due to uremia lactic acid is 2 We will check ketone level Also noticed hyperglycemia, rule out DKA Most of her lab work is pending because she was critically ill at the time of presentation and a lot of effort was put in for stabilization putting lines and chest tube Bradycardia As per the report she was showing signs of sinus bradycardia however at the time of my evaluation she was hypothermic temperature 94 she was started on bear hugger's, she was also given 1 mg of atropine and then was started on Levophed and dopamine We will follow EKG and serial troponin Avoid propofol as it has cardio suppressant effect Check TSH, magnesium Acute on chronic kidney disease Creatinine at outside facility 3.8, her baseline creatinine seems to be 1.5-1.6 as per previous records This seems multifactorial to hypotension, sepsis and CHF exacerbation Hold nephrotoxic agents Hyperkalemia: She was given 10 units of regular insulin, I also administer 1 g calcium gluconate Her bradycardia seems to be sinus, will repeat EKG and administer Kayexalate via OG tube 10 mg albuterol x1 Hold off on bicarb secondary to hypercalcemia New onset CHF with underlying history of coronary disease and peripheral vascular disease Patient carries history of coronary disease but I do not see any mention of CHF in her records We will repeat echo in the morning Not a candidate to be on Lasix clinically looks euvolemic BNP around 8000 Will obtain serial EKGs and troponin High D-dimer: Patient recently had chest tube placement I would wait to start any anticoagulation to cover for a possible PE However high D-dimer is also seen with severe COVID-19 inflammation Tension pneumothorax After placement of central line however no earlier x-ray available, chest tube was placed by Dr. Lisa shirley in lung inflation Procedures on 06/19 lines: Right radial artery Left central line Santoyo catheter will be placed Left chest tube Full code DVT prophylaxis I would use SCDs for now she just had chest tube placed, I would avoid anticoagulation to avoid postprocedural hemorrhage Guarded prognosis N.p.o. Attestations Medical Necessity Statement*: Patient needs to be in hospital for the management of post COVID Syndrome and the need for continued monitoring. Procedures Arterial Line Size (Gauge): 18 Coding Level of Care Code Acute Fisheries Technical Officer for Chg Fwd Diagnoses Acute respiratory failure with hypoxia J96.01 Metabolic acidosis E87.2 Acute kidney injury superimposed on chronic kidney disease N17.9; N18.9 Hyperkalemia E87.5 New onset of congestive heart failure I50.9 COVID-19 U07.1 Septic shock A41.9; R65.21
--- NOTE | 2020-06-28 20:24 | P.PN_ITS ---
Subjective Subjective: Interval history: Clinically improving. Awake and following commands Last bedside swallow test and started mechanical soft diet and bedside physical therapy Medications: Reviewed: Yes Medication Review Details: Current Medications Albuterol/Ipratropium (Ipratropium-Albuterol 3 Ml Neb) 3 ml INHALATION Q6H PRN PRN Reason: SHORTNESS OF BREATH Last Admin: 06/26/20 08:10 Dose: 3 ml Documented by: Aspirin (Aspirin 81 Mg Ec Tablet) 81 mg PO DAILY [facility] Last Admin: 06/19/20 09:04 Dose: 81 mg Documented by: Atorvastatin Calcium (Atorvastatin 40 Mg Tablet) 20 mg PO BEDTIME [facility] Last Admin: 06/26/20 20:44 Dose: Not Given Documented by: Calcitriol (Calcitriol 0.25 Mcg Capsule) 0.25 mcg PO DAILY [facility] Last Admin: 06/27/20 09:08 Dose: Not Given Documented by: Clopidogrel Bisulfate (Clopidogrel 75 Mg Tablet) 75 mg PO DAILY [facility] Last Admin: 06/19/20 09:04 Dose: 75 mg Documented by: Dexamethasone (Dexamethasone 4 Mg/Ml Inj) 6 mg IVP Q24H [facility] Last Admin: 06/26/20 15:54 Dose: 6 mg Documented by: Dextrose (Dextrose 50% Syringe 50 Ml) 25 ml IVP ONCE PRN; Protocol PRN Reason: hypoglycemia protocol Dextrose (Dextrose 50% Syringe 50 Ml) 50 ml IVP PRN PRN; Protocol PRN Reason: hypoglycemia protocol Famotidine (Famotidine 20 Mg/2 Ml Inj) 40 mg IVP Q12H [facility] Last Admin: 06/27/20 00:35 Dose: 40 mg Documented by: Glucagon (Glucagon 1 Mg/Ml Inj 1 Ml) 1 mg IM ONCE PRN; Protocol PRN Reason: Adult Acute Hypoglycemia Prot. Dopamine HCl/Dextrose (Intropin Drip) 400 mg in 250 mls @ 9.525 mls/hr IV CONT [facility]; Protocol Last Admin: 06/27/20 03:43 Dose: Not Given Documented by: Dextrose (D5w) 500 mls @ 100 mls/hr IV ONCE PRN; Protocol PRN Reason: Adult Acute Hypoglycemia Prot Vancomycin HCl 750 mg/ Sodium (Chloride) 250 mls @ 250 mls/hr IV Q48H [facility]; Protocol Last Infusion: 06/25/20 13:00 Dose: Infused Documented by: Imipenem/Cilastatin Sodium 250 (mg/ Sodium Chloride) 100 mls @ 200 mls/hr IV Q12H [facility]; Protocol Last Infusion: 06/27/20 04:58 Dose: Infused Documented by: Vasopressin 100 unit/ Sodium (Chloride) 100 mls @ 0 mls/hr IV .Q0M [facility]; Protocol Last Titration: 06/24/20 05:55 Dose: 0 unit/min, 0 mls/hr Documented by: Norepinephrine Bitartrate 8 mg (/ Dextrose) 508 mls @ 0 mls/hr IV .Q0M [facility]; Protocol Last Titration: 06/24/20 13:12 Dose: 0.52 mcg/min, 2 mls/hr Documented by: Albumin Human (Albumin) 12.5 gm in 50 mls @ 60 mls/hr IV PRN PRN PRN Reason: Hypotension and/or symptomatic Albumin Human (Albumin) 12.5 gm in 50 mls @ 60 mls/hr IV PRN PRN PRN Reason: Hypotension and/or symptomatic Phenylephrine HCl 25 mg/ (Sodium Chloride) 252.5 mls @ 0 mls/hr IV .Q0M [facility]; Protocol Albumin Human (Albumin) 12.5 gm in 50 mls @ 60 mls/hr IV PRN PRN PRN Reason: Hypotension and/or symptomatic Sodium Chloride (Sodium Chloride 0.9%) 1,000 mls @ 90 mls/hr IV .Q11H7M [facility] Insulin Aspart (Insulin Aspart 100 Unit/1 Ml) 0 unit SUBCUT TIDWM [facility]; Protocol Last Admin: 06/27/20 09:07 Dose: 6 unit Documented by: Lanolin (Lanolin Oint 7 Gm) 1 applic TOPICAL PRN PRN PRN Reason: DRYNESS Last Admin: 06/20/20 03:07 Dose: 1 applic Documented by: Metoprolol Tartrate (Metoprolol Tartrate 1 Mg/1 Ml Sdv 5 Ml) 2.5 mg IV Q6H PRN PRN Reason: Hypertension Last Admin: 06/26/20 08:52 Dose: 2.5 mg Documented by: Senna/Docusate Sodium (Sennosides-Docusate Tablet) 1 tab PO DAILY [facility] Last Admin: 06/27/20 09:09 Dose: Not Given Documented by: Vitals/I&O/Wt Last Vital Signs Temp 98.8 F 06/28/20 11:00 Pulse 78 06/28/20 18:30 Resp 17 06/28/20 18:30 BP 201/90 06/28/20 18:30 Pulse Ox 100 06/28/20 18:30 06/28/20 06/28/20 06/28/20 06:59 14:59 22:59 Intake Total 100 / 1200 200 / 200 300 / 500 Output Total 650 / 3150 750 / 750 Balance -550 / -1950 200 / 200 -450 / -250 Weight last 48 hrs Weight 109 lb 9 oz Weight 109 lb 9 oz Physical Exam Narrative: EXAM NARRATIVE: PHYSICAL EXAM: General: lying in bed, opens eyes HEENT:NCAT, PERRLA, EOMI Neck: Supple Lungs: Mild crepitations in the left lower base Heart: s1/s2, RRR Abd: soft, NT, ND, BS + Normoactive Extremities: 1+ pedal edema BUSINESS OPERATIONS COORDINATOR: More awake alert and following commands SKIN: no rash LDA: # CVC: Left IJ 06/18/2020 # HD Cath : Right IJ HD 06/24/2020 # August: 06/18/2020 # A line: Right radial 06/18/2020 Data : 06/27/20 04:20 06/28/20 02:50 A&P Assessment and plan (1) COVID-19: Status: Acute (2) New onset of congestive heart failure: Status: Acute (3) Acute respiratory failure with hypoxia: Status: Acute (4) Acute kidney injury superimposed on chronic kidney disease: Status: Acute (5) Metabolic acidosis: Status: Acute (6) Septic shock: Status: Acute Overall: 69-year-old female with metastatic ovarian cancer, CKD, admitted to viral ICU for acute hypoxic respiratory failure secondary to COVID-19 pneumonia, septic shock due to unspecified organism requiring 3 pressors, leading to acute renal failure on chronic kidney disease requiring hemodialysis. Currently off pressors and extubated and mentation is good. NEURO: #Altered mental status secondary to sedation -improved and following commands -Currently off sedation -CT head 06/25/2019 no acute events; Severe chronic appearing white matter disease. Yoon-white matter differentiation still intact with no sulcal effac ement PULM: #Acute hypoxic respiratory failure secondary to ARDS due to COVID pna -cannot rule out coexisting bacterial infection #Left pneumothorax -resolved -Intubated on 06/18/2020 - Extubated 06/26/2020 -Saturating well on 2 L nasal cannula -Chest x-ray 06/26/2019: Consolidation at the LEFT lung base is probably a combination of atelectasis, pleural fluid and pneumonia is not excluded. 3. Very tiny LEFT apical pneumothorax persists with a small amount of subcutaneous emphysema. -Encourage physical therapy and incentive spirometry as tolerated to prevent atelectasis -Repeat chest x-ray tomorrow a.m. -Improving inflammatory markers D-dimer, LDH, CRP, and repeat every 2 days to trend markers of inflammation -On dexamethasone 6 mg daily -Cultures so far negative- Covered with vancomycin, imipenem since 06/19 -Discontinue antibiotics as patient already received 10 days and no fevers and and WBC stable at 14,000 -Elevated procalcitonin could be secondary to ESRD CVS: -Septic shock likely secondary to sepsis-resolved -Elevated troponins can be secondary to renal failure and demand ischemia -Off pressors -Please maintain MAP > 65 -Monitor blood pressure and taper of pressors as feasible -BNP is 7933, Echo ejection fraction 50 to 55% impaired diastolic function -Held aspirin and Plavix (history of CAD) held in view of bleeding from ET tube earlier and currently due to drop in H&H -On Lipitor GI: -Passed bedside swallow test and started on mechanical soft diet with aspiration precautions -On senna 1 tab p.o. daily -On famotidine for GI prophylaxis -Normal LFTs RENAL: #Acute on chronic CKD -worsened due to hypoperfusion secondary to septic shock -Currently off dialysis dialysis -patient is making good urine -I's/O/N: 1.2/3.1/-1.9; since admission 10 L/12 Lliters/-1500; if we take into account all insensible losses she is overall significantly net negative -Sodium 146 and BUN 56 -and patient clinically dehydrated-recommended IV fluids -Creatinine stabilized -Other electrolytes within normal limits -DC Lasix for now and consider starting if patient develops signs of fluid overload -Nephrology following -Continue august cath for input output monitoring -Avoid nephrotoxins -Monitor BUN/creatinine and electrolytes and supplement accordingly if clinically indicated HEM: #History of? Disseminated ovarian cancer and breast cancer #dropping hemoglobin hematocrit but currently H&H stable for last 3 days -Transfuse to keep H&H more than / - Plts stable -Held DVT prophylaxis in view of drop in H&H ENDO: -DKA-resolved -Ketones negative; anion gap still persists likely secondary to renal failure -Currently on I scale coverage -Monitor every 6 sugars ID: #Septic shock secondary to COVID pna and possible coexisting bacterial infection #Shock resolved -Hypothermic on admission and was requiring 3 pressors -currently off pressors -WBC 14 K, afebrile, - Cultures so far negative- Covered with vancomycin, imipenem since 06/19 -Discontinue antibiotics already received 10 days of antibiotics -Elevated procalcitonin could be secondary to ESRD Prognosis: Guarded Disposition: Remains in ICU; can be transferred to floor and plan for discharge to rehab: We will sign off case and please reconsult as needed Code: DNR Plan of care and recommendations conveyed to hospitalist on the case, RN and RT ICU CHECKLIST: Problem list updated Verbal orders reviewed and signed Analgesia: N/A Glycemic Control: Scale coverage Nutrition: Mechanical soft diet Restraint Renewal (within 24 hrs): Yes Ulcer Prophylaxis: Famotidine Chemical Thromboprophylaxis: Prophylaxis: Held in view of dropping H&H Mechanical Thromboprophylaxis: Yes Need for Central line: No Need for August catheter: Yes for urine output monitoring Critical Care Time (No Overlap): 45 min This patient has a high probability of sudden, clinically significant deterioration, which requires the highest level of physician preparedness to intervene urgently. I managed/supervised life or organ supporting interventions that required frequent physician assessment. I devoted my full attention in the ICU to the direct care of this patient for the period of time indicated above. Time I spent with family or surrogate(s) is included only if the patient was incapable of providing necessary information or participating in decision making. Time devoted to teaching and to any procedures I billed separately is not included. Services Provided: Telemetry review Mechanical Ventilation Hemodynamic interpretation, assessment and management Review and interpretation of CXR Review and interpretation of lab values Review and interpretation of microbiologic data and culture results Review of medications and administration Review and interpretation of Nutrition requirements and management Discussion of management with other consultants and services Clinical update to family members Attestations Medical Necessity Statement*: acute hypoxic respiratory failure secondary to COVID-19 pneumonia, septic shock due to unspecified organism requiring 3 pressors, leading to acute renal failure on chronic kidney disease requiring hemodialysis. Currently off pressors and extubated and mentation is good. Time Spent in Patient Care: (>than 50% of time spent in counselling and/or direct pt care on unit) . Critical Care Time: Critical Care Time (min): 45 Procedures Arterial Line Size (Gauge): 18 Coding Level of Care Code Acute Magistrate Judge for Chg Fwd Diagnoses COVID-19 U07.1 New onset of congestive heart failure I50.9 Acute respiratory failure with hypoxia J96.01 Acute kidney injury superimposed on chronic kidney disease N17.9; N18.9 Metabolic acidosis E87.2 Septic shock A41.9; R65.21
[2020-06-28] MEDS: atorvastatin 40 mg Tablet 20 MG PO (21:57)
[2020-06-29] VITALS (63 sets, daily range): BP systolic 145–222; BP diastolic 59–96; PULSE 46–79; RESP 1–25; TEMP 36.4–36.6; O2SAT 87–96; BMI 19.4
[2020-06-29] MEDS: cloNIDine 0.1 mg Tablet 0.2 MG PO ×2 (02:07→09:16)
[2020-06-29 04:40] LABS: Basophils % 0.2 %; Lymphocytes # 0.3 10^3/uL (0.8-4.8); Lymphocytes % 2.5 %; Mean Corpuscular Hemoglobin 29.1 pg (28.0-34.0); Mean Corpuscular Volume 90.9 fL (81-99); Mean Platelet Volume 11.3 fL (7.4-10.4); Monocytes # 0.4 10^3/uL (0.2-0.9); Monocytes % 3.2 %; Neutrophils # 12.25 10^3/uL (1.8-7.7); Neutrophils % 92.2 %; Nucleated Red Blood Cells % 0 %; Platelet Count 184 10^3/cmm (130-400); Red Cell Distribution Width 14.9 % (12.1-15.1); White Blood Count 13.3 10^3/uL (4.0-10.0)
[2020-06-29] MEDS: sodium chloride 0.45% 1,000 ML 75 ML IV ×2 (05:00→05:33)
[2020-06-29 05:53] LABS: Alanine Aminotransferase 12 U/L (0-33); Albumin Level 2.3 g/dL (3.5-5.2); Alkaline Phosphatase 71 IU/L (35-105); Anion Gap 13.8 (5-19); Aspartate Amino Transferase 28 U/L (0-32); Blood Urea Nitrogen 56 mg/dL (8-23); Calcium 7.5 mg/dL (8.5-10.5); Carbon Dioxide 28 mmol/L (22-29); Chloride 105 mmol/L (98-107); Globulin 2.2 g/dL (1.3-4.6); Glomerular Filtration Rate 28.3 mL/min (90-130); Glucose 179 mg/dL (65-115); Magnesium 1.5 mg/dL (1.7-2.3); Osmolality Calculated 316 mOsm/kg (285-295); Phosphorus 4.6 mg/dL (2.5-4.5); Potassium 3.8 mmol/L (3.5-5.1); Sodium 143 mmol/L (136-145); Total Bilirubin 0.6 mg/dL (0.15-1.2); Total Protein 4.5 g/dL (6.6-8.7)
[2020-06-29 06:25] LABS: Hemoglobin 6.4 g/dL (11.5-15.3)
--- NOTE | 2020-06-29 07:00 | P.PN_ITS ---
Subjective Subjective: Interval history: no new issues Medications: Reviewed: Yes Vitals/I&O/Wt Last Vital Signs Temp 97.8 F 06/28/20 20:30 Pulse 58 L 06/29/20 06:00 Resp 15 06/29/20 06:00 BP 188/77 06/29/20 04:00 Pulse Ox 93 06/29/20 06:00 06/28/20 06/29/20 06/29/20 22:59 06:59 14:59 Intake Total 1470 / 1770 1551.25 / 3321.25 Output Total 2500 / 2500 700 / 3200 Balance -1030 / -730 851.25 / 121.25 Weight last 48 hrs Weight 49.697 kg Weight 49.697 kg Physical Exam Neck/C-Spine: OTHER: tunneled right IJ HD catheter Data : 06/29/20 04:00 06/29/20 04:00 A&P Additional A&P Information 1. Acute kidney injury, nonoliguric, improving 2. COVID pneumonia 3. Hypernatremia, resolved 4. Combination metabolic and respiratory alkalosis based on most recent ABG and BMP 5. Anemia, receiving transfusion pRBC 6. Hypertension, receiving prn IV metoprolol Recommend: no indication for dialysis at this time. Hemodialysis catheter can be removed. Discontinue IVF during transfusion. Attestations Medical Necessity Statement*: per primary service Time Spent in Patient Care: 16 - 35 minutes Procedures Arterial Line Size (Gauge): 18 Coding Level of Care Code Acute Extrusion Manager for Chg Eliot
[2020-06-29 07:05] LABS: INR 1.37 (0.8-1.2)
[2020-06-29 07:06] LABS: Partial Thromboplastin Time 33.3 SECONDS (23.9-36.7)
[2020-06-29 07:11] LABS: Fibrinogen 212 mg/dL (174-498)
[2020-06-29 07:16] LABS: D Dimer 10.67 ug/mIFEU (0-0.59)
[2020-06-29 07:54] LABS: Platelet Count 184 10^3/cmm (130-400)
[2020-06-29 08:29] LABS: Lactate Dehydrogenase 532 U/L (135-214)
[2020-06-29 08:38] LABS: Glucose Point of Care 148 mg/dL (70-110)
[2020-06-29 11:37] LABS: Glucose Point of Care 176 mg/dL (70-110)
[2020-06-29 11:45] LABS: Vancomycin Trough 17.3 ug/mL (10-15)
[2020-06-29] MEDS: famotidine 20 mg/2 mL INJ 40 MG IVP ×2 (11:54→23:13)
[2020-06-29] MEDS: vancomycin 750 MG in sodium chloride 0.9% 250 ML 250 MG IV (12:36)
[2020-06-29] MEDS: nicardipine 20 MG/200 ML PREMIX 50 MG IV (13:15)
[2020-06-29] MEDS: dexamethasone 4 mg/mL INJ 6 MG IVP (14:55)
[2020-06-29 16:15] LABS: Glucose Point of Care 120 mg/dL (70-110)
--- NOTE | 2020-06-29 16:15 | PC.NURSE ---
Transfer from [facility] Received pt from [facility]. Pt is awake, oriented to name and year, not to place. Denies any pain or distress. Pt noted to have left IJ triple lumen with Nicardipine drip running at 3 mg/hr. Pt has bruises on left upper chest and chest areas. Noted saturated dressing with blood from left medial lateral lower chest area puncture from chest tube removal. Dressing changed and applied bulky pressure dressing 4x4 and abdl pads and covered with foam tape. Santoyo catheter intact and draining well. heels floated. noted dti on both heels. BP checked q15 mins.
--- NOTE | 2020-06-29 16:27 | PC.NURSE ---
nicardipine drip titrate Notified boathouse keeper on nicardipine protocol on the first floor prior to pt's arrival to room. She is aware of the hospital policy. Decreased Nicardipine drip from 3 mg to 2.5 mg per titration protocol. BP-167/62, HR-58, SpO2-93% on room air. Will keep monitoring pt's.
--- NOTE | 2020-06-29 16:43 | PC.NURSE ---
nicardine drip started [id number] at 5 mg/hr as ordered for sbp's > 200.(goal...to keep sbp below 180/)clonidine po prn had been tried earlier..but did not bring bp down....and hr decreased into 40's and 50's. bp came down nicely to 160's/syst..and dr gonzalez suggested decreasing to 3 mg/hr at 1455.dr gonzalez dc'd right sc temp dialysis catheter at 1515.pressure held x 10 min and occlusive drsg applied.pt tolerated procedure well.transfer orders received...report phoned to silvio eli on [facility]...transferred to room 104 at 1610 via bed
--- NOTE | 2020-06-29 18:31 | PM.PN ---
Subjective Subjective: Interval history: is felling fine,she is alert and awake, has remained afebrile, Her Hb Dropped to 6.4 and she was also hypertensive. Her other Vitals and labs have been reviewed. Medications: Reviewed: Yes Medication Review Details: Current Medications Albuterol/Ipratropium (Ipratropium-Albuterol 3 Ml Neb) 3 ml INHALATION Q6H PRN PRN Reason: SHORTNESS OF BREATH Last Admin: 06/26/20 08:10 Dose: 3 ml Documented by: Aspirin (Aspirin 81 Mg Ec Tablet) 81 mg PO DAILY [facility] Last Admin: 06/19/20 09:04 Dose: 81 mg Documented by: Atorvastatin Calcium (Atorvastatin 40 Mg Tablet) 20 mg PO BEDTIME [facility] Last Admin: 06/26/20 20:44 Dose: Not Given Documented by: Calcitriol (Calcitriol 0.25 Mcg Capsule) 0.25 mcg PO DAILY [facility] Last Admin: 06/27/20 09:08 Dose: Not Given Documented by: Clopidogrel Bisulfate (Clopidogrel 75 Mg Tablet) 75 mg PO DAILY [facility] Last Admin: 06/19/20 09:04 Dose: 75 mg Documented by: Dexamethasone (Dexamethasone 4 Mg/Ml Inj) 6 mg IVP Q24H [facility] Last Admin: 06/26/20 15:54 Dose: 6 mg Documented by: Dextrose (Dextrose 50% Syringe 50 Ml) 25 ml IVP ONCE PRN; Protocol PRN Reason: hypoglycemia protocol Dextrose (Dextrose 50% Syringe 50 Ml) 50 ml IVP PRN PRN; Protocol PRN Reason: hypoglycemia protocol Famotidine (Famotidine 20 Mg/2 Ml Inj) 40 mg IVP Q12H [facility] Last Admin: 06/27/20 00:35 Dose: 40 mg Documented by: Glucagon (Glucagon 1 Mg/Ml Inj 1 Ml) 1 mg IM ONCE PRN; Protocol PRN Reason: Adult Acute Hypoglycemia Prot. Dopamine HCl/Dextrose (Intropin Drip) 400 mg in 250 mls @ 9.525 mls/hr IV CONT [facility]; Protocol Last Admin: 06/27/20 03:43 Dose: Not Given Documented by: Dextrose (D5w) 500 mls @ 100 mls/hr IV ONCE PRN; Protocol PRN Reason: Adult Acute Hypoglycemia Prot Vancomycin HCl 750 mg/ Sodium (Chloride) 250 mls @ 250 mls/hr IV Q48H [facility]; Protocol Last Infusion: 06/25/20 13:00 Dose: Infused Documented by: Imipenem/Cilastatin Sodium 250 (mg/ Sodium Chloride) 100 mls @ 200 mls/hr IV Q12H [facility]; Protocol Last Infusion: 06/27/20 04:58 Dose: Infused Documented by: Vasopressin 100 unit/ Sodium (Chloride) 100 mls @ 0 mls/hr IV .Q0M [facility]; Protocol Last Titration: 06/24/20 05:55 Dose: 0 unit/min, 0 mls/hr Documented by: Norepinephrine Bitartrate 8 mg (/ Dextrose) 508 mls @ 0 mls/hr IV .Q0M [facility]; Protocol Last Titration: 06/24/20 13:12 Dose: 0.52 mcg/min, 2 mls/hr Documented by: Albumin Human (Albumin) 12.5 gm in 50 mls @ 60 mls/hr IV PRN PRN PRN Reason: Hypotension and/or symptomatic Albumin Human (Albumin) 12.5 gm in 50 mls @ 60 mls/hr IV PRN PRN PRN Reason: Hypotension and/or symptomatic Phenylephrine HCl 25 mg/ (Sodium Chloride) 252.5 mls @ 0 mls/hr IV .Q0M [facility]; Protocol Albumin Human (Albumin) 12.5 gm in 50 mls @ 60 mls/hr IV PRN PRN PRN Reason: Hypotension and/or symptomatic Sodium Chloride (Sodium Chloride 0.9%) 1,000 mls @ 90 mls/hr IV .Q11H7M [facility] Insulin Aspart (Insulin Aspart 100 Unit/1 Ml) 0 unit SUBCUT TIDWM [facility]; Protocol Last Admin: 06/27/20 09:07 Dose: 6 unit Documented by: Lanolin (Lanolin Oint 7 Gm) 1 applic TOPICAL PRN PRN PRN Reason: DRYNESS Last Admin: 06/20/20 03:07 Dose: 1 applic Documented by: Metoprolol Tartrate (Metoprolol Tartrate 1 Mg/1 Ml Sdv 5 Ml) 2.5 mg IV Q6H PRN PRN Reason: Hypertension Last Admin: 06/26/20 08:52 Dose: 2.5 mg Documented by: Senna/Docusate Sodium (Sennosides-Docusate Tablet) 1 tab PO DAILY [facility] Last Admin: 06/27/20 09:09 Dose: Not Given Documented by: Vitals/I&O/Wt Last Vital Signs Temp 97.8 F 06/29/20 13:37 Pulse 56 L 06/29/20 18:00 Resp 16 06/29/20 18:00 BP 181/73 06/29/20 18:15 Pulse Ox 93 06/29/20 18:00 06/29/20 06/29/20 06/29/20 06:59 14:59 22:59 Intake Total 1551.25 / 3321.25 611.25 / 611.25 192.000 / 803.250 Output Total 700 / 3200 300 / 300 600 / 900 Balance 851.25 / 121.25 311.25 / 311.25 -408.000 / -96.750 Weight last 48 hrs Weight 49.697 kg Weight 49.697 kg Physical Exam Narrative: EXAM NARRATIVE: Alert and awake. HENMT: COMMON NORMALS: normocephalic and atraumatic HEAD & SCALP: normocephalic and atraumatic Chest: CHEST: Yes Symmetrical chest wall rise Resp: COMMON NORMALS: clear to auscultation bilaterally EFFORT & INSPECTION: Yes symmetric chest movement AUSCULTATION: clear to auscultation bilaterally Cardio: COMMON NORMALS: regular rate, regular rhythm, S1 normal heart sound present, S2 normal heart sound present, No gallops present (Cardio), No murmurs present (Cardio), No rub (Cardio) and Peripheral pulses 2+ throughout RATE: regular rate RHYTHM: regular rhythm HEART SOUNDS: S1 normal heart sound present and S2 normal heart sound present PERIPHERAL PULSES: Peripheral pulses 2+ throughout GI: COMMON NORMALS: Normal to inspection, nondistended, normoactive bowel sounds present, Soft to palpation, non-tender, No hepatosplenomegaly present and no masses AUSCULTATION: Yes normoactive bowel sounds PALPATION: Yes Soft to palpation and Yes No hepatosplenomegaly present RECTAL EXAM: deferred Data : 06/29/20 18:00 06/29/20 04:00 A&P Assessment and plan (1) Acute respiratory failure with hypoxia: Status: Acute (2) Hypertensive urgency: Status: Acute (3) Septic shock: Status: Acute (4) Metabolic acidosis: Status: Acute (5) Acute kidney injury superimposed on chronic kidney disease: Status: Acute (6) Hyperkalemia: Status: Acute (7) New onset of congestive heart failure: Status: Acute (8) COVID-19: Status: Acute Acute Hypoxic respiratory failure - Etiology multi-factorial - COVID-19 pneumonia, PTX, superimposed bacterial - S/P Extubation - Weaned to 2 L of o2 via NC Septic shock due to COVID-19 Pneumonia - Improving - Suspected superimposed Bacterial Pneumonia - Procalcitonin 16.44 -> 15.48 - > 4.04 - Renal dosing of meds - Lactic Acid 1.7 on admit - 06/19 - Sputum culture - Negative - 06/19 - Blood culture x 2 - NGTD - 06/19 - Urine culture - negative - Vancomycin pharmacy to dose - Primixin 250 mg IV q12 hr - Source unknown - Afebrile Left sided tension pneumothorax with development of SQ emphysema :Resolved - Noted on admission - Left -sided chest tube was placed - 06/21 - Helmich valve placed - Removed on 06/22 Acute kidney injury / ATN on CKD stage 3 on HD - Creatinine baseline 1.4- > Cr. 4.1 - > 3.1 - Nephrology consulted - Femoral HD catheter removed - Right IJ HD cath :Removed - HD on 06/21/19 -> u/o improving - per nephrology:No Need for H.D now Diabetes Mellitus with hyperglycemia mild DKA on arrival - AG metabolic acidosis - Multi-factorial component of acidosis - continue insulin SQ - Goal Blood sugar 140-180 - Repeat labs in am Acute anemia - Multi-factorial - Acute blood loss from CT in setting of renal disease - Hb 8.3 - > 6.8 - . 7.3 - s/p 2 units PRBC transfusion on 06/23 as well as 1 U PRBC on 06/29 - Monitor H/H - Continue to hold anticoagulation/Antiplatelets Bradycardia -Sinus bradycardia -Currently asymptomatic -Monitor On Tele -TSH: 0.22 -Monitor electrolytes (K>4 , Mg>2 ) -Hypertensive urgency Currently on Nicardipine drip Start Amlodipine 10 mg po daily Coronary artery disease s/p CABG / PVD s/p b/l femoral bypass / Hypertension - Holding aspirin 81 mg PO daily and Plavix 75 mg PO daily - Will resume once hemoglobin stabilizes and no further invasive procedures - ECHO - pEF - Continue Lipitor 20 mg PO daily - Monitor on tele Hx of Breast cancer - S/P chemo > 2 year prior - No new recommendation FEN - Tube feeding - Dietary consulted - Pulal 1.2 at 20ml/hr - Will increase to goal based on residuals and recs GI ppx - Pepcid 20 mg IV daily DVT ppx - SCDs only due to anemia Procedures on 06/19 lines: Right radial artery Left central line Santoyo catheter will be placed Left chest tube Condition: Fair Code status- D.N.R Disposition :Home , Anticipated Dc in 2 days . Additional A&P Information Sepsis and acute hypoxic respiratory failure secondary to COVID-19 pneumonia Intubated at outside facility Currently ABGs revealing metabolic acidosis I am holding off on bicarb infusion because of hypocalcemia, I am still waiting on BMP before making decision to start bicarb Lactic acid 2.1 Sepsis criteria met with leukocytosis, tachypnea secondary to COVID-19 We will check procalcitonin level before initiating antibiotics Metabolic acidosis This most likely is due to uremia lactic acid is 2 We will check ketone level Also noticed hyperglycemia, rule out DKA Most of her lab work is pending because she was critically ill at the time of presentation and a lot of effort was put in for stabilization putting lines and chest tube Acute on chronic kidney disease Creatinine at outside facility 3.8, her baseline creatinine seems to be 1.5-1.6 as per previous records This seems multifactorial to hypotension, sepsis and CHF exacerbation Hold nephrotoxic agents Hyperkalemia: She was given 10 units of regular insulin, I also administer 1 g calcium gluconate Her bradycardia seems to be sinus, will repeat EKG and administer Kayexalate via OG tube 10 mg albuterol x1 Hold off on bicarb secondary to hypercalcemia New onset CHF with underlying history of coronary disease and peripheral vascular disease Patient carries history of coronary disease but I do not see any mention of CHF in her records We will repeat echo in the morning Not a candidate to be on Lasix clinically looks euvolemic BNP around 8000 Will obtain serial EKGs and troponin High D-dimer: Patient recently had chest tube placement I would wait to start any anticoagulation to cover for a possible PE However high D-dimer is also seen with severe COVID-19 inflammation Tension pneumothorax After placement of central line however no earlier x-ray available, chest tube was placed by Dr. Lisa shirley in lung inflation Full code DVT prophylaxis I would use SCDs for now she just had chest tube placed, I would avoid anticoagulation to avoid postprocedural hemorrhage Guarded prognosis N.p.o. Attestations Medical Necessity Statement*: Patient needs to be in hospital for the management of Hypertensive Urgency,Severe anemia, as well as Post COVID/ARDS recovery Procedures Arterial Line Size (Gauge): 18 Coding Level of Care Code Acute Ordnance Equipment Worker for Chg Fwd Diagnoses Acute respiratory failure with hypoxia J96.01 Hypertensive urgency I16.0 Septic shock A41.9; R65.21 Metabolic acidosis E87.2 Acute kidney injury superimposed on chronic kidney disease N17.9; N18.9 Hyperkalemia E87.5 New onset of congestive heart failure I50.9 COVID-19 U07.1
[2020-06-29 18:48] LABS: Hematocrit 30.5 % (37.0-47.0)
[2020-06-29 18:59] LABS: Hemoglobin 10.2 g/dL (11.5-15.3)
[2020-06-29] MEDS: nicardipine 20 MG/200 ML PREMIX 30 MG IV (19:52)
[2020-06-29] MEDS: atorvastatin 40 mg Tablet 20 MG PO (21:05)
[2020-06-29] MEDS: amlodipine 10 mg Tablet PO (21:06)
[2020-06-30] VITALS (54 sets, daily range): BP systolic 138–185; BP diastolic 56–123; PULSE 60–91; RESP 13–28; TEMP 36.4–36.8; O2SAT 91–100
[2020-06-30] MEDS: nicardipine 20 MG/200 ML PREMIX 30 MG IV (02:11)
[2020-06-30] MEDS: sodium chloride 0.45% 1,000 ML 75 ML IV (02:31)
[2020-06-30 04:49] LABS: Basophils % 0.1 %; Hemoglobin 9.7 g/dL (11.5-15.3); Lymphocytes # 0.3 10^3/uL (0.8-4.8); Lymphocytes % 2.4 %; Mean Corpuscular HGB Conc 33.4 g/dL (30.0-36.0); Mean Corpuscular Hemoglobin 29.2 pg (28.0-34.0); Mean Corpuscular Volume 87.3 fL (81-99); Mean Platelet Volume 10.6 fL (7.4-10.4); Monocytes # 0.4 10^3/uL (0.2-0.9); Monocytes % 3.3 %; Neutrophils # 12.52 10^3/uL (1.8-7.7); Neutrophils % 92.8 %; Nucleated Red Blood Cells % 0.2 %; Platelet Count 175 10^3/cmm (130-400); Red Blood Count 3.32 10^6/uL (4.1-5.3); White Blood Count 13.5 10^3/uL (4.0-10.0)
[2020-06-30 05:13] LABS: Alanine Aminotransferase 17 U/L (0-33); Albumin Level 2.5 g/dL (3.5-5.2); Alkaline Phosphatase 84 IU/L (35-105); Anion Gap 15.8 (5-19); Aspartate Amino Transferase 27 U/L (0-32); Blood Urea Nitrogen 52 mg/dL (8-23); Calcium 7.2 mg/dL (8.5-10.5); Carbon Dioxide 24 mmol/L (22-29); Chloride 101 mmol/L (98-107); Globulin 2.1 g/dL (1.3-4.6); Glomerular Filtration Rate 33.8 mL/min (90-130); Glucose 310 mg/dL (65-115); Osmolality Calculated 310 mOsm/kg (285-295); Potassium 3.8 mmol/L (3.5-5.1); Sodium 137 mmol/L (136-145); Total Bilirubin 0.8 mg/dL (0.15-1.2); Total Protein 4.6 g/dL (6.6-8.7)
[2020-06-30 06:43] LABS: Glucose Point of Care 279 mg/dL (70-110)
[2020-06-30] MEDS: amlodipine 10 mg Tablet PO (08:04)
[2020-06-30] MEDS: sennosides-docusate Tablet 1 TAB PO (08:05)
--- NOTE | 2020-06-30 08:14 | PM.PN ---
Subjective Subjective: Interval history: awake, weak, confused. denies complaints Medications: Reviewed: Yes Medication Review Details: Current Medications Albuterol/Ipratropium (Ipratropium-Albuterol 3 Ml Neb) 3 ml INHALATION Q6H PRN PRN Reason: SHORTNESS OF BREATH Last Admin: 06/26/20 08:10 Dose: 3 ml Documented by: Amlodipine Besylate (Amlodipine 10 Mg Tablet) 10 mg PO DAILY [facility] Last Admin: 06/30/20 08:04 Dose: 10 mg Documented by: Aspirin (Aspirin 81 Mg Ec Tablet) 81 mg PO DAILY [facility] Last Admin: 06/19/20 09:04 Dose: 81 mg Documented by: Atorvastatin Calcium (Atorvastatin 40 Mg Tablet) 20 mg PO BEDTIME [facility] Last Admin: 06/29/20 21:05 Dose: 20 mg Documented by: Clopidogrel Bisulfate (Clopidogrel 75 Mg Tablet) 75 mg PO DAILY [facility] Last Admin: 06/19/20 09:04 Dose: 75 mg Documented by: Dexamethasone (Dexamethasone 4 Mg/Ml Inj) 6 mg IVP Q24H [facility] Last Admin: 06/29/20 14:55 Dose: 6 mg Documented by: Dextrose (Dextrose 50% Syringe 50 Ml) 25 ml IVP ONCE PRN; Protocol PRN Reason: hypoglycemia protocol Dextrose (Dextrose 50% Syringe 50 Ml) 50 ml IVP PRN PRN; Protocol PRN Reason: hypoglycemia protocol Famotidine (Famotidine 20 Mg/2 Ml Inj) 40 mg IVP Q12H [facility] Last Admin: 06/29/20 23:13 Dose: 40 mg Documented by: Glucagon (Glucagon 1 Mg/Ml Inj 1 Ml) 1 mg IM ONCE PRN; Protocol PRN Reason: Adult Acute Hypoglycemia Prot. Dextrose (D5w) 500 mls @ 100 mls/hr IV ONCE PRN; Protocol PRN Reason: Adult Acute Hypoglycemia Prot Vancomycin HCl 750 mg/ Sodium (Chloride) 250 mls @ 250 mls/hr IV Q48H [facility]; Protocol Last Infusion: 06/29/20 14:41 Dose: Infused Documented by: Imipenem/Cilastatin Sodium 250 (mg/ Sodium Chloride) 100 mls @ 200 mls/hr IV Q12H [facility]; Protocol Last Infusion: 06/30/20 01:07 Dose: Infused Documented by: Vasopressin 100 unit/ Sodium (Chloride) 100 mls @ 0 mls/hr IV .Q0M [facility]; Protocol Last Titration: 06/24/20 05:55 Dose: 0 unit/min, 0 mls/hr Documented by: Norepinephrine Bitartrate 8 mg (/ Dextrose) 508 mls @ 0 mls/hr IV .Q0M [facility]; Protocol Last Titration: 06/24/20 13:12 Dose: 0.52 mcg/min, 2 mls/hr Documented by: Albumin Human (Albumin) 12.5 gm in 50 mls @ 60 mls/hr IV PRN PRN PRN Reason: Hypotension and/or symptomatic Albumin Human (Albumin) 12.5 gm in 50 mls @ 60 mls/hr IV PRN PRN PRN Reason: Hypotension and/or symptomatic Phenylephrine HCl 25 mg/ (Sodium Chloride) 252.5 mls @ 0 mls/hr IV .Q0M [facility]; Protocol Albumin Human (Albumin) 12.5 gm in 50 mls @ 60 mls/hr IV PRN PRN PRN Reason: Hypotension and/or symptomatic Sodium Chloride (Sodium Chloride 0.45%) 1,000 mls @ 75 mls/hr IV .Q34H84J [facility] Last Admin: 06/30/20 02:31 Dose: 75 mls/hr Documented by: Nicardipine/Sodium Chloride (Cardene) 20 mg in 200 mls @ 0 mls/hr IV .Q0M [facility]; Protocol Last Admin: 06/30/20 02:11 Dose: 3 mg/hr, 30 mls/hr Documented by: Insulin Aspart (Insulin Aspart 100 Unit/1 Ml) 0 unit SUBCUT TIDWM [facility]; Protocol Last Admin: 06/30/20 07:47 Dose: 10 unit Documented by: Lanolin (Lanolin Oint 7 Gm) 1 applic TOPICAL PRN PRN PRN Reason: DRYNESS Last Admin: 06/20/20 03:07 Dose: 1 applic Documented by: Metoprolol Tartrate (Metoprolol Tartrate 1 Mg/1 Ml Sdv 5 Ml) 2.5 mg IV Q6H PRN PRN Reason: Hypertension Last Admin: 06/26/20 08:52 Dose: 2.5 mg Documented by: Senna/Docusate Sodium (Sennosides-Docusate Tablet) 1 tab PO DAILY [facility] Last Admin: 06/30/20 08:05 Dose: 1 tab Documented by: Vitals/I&O/Wt Last Vital Signs Temp 97.7 F 06/30/20 04:00 Pulse 63 06/30/20 06:00 Resp 15 06/30/20 06:00 BP 156/62 06/30/20 06:00 Pulse Ox 94 06/30/20 06:00 06/29/20 06/30/20 06/30/20 22:59 06:59 14:59 Intake Total 200.000 / 811.250 289.5 / 1100.750 Output Total 600 / 900 300 / 1200 Balance -400.000 / -88.750 -10.5 / -99.250 Weight last 48 hrs Weight 55.61 kg Weight 49.697 kg Physical Exam Narrative: EXAM NARRATIVE: extubated, vss heent- nca/t lungs -good air movement b/l. chest tube removed rt ACW dialysis catheter removed heart reg, no rub abd soft ext edema decreased b/l neuro- + reflexes, follows simple commands, a,a o x 1-2 exam by RN as telehealth visit Data : 06/30/20 04:30 06/30/20 04:30 A&P Additional A&P Information 1. Acute kidney injury, nonoliguric, improving - dialysis catheter removed 2. COVID pneumonia- renal dose abx- monitor vanco troughs 3. Anemia- s/p transfusion pRBC 4. tension pneumothorax- chest tube removed. 5. dm control 6. Hypertension - cardene off -norvasc, add hydralazine 7. CAD s/p CABG 8. PVD s/p b/l femoral bypass Recommend: no indication for dialysis at this time. Hemodialysis catheter can be removed. Discontinue IVF during transfusion. Attestations Medical Necessity Statement*: per hospitalist Time Spent in Patient Care: 16 - 35 minutes Procedures Arterial Line Size (Gauge): 18 Coding Level of Care Code Acute Urology Teacher for Ezra Mccabe
[2020-06-30] MEDS: metoprolol succinate ER (24 HR) 50 mg Tablet PO (08:49)
--- NOTE | 2020-06-30 09:53 | PC.SOCIAL ---
IM follow up explained to ANITRA and she verbalized understanding no questions voiced at this time.
[2020-06-30] MEDS: famotidine 20 mg/2 mL INJ 40 MG IVP ×2 (10:57→23:17)
[2020-06-30 11:03] LABS: Glucose Point of Care 205 mg/dL (70-110)
--- NOTE | 2020-06-30 12:00 | PC.NURSE ---
Medication Received verbal order to give first dose of hydrazine oral now 50 mg then stopped nicardipine drip in 2 to 3 hours after hydrazine is given.
[2020-06-30] MEDS: hyDRALAzine 50 mg Tablet PO ×2 (13:46→21:11)
--- NOTE | 2020-06-30 13:46 | P.PN_ITS ---
Subjective Subjective: Interval history: was seen this morning, she was pleasant,and conversant. She has remained afebrile.Other vitals and labs have been reviewed. Medications: Reviewed: Yes Vitals/I&O/Wt Last Vital Signs Temp 97.6 F 06/30/20 13:04 Pulse 76 06/30/20 13:04 Resp 21 H 06/30/20 13:04 BP 152/64 06/30/20 13:04 Pulse Ox 94 06/30/20 13:04 06/29/20 06/30/20 06/30/20 22:59 06:59 14:59 Intake Total 200.000 / 811.250 289.5 / 1100.750 340 / 340 Output Total 600 / 900 300 / 1200 Balance -400.000 / -88.750 -10.5 / -99.250 340 / 340 Weight last 48 hrs Weight 55.61 kg Weight 49.697 kg Physical Exam Narrative: EXAM NARRATIVE: Alert and Awake. HENMT: COMMON NORMALS: normocephalic and atraumatic HEAD & SCALP: normocephalic and atraumatic Resp: COMMON NORMALS: clear to auscultation bilaterally AUSCULTATION: clear to auscultation bilaterally Cardio: COMMON NORMALS: regular rate, regular rhythm, S1 normal heart sound present, S2 normal heart sound present, No gallops present (Cardio), No murmurs present (Cardio), No rub (Cardio) and Peripheral pulses 2+ throughout RATE: regular rate RHYTHM: regular rhythm HEART SOUNDS: S1 normal heart sound present and S2 normal heart sound present PERIPHERAL PULSES: Peripheral pulses 2+ throughout GI: COMMON NORMALS: Normal to inspection, nondistended, normoactive bowel sounds present, Soft to palpation, non-tender, No hepatosplenomegaly present and no masses AUSCULTATION: Yes normoactive bowel sounds PALPATION: Yes Soft to palpation and Yes No hepatosplenomegaly present RECTAL EXAM: deferred Data : 06/30/20 04:30 06/30/20 04:30 A&P Assessment and plan (1) Acute respiratory failure with hypoxia: Status: Acute (2) Hypertensive urgency: Status: Acute (3) Septic shock: Status: Acute (4) Metabolic acidosis: Status: Acute (5) Acute kidney injury superimposed on chronic kidney disease: Status: Acute (6) Hyperkalemia: Status: Acute (7) New onset of congestive heart failure: Status: Acute (8) COVID-19: Status: Acute Acute Hypoxic respiratory failure - Etiology multi-factorial - COVID-19 pneumonia, PTX, superimposed bacterial - S/P Extubation - Weaned to 2 L of o2 via NC Septic shock due to COVID-19 Pneumonia - Improving - Suspected superimposed Bacterial Pneumonia - Procalcitonin 16.44 -> 15.48 - > 4.04 - Renal dosing of meds - Lactic Acid 1.7 on admit - 06/19 - Sputum culture - Negative - 06/19 - Blood culture x 2 - NGTD - 06/19 - Urine culture - negative - Vancomycin pharmacy to dose - Primixin 250 mg IV q12 hr -Dexamethasone stopped on 06/30 -Prednisione 20 mg PO Daily started on 06/30 -Source unknown -Afebrile Left sided tension pneumothorax with development of SQ emphysema :Resolved - Noted on admission - Left -sided chest tube was placed - 06/21 - Helmich valve placed - Removed on 06/22 Acute kidney injury / ATN on CKD stage 3 on HD - Creatinine baseline 1.4- > Cr. 4.1 - > 3.1 - Nephrology consulted - Femoral HD catheter removed - Right IJ HD cath :Removed - HD on 06/21/19 - per nephrology:No Need for H.D now Diabetes Mellitus with hyperglycemia mild DKA on arrival - AG metabolic acidosis - Multi-factorial component of acidosis - continue insulin SQ - Goal Blood sugar 140-180 - Repeat labs in am Acute anemia - Multi-factorial - Acute blood loss from CT in setting of renal disease - Hb 8.3 - > 6.8 - . 7.3 - s/p 2 units PRBC transfusion on 06/23 as well as 1 U PRBC on 06/29 - Monitor H/H - Continue to hold anticoagulation/Antiplatelets Bradycardia -Sinus bradycardia -Currently asymptomatic -Monitor On Tele -TSH: 0.22 -Monitor electrolytes (K>4 , Mg>2 ) -Hypertensive urgency Nicardipine drip stopped on 06/30 Amlodipine 10 mg po daily Hydralazine 50 mg po q8 h daily Coronary artery disease s/p CABG / PVD s/p b/l femoral bypass / Hypertension - Holding aspirin 81 mg PO daily and Plavix 75 mg PO daily - Will resume once hemoglobin stabilizes and no further invasive procedures - ECHO - pEF - Continue Lipitor 20 mg PO daily - Monitor on tele Hx of Breast cancer - S/P chemo > 2 year prior - No new recommendation FEN - Tube feeding - Dietary consulted - Pulmcal 1.2 at 20ml/hr - Will increase to goal based on residuals and recs GI ppx - Pepcid 20 mg IV daily DVT ppx - SCDs only due to anemia Procedures on 06/19 lines: Right radial artery Left central line Santoyo catheter will be placed Left chest tube Condition: Fair Code status- D.N.R Disposition :Home , Anticipated Dc in 2 days . Additional A&P Information Sepsis and acute hypoxic respiratory failure secondary to COVID-19 pneumonia Intubated at outside facility Currently ABGs revealing metabolic acidosis I am holding off on bicarb infusion because of hypocalcemia, I am still waiting on BMP before making decision to start bicarb Lactic acid 2.1 Sepsis criteria met with leukocytosis, tachypnea secondary to COVID-19 We will check procalcitonin level before initiating antibiotics Metabolic acidosis This most likely is due to uremia lactic acid is 2 We will check ketone level Also noticed hyperglycemia, rule out DKA Most of her lab work is pending because she was critically ill at the time of presentation and a lot of effort was put in for stabilization putting lines and chest tube Acute on chronic kidney disease Creatinine at outside facility 3.8, her baseline creatinine seems to be 1.5-1.6 as per previous records This seems multifactorial to hypotension, sepsis and CHF exacerbation Hold nephrotoxic agents Hyperkalemia: She was given 10 units of regular insulin, I also administer 1 g c alcium gluconate Her bradycardia seems to be sinus, will repeat EKG and administer Kayexalate via OG tube 10 mg albuterol x1 Hold off on bicarb secondary to hypercalcemia New onset CHF with underlying history of coronary disease and peripheral vascular disease Patient carries history of coronary disease but I do not see any mention of CHF in her records We will repeat echo in the morning Not a candidate to be on Lasix clinically looks euvolemic BNP around 8000 Will obtain serial EKGs and troponin High D-dimer: Patient recently had chest tube placement I would wait to start any anticoagulation to cover for a possible PE However high D-dimer is also seen with severe COVID-19 inflammation Tension pneumothorax After placement of central line however no earlier x-ray available, chest tube was placed by Dr. Lisa shirley in lung inflation Full code DVT prophylaxis I would use SCDs for now she just had chest tube placed, I would avoid anticoagulation to avoid postprocedural hemorrhage Guarded prognosis N.p.o. Attestations Medical Necessity Statement*: Patient needs to be in hospital for the management for the management of Post COVID/ARDS recovery as well as awaiting Placement. Procedures Arterial Line Size (Gauge): 18 Coding Level of Care Code Acute Data Deliverables Manager for Chg Fwd Diagnoses Acute respiratory failure with hypoxia J96.01 Hypertensive urgency I16.0 Septic shock A41.9; R65.21 Metabolic acidosis E87.2 Acute kidney injury superimposed on chronic kidney disease N17.9; N18.9 Hyperkalemia E87.5 New onset of congestive heart failure I50.9 COVID-19 U07.1
--- NOTE | 2020-06-30 15:30 | PC.NURSE ---
Nicardipine drip stopped per order by doctor Drip stopped after Hydralazine oral given as telephone order read back fro Dr. Salmon.
[2020-06-30] MEDS: dexamethasone 4 mg/mL INJ 6 MG IVP (16:08)
[2020-06-30 16:26] LABS: Glucose Point of Care 104 mg/dL (70-110)
--- NOTE | 2020-06-30 20:14 | PC.NURSE ---
Changed dressing from chest tube incision on left lateral midaxillary area. Cleanse site and applied pressure dressing and foam tape due to pt still has small blood oozing during repositioning. Dr. Salmon at bedside and notified as well as checked the site.
[2020-06-30] MEDS: atorvastatin 40 mg Tablet 20 MG PO (21:10)
[2020-06-30 21:13] LABS: Glucose Point of Care 198 mg/dL (70-110)
[2020-06-30] MEDS: metoprolol tartrate 1 mg/1 mL SDV 5 mL 2.5 MG IV (23:18)
[2020-07-01] VITALS (44 sets, daily range): BP systolic 149–185; BP diastolic 62–104; PULSE 57–103; RESP 6–160; TEMP 36.6; O2SAT 95–100
[2020-07-01 00:29] LABS: Hemoglobin 10.9 g/dL (11.5-15.3)
[2020-07-01 01:02] LABS: Glucose Point of Care 210 mg/dL (70-110)
[2020-07-01] MEDS: amlodipine 5 mg Tablet PO (02:32)
[2020-07-01] MEDS: acetaminophen 325 mg Tablet 650 MG PO (02:32)
--- NOTE | 2020-07-01 02:36 | PC.NURSE ---
NURSE NOTE: SHIFT SUMMARY: PT ALERT AND ORIENTED TO SELF AND SOMETIMES SITUATION. MOVES ALL EXTREMITIES AND FOLLOWS SIMPLE COMMANDS. DURING ROUNDS AT 0000, PT'S LEFT CHEST TUBE SITE DRESSING FOUND SATURATED WITH BLOOD. CHANGED AT THIS TIME. WHILE CHANGING PATIENT, PT CONTINUALLY PULLING ON DRESSINGS AND LEFT IJ CENTRAL LINE. PLACED CALL TO DR. LARA. RECEIVED ORDERS FOR 1:1 SITTER . ALSO DISCUSSED ELEVATED BP RANGING FROM 160'S TO 180'S OVER 70'S TO 110'S. TOLD PHYSICIAN THAT EVEN WITH METOPROLOL IV, BP COMES DOWN FOR MAYBE AN HOUR, THEN GOES BACK UP. NO NEW ORDERS AT THAT TIME. AT 0200, PLACED CALL AGAIN FOR ELEVATED BP AND RECEIVED ORDERS FOR AMLODIPINE 5MG PO X1. PT HAD ALSO C/O CHEST PAIN UPON PALPATION TO CHEST BRUISING. RECEIVED ORDERS FOR TYLENOL 650MG Q 6H PRN FOR PAIN. SITTER CURRENTLY IN PLACE. ALL VS AND ASSESSMENTS CHARTED. WILL CONTINUE TO MONITOR.
[2020-07-01 04:23] LABS: Basophils % 0.1 %; Hematocrit 32.7 % (37.0-47.0); Hemoglobin 10.6 g/dL (11.5-15.3); Lymphocytes # 0.4 10^3/uL (0.8-4.8); Lymphocytes % 2.4 %; Mean Corpuscular HGB Conc 32.4 g/dL (30.0-36.0); Mean Corpuscular Hemoglobin 29.4 pg (28.0-34.0); Mean Corpuscular Volume 90.8 fL (81-99); Mean Platelet Volume 10.9 fL (7.4-10.4); Monocytes # 0.5 10^3/uL (0.2-0.9); Neutrophils # 15.69 10^3/uL (1.8-7.7); Neutrophils % 92.6 %; Nucleated Red Blood Cells % 0.2 %; Platelet Count 182 10^3/cmm (130-400); Red Cell Distribution Width 14.5 % (12.1-15.1)
[2020-07-01 04:51] LABS: Alanine Aminotransferase 19 U/L (0-33); Albumin Level 2.6 g/dL (3.5-5.2); Alkaline Phosphatase 95 IU/L (35-105); Anion Gap 14.6 (5-19); Aspartate Amino Transferase 27 U/L (0-32); Blood Urea Nitrogen 55 mg/dL (8-23); Calcium 7.5 mg/dL (8.5-10.5); Carbon Dioxide 23 mmol/L (22-29); Chloride 100 mmol/L (98-107); Globulin 2.3 g/dL (1.3-4.6); Glomerular Filtration Rate 36.1 mL/min (90-130); Glucose 238 mg/dL (65-115); Magnesium 1.5 mg/dL (1.7-2.3); Osmolality Calculated 301 mOsm/kg (285-295); Potassium 3.6 mmol/L (3.5-5.1); Sodium 134 mmol/L (136-145); Total Protein 4.9 g/dL (6.6-8.7)
[2020-07-01 06:07] LABS: Glucose Point of Care 199 mg/dL (70-110)
--- NOTE | 2020-07-01 08:34 | PC.NURSE ---
Initial Rounding Pt is awake but looked sleepy and tired. she refused her breakfast. 1:1 sitter at bedside. Oriented to name and . She is able to follow commands. Coarse crackles noted on left lung area. Bounding pulses on radial artery. Still has non-pitting edema on bilateral hand and UE. UO noted. BP in 16-175 systolic range. Physical assessments discussed with telenephro doctor Gordon at bedside.
--- NOTE | 2020-07-01 09:13 | PM.PN ---
Subjective Subjective: Interval history: seen and examine dthis morning- sleepy, confused, not answering appropriately. Medications: Reviewed: Yes Medication Review Details: Current Medications Acetaminophen (Acetaminophen 325 Mg Tablet) 650 mg PO Q6H PRN PRN Reason: MILD PAIN Last Admin: 07/01/20 02:32 Dose: 650 mg Documented by: Albuterol/Ipratropium (Ipratropium-Albuterol 3 Ml Neb) 3 ml INHALATION Q6H PRN PRN Reason: SHORTNESS OF BREATH Last Admin: 06/26/20 08:10 Dose: 3 ml Documented by: Amlodipine Besylate (Amlodipine 10 Mg Tablet) 10 mg PO DAILY [facility] Last Admin: 06/30/20 08:04 Dose: 10 mg Documented by: Aspirin (Aspirin 81 Mg Ec Tablet) 81 mg PO DAILY [facility] Last Admin: 06/19/20 09:04 Dose: 81 mg Documented by: Atorvastatin Calcium (Atorvastatin 40 Mg Tablet) 20 mg PO BEDTIME [facility] Last Admin: 06/30/20 21:10 Dose: 20 mg Documented by: Clonidine HCl (Clonidine 0.1 Mg Tablet) 0.1 mg PO BID [facility] Clopidogrel Bisulfate (Clopidogrel 75 Mg Tablet) 75 mg PO DAILY [facility] Last Admin: 06/19/20 09:04 Dose: 75 mg Documented by: Dextrose (Dextrose 50% Syringe 50 Ml) 25 ml IVP ONCE PRN; Protocol PRN Reason: hypoglycemia protocol Dextrose (Dextrose 50% Syringe 50 Ml) 50 ml IVP PRN PRN; Protocol PRN Reason: hypoglycemia protocol Famotidine (Famotidine 20 Mg/2 Ml Inj) 40 mg IVP Q12H [facility] Last Admin: 06/30/20 23:17 Dose: 40 mg Documented by: Glucagon (Glucagon 1 Mg/Ml Inj 1 Ml) 1 mg IM ONCE PRN; Protocol PRN Reason: Adult Acute Hypoglycemia Prot. Hydralazine HCl (Hydralazine 50 Mg Tablet) 50 mg PO TID [facility] Last Admin: 06/30/20 21:11 Dose: 50 mg Documented by: Dextrose (D5w) 500 mls @ 100 mls/hr IV ONCE PRN; Protocol PRN Reason: Adult Acute Hypoglycemia Prot Vancomycin HCl 750 mg/ Sodium (Chloride) 250 mls @ 250 mls/hr IV Q48H [facility]; Protocol Last Infusion: 06/29/20 14:41 Dose: Infused Documented by: Vasopressin 100 unit/ Sodium (Chloride) 100 mls @ 0 mls/hr IV .Q0M [facility]; Protocol Last Titration: 06/24/20 05:55 Dose: 0 unit/min, 0 mls/hr Documented by: Norepinephrine Bitartrate 8 mg (/ Dextrose) 508 mls @ 0 mls/hr IV .Q0M [facility]; Protocol Last Titration: 06/24/20 13:12 Dose: 0.52 mcg/min, 2 mls/hr Documented by: Albumin Human (Albumin) 12.5 gm in 50 mls @ 60 mls/hr IV PRN PRN PRN Reason: Hypotension and/or symptomatic Phenylephrine HCl 25 mg/ (Sodium Chloride) 252.5 mls @ 0 mls/hr IV .Q0M [facility]; Protocol Albumin Human (Albumin) 12.5 gm in 50 mls @ 60 mls/hr IV PRN PRN PRN Reason: Hypotension and/or symptomatic Imipenem/Cilastatin Sodium 250 (mg/ Sodium Chloride) 100 mls @ 200 mls/hr IV Q6H [facility]; Protocol Last Admin: 07/01/20 05:37 Dose: 200 mls/hr Documented by: Insulin Aspart (Insulin Aspart 100 Unit/1 Ml) 0 unit SUBCUT TIDWM [facility]; Protocol Last Admin: 07/01/20 07:40 Dose: 6 unit Documented by: Lanolin (Lanolin Oint 7 Gm) 1 applic TOPICAL PRN PRN PRN Reason: DRYNESS Last Admin: 06/20/20 03:07 Dose: 1 applic Documented by: Metoprolol Succinate (Metoprolol Succinate Er (24 Hr) 50 Mg Tablet) 50 mg PO DAILY [facility] Last Admin: 06/30/20 08:49 Dose: 50 mg Documented by: Metoprolol Tartrate (Metoprolol Tartrate 1 Mg/1 Ml Sdv 5 Ml) 2.5 mg IV Q6H PRN PRN Reason: Hypertension Last Admin: 06/30/20 23:18 Dose: 2.5 mg Documented by: Prednisone (Prednisone 20 Mg Tablet) 20 mg PO DAILY [facility] Senna/Docusate Sodium (Sennosides-Docusate Tablet) 1 tab PO DAILY [facility] Last Admin: 06/30/20 08:05 Dose: 1 tab Documented by: Vitals/I&O/Wt Last Vital Signs Temp 97.9 F 07/01/20 07:39 Pulse 68 07/01/20 07:39 Resp 18 07/01/20 07:39 BP 174/94 07/01/20 07:39 Pulse Ox 95 07/01/20 07:39 06/30/20 07/01/20 07/01/20 22:59 06:59 14:59 Intake Total 898 / 1238 100 / 1338 Output Total 200 / 200 150 / 350 Balance 698 / 1038 -50 / 988 Weight last 48 hrs Weight 52.22 kg Weight 55.61 kg Physical Exam Narrative: EXAM NARRATIVE: extubated, BP elevated heent- nca/t lungs -left > rt sided crackles and ronchi. chest tube removed -leaking by site rt ACW dialysis catheter removed heart reg, no rub abd soft ext edema 1+ b/l neuro: confused exam by RN as telehealth visit Data : 07/01/20 03:55 07/01/20 03:55 A&P Additional A&P Information 1. Acute kidney injury, nonoliguric, improving - dialysis catheter removed 2. COVID pneumonia- renal dose abx- monitor vanco troughs 3. Anemia- s/p transfusion pRBC last 06-29-20 4. tension pneumothorax- chest tube removed. Leaking by site 5. hyponatremia- better glucose control and may be dry -check urine lytes 6. Hypertension - cardene off -norvasc, hydralazine, clonidine, toprol xl -clonidine may be contribuiting to AMS/ lethargy 7. CAD s/p CABG 8. PVD s/p b/l femoral bypass 9. leukocytosis and AMS- Q infection 10. DM control 11. replace magnesium 12. pt needs nutrition 13. check vanco trough . Attestations Medical Necessity Statement*: per hospitalist- nishant, AMS, anemia, electrolyte abnormalities, htn, leaking fluids by site of previous chest tube Time Spent in Patient Care: 16 - 35 minutes Procedures Arterial Line Size (Gauge): 18 Coding Level of Care Code Acute Pharmacy Teacher for zEra Mccabe
[2020-07-01] MEDS: cloNIDine 0.1 mg Tablet PO (09:29)
[2020-07-01] MEDS: sennosides-docusate Tablet 1 TAB PO (09:29)
[2020-07-01] MEDS: amlodipine 10 mg Tablet PO (09:29)
[2020-07-01] MEDS: hyDRALAzine 50 mg Tablet PO ×2 (09:29→15:02)
[2020-07-01] MEDS: metoprolol succinate ER (24 HR) 50 mg Tablet PO (09:30)
[2020-07-01] MEDS: predniSONE 20 mg Tablet PO (09:30)
--- NOTE | 2020-07-01 10:13 | XRR_ITS ---
PROCEDURE INFORMATION: Exam: XR Chest, 1 View Exam date and time: 07/01/2020 10:38 AM Age: 69 years old Clinical indication: Condition or disease; Other: Covid follow up; Additional info: Follow-up TECHNIQUE: Imaging protocol: XR of the chest Views: 1 view. COMPARISON: OR XR chest 1V portable [id number] 06/26/2020 6:35 AM FINDINGS: Tubes, catheters and devices: A central venous catheter is present with the tip projecting in the SVC. Lungs: The left lung base is opacified which is consistent with basilar atelectasis or consolidation with pleural effusion. There is increasing hazy density of the pulmonary interstitium. This could represent interstitial edema or interstitial pneumonitis. Pleural space: There is a very tiny left apical pneumothorax which has decreased since previous study.. Heart/Mediastinum: Unremarkable. No cardiomegaly. Bones/joints: Unremarkable. Soft tissues: Small amount of subcutaneous emphysema is present over the left side of the chest. XR/XR chest 1V portable [id number] IMPRESSION: 1. Increasing opacity of the left base consistent with worsening left basilar consolidation/atelectasis and small effusion. 2. Decreasing size of a tiny left apical pneumothorax. 3. There is increasing hazy density of the pulmonary interstitium which may represent developing interstitial pulmonary edema or worsening interstitial pneumonitis.
[2020-07-01] MEDS: famotidine 20 mg/2 mL INJ 40 MG IVP (10:57)
[2020-07-01 11:15] LABS: Glucose Point of Care 94 mg/dL (70-110)
[2020-07-01 11:22] LABS: Procalcitonin 0.09 ng/mL (0-0.5)
[2020-07-01 11:27] LABS: Lactate (Lactic Acid level) 1.7 mmol/L (0.5-2.2)
--- NOTE | 2020-07-01 11:28 | PC.NURSE ---
called house sup to start peripheral line Attempted to insert IV. But was unsuccessful.
--- NOTE | 2020-07-01 11:28 | PC.NURSE ---
Pt has been repetitive and keep saying she wants to come home redirected, reoriented pt to situation and place. Pt verbalizes understanding but still keeps repeating herself, I want to come home. Dr. Salmon at bedside and informed pt's mentation and repetition.
[2020-07-01 11:33] LABS: Urine Random Sodium 61 mmol/L
[2020-07-01 11:46] LABS: Bacteria Urine TRACE /hpf; Bilirubin Urine Neg (Negative); Blood Urine 2+ (Negative); Glucose Urine UA Norm (Normal); Ketones Urine 1+ (Negative); Leukocyte Esterase Urine 2+ (Negative); Nitrate Urine Negative (Negative); Protein Urine Trace (Negative); Specific Gravity, Urine 1.015 (1.005-1.030); Squamous Epithelial Cell Urine 0-4 /hpf (0-5); Urine Appearance Clear (CLEAR); Urine Color Yellow (Yellow); Urobilinogen Urine Norm (Negative); WBC Urine 15-25 /hpf (0-5); pH Urine 5 (5-7)
[2020-07-01 11:47] LABS: Add Urine Culture? Yes
[2020-07-01 11:52] LABS: Potassium, Radom Urine 25 mmol/L; Urine Creatinine 48 mg/dL (28-217); Urine Random Chloride 45 mmol/L; Urine Random Sodium 61 mmol/L
--- NOTE | 2020-07-01 12:16 | PM.PN ---
Subjective Subjective: Interval history: is pleasantly confused today.She wants to go home, she also says that she has to take care of family stuff. She has remained afebrile. Urine out put in 24Hs: 500cc. Her other vitals and labs have been reviewed Medications: Reviewed: Yes Medication Review Details: Current Medications Acetaminophen (Acetaminophen 325 Mg Tablet) 650 mg PO Q6H PRN PRN Reason: MILD PAIN Last Admin: 07/01/20 02:32 Dose: 650 mg Documented by: Albuterol/Ipratropium (Ipratropium-Albuterol 3 Ml Neb) 3 ml INHALATION Q6H PRN PRN Reason: SHORTNESS OF BREATH Last Admin: 06/26/20 08:10 Dose: 3 ml Documented by: Amlodipine Besylate (Amlodipine 10 Mg Tablet) 10 mg PO DAILY [facility] Last Admin: 06/30/20 08:04 Dose: 10 mg Documented by: Aspirin (Aspirin 81 Mg Ec Tablet) 81 mg PO DAILY [facility] Last Admin: 06/19/20 09:04 Dose: 81 mg Documented by: Atorvastatin Calcium (Atorvastatin 40 Mg Tablet) 20 mg PO BEDTIME [facility] Last Admin: 06/30/20 21:10 Dose: 20 mg Documented by: Clonidine HCl (Clonidine 0.1 Mg Tablet) 0.1 mg PO BID [facility] Clopidogrel Bisulfate (Clopidogrel 75 Mg Tablet) 75 mg PO DAILY [facility] Last Admin: 06/19/20 09:04 Dose: 75 mg Documented by: Dextrose (Dextrose 50% Syringe 50 Ml) 25 ml IVP ONCE PRN; Protocol PRN Reason: hypoglycemia protocol Dextrose (Dextrose 50% Syringe 50 Ml) 50 ml IVP PRN PRN; Protocol PRN Reason: hypoglycemia protocol Famotidine (Famotidine 20 Mg/2 Ml Inj) 40 mg IVP Q12H [facility] Last Admin: 06/30/20 23:17 Dose: 40 mg Documented by: Glucagon (Glucagon 1 Mg/Ml Inj 1 Ml) 1 mg IM ONCE PRN; Protocol PRN Reason: Adult Acute Hypoglycemia Prot. Hydralazine HCl (Hydralazine 50 Mg Tablet) 50 mg PO TID [facility] Last Admin: 06/30/20 21:11 Dose: 50 mg Documented by: Dextrose (D5w) 500 mls @ 100 mls/hr IV ONCE PRN; Protocol PRN Reason: Adult Acute Hypoglycemia Prot Vancomycin HCl 750 mg/ Sodium (Chloride) 250 mls @ 250 mls/hr IV Q48H [facility]; Protocol Last Infusion: 06/29/20 14:41 Dose: Infused Documented by: Vasopressin 100 unit/ Sodium (Chloride) 100 mls @ 0 mls/hr IV .Q0M [facility]; Protocol Last Titration: 06/24/20 05:55 Dose: 0 unit/min, 0 mls/hr Documented by: Norepinephrine Bitartrate 8 mg (/ Dextrose) 508 mls @ 0 mls/hr IV .Q0M [facility]; Protocol Last Titration: 06/24/20 13:12 Dose: 0.52 mcg/min, 2 mls/hr Documented by: Albumin Human (Albumin) 12.5 gm in 50 mls @ 60 mls/hr IV PRN PRN PRN Reason: Hypotension and/or symptomatic Phenylephrine HCl 25 mg/ (Sodium Chloride) 252.5 mls @ 0 mls/hr IV .Q0M [facility]; Protocol Albumin Human (Albumin) 12.5 gm in 50 mls @ 60 mls/hr IV PRN PRN PRN Reason: Hypotension and/or symptomatic Imipenem/Cilastatin Sodium 250 (mg/ Sodium Chloride) 100 mls @ 200 mls/hr IV Q6H [facility]; Protocol Last Admin: 07/01/20 05:37 Dose: 200 mls/hr Documented by: Insulin Aspart (Insulin Aspart 100 Unit/1 Ml) 0 unit SUBCUT TIDWM [facility]; Protocol Last Admin: 07/01/20 07:40 Dose: 6 unit Documented by: Lanolin (Lanolin Oint 7 Gm) 1 applic TOPICAL PRN PRN PRN Reason: DRYNESS Last Admin: 06/20/20 03:07 Dose: 1 applic Documented by: Metoprolol Succinate (Metoprolol Succinate Er (24 Hr) 50 Mg Tablet) 50 mg PO DAILY [facility] Last Admin: 06/30/20 08:49 Dose: 50 mg Documented by: Metoprolol Tartrate (Metoprolol Tartrate 1 Mg/1 Ml Sdv 5 Ml) 2.5 mg IV Q6H PRN PRN Reason: Hypertension Last Admin: 06/30/20 23:18 Dose: 2.5 mg Documented by: Prednisone (Prednisone 20 Mg Tablet) 20 mg PO DAILY [facility] Senna/Docusate Sodium (Sennosides-Docusate Tablet) 1 tab PO DAILY [facility] Last Admin: 06/30/20 08:05 Dose: 1 tab Documented by: Vitals/I&O/Wt Last Vital Signs Temp 97.9 F 07/01/20 07:39 Pulse 60 07/01/20 11:24 Resp 21 H 07/01/20 11:24 BP 149/67 07/01/20 11:24 Pulse Ox 98 07/01/20 11:24 06/30/20 07/01/20 07/01/20 22:59 06:59 14:59 Intake Total 898 / 1238 200 / 1438 Output Total 200 / 200 150 / 350 Balance 698 / 1038 50 / 1088 Weight last 48 hrs Weight 52.22 kg Weight 55.61 kg Physical Exam Narrative: EXAM NARRATIVE: Alert and awake but confused HENMT: COMMON NORMALS: normocephalic and atraumatic HEAD & SCALP: normocephalic and atraumatic Chest: CHEST: Yes Symmetrical chest wall rise OTHER: chest tube removed -leaking by site Resp: COMMON NORMALS: normal respiratory effort, No retractions, No use of accessory muscles and clear to auscultation bilaterally EFFORT & INSPECTION: Yes able to speak in complete sentences and Yes symmetric chest movement AUSCULTATION: clear to auscultation bilaterally OTHER: rt sided crackles and ronchi. Cardio: COMMON NORMALS: regular rate, regular rhythm, S1 normal heart sound present, S2 normal heart sound present, No gallops present (Cardio), No murmurs present (Cardio), No rub (Cardio) and Peripheral pulses 2+ throughout RATE: regular rate RHYTHM: regular rhythm HEART SOUNDS: S1 normal heart sound present and S2 normal heart sound present PERIPHERAL PULSES: Peripheral pulses 2+ throughout GI: COMMON NORMALS: Normal to inspection, nondistended, normoactive bowel sounds present, Soft to palpation, non-tender, No hepatosplenomegaly present and no masses AUSCULTATION: Yes normoactive bowel sounds PALPATION: Yes Soft to palpation and Yes No hepatosplenomegaly present RECTAL EXAM: deferred Extremity: COMMON NORMALS: no clubbing, cyanosis or edema and no pedal edema OTHER: Trace B/L L/E EDEMA Present, B/L Hand swelling present. Data : 07/01/20 03:55 07/01/20 03:55 A&P Assessment and plan (1) Acute respiratory failure with hypoxia: Status: Acute (2) Hypertensive urgency: Status: Acute (3) Septic shock: Status: Acute (4) Metabolic acidosis: Status: Acute (5) Acute kidney injury superimposed on chronic kidney disease: Status: Acute (6) Hyperkalemia: Status: Acute (7) New onset of congestive heart failure: Status: Acute (8) COVID-19: Status: Acute Acute Hypoxic respiratory failure - Etiology multi-factorial - COVID-19 pneumonia, PTX, superimposed bacterial - S/P Extubation - Weaned to 2 L of o2 via NC Septic shock due to COVID-19 Pneumonia - Improving - Suspected superimposed Bacterial Pneumonia - Procalcitonin 16.44 -> 15.48 - > 4.04 - Renal dosing of meds - Lactic Acid 1.7 on admit - 06/19 - Sputum culture - Negative - 06/19 - Blood culture x 2 - NGTD - 06/19 - Urine culture - negative - 07/01: Urine analysis : Yeast - Repeat Urine culture ordered on 07/01 - Vancomycin pharmacy to dose - Primixin 250 mg IV q12 hr - Caspofungin started on 07/01 -Dexamethasone stopped on 06/30 -Prednisione 20 mg PO Daily started on 06/30 -Source unknown -Afebrile Left sided tension pneumothorax with development of SQ emphysema :Resolved - Noted on admission - Left -sided chest tube was placed - 06/21 - Helmich valve placed - Removed on 06/22 Acute kidney injury / ATN on CKD stage 3 on HD - Creatinine baseline 1.4- > Cr. 4.1 - > 3.1 - Nephrology consulted - Femoral HD catheter removed - Right IJ HD cath :Removed - HD on 06/21/19 - per nephrology:No Need for H.D now Diabetes Mellitus with hyperglycemia mild DKA on arrival - AG metabolic acidosis - Multi-factorial component of acidosis - continue insulin SQ - Goal Blood sugar 140-180 - Repeat labs in am Acute anemia - Multi-factorial - Acute blood loss from CT in setting of renal disease - Hb 8.3 - > 6.8 - . 7.3 - s/p 2 units PRBC transfusion on 06/23 as well as 1 U PRBC on 06/29 - Monitor H/H - Continue to hold anticoagulation/Antiplatelets Bradycardia -Sinus bradycardia -Currently asymptomatic -Monitor On Tele -TSH: 0.22 -Monitor electrolytes (K>4 , Mg>2 ) -Hypertensive urgency (Resolved ) Nicardipine drip stopped on 06/30 Amlodipine 10 mg po daily Hydralazine 50 mg po q8 h daily Clonidine 0.1 mg q12 h daily Coronary artery disease s/p CABG / PVD s/p b/l femoral bypass / Hypertension - Holding aspirin 81 mg PO daily and Plavix 75 mg PO daily - Will resume once hemoglobin stabilizes and no further invasive procedures - ECHO - pEF - Continue Lipitor 20 mg PO daily - Monitor on tele Hx of Breast cancer - S/P chemo > 2 year prior - No new recommendation FEN - Tube feeding - Dietary consulted - Pulal 1.2 at 20ml/hr - Will increase to goal based on residuals and recs GI ppx - Pepcid 20 mg IV daily DVT ppx - SCDs only due to anemia Procedures on 06/19 lines: Right radial artery Left central line Santoyo catheter will be placed Left chest tube Condition: Fair Code status- D.N.R Disposition :Home , Anticipated Dc in 2 days . Additional A&P Information Sepsis and acute hypoxic respiratory failure secondary to COVID-19 pneumonia Intubated at outside facility Currently ABGs revealing metabolic acidosis I am holding off on bicarb infusion because of hypocalcemia, I am still waiting on BMP before making decision to start bicarb Lactic acid 2.1 Sepsis criteria met with leukocytosis, tachypnea secondary to COVID-19 We will check procalcitonin level before initiating antibiotics Metabolic acidosis This most likely is due to uremia lactic acid is 2 We will check ketone level Also noticed hyperglycemia, rule out DKA Most of her lab work is pending because she was critically ill at the time of presentation and a lot of effort was put in for stabilization putting lines and chest tube Acute on chronic kidney disease Creatinine at outside facility 3.8, her baseline creatinine seems to be 1.5-1.6 as per previous records This seems multifactorial to hypotension, sepsis and CHF exacerbation Hold nephrotoxic agents Hyperkalemia: She was given 10 units of regular insulin, I also administer 1 g calcium gluconate Her bradycardia seems to be sinus, will repeat EKG and administer Kayexalate via OG tube 10 mg albuterol x1 Hold off on bicarb secondary to hypercalcemia New onset CHF with underlying history of coronary disease and peripheral vascular disease Patient carries history of coronary disease but I do not see any mention of CHF in her records We will repeat echo in the morning Not a candidate to be on Lasix clinically looks euvolemic BNP around 8000 Will obtain serial EKGs and troponin High D-dimer: Patient recently had chest tube placement I would wait to start any anticoagulation to cover for a possible PE However high D-dimer is also seen with severe COVID-19 inflammation Tension pneumothorax After placement of central line however no earlier x-ray available, chest tube was placed by Dr. Lisa shirley in lung inflation Full code DVT prophylaxis I would use SCDs for now she just had chest tube placed, I would avoid anticoagulation to avoid postprocedural hemorrhage Guarded prognosis N.p.o. Attestations Medical Necessity Statement*: Patient needs to be in hospital for the management of Post COVID/ARDS recovery as well as awaiting Placement. Procedures Arterial Line Size (Gauge): 18 Coding Level of Care Code Acute Electrical Inspector for Chg Fwd Diagnoses Acute respiratory failure with hypoxia J96.01 Hypertensive urgency I16.0 Septic shock A41.9; R65.21 Metabolic acidosis E87.2 Acute kidney injury superimposed on chronic kidney disease N17.9; N18.9 Hyperkalemia E87.5 New onset of congestive heart failure I50.9 COVID-19 U07.1
--- NOTE | 2020-07-01 12:35 | PC.NURSE ---
called clinical documentation consultant anesthesiologist to help us insert peripheral IV line Informed pt is on covid isolation.
[2020-07-01] MEDS: vancomycin 750 MG in sodium chloride 0.9% 250 ML 250 MG IV (12:53)
--- NOTE | 2020-07-01 13:10 | PC.NURSE ---
Anesthesiologist Attempted to insert x3 peripheral line, anesthesiologist unsuccessful. Informed, okay to keep the central line for now for IV antibiotics.
--- NOTE | 2020-07-01 13:26 | PC.NURSE ---
Incision from chest tube midaxillary lower chest area dressing is saturated with blood Dressing changed by cleaning site and applied small amt of betadine swab, covered with pressure 4x4 dressings and foam tape. Notified Dr regarding the incision area still oozing.
--- NOTE | 2020-07-01 13:33 | PC.NURSE ---
Anesthesiologist in room to help us find an Peripheral line
--- NOTE | 2020-07-01 16:00 | PC.NURSE ---
Restlessness and Agitation, family on ipad talked to pt. Pt is getting agitated and repeating herself. Family stated when she gets irritated and upset, she will keep repeating herself. Pt keeps telling the family. they said I am ready to go home. I am ready to come home. Come and get me. Discussed to family about the treatment plans and help the pt redirect and reorient. Pt still not listening to family. informed about the agitation and restlessness. Informed Dgtr Dalila that prn Ativan is ordered for pt to help with her agitation.
[2020-07-01] MEDS: LORazepam 2 mg/mL INJ 1 mL 0.5 MG IVP (17:18)
--- NOTE | 2020-07-01 17:26 | PC.NURSE ---
pt is getting very irritated, refused her blood sugar check and meals.
[2020-07-01 17:58] LABS: ABG PCO2 25.6 mmHg (35-45); ABG PH Result 7.51 (7.35-7.45); Alveolar-Arterial Oxygen Gradi 6.1 mmHg (5-10); Arterial Blood Gas Hematocrit 35.4 % (37-47); Base Excess ABG -1.3 mmol/L (-2.0-2.0); Blood Gas Allen Test Pos; Blood Gas Operator Identificat glc; Blood Gas Sample Site Radial, left; Blood Gas Sample Type Arterial; HCO3 ABG 20.5 mmol/L (22-26); HGB O2 Sat 94.2 % (95-100); Ionized Calcium Level - ABG 1.1 mmol/L (1.1-1.4); Methemoglobin 0.5 % (0.4-1.5); Oxygen Device ROOM AIR; Oxygen Saturation ABG 95.6; PO2 ABG 70.9 mmHg (80.0-100.0); Potassium Level - ABG 3.7 mmol/L (3.5-5.0); Total Hemoglobin 11.5 g/dL (12-16)
--- NOTE | 2020-07-01 20:06 | PC.NURSE ---
Family called and updated Pt is been resting and asleep post administration of Ativan. Family verbalizes being thankful for the care provided to pt.
[2020-07-01 21:27] LABS: Glucose Point of Care 153 mg/dL (70-110)
[2020-07-02] VITALS (15 sets, daily range): BP systolic 151–196; BP diastolic 60–104; PULSE 57–88; RESP 15–24; TEMP 36.3–36.6; O2SAT 93–97
[2020-07-02] MEDS: famotidine 20 mg/2 mL INJ 40 MG IVP ×2 (00:11→11:55)
[2020-07-02 00:34] LABS: Glucose Point of Care 143 mg/dL (70-110)
--- NOTE | 2020-07-02 01:37 | PC.NURSE ---
NURSE NOTE: PT REFUSED 2100 MEDICATIONS THIS SHIFT. REFUSED TO OPEN MOUTH OR SWALLOW. PT'S SBP UP TO 180. 2100 MEDICATIONS INCLUDED HYDRALIZINE. GAVE PRN IV METOPROLOL AND NOTIFIED DR. NAIR OF PT'S BP AND REFUSAL OF MEDS. DR. NAIR SAID OK . NO NEW ORDERS NOTED.
[2020-07-02] MEDS: metoprolol tartrate 1 mg/1 mL SDV 5 mL 2.5 MG IV (03:35)
--- NOTE | 2020-07-02 04:04 | PC.NURSE ---
NURSE NOTE; SHIFT SUMMARY: PT ALERT TO SELF ONLY. VERY LETHARGIC THIS SHIFT. LORAZEPAM GIVEN AT 1718 ON PREVIOUS SHIFT AND PT HAS BEEN CALM AND DROWSY SINCE. AROUSES TO VOICE AND TOUCH. MOVES ALL EXTREMITIES AND CAN FOLLOW COMMANDS. BP ELEVATED INTERMITTENTLY THROUGHOUT SHIFT. METOPROLOL IV GIVEN ORDERED AND IS EFFECTIVE FOR SHORT PERIODS OF TIME. 1:1 SITTER WITH PATIENT D/T PT CONFUSION AND PULLING ON LEFT IJ CENTRAL LINE. ALL VS AND ASSESSMENTS CHARTED. DENIES PAIN. CURENTLY RESTING WITH EYES CLOSED AND NO DISTRESS NOTED. WILL CONTINUE TO MONITOR.
[2020-07-02 06:49] LABS: Glucose Point of Care 117 mg/dL (70-110)
--- NOTE | 2020-07-02 08:14 | PM.PN ---
Subjective Subjective: Interval history: weak, lethargic, follows simple commands Medications: Reviewed: Yes Medication Review Details: Current Medications Acetaminophen (Acetaminophen 325 Mg Tablet) 650 mg PO Q6H PRN PRN Reason: MILD PAIN Last Admin: 07/01/20 02:32 Dose: 650 mg Documented by: Albuterol/Ipratropium (Ipratropium-Albuterol 3 Ml Neb) 3 ml INHALATION Q6H PRN PRN Reason: SHORTNESS OF BREATH Last Admin: 06/26/20 08:10 Dose: 3 ml Documented by: Amlodipine Besylate (Amlodipine 10 Mg Tablet) 10 mg PO DAILY [facility] Last Admin: 07/01/20 09:29 Dose: 10 mg Documented by: Aspirin (Aspirin 81 Mg Ec Tablet) 81 mg PO DAILY [facility] Last Admin: 06/19/20 09:04 Dose: 81 mg Documented by: Atorvastatin Calcium (Atorvastatin 40 Mg Tablet) 20 mg PO BEDTIME [facility] Last Admin: 07/01/20 21:41 Dose: Not Given Documented by: Clonidine HCl (Clonidine 0.1 Mg Tablet) 0.1 mg PO BID [facility] Last Admin: 07/01/20 18:52 Dose: Not Given Documented by: Clopidogrel Bisulfate (Clopidogrel 75 Mg Tablet) 75 mg PO DAILY [facility] Last Admin: 06/19/20 09:04 Dose: 75 mg Documented by: Dextrose (Dextrose 50% Syringe 50 Ml) 25 ml IVP ONCE PRN; Protocol PRN Reason: hypoglycemia protocol Dextrose (Dextrose 50% Syringe 50 Ml) 50 ml IVP PRN PRN; Protocol PRN Reason: hypoglycemia protocol Famotidine (Famotidine 20 Mg/2 Ml Inj) 40 mg IVP Q12H [facility] Last Admin: 07/02/20 00:11 Dose: 40 mg Documented by: Glucagon (Glucagon 1 Mg/Ml Inj 1 Ml) 1 mg IM ONCE PRN; Protocol PRN Reason: Adult Acute Hypoglycemia Prot. Hydralazine HCl (Hydralazine 50 Mg Tablet) 50 mg PO TID [facility] Last Admin: 07/01/20 21:43 Dose: Not Given Documented by: Dextrose (D5w) 500 mls @ 100 mls/hr IV ONCE PRN; Protocol PRN Reason: Adult Acute Hypoglycemia Prot Vancomycin HCl 750 mg/ Sodium (Chloride) 250 mls @ 250 mls/hr IV Q48H [facility]; Protocol Last Admin: 07/01/20 12:53 Dose: 250 mls/hr Documented by: Vasopressin 100 unit/ Sodium (Chloride) 100 mls @ 0 mls/hr IV .Q0M [facility]; Protocol Last Titration: 06/24/20 05:55 Dose: 0 unit/min, 0 mls/hr Documented by: Norepinephrine Bitartrate 8 mg (/ Dextrose) 508 mls @ 0 mls/hr IV .Q0M [facility]; Protocol Last Titration: 06/24/20 13:12 Dose: 0.52 mcg/min, 2 mls/hr Documented by: Albumin Human (Albumin) 12.5 gm in 50 mls @ 60 mls/hr IV PRN PRN PRN Reason: Hypotension and/or symptomatic Phenylephrine HCl 25 mg/ (Sodium Chloride) 252.5 mls @ 0 mls/hr IV .Q0M [facility]; Protocol Albumin Human (Albumin) 12.5 gm in 50 mls @ 60 mls/hr IV PRN PRN PRN Reason: Hypotension and/or symptomatic Caspofungin 50 mg/ Sodium (Chloride) 250 mls @ 250 mls/hr IV Q24H [facility] Imipenem/Cilastatin Sodium 250 (mg/ Sodium Chloride) 100 mls @ 200 mls/hr IV Q8H [facility]; Protocol Last Admin: 07/02/20 03:30 Dose: 200 mls/hr Documented by: Insulin Aspart (Insulin Aspart 100 Unit/1 Ml) 0 unit SUBCUT TIDWM [facility]; Protocol Last Admin: 07/01/20 18:45 Dose: Not Given Documented by: Lanolin (Lanolin Oint 7 Gm) 1 applic TOPICAL PRN PRN PRN Reason: DRYNESS Last Admin: 06/20/20 03:07 Dose: 1 applic Documented by: Lorazepam (Lorazepam 2 Mg/Ml Inj 1 Ml) 0.5 mg IVP Q12H PRN PRN Reason: ANXIETY Last Admin: 07/01/20 17:18 Dose: 0.5 mg Documented by: Metoprolol Succinate (Metoprolol Succinate Er (24 Hr) 50 Mg Tablet) 50 mg PO DAILY [facility] Last Admin: 07/01/20 09:30 Dose: 50 mg Documented by: Metoprolol Tartrate (Metoprolol Tartrate 1 Mg/1 Ml Sdv 5 Ml) 2.5 mg IV Q6H PRN PRN Reason: Hypertension Last Admin: 07/02/20 03:35 Dose: 2.5 mg Documented by: Senna/Docusate Sodium (Sennosides-Docusate Tablet) 1 tab PO DAILY [facility] Last Admin: 07/01/20 09:29 Dose: 1 tab Documented by: Vitals/I&O/Wt Last Vital Signs Temp 97.6 F 07/02/20 03:46 Pulse 60 07/02/20 06:00 Resp 16 07/02/20 06:00 BP 195/85 07/02/20 06:00 Pulse Ox 96 07/02/20 06:00 07/01/20 07/02/20 07/02/20 22:59 06:59 14:59 Intake Total 350 / 742 Output Total 900 / 900 500 / 1400 Balance -550 / -158 -500 / -658 Weight last 48 hrs Weight 54.567 kg Weight 52.22 kg Physical Exam Narrative: EXAM NARRATIVE: lethargic in bed, NARD, BP elevated heent- nc/at lungs -left > rt sided crackles and ronchi. chest tube removed -leaking by site rt ACW dialysis catheter removed heart reg, no rub abd soft ext edema 1+ b/l neuro: confused exam by RN as telehealth visit Data : 07/01/20 03:55 07/01/20 03:55 Micro: Microbiology 07/01/20 12:00 Blood Culture - Preliminary Blood SPECIMEN COLLECTED A&P Additional A&P Information 1. Acute kidney injury, nonoliguric, improving - dialysis catheter removed 2. COVID pneumonia- renal dose abx- monitor vanco troughs -resp alkalosis 3. Anemia- s/p transfusion pRBC last 06-29-20 4. tension pneumothorax- chest tube removed. Leaking by site 5. hyponatremia- better glucose control and may be dry -check urine lytes 6. Hypertension - cardene off -norvasc, hydralazine, clonidine, toprol xl -would not inc beta-nicholas or clonidine as hr already 60 -will add aldactone and monitor chem7 7. CAD s/p CABG 8. PVD s/p b/l femoral bypass 9. leukocytosis and AMS- Q infection 10. DM control 11. replace electrolytes as needed 12. pt needs nutrition 13. check vanco trough . Attestations Medical Necessity Statement*: htn, pna, recent covid-per hospitalist Time Spent in Patient Care: 16 - 35 minutes Procedures Arterial Line Size (Gauge): 18 Coding Level of Care Code Acute Innovation Manager for Ezra Mccabe
[2020-07-02] MEDS: spironolactone 25 mg Tablet PO ×2 (08:49→18:07)
[2020-07-02] MEDS: cloNIDine 0.1 mg Tablet PO ×2 (08:52→18:07)
[2020-07-02] MEDS: sennosides-docusate Tablet 1 TAB PO (08:52)
[2020-07-02] MEDS: hyDRALAzine 50 mg Tablet PO ×3 (08:52→20:30)
[2020-07-02] MEDS: amlodipine 10 mg Tablet PO (08:52)
[2020-07-02] MEDS: metoprolol succinate ER (24 HR) 50 mg Tablet PO (08:53)
--- NOTE | 2020-07-02 09:00 | PC.NURSE ---
Family called via Ipad Talked to granddaughter Argelia and updated that pt has been calm and cooperative today but drowsy. Per Grand daughter Argelia, family would like pt to go to rehab and then come home. Informed classification case manager Yuniel. Family talked to pt and patient talked pleasantly to the family.
--- NOTE | 2020-07-02 09:08 | PC.NURSE ---
Pt is awake, ate 50% of her breakfast 222 mls of milk, 240 ml of water. swallowed her her oral pills well. follow commands. Pt able to move to her left side in bed. minimal assistance needed. 1:1 sitter at bedside.
--- NOTE | 2020-07-02 09:19 | DCPLANNER ---
IMM completed 07/02/20 @ 1071. Copy of rights was given to pt's nurse, Gerard to give to pt.
--- NOTE | 2020-07-02 11:40 | PC.NURSE ---
Attempted to start a peripheral line Attempted by Benedicto Biggs, she was unsuccessful in getting a peripheral line on extremities.
[2020-07-02 12:08] LABS: Glucose Point of Care 176 mg/dL (70-110)
[2020-07-02 13:07] LABS: Alanine Aminotransferase 15 U/L (0-33); Albumin Level 2.5 g/dL (3.5-5.2); Alkaline Phosphatase 98 IU/L (35-105); Aspartate Amino Transferase 26 U/L (0-32); Blood Urea Nitrogen 46 mg/dL (8-23); Calcium 6.9 mg/dL (8.5-10.5); Carbon Dioxide 20 mmol/L (22-29); Chloride 105 mmol/L (98-107); Globulin 2.1 g/dL (1.3-4.6); Glomerular Filtration Rate 41.7 mL/min (90-130); Glucose 143 mg/dL (65-115); Magnesium 1.6 mg/dL (1.7-2.3); Osmolality Calculated 298 mOsm/kg (285-295); Phosphorus 3.3 mg/dL (2.5-4.5); Sodium 137 mmol/L (136-145); Total Bilirubin 0.7 mg/dL (0.15-1.2); Total Protein 4.6 g/dL (6.6-8.7)
[2020-07-02 13:10] LABS: Anion Gap 15.4 (5-19); Potassium 3.4 mmol/L (3.5-5.1)
--- NOTE | 2020-07-02 14:04 | PM.PN ---
Subjective Subjective: Interval history: Ms. Guzman, is doing fine, she was seen eating lunch, she intermittently, becomes confused, likely secondary to long hospital stay. She has remained afebrile. Her other vitals and labs have been reviewed. Medications: Reviewed: Yes Medication Review Details: Current Medications Acetaminophen (Acetaminophen 325 Mg Tablet) 650 mg PO Q6H PRN PRN Reason: MILD PAIN Last Admin: 07/01/20 02:32 Dose: 650 mg Documented by: Albuterol/Ipratropium (Ipratropium-Albuterol 3 Ml Neb) 3 ml INHALATION Q6H PRN PRN Reason: SHORTNESS OF BREATH Last Admin: 06/26/20 08:10 Dose: 3 ml Documented by: Amlodipine Besylate (Amlodipine 10 Mg Tablet) 10 mg PO DAILY [facility] Last Admin: 07/01/20 09:29 Dose: 10 mg Documented by: Aspirin (Aspirin 81 Mg Ec Tablet) 81 mg PO DAILY [facility] Last Admin: 06/19/20 09:04 Dose: 81 mg Documented by: Atorvastatin Calcium (Atorvastatin 40 Mg Tablet) 20 mg PO BEDTIME [facility] Last Admin: 07/01/20 21:41 Dose: Not Given Documented by: Clonidine HCl (Clonidine 0.1 Mg Tablet) 0.1 mg PO BID [facility] Last Admin: 07/01/20 18:52 Dose: Not Given Documented by: Clopidogrel Bisulfate (Clopidogrel 75 Mg Tablet) 75 mg PO DAILY [facility] Last Admin: 06/19/20 09:04 Dose: 75 mg Documented by: Dextrose (Dextrose 50% Syringe 50 Ml) 25 ml IVP ONCE PRN; Protocol PRN Reason: hypoglycemia protocol Dextrose (Dextrose 50% Syringe 50 Ml) 50 ml IVP PRN PRN; Protocol PRN Reason: hypoglycemia protocol Famotidine (Famotidine 20 Mg/2 Ml Inj) 40 mg IVP Q12H [facility] Last Admin: 07/02/20 00:11 Dose: 40 mg Documented by: Glucagon (Glucagon 1 Mg/Ml Inj 1 Ml) 1 mg IM ONCE PRN; Protocol PRN Reason: Adult Acute Hypoglycemia Prot. Hydralazine HCl (Hydralazine 50 Mg Tablet) 50 mg PO TID [facility] Last Admin: 07/01/20 21:43 Dose: Not Given Documented by: Dextrose (D5w) 500 mls @ 100 mls/hr IV ONCE PRN; Protocol PRN Reason: Adult Acute Hypoglycemia Prot Vancomycin HCl 750 mg/ Sodium (Chloride) 250 mls @ 250 mls/hr IV Q48H [facility]; Protocol Last Admin: 07/01/20 12:53 Dose: 250 mls/hr Documented by: Vasopressin 100 unit/ Sodium (Chloride) 100 mls @ 0 mls/hr IV .Q0M [facility]; Protocol Last Titration: 06/24/20 05:55 Dose: 0 unit/min, 0 mls/hr Documented by: Norepinephrine Bitartrate 8 mg (/ Dextrose) 508 mls @ 0 mls/hr IV .Q0M [facility]; Protocol Last Titration: 06/24/20 13:12 Dose: 0.52 mcg/min, 2 mls/hr Documented by: Albumin Human (Albumin) 12.5 gm in 50 mls @ 60 mls/hr IV PRN PRN PRN Reason: Hypotension and/or symptomatic Phenylephrine HCl 25 mg/ (Sodium Chloride) 252.5 mls @ 0 mls/hr IV .Q0M [facility]; Protocol Albumin Human (Albumin) 12.5 gm in 50 mls @ 60 mls/hr IV PRN PRN PRN Reason: Hypotension and/or symptomatic Caspofungin 50 mg/ Sodium (Chloride) 250 mls @ 250 mls/hr IV Q24H [facility] Imipenem/Cilastatin Sodium 250 (mg/ Sodium Chloride) 100 mls @ 200 mls/hr IV Q8H [facility]; Protocol Last Admin: 07/02/20 03:30 Dose: 200 mls/hr Documented by: Insulin Aspart (Insulin Aspart 100 Unit/1 Ml) 0 unit SUBCUT TIDWM [facility]; Protocol Last Admin: 07/01/20 18:45 Dose: Not Given Documented by: Lanolin (Lanolin Oint 7 Gm) 1 applic TOPICAL PRN PRN PRN Reason: DRYNESS Last Admin: 06/20/20 03:07 Dose: 1 applic Documented by: Lorazepam (Lorazepam 2 Mg/Ml Inj 1 Ml) 0.5 mg IVP Q12H PRN PRN Reason: ANXIETY Last Admin: 07/01/20 17:18 Dose: 0.5 mg Documented by: Metoprolol Succinate (Metoprolol Succinate Er (24 Hr) 50 Mg Tablet) 50 mg PO DAILY [facility] Last Admin: 07/01/20 09:30 Dose: 50 mg Documented by: Metoprolol Tartrate (Metoprolol Tartrate 1 Mg/1 Ml Sdv 5 Ml) 2.5 mg IV Q6H PRN PRN Reason: Hypertension Last Admin: 07/02/20 03:35 Dose: 2.5 mg Documented by: Senna/Docusate Sodium (Sennosides-Docusate Tablet) 1 tab PO DAILY [facility] Last Admin: 07/01/20 09:29 Dose: 1 tab Documented by: Vitals/I&O/Wt Last Vital Signs Temp 97.6 F 07/02/20 03:46 Pulse 79 07/02/20 08:39 Resp 19 H 07/02/20 08:39 BP 195/85 07/02/20 08:52 Pulse Ox 97 07/02/20 08:39 07/01/20 07/02/20 07/02/20 22:59 06:59 14:59 Intake Total 350 / 742 100 / 842 462 / 462 Output Total 900 / 900 500 / 1400 Balance -550 / -158 -400 / -558 462 / 462 Weight last 48 hrs Weight 54.567 kg Weight 52.22 kg Physical Exam Narrative: EXAM NARRATIVE: Narrative EXAM NARRATIVE: Alert and awake but confused [facility] COMMON NORMALS: normocephalic and atraumatic HEAD & SCALP: normocephalic and atraumatic Chest CHEST: Yes Symmetrical chest wall rise OTHER: chest tube removed -leaking by site Resp COMMON NORMALS: normal respiratory effort, No retractions, No use of accessory muscles and clear to auscultation bilaterally EFFORT & INSPECTION: Yes able to speak in complete sentences and Yes symmetric chest movement AUSCULTATION: clear to auscultation bilaterally OTHER: rt sided crackles and ronchi. Cardio COMMON NORMALS: regular rate, regular rhythm, S1 normal heart sound present, S2 normal heart sound present, No gallops present (Cardio), No murmurs present (Cardio), No rub (Cardio) and Peripheral pulses 2+ throughout RATE: regular rate RHYTHM: regular rhythm HEART SOUNDS: S1 normal heart sound present and S2 normal heart sound present PERIPHERAL PULSES: Peripheral pulses 2+ throughout GI COMMON NORMALS: Normal to inspection, nondistended, normoactive bowel sounds present, Soft to palpation, non-tender, No hepatosplenomegaly present and no masses AUSCULTATION: Yes normoactive bowel sounds PALPATION: Yes Soft to palpation and Yes No hepatosplenomegaly present RECTAL EXAM: deferred Extremity COMMON NORMALS: no clubbing, cyanosis or edema and no pedal edema OTHER: Trace B/L L/E EDEMA Present, B/L Hand swelling present. Data : 07/01/20 03:55 07/02/20 12:15 Micro: Microbiology 07/01/20 12:00 Blood Culture - Preliminary Blood NEGATIVE TO DATE A&P Assessment and plan (1) Acute respiratory failure with hypoxia: Status: Acute (2) Hypertensive urgency: Status: Acute (3) Septic shock: Status: Acute (4) Metabolic acidosis: Status: Acute (5) Acute kidney injury superimposed on chronic kidney disease: Status: Acute (6) Hyperkalemia: Status: Acute (7) New onset of congestive heart failure: Status: Acute (8) COVID-19: Status: Acute Acute Hypoxic respiratory failure - Etiology multi-factorial - COVID-19 pneumonia, PTX, superimposed bacterial - S/P Extubation - Weaned to 2 L of o2 via NC Septic shock due to COVID-19 Pneumonia - Improving - Suspected superimposed Bacterial Pneumonia - Procalcitonin 16.44 -> 15.48 - > 4.04 - Renal dosing of meds - Lactic Acid 1.7 on admit - 06/19 - Sputum culture - Negative - 06/19 - Blood culture x 2 - NGTD - 07/01: Blood Culture Negative - 06/19 - Urine culture - negative - 07/01: Urine analysis : Yeast - Repeat Urine culture ordered on 07/01 - Follow C.T Chest without Contrast.( 07/02 ) - Vancomycin pharmacy to dose - Primixin 250 mg IV q12 hr - Caspofungin started on 07/01 -Dexamethasone stopped on 06/30 -Source unknown -Afebrile Left sided tension pneumothorax with development of SQ emphysema :Resolved - Noted on admission - Left -sided chest tube was placed - 06/21 - Helmich valve placed - Removed on 06/22 Acute kidney injury / ATN on CKD stage 3 on HD - Creatinine baseline 1.4- > Cr. 4.1 - > 3.1 - Nephrology consulted - Femoral HD catheter removed - Right IJ HD cath :Removed - HD on 06/21/19 - per nephrology:No Need for H.D now Diabetes Mellitus with hyperglycemia mild DKA on arrival - AG metabolic acidosis - Multi-factorial component of acidosis - continue insulin SQ - Goal Blood sugar 140-180 - Repeat labs in am Acute anemia - Multi-factorial - Acute blood loss from CT in setting of renal disease - Hb 8.3 - > 6.8 - . 7.3 - s/p 2 units PRBC transfusion on 06/23 as well as 1 U PRBC on 06/29 - Monitor H/H - Continue to hold anticoagulation/Antiplatelets Bradycardia -Sinus bradycardia -Currently asymptomatic -Monitor On Tele -TSH: 0.22 -Monitor electrolytes (K>4 , Mg>2 ) -Hypertensive urgency (Resolved ) Nicardipine drip stopped on 06/30 Amlodipine 10 mg po daily Hydralazine 50 mg po q8 h daily Clonidine 0.1 mg q12 h daily Coronary artery disease s/p CABG / PVD s/p b/l femoral bypass / Hypertension - Holding aspirin 81 mg PO daily and Plavix 75 mg PO daily - Will resume once hemoglobin stabilizes and no further invasive procedures - ECHO - pEF - Continue Lipitor 20 mg PO daily - Monitor on tele Hx of Breast cancer - S/P chemo > 2 year prior - No new recommendation FEN - Tube feeding - Dietary consulted - Pulal 1.2 at 20ml/hr - Will increase to goal based on residuals and recs GI ppx - Pepcid 20 mg IV daily DVT ppx - SCDs only due to anemia Procedures lines: Right radial artery Left central line Santoyo catheter will be placed Left chest tube Condition: Fair Code status- D.N.R Disposition :Home , Anticipated Dc in 2 days . Additional A&P Information Sepsis and acute hypoxic respiratory failure secondary to COVID-19 pneumonia Intubated at outside facility Currently ABGs revealing metabolic acidosis I am holding off on bicarb infusion because of hypocalcemia, I am still waiting on BMP before making decision to start bicarb Lactic acid 2.1 Sepsis criteria met with leukocytosis, tachypnea secondary to COVID-19 We will check procalcitonin level before initiating antibiotics Metabolic acidosis This most likely is due to uremia lactic acid is 2 We will check ketone level Also noticed hyperglycemia, rule out DKA Most of her lab work is pending because she was critically ill at the time of presentation and a lot of effort was put in for stabilization putting lines and chest tube Acute on chronic kidney disease Creatinine at outside facility 3.8, her baseline creatinine seems to be 1.5-1.6 as per previous records This seems multifactorial to hypotension, sepsis and CHF exacerbation Hold nephrotoxic agents Hyperkalemia: She was given 10 units of regular insulin, I also administer 1 g calcium gluconate Her bradycardia seems to be sinus, will repeat EKG and administer Kayexalate via OG tube 10 mg albuterol x1 Hold off on bicarb secondary to hypercalcemia New onset CHF with underlying history of coronary disease and peripheral vascular disease Patient carries history of coronary disease but I do not see any mention of CHF in her records We will repeat echo in the morning Not a candidate to be on Lasix clinically looks euvolemic BNP around 8000 Will obtain serial EKGs and troponin High D-dimer: Patient recently had chest tube placement I would wait to start any anticoagulation to cover for a possible PE However high D-dimer is also seen with severe COVID-19 inflammation Tension pneumothorax After placement of central line however no earlier x-ray available, chest tube was placed by Dr. Lisa shirley in lung inflation Full code DVT prophylaxis I would use SCDs for now she just had chest tube placed, I would avoid anticoagulation to avoid postprocedural hemorrhage Guarded prognosis N.p.o. Attestations Medical Necessity Statement*: Patient needs to be in hospital for the management of Post COVID Syndrome Procedures Arterial Line Size (Gauge): 18 Coding Level of Care Code Acute [employer] Agent for Chg Fwd Diagnoses Acute respiratory failure with hypoxia J96.01 Hypertensive urgency I16.0 Septic shock A41.9; R65.21 Metabolic acidosis E87.2 Acute kidney injury superimposed on chronic kidney disease N17.9; N18.9 Hyperkalemia E87.5 New onset of congestive heart failure I50.9 COVID-19 U07.1
--- NOTE | 2020-07-02 17:22 | PC.NURSE ---
family updated Family updated that pt stood up with physical therapy this afternoon. Patient talked to the family very happily via Ipad. Sponge bath provided and linen change.
[2020-07-02 19:14] LABS: Glucose Point of Care 126 mg/dL (70-110)
[2020-07-02 19:14] LABS: Glucose Point of Care 67 mg/dL (70-110)
--- NOTE | 2020-07-02 20:06 | CTR_ITS ---
PROCEDURE INFORMATION: Exam: CT Chest Without Contrast; Diagnostic Exam date and time: 07/02/2020 8:50 PM Age: 69 years old Clinical indication: Shortness of breath; Prior surgery; Surgery type: Open heart; Patient HX: SOB. Hypoxia. Covid +. Patient unable to follow breathing instructions. ; Additional info: Pna TECHNIQUE: Imaging protocol: Diagnostic computed tomography of the chest without contrast. Radiation optimization: All CT scans at this facility use at least one of these dose optimization techniques: automated exposure control; mA and/or kV adjustment per patient size (includes targeted exams where dose is matched to clinical indication); or iterative reconstruction. COMPARISON: CT chest con [id number] 06/21/2020 5:16 PM RADIATION DOSE METRICS: Total DLP (mGy-cm): 467.61 FINDINGS: Tubes, catheters and devices: Left-sided jugular central line with distal tip in the SVC. Lungs: Centrilobular emphysema bilaterally. Mild nonspecific ground-glass infiltrates throughout both lungs. Pleural space: There is a trace of air seen in the anteromedial left pleural space, series 2, image [id number]. Small bilateral pleural effusions. Heart: Severe cardiomegaly is noted. Aorta: Atherosclerosis of the thoracic aorta. No aneurysm. Lymph nodes: Unremarkable. No enlarged lymph nodes. Liver: Calcified granulomas are seen in the liver. Spleen: Calcified granulomas are noted in the spleen. Bones/joints: Median sternotomy noted. Degenerative spine changes are noted. Median sternotomy noted. Soft tissues: Minimal residual left anterior chest wall emphysema noted, related to previous chest tube. CT/CT chest con [id number] IMPRESSION: 1. Severe cardiomegaly is noted. 2. There is a trace of air seen in the anteromedial left pleural space, series 2, image [id number]. This is consistent with minimal residual of previously noted left pneumothorax, seen on 06/21/2020. 3. Mild nonspecific ground-glass infiltrates throughout both lungs. These infiltrates have improved/decreased when compared to 06/21/2020. 4. Small bilateral pleural effusions. 5. Minimal residual left anterior chest wall emphysema noted, related to previous chest tube. Radiation Dose CTDIVOL = (mGy): DLP = 467.61 (mGy-cm)
[2020-07-02] MEDS: atorvastatin 40 mg Tablet 20 MG PO (20:30)
[2020-07-02 21:08] LABS: Glucose Point of Care 102 mg/dL (70-110)
[2020-07-03] VITALS (18 sets, daily range): BP systolic 117–193; BP diastolic 58–89; PULSE 58–91; RESP 15–22; TEMP 36.3–36.6; O2SAT 94–100
[2020-07-03] MEDS: famotidine 20 mg/2 mL INJ 40 MG IVP ×3 (00:40→22:57)
[2020-07-03] MEDS: metoprolol tartrate 1 mg/1 mL SDV 5 mL 2.5 MG IV ×3 (01:13→16:39)
--- NOTE | 2020-07-03 03:15 | NUR.SHIFT ---
NURSING NOTE: SHIFT SUMMARY; PT ALERT TO SELF AND SOMETIMES PLACE. MOVES ALL EXTREMITIES AND FOLLOWS COMMANDS. RESTING QUIETLY THIS SHIFT. DENIES PAIN. 1:[address] KRISHNA PATENT TO DD. ALL VS AND ASSESSMENTS CHARTED. NO DISTRESS NOTED AT THIS TIME.
--- NOTE | 2020-07-03 04:40 | PC.NURSE ---
NURSE NOTE: CENTRAL LINE DRESSING CHANGE; DRESSING CHANGE TO LEFT IJ DONE AT THIS TIME. PT TOLERATED WITHOUT DISTRESS.
[2020-07-03 04:46] LABS: Alanine Aminotransferase 19 U/L (0-33); Albumin Level 2.6 g/dL (3.5-5.2); Alkaline Phosphatase 131 IU/L (35-105); Anion Gap 15.4 (5-19); Aspartate Amino Transferase 28 U/L (0-32); Blood Urea Nitrogen 45 mg/dL (8-23); Calcium 7.7 mg/dL (8.5-10.5); Carbon Dioxide 20 mmol/L (22-29); Chloride 103 mmol/L (98-107); Globulin 2.1 g/dL (1.3-4.6); Glomerular Filtration Rate 36.1 mL/min (90-130); Glucose 85 mg/dL (65-115); Magnesium 1.5 mg/dL (1.7-2.3); Osmolality Calculated 291 mOsm/kg (285-295); Phosphorus 3.3 mg/dL (2.5-4.5); Potassium 3.4 mmol/L (3.5-5.1); Sodium 135 mmol/L (136-145); Total Bilirubin 0.9 mg/dL (0.15-1.2); Total Protein 4.7 g/dL (6.6-8.7)
[2020-07-03 06:59] LABS: Glucose Point of Care 87 mg/dL (70-110)
--- NOTE | 2020-07-03 08:07 | PC.NURSE ---
PATIENT OFF ISOLATION PRECAUTIONS PER DR. PUGA. PAST 14 DAY ISOLATION FOR COVID.
[2020-07-03] MEDS: metoprolol succinate ER (24 HR) 50 mg Tablet PO (08:54)
[2020-07-03] MEDS: spironolactone 25 mg Tablet PO ×2 (08:54→18:18)
[2020-07-03] MEDS: cloNIDine 0.1 mg Tablet PO ×2 (08:54→18:18)
[2020-07-03] MEDS: amlodipine 10 mg Tablet PO (08:54)
[2020-07-03] MEDS: hyDRALAzine 50 mg Tablet PO (08:54)
[2020-07-03 10:52] LABS: Glucose Point of Care 123 mg/dL (70-110)
--- NOTE | 2020-07-03 13:09 | PM.PN ---
Subjective Subjective: Interval history: Patient was seen resting comfortably. She has remained Afebrile. Urine out put charted :400 cc Her other vitals and labs have been reviewed. Medications: Reviewed: Yes Medication Review Details: Current Medications Acetaminophen (Acetaminophen 325 Mg Tablet) 650 mg PO Q6H PRN PRN Reason: MILD PAIN Last Admin: 07/01/20 02:32 Dose: 650 mg Documented by: Albuterol/Ipratropium (Ipratropium-Albuterol 3 Ml Neb) 3 ml INHALATION Q6H PRN PRN Reason: SHORTNESS OF BREATH Last Admin: 06/26/20 08:10 Dose: 3 ml Documented by: Amlodipine Besylate (Amlodipine 10 Mg Tablet) 10 mg PO DAILY [facility] Last Admin: 07/01/20 09:29 Dose: 10 mg Documented by: Aspirin (Aspirin 81 Mg Ec Tablet) 81 mg PO DAILY [facility] Last Admin: 06/19/20 09:04 Dose: 81 mg Documented by: Atorvastatin Calcium (Atorvastatin 40 Mg Tablet) 20 mg PO BEDTIME [facility] Last Admin: 07/01/20 21:41 Dose: Not Given Documented by: Clonidine HCl (Clonidine 0.1 Mg Tablet) 0.1 mg PO BID [facility] Last Admin: 07/01/20 18:52 Dose: Not Given Documented by: Clopidogrel Bisulfate (Clopidogrel 75 Mg Tablet) 75 mg PO DAILY [facility] Last Admin: 06/19/20 09:04 Dose: 75 mg Documented by: Dextrose (Dextrose 50% Syringe 50 Ml) 25 ml IVP ONCE PRN; Protocol PRN Reason: hypoglycemia protocol Dextrose (Dextrose 50% Syringe 50 Ml) 50 ml IVP PRN PRN; Protocol PRN Reason: hypoglycemia protocol Famotidine (Famotidine 20 Mg/2 Ml Inj) 40 mg IVP Q12H [facility] Last Admin: 07/02/20 00:11 Dose: 40 mg Documented by: Glucagon (Glucagon 1 Mg/Ml Inj 1 Ml) 1 mg IM ONCE PRN; Protocol PRN Reason: Adult Acute Hypoglycemia Prot. Hydralazine HCl (Hydralazine 50 Mg Tablet) 50 mg PO TID [facility] Last Admin: 07/01/20 21:43 Dose: Not Given Documented by: Dextrose (D5w) 500 mls @ 100 mls/hr IV ONCE PRN; Protocol PRN Reason: Adult Acute Hypoglycemia Prot Vancomycin HCl 750 mg/ Sodium (Chloride) 250 mls @ 250 mls/hr IV Q48H [facility]; Protocol Last Admin: 07/01/20 12:53 Dose: 250 mls/hr Documented by: Vasopressin 100 unit/ Sodium (Chloride) 100 mls @ 0 mls/hr IV .Q0M [facility]; Protocol Last Titration: 06/24/20 05:55 Dose: 0 unit/min, 0 mls/hr Documented by: Norepinephrine Bitartrate 8 mg (/ Dextrose) 508 mls @ 0 mls/hr IV .Q0M [facility]; Protocol Last Titration: 06/24/20 13:12 Dose: 0.52 mcg/min, 2 mls/hr Documented by: Albumin Human (Albumin) 12.5 gm in 50 mls @ 60 mls/hr IV PRN PRN PRN Reason: Hypotension and/or symptomatic Phenylephrine HCl 25 mg/ (Sodium Chloride) 252.5 mls @ 0 mls/hr IV .Q0M [facility]; Protocol Albumin Human (Albumin) 12.5 gm in 50 mls @ 60 mls/hr IV PRN PRN PRN Reason: Hypotension and/or symptomatic Caspofungin 50 mg/ Sodium (Chloride) 250 mls @ 250 mls/hr IV Q24H [facility] Imipenem/Cilastatin Sodium 250 (mg/ Sodium Chloride) 100 mls @ 200 mls/hr IV Q8H [facility]; Protocol Last Admin: 07/02/20 03:30 Dose: 200 mls/hr Documented by: Insulin Aspart (Insulin Aspart 100 Unit/1 Ml) 0 unit SUBCUT TIDWM [facility]; Protocol Last Admin: 07/01/20 18:45 Dose: Not Given Documented by: Lanolin (Lanolin Oint 7 Gm) 1 applic TOPICAL PRN PRN PRN Reason: DRYNESS Last Admin: 06/20/20 03:07 Dose: 1 applic Documented by: Lorazepam (Lorazepam 2 Mg/Ml Inj 1 Ml) 0.5 mg IVP Q12H PRN PRN Reason: ANXIETY Last Admin: 07/01/20 17:18 Dose: 0.5 mg Documented by: Metoprolol Succinate (Metoprolol Succinate Er (24 Hr) 50 Mg Tablet) 50 mg PO DAILY [facility] Last Admin: 07/01/20 09:30 Dose: 50 mg Documented by: Metoprolol Tartrate (Metoprolol Tartrate 1 Mg/1 Ml Sdv 5 Ml) 2.5 mg IV Q6H PRN PRN Reason: Hypertension Last Admin: 07/02/20 03:35 Dose: 2.5 mg Documented by: Senna/Docusate Sodium (Sennosides-Docusate Tablet) 1 tab PO DAILY [facility] Last Admin: 07/01/20 09:29 Dose: 1 tab Documented by: Vitals/I&O/Wt Last Vital Signs Temp 97.7 F 07/03/20 04:47 Pulse 67 07/03/20 11:55 Resp 15 07/03/20 11:55 BP 167/77 07/03/20 11:55 Pulse Ox 95 07/03/20 11:55 07/02/20 07/03/20 07/03/20 22:59 06:59 14:59 Intake Total 220 / 1282 100 / 1382 120 / 120 Output Total 100 / 400 Balance 120 / 882 100 / 982 120 / 120 Weight last 48 hrs Weight 54.567 kg Weight 54.567 kg Physical Exam Narrative: EXAM NARRATIVE: EXAM NARRATIVE: Narrative EXAM NARRATIVE: Alert and awake HENNC COMMON NORMALS: normocephalic and atraumatic HEAD & SCALP: normocephalic and atraumatic Chest CHEST: Yes Symmetrical chest wall rise OTHER: chest tube removed -leaking by site Resp COMMON NORMALS: normal respiratory effort, No retractions, No use of accessory muscles and clear to auscultation bilaterally EFFORT & INSPECTION: Yes able to speak in complete sentences and Yes symmetric chest movement AUSCULTATION: clear to auscultation bilaterally OTHER: rt sided crackles. Cardio COMMON NORMALS: regular rate, regular rhythm, S1 normal heart sound present, S2 normal heart sound present, No gallops present (Cardio), No murmurs present (Cardio), No rub (Cardio) and Peripheral pulses 2+ throughout RATE: regular rate RHYTHM: regular rhythm HEART SOUNDS: S1 normal heart sound present and S2 normal heart sound present PERIPHERAL PULSES: Peripheral pulses 2+ throughout GI COMMON NORMALS: Normal to inspection, nondistended, normoactive bowel sounds present, Soft to palpation, non-tender, No hepatosplenomegaly present and no masses AUSCULTATION: Yes normoactive bowel sounds PALPATION: Yes Soft to palpation and Yes No hepatosplenomegaly present RECTAL EXAM: deferred Extremity COMMON NORMALS: no clubbing, cyanosis or edema and no pedal edema OTHER: Trace B/L L/E EDEMA Present, B/L Hand swelling present. HENMT: COMMON NORMALS: normocephalic and atraumatic HEAD & SCALP: normocephalic and atraumatic Chest: CHEST: Yes Symmetrical chest wall rise OTHER: chest tube removed -leaking by site Resp: COMMON NORMALS: normal respiratory effort, No retractions, No use of accessory muscles and clear to auscultation bilaterally EFFORT & INSPECTION: Yes able to speak in complete sentences and Yes symmetric chest movement AUSCULTATION: clear to auscultation bilaterally OTHER: rt sided crackles and ronchi. Cardio: COMMON NORMALS: regular rate, regular rhythm, S1 normal heart sound present, S2 normal heart sound present, No gallops present (Cardio), No murmurs present (Cardio), No rub (Cardio) and Peripheral pulses 2+ throughout RATE: regular rate RHYTHM: regular rhythm HEART SOUNDS: S1 normal heart sound present and S2 normal heart sound present PERIPHERAL PULSES: Peripheral pulses 2+ throughout GI: COMMON NORMALS: Normal to inspection, nondistended, normoactive bowel sounds present, Soft to palpation, non-tender, No hepatosplenomegaly present and no masses AUSCULTATION: Yes normoactive bowel sounds PALPATION: Yes Soft to palpation and Yes No hepatosplenomegaly present RECTAL EXAM: deferred Extremity: COMMON NORMALS: no clubbing, cyanosis or edema and no pedal edema OTHER: Trace B/L L/E EDEMA Present, B/L Hand swelling present. Data : 07/01/20 03:55 07/03/20 03:43 Micro: Microbiology 07/01/20 10:55 Urine Culture - Preliminary Urine,Clean Catch Yeast species 07/01/20 12:00 Blood Culture - Preliminary Blood NEGATIVE TO DATE A&P Assessment and plan (1) Acute respiratory failure with hypoxia: Status: Acute (2) Hypertensive urgency: Status: Acute (3) Septic shock: Status: Acute (4) Metabolic acidosis: Status: Acute (5) Acute kidney injury superimposed on chronic kidney disease: Status: Acute (6) Hyperkalemia: Status: Acute (7) New onset of congestive heart failure: Status: Acute (8) COVID-19: Status: Acute Acute Hypoxic respiratory failure - Etiology multi-factorial - COVID-19 pneumonia, PTX, superimposed bacterial - S/P Extubation - Weaned to 2 L of o2 via NC Septic shock due to COVID-19 Pneumonia - Improving - Suspected superimposed Bacterial Pneumonia - Procalcitonin 16.44 -> 15.48 - > 4.04 - Renal dosing of meds - Lactic Acid 1.7 on admit - 06/19 - Sputum culture - Negative - 06/19 - Blood culture x 2 - NGTD - 07/01: Blood Culture Negative - 06/19 - Urine culture - negative - 07/01: Urine analysis : Yeast - 07/01: Urine culture Yeast ( Likely contaminant ) - Repeat Urine culture ordered on 07/01 - Follow C.T Chest without Contrast.( 07/02 ) - Vancomycin discotinued on 07/03 - Primixin 250 mg IV q12 hr Discontinued on ( 07/03 ) - Caspofungin started on 07/01 stopped on 07/03 - Will switch her to I.V Fluconazole for 5 days can be switched to PO on DC -Dexamethasone stopped on 06/30 -Source unknown -Afebrile Left sided tension pneumothorax with development of SQ emphysema :Resolved - Noted on admission - Left -sided chest tube was placed - 06/21 - Helmich valve placed - Removed on 06/22 - C.T Chest without Contrast : ( 07/02 ) There is a trace of air seen in the anteromedial left pleural space, series 2, image 33-38. This is consistent with minimal residual of previously noted left pneumothorax, seen on 06/21/2020. Mild nonspecific ground-glass infiltrates throughout both lungs. These infiltrates have improved/decreased when compared to 06/21/2020. Small bilateral pleural effusions. Minimal residual left anterior chest wall emphysema noted, related to previous chest tube. Acute kidney injury / ATN on CKD stage 3 on HD - Creatinine baseline 1.4- > Cr. 4.1 - > 3.1 - Nephrology consulted - Femoral HD catheter removed - Right IJ HD cath :Removed - HD on 06/21/19 - per nephrology:No Need for H.D now Diabetes Mellitus with hyperglycemia mild DKA on arrival - AG metabolic acidosis - Multi-factorial component of acidosis - continue insulin SQ - Goal Blood sugar 140-180 - Repeat labs in am Acute anemia - Multi-factorial - Acute blood loss from CT in setting of renal disease - Hb 8.3 - > 6.8 - . 7.3 - s/p 2 units PRBC transfusion on 06/23 as well as 1 U PRBC on 06/29 - Monitor H/H - Continue to hold anticoagulation/Antiplatelets Bradycardia -Sinus bradycardia -Currently asymptomatic -Monitor On Tele -TSH: 0.22 -Monitor electrolytes (K>4 , Mg>2 ) -Hypertensive urgency (Resolved ) Nicardipine drip stopped on 06/30 Amlodipine 10 mg po daily Hydralazine 100 mg po q8 h daily Clonidine 0.1 mg q12 h daily Spironlactone 25 mg po BID Coronary artery disease s/p CABG / PVD s/p b/l femoral bypass / Hypertension - Holding aspirin 81 mg PO daily and Plavix 75 mg PO daily - Will resume once hemoglobin stabilizes and no further invasive procedures - ECHO - pEF - Continue Lipitor 20 mg PO daily - Monitor on tele Hx of Breast cancer - S/P chemo > 2 year prior - No new recommendation FEN - Tube feeding - Dietary consulted - Pulmcal 1.2 at 20ml/hr - Will increase to goal based on residuals and recs GI ppx - Pepcid 20 mg IV daily DVT ppx - SCDs only due to anemia Procedures lines: Right radial artery Left central line Santoyo catheter will be placed Left chest tube Condition: Fair Code status- D.N.R Disposition :Home , Anticipated Dc in 2 days . Additional A&P Information Sepsis and acute hypoxic respiratory failure secondary to COVID-19 pneumonia Intubated at outside facility Currently ABGs revealing metabolic acidosis I am holding off on bicarb infusion because of hypocalcemia, I am still waiting on BMP before making decision to start bicarb Lactic acid 2.1 Sepsis criteria met with leukocytosis, tachypnea secondary to COVID-19 We will check procalcitonin level before initiating antibiotics Metabolic acidosis This most likely is due to uremia lactic acid is 2 We will check ketone level Also noticed hyperglycemia, rule out DKA Most of her lab work is pending because she was critically ill at the time of presentation and a lot of effort was put in for stabilization putting lines and chest tube Acute on chronic kidney disease Creatinine at outside facility 3.8, her baseline creatinine seems to be 1.5-1.6 as per previous records This seems multifactorial to hypotension, sepsis and CHF exacerbation Hold nephrotoxic agents Hyperkalemia: She was given 10 units of regular insulin, I also administer 1 g calcium gluconate Her bradycardia seems to be sinus, will repeat EKG and administer Kayexalate via OG tube 10 mg albuterol x1 Hold off on bicarb secondary to hypercalcemia New onset CHF with underlying history of coronary disease and peripheral vascular disease Patient carries history of coronary disease but I do not see any mention of CHF in her records We will repeat echo in the morning Not a candidate to be on Lasix clinically looks euvolemic BNP around 8000 Will obtain serial EKGs and troponin High D-dimer: Patient recently had chest tube placement I would wait to start any anticoagulation to cover for a possible PE However high D-dimer is also seen with severe COVID-19 inflammation Tension pneumothorax After placement of central line however no earlier x-ray available, chest tube was placed by Dr. Lisa shirley in lung inflation Full code DVT prophylaxis I would use SCDs for now she just had chest tube placed, I would avoid anticoagulation to avoid postprocedural hemorrhage Guarded prognosis N.p.o. Attestations Medical Necessity Statement*: Patient needs to be in hospital for the management of Post COVID syndrome.She is awaiting placement to rehab. Procedures Arterial Line Size (Gauge): 18 Coding Level of Care Code Acute Sawing And Assembly Supervisor for Chg Fwd Diagnoses Acute respiratory failure with hypoxia J96.01 Hypertensive urgency I16.0 Septic shock A41.9; R65.21 Metabolic acidosis E87.2 Acute kidney injury superimposed on chronic kidney disease N17.9; N18.9 Hyperkalemia E87.5 New onset of congestive heart failure I50.9 COVID-19 U07.1
--- NOTE | 2020-07-03 14:41 | P.PN_ITS ---
Subjective Subjective: Interval history: Remains very weak but she is comfortable. Breathing comfortably. Increase in white count noted, currently 17 no fevers or chills. She denies pain. She denies uremic symptoms. Blood pressure is noted to be elevated. She does have some extremity edema however her lungs are diminished on examination. Vitals/I&O/Wt Last Vital Signs Temp 97.7 F 07/03/20 04:47 Pulse 67 07/03/20 11:55 Resp 15 07/03/20 11:55 BP 167/77 07/03/20 11:55 Pulse Ox 95 07/03/20 11:55 07/02/20 07/03/20 07/03/20 22:59 06:59 14:59 Intake Total 220 / 1282 100 / 1382 120 / 120 Output Total 100 / 400 Balance 120 / 882 100 / 982 120 / 120 Weight last 48 hrs Weight 54.567 kg Weight 54.567 kg Physical Exam Narrative: EXAM NARRATIVE: Constitutional: Awake, comfortable HEENT: Wet mucosa, no jvp, non icteric Lungs: Bilaterally diminished and poor effort in all lung zones CVS: S1 S2, no murmurs Abdo: Soft, BS ok Ext 4: Global anasarca, peripheral perfusion with no cyanosis Neurological: Grossly non-focal Data : 07/01/20 03:55 07/03/20 03:43 Micro: Microbiology 07/01/20 10:55 Urine Culture - Preliminary Urine,Clean Catch Yeast species 07/01/20 12:00 Blood Culture - Preliminary Blood NEGATIVE TO DATE A&P Additional A&P Information 1. ERUM She is now recovering from renal failure, with minor fluctuation in serum creatinine between 1.5 and 1.7 mg/dL today. She does have global edema but she is breathing comfortably. Given the fragility we will defer diuretic therapy for the time being, however, also defer intravenous fluids as well. Avoid usual nephrotoxic agents Strict ins and outs. 2. Hypertension. Will increase hydralazine to 100 mg 3 times a day. Close monitoring of hemodynamics 3. Sepsis status post Covid pneumonitis She has now completed therapy for this and is making a recovery. Remains on Primaxin 4. Chemistry hypokalemia noted and minor acidosis. Potassium being replaced. Corrected calcium within normal range. Magnesium slightly low. We will continue to monitor. Kiran Stephens MD Nephrology [phone] Patient seen and examined via telemedicine, with the assistance of the bedside RN > 25 min spent in evaluation and mgmt of patient Attestations Medical Necessity Statement*: eval for renal failure Procedures Arterial Line Size (Gauge): 18 Coding Level of Care Code Acute Internal Recruiter for Ezra Mccabe
[2020-07-03] MEDS: hyDRALAzine 50 mg Tablet 100 MG PO ×2 (15:41→21:44)
[2020-07-03] MEDS: LORazepam 2 mg/mL INJ 1 mL 0.5 MG IVP (16:47)
--- NOTE | 2020-07-03 16:49 | PC.NURSE ---
PATIENT EXTREMELY ANXIOUS AT THIS TIME, IS MILDLY CONFUSED. SHE DOESN'T UNDERSTAND WHY SHES IN THE HOSPITAL OR WHAT HOSPITAL SHE'S IN. SHE IS ALERT TO PERSON AT THIS TIME. WILL ADMINISTER ATIVAN. WILL CONTINUE TO MONITOR.
[2020-07-03 16:53] LABS: Glucose Point of Care 112 mg/dL (70-110)
[2020-07-03] MEDS: atorvastatin 40 mg Tablet 20 MG PO (21:44)
[2020-07-03] MEDS: fluconazole premix 200 MG/100 ML PREMIX 100 MG IV (21:44)
--- NOTE | 2020-07-03 22:38 | PC.NURSE ---
Spoke with Dr. Simon hospitalist operator control room regarding this patient's increasing anxiety. Dr. Simon will review this patient's record and will determine appropriate actions required going forward.
[2020-07-03 23:36] LABS: Glucose Point of Care 102 mg/dL (70-110)
[2020-07-04] VITALS (54 sets, daily range): BP systolic 161–178; BP diastolic 56–79; PULSE 56–100; RESP 14–28; TEMP 36.4–36.8; O2SAT 87–100
[2020-07-04 06:54] LABS: Glucose Point of Care 69 mg/dL (70-110)
[2020-07-04] MEDS: amlodipine 10 mg Tablet PO (09:19)
[2020-07-04] MEDS: spironolactone 25 mg Tablet PO ×2 (09:19→17:24)
[2020-07-04] MEDS: metoprolol succinate ER (24 HR) 50 mg Tablet PO (09:19)
[2020-07-04] MEDS: hyDRALAzine 50 mg Tablet 100 MG PO ×3 (09:19→22:27)
[2020-07-04] MEDS: cloNIDine 0.1 mg Tablet PO ×2 (09:19→22:25)
--- NOTE | 2020-07-04 10:15 | XR_ITS ---
WS: [id number] Portable AP upright chest, 07/04/2020 Clinical Data: sob Comparison: Frontal chest, 07/01/2020. Findings: The left internal jugular venous catheter remains in good position. The heart is enlarged. There is a left effusion. Bilateral interstitial opacities remain unchanged. The left apical pneumoth orax and left subcutaneous emphysema have resolved. The aortic arch and descending aorta show calcifi cation and tortuosity. Midline sternotomy sutures are present. Monitor leads are on the chest wall. XR/XR chest 1V portable [id number] Impression: 1. Cardiomegaly and atherosclerosis. 2. Left pleural effusion and bilateral interstitial opacity unchanged.
--- NOTE | 2020-07-04 10:36 | DCPLANNER ---
IMM completed with Granddaughter Argelia by phone on 07/04/20 @ 3014.
--- NOTE | 2020-07-04 10:45 | PM.PN ---
Subjective Subjective: Interval history: Patient was seen resting comfortably. She has remained Afebrile. Urine out put charted :400 cc Her other vitals and labs have been reviewed. Vitals/I&O/Wt Last Vital Signs Temp 98.2 F 07/04/20 08:07 Pulse 65 07/04/20 09:23 Resp 18 07/04/20 09:23 BP 178/79 07/04/20 09:19 Pulse Ox 99 07/04/20 09:23 07/03/20 07/04/20 07/04/20 22:59 06:59 14:59 Intake Total 130 / 350 120 / 120 Output Total 400 / 400 650 / 1050 Balance -270 / -50 -650 / -700 120 / 120 Weight last 48 hrs Weight 56.79 kg Weight 54.567 kg Data : 07/05/20 04:37 07/05/20 04:37 Micro: Microbiology 07/01/20 10:55 Urine Culture - Preliminary Urine,Clean Catch Yeast species A&P Assessment and plan (1) Hypertensive urgency: Status: Acute (2) Acute respiratory failure with hypoxia: Status: Acute (3) Septic shock: Status: Acute (4) Metabolic acidosis: Status: Acute (5) Acute kidney injury superimposed on chronic kidney disease: Status: Acute (6) Hyperkalemia: Status: Acute (7) New onset of congestive heart failure: Status: Acute (8) COVID-19: Status: Acute Additional A&P Information Acute Hypoxic respiratory failure 2/2 COVID-19 pneumonia, PTX, superimposed bacterial infection: Resolved. Currently saturating well on room air. We will continue to monitor. DuoNebs every 6 hours as needed. Patient has been on antibiotics for multiple days. We will stop vancomycin and imipenem. We will continue to monitor for worsening leukocytosis or fevers. History of tension pneumothorax during this hospitalization for which patient had chest tube and was removed around 7 days ago. Patient continues to have serosanguineous discharge from chest tube insertion site. We will consult surgery for possible suture. Till then continue to dress with OptiForm. Hypertension: Blood pressure extremely elevated. Patient is on multiple antihypertensives including high-dose hydralazine 100 every 8, clonidine 0.1 twice daily, amlodipine 10 mg. For now stop amlodipine start patient on home dose of nifedipine, continue hydralazine. Make clonidine 0.1 patch every 72 hours. We will consult with nephrology. Hydralazine 10 mg IV every 4 hours as needed for diastolic blood pressure more than 100 mmHg. Acute kidney injury:Most likely secondary to ATN from severe disease. Patient had required dialysis earlier in the admission not anymore. Creatinine has remained stable between 1.4-1.8 with BUN improving. Diabetes Mellitus with hyperglycemia mild DKA on arrival: Now resolved. Continue insulin SQ - Goal Blood sugar 140-180 - Repeat labs in am Acute anemia - Multi-factorial - Acute blood loss from CT in setting of renal disease - Hb 8.3 - > 6.8 - . 7.3 - s/p 2 units PRBC transfusion on 06/23 as well as 1 U PRBC on 06/29 - Monitor H/H - Continue to hold anticoagulation/Antiplatelets Coronary artery disease s/p CABG PVD s/p b/l femoral bypass: We will restart aspirin for now. Hold off on Plavix for now. Continue home dose of statin. Echocardiogram shows preserved ejection fraction. Monitor on telemetry. Hx of Breast cancer - S/P chemo > 2 year prior - No new recommendation GI ppx - Pepcid 20 mg IV daily DVT ppx - SCDs only due to anemia Condition: Fair Code status- D.N.R/DNI Given severe deconditioning, patient unable to work with physical therapy patient would most likely require placement to SNF versus assisted living for further rehabilitation. Patient has been accepted at assisted living but has been denied by the insurance. We will have to peer to peer evaluation today. Discharge planning: Assisted living versus SNF. Awaiting authorization from insurance . Attestations Medical Necessity Statement*: Requires further hospitalization for management multiple comorbidities including resolved septic shock, ARDS, ERUM requiring maintenance hemodialysis leading to severe generalized deconditioning while safe discharge planning is sought. Time Spent in Patient Care: Greater than 35 minutes (>than 50% of time spent in counselling and/or direct pt care on unit). Procedures Arterial Line Size (Gauge): 18 Coding Level of Care Code Acute Handmade Tile Artist for Chg Fwd Diagnoses Hypertensive urgency I16.0 Acute respiratory failure with hypoxia J96.01 Septic shock A41.9; R65.21 Metabolic acidosis E87.2 Acute kidney injury superimposed on chronic kidney disease N17.9; N18.9 Hyperkalemia E87.5 New onset of congestive heart failure I50.9 COVID-19 U07.1
[2020-07-04 11:55] LABS: Basophils % 0.1 %; Eosinophils # 0.1 10^3/uL (0.0-0.8); Eosinophils % 0.4 %; Hematocrit 27.2 % (37.0-47.0); Hemoglobin 8.9 g/dL (11.5-15.3); Lymphocytes # 0.4 10^3/uL (0.8-4.8); Lymphocytes % 2.8 %; Mean Corpuscular HGB Conc 32.7 g/dL (30.0-36.0); Mean Corpuscular Hemoglobin 29.7 pg (28.0-34.0); Mean Corpuscular Volume 90.7 fL (81-99); Mean Platelet Volume 11.4 fL (7.4-10.4); Monocytes # 0.4 10^3/uL (0.2-0.9); Neutrophils # 12.91 10^3/uL (1.8-7.7); Neutrophils % 93.1 %; Nucleated Red Blood Cells % 0 %; Platelet Count 119 10^3/cmm (130-400); Red Cell Distribution Width 15.1 % (12.1-15.1); White Blood Count 13.9 10^3/uL (4.0-10.0)
[2020-07-04] MEDS: fluconazole 100 mg Tablet 200 MG PO (12:18)
[2020-07-04] MEDS: famotidine 20 mg/2 mL INJ 40 MG IVP ×2 (12:18→22:26)
[2020-07-04 12:26] LABS: Alanine Aminotransferase 14 U/L (0-33); Albumin Level 2.4 g/dL (3.5-5.2); Alkaline Phosphatase 122 IU/L (35-105); Anion Gap 11.6 (5-19); Aspartate Amino Transferase 22 U/L (0-32); Blood Urea Nitrogen 39 mg/dL (8-23); Calcium 7.7 mg/dL (8.5-10.5); Carbon Dioxide 22 mmol/L (22-29); Chloride 104 mmol/L (98-107); Globulin 2.1 g/dL (1.3-4.6); Glomerular Filtration Rate 33.8 mL/min (90-130); Glucose 185 mg/dL (65-115); Osmolality Calculated 292 mOsm/kg (285-295); Potassium 3.6 mmol/L (3.5-5.1); Sodium 134 mmol/L (136-145); Total Bilirubin 0.9 mg/dL (0.15-1.2); Total Protein 4.5 g/dL (6.6-8.7)
[2020-07-04 13:00] LABS: Glucose Point of Care 194 mg/dL (70-110)
--- NOTE | 2020-07-04 14:14 | P.PN_ITS ---
Subjective Subjective: Interval history: Remains very weak but she is comfortable. Breathing comfortably. White count noted, coming down. She denies pain. She denies uremic symptoms. Blood pressure is noted to be elevated. She does have some extremity edema however her lungs are diminished on examination. Medications: Reviewed: Yes Vitals/I&O/Wt Last Vital Signs Temp 98.0 F 07/04/20 12:25 Pulse 64 07/04/20 12:25 Resp 26 H 07/04/20 12:25 BP 171/72 07/04/20 12:25 Pulse Ox 95 07/04/20 12:25 07/03/20 07/04/20 07/04/20 22:59 06:59 14:59 Intake Total 130 / 350 120 / 120 Output Total 400 / 400 650 / 1050 Balance -270 / -50 -650 / -700 120 / 120 Weight last 48 hrs Weight 56.79 kg Weight 54.567 kg Physical Exam Narrative: EXAM NARRATIVE: Constitutional: Awake, comfortable HEENT: Wet mucosa, no jvp, non icteric Lungs: Bilaterally diminished and poor effort in all lung zones CVS: S1 S2, no murmurs Abdo: Soft, BS ok Ext 4: Global anasarca, peripheral perfusion with no cyanosis Neurological: Grossly non-focal Data : 07/04/20 11:24 07/04/20 11:24 Micro: Microbiology 07/01/20 10:55 Urine Culture - Final Urine,Clean Catch Mia albicans A&P Additional A&P Information 1. ERUM She is now recovering from renal failure, with minor fluctuation in serum creatinine between 1.5 and 1.8mg/dL. She does have global edema but she is breathing comfortably. Given the fragility we will defer diuretic therapy for the time being, however, also defer intravenous fluids as well. No changes to this rec today and we will need to follow renal function closely. If creatinine continues to climb will perform urine studies and likely bolus with ivf Avoid usual nephrotoxic agents Strict ins and outs. 2. Hypertension. - Procardia added, will stop Amlodipine. If sBp > 150 this evening will add Clonidine patch 3. Sepsis status post Covid pneumonitis She has now completed therapy for this and is making a recovery. Remains on Primaxin 4. Chemistry Non critical aberration We will continue to monitor. Kiran Stephens MD Nephrology [phone] Patient seen and examined via telemedicine, with the assistance of the bedside RN > 25 min spent in evaluation and mgmt of patient Attestations Medical Necessity Statement*: eval for ERUM Procedures Arterial Line Size (Gauge): 18 Coding Level of Care Code Acute Brake Coupler Dinkey for Ezra Mccabe
[2020-07-04 17:03] LABS: Glucose Point of Care 55 mg/dL (70-110)
[2020-07-04 17:29] LABS: Glucose Point of Care 94 mg/dL (70-110)
--- NOTE | 2020-07-04 19:08 | PC.NURSE ---
PER DR. LATIF, IF PATIENT'S SBP > 150 AT 2200, PLEASE ADD CLONIDINE PATCH. 0.2MG.
[2020-07-04 20:31] LABS: Glucose Point of Care 90 mg/dL (70-110)
[2020-07-04] MEDS: atorvastatin 40 mg Tablet 20 MG PO (22:26)
[2020-07-04] MEDS: LORazepam 2 mg/mL INJ 1 mL 0.5 MG IVP (22:27)
[2020-07-05] VITALS (23 sets, daily range): BP systolic 129–211; BP diastolic 45–102; PULSE 66–104; RESP 16–25; TEMP 36.3–36.4; O2SAT 93–100; BMI 22.1
[2020-07-05] MEDS: cloNIDine 0.2 mg/24 hr Patch 1 PATCH TRANSDERMA (00:04)
[2020-07-05 05:10] LABS: Basophils % 0.1 %; Eosinophils # 0.1 10^3/uL (0.0-0.8); Eosinophils % 0.8 %; Hematocrit 24.6 % (37.0-47.0); Lymphocytes # 0.5 10^3/uL (0.8-4.8); Lymphocytes % 4.2 %; Mean Corpuscular HGB Conc 32.5 g/dL (30.0-36.0); Mean Corpuscular Hemoglobin 29.6 pg (28.0-34.0); Mean Corpuscular Volume 91.1 fL (81-99); Mean Platelet Volume 11.6 fL (7.4-10.4); Monocytes # 0.5 10^3/uL (0.2-0.9); Monocytes % 3.7 %; Neutrophils # 11.75 10^3/uL (1.8-7.7); Neutrophils % 90.6 %; Nucleated Red Blood Cells % 0 %; Platelet Count 115 10^3/cmm (130-400); Red Cell Distribution Width 15.5 % (12.1-15.1)
[2020-07-05 05:34] LABS: Alanine Aminotransferase 11 U/L (0-33); Albumin Level 2.3 g/dL (3.5-5.2); Alkaline Phosphatase 102 IU/L (35-105); Anion Gap 12.7 (5-19); Aspartate Amino Transferase 18 U/L (0-32); Blood Urea Nitrogen 35 mg/dL (8-23); Calcium 7.6 mg/dL (8.5-10.5); Carbon Dioxide 21 mmol/L (22-29); Chloride 107 mmol/L (98-107); Globulin 1.9 g/dL (1.3-4.6); Glomerular Filtration Rate 33.8 mL/min (90-130); Glucose 93 mg/dL (65-115); Osmolality Calculated 292 mOsm/kg (285-295); Potassium 3.7 mmol/L (3.5-5.1); Sodium 137 mmol/L (136-145); Total Bilirubin 0.9 mg/dL (0.15-1.2); Total Protein 4.2 g/dL (6.6-8.7)
[2020-07-05 07:23] LABS: Glucose Point of Care 92 mg/dL (70-110)
--- NOTE | 2020-07-05 09:15 | PC.NURSE ---
Patient has preference for head turned to the right. Patient opens eyes to name and tapping on her shoulder. Patient will turn her head left if I move to the left side of the bed and call her name, once she was awake. Patient turned head away from offer of liquids; first water, then apple juice and finally milk. Patient was then offered juice & food by Kay, who was the patient's sitter yesterday. Patient turned her head away. Call placed to Dr. Love regarding patient's demeanor and inability to give po meds this morning.
--- NOTE | 2020-07-05 10:34 | P.PN_ITS ---
Subjective Subjective: Interval history: Patient blood pressure still elevated. This morning patient is awake alert but is denying to eat or take oral medications. Patient also spoke in detail with her family members but continues to deny medications. Denies any suicidal ideations. States she feels depressed. Has remained afebrile hemodynamically stable. Vitals/I&O/Wt Last Vital Signs Temp 97.4 F L 07/05/20 04:00 Pulse 68 07/05/20 08:00 Resp 21 H 07/05/20 08:00 BP 192/73 07/05/20 08:00 Pulse Ox 100 07/05/20 08:00 07/04/20 07/05/20 07/05/20 22:59 06:59 14:59 Intake Total 290 / 530 75 / 605 0 / 0 Output Total 500 / 500 150 / 650 Balance -210 / 30 -75 / -45 0 / 0 Weight last 48 hrs Weight 56.79 kg Weight 56.79 kg Physical Exam Narrative: EXAM NARRATIVE: General: No acute distress, AO x2, slow to respond, frail, appears severely ill, ecchymosis present all over the anterior chest field, left IJ central line present. HEENT: PERRLA, pupils bilaterally equal and reactive Chest: Occasional crackles of the lung springer, normal vesicular breath sounds, occasional coarse crackles present over the lung springer, pleural rub present CVS: S1-S2 regular, no murmurs, no tachycardia, no gallops, no rubs Abdomen: Soft, nontender, no organomegaly, bowel sounds present Neuro: No focal deficits, no facial deformity, AO x3, power 3/5 in all limbs Extremities: Pulses bilaterally present, 1+ pedal edema present HENMT: COMMON NORMALS: normocephalic and atraumatic HEAD & SCALP: normocephalic and atraumatic Chest: CHEST: Yes Symmetrical chest wall rise OTHER: chest tube removed - leaking by site Resp: COMMON NORMALS: normal respiratory effort, No retractions, No use of accessory muscles and clear to auscultation bilaterally EFFORT & INSPECTION: Yes able to speak in complete sentences and Yes symmetric chest movement AUSCULTATION: clear to auscultation bilaterally OTHER: rt sided crackles and ronchi. Cardio: COMMON NORMALS: regular rate, regular rhythm, S1 normal heart sound present, S2 normal heart sound present, No gallops present (Cardio), No murmurs present (Cardio), No rub (Cardio) and Peripheral pulses 2+ throughout RATE: regular rate RHYTHM: regular rhythm HEART SOUNDS: S1 normal heart sound present and S2 normal heart sound present PERIPHERAL PULSES: Peripheral pulses 2+ throughout GI: COMMON NORMALS: Normal to inspection, nondistended, normoactive bowel sounds present, Soft to palpation, non-tender, No hepatosplenomegaly present and no masses AUSCULTATION: Yes normoactive bowel sounds PALPATION: Yes Soft to palpation and Yes No hepatosplenomegaly present RECTAL EXAM: deferred Extremity: COMMON NORMALS: no clubbing, cyanosis or edema and no pedal edema OTHER: Trace B/L L/E EDEMA Present, B/L Hand swelling present. Data : 07/05/20 04:37 07/05/20 04:37 Micro: Microbiology 07/01/20 10:55 Urine Culture - Final Urine,Clean Catch Mia albicans A&P Assessment and plan (1) Acute respiratory failure with hypoxia: Status: Acute (2) Hypertensive urgency: Status: Acute (3) Septic shock: Status: Acute (4) Metabolic acidosis: Status: Acute (5) Acute kidney injury superimposed on chronic kidney disease: Status: Acute (6) Hyperkalemia: Status: Acute (7) New onset of congestive heart failure: Status: Acute (8) COVID-19: Status: Acute Additional A&P Information Acute Hypoxic respiratory failure 2/2 COVID-19 pneumonia, PTX, superimposed bacterial infection: Resolved. Currently saturating well on room air. We will continue to monitor. DuoNebs every 6 hours as needed. Patient has been on antibiotics for multiple days. We will stop vancomycin and imipenem. We will continue to monitor for worsening leukocytosis or fevers. History of tension pneumothorax during this hospitalization for which patient had chest tube and was removed around 7 days ago. Patient continues to have serosanguineous discharge from chest tube insertion site. We will consult surgery for possible suture. Till then continue to dress with OptiForm. Hypertension: Blood pressure extremely elevated. Patient is on multiple antihypertensives including high-dose hydralazine 100 every 8, clonidine 0.1 twice daily, amlodipine 10 mg. For now stop amlodipine start patient on home dose of nifedipine, continue hydralazine. Make clonidine 0.1 patch every 72 hours. We will consult with nephrology. Hydralazine 10 mg IV every 4 hours as needed for diastolic blood pressure more than 100 mmHg. Acute kidney injury:Most likely secondary to ATN from severe disease. Patient had required dialysis earlier in the admission not anymore. Creatinine has remained stable between 1.4-1.8 with BUN improving. Diabetes Mellitus with hyperglycemia mild DKA on arrival: Now resolved. Continue insulin SQ - Goal Blood sugar 140-180 - Repeat labs in am Acute anemia - Multi-factorial - Acute blood loss from CT in setting of renal disease - Hb 8.3 - > 6.8 - . 7.3 - s/p 2 units PRBC transfusion on 06/23 as well as 1 U PRBC on 06/29 - Monitor H/H - Continue to hold anticoagulation/Antiplatelets Coronary artery disease s/p CABG PVD s/p b/l femoral bypass: We will restart aspirin for now. Hold off on Plavix for now. Continue home dose of statin. Echocardiogram shows preserved ejection fraction. Monitor on telemetry. Hx of Breast cancer - S/P chemo > 2 year prior - No new recommendation GI ppx - Pepcid 20 mg IV daily DVT ppx - SCDs only due to anemia Condition: Fair Code status- D.N.R/DNI Plan for today: Patient to get Steri-Strips/sutures on the same chest tube placement laceration. Will give IV hydralazine as patient is not taking oral medications. Add Remeron for possible depression along with duloxetine. Placement has been declined to assisted living by insurance company. We will ask care coordination to work on placement to SNF. Continue working with physi moe therapy. Attestations Medical Necessity Statement*: Requires further hospitalization for management of severe deconditioning because of prolonged hospitalization including ARDS, septic shock while safe discharge planning is sought. Time Spent in Patient Care: Greater than 35 minutes (>than 50% of time spent in counselling and/or direct pt care on unit) . Procedures Arterial Line Size (Gauge): 18 Coding Level of Care Code Acute Welt Edge Rounder for g Fwd Diagnoses Acute respiratory failure with hypoxia J96.01 Hypertensive urgency I16.0 Septic shock A41.9; R65.21 Metabolic acidosis E87.2 Acute kidney injury superimposed on chronic kidney disease N17.9; N18.9 Hyperkalemia E87.5 New onset of congestive heart failure I50.9 COVID-19 U07.1
--- NOTE | 2020-07-05 10:45 | PC.NURSE ---
Attempted to get patient to take clonidine in a small amoun of applesauce. Patient turned her head away and pressed her lips togather. Encouraged patient to try and take her pills. Offered several different types of drinks. Patient refused. Dr. Love at bedside. He also tried to get patient to take meds. She said no several times. Attempted to call family members on ipad without any answer. Unable to give oral meds.
[2020-07-05] MEDS: famotidine 20 mg/2 mL INJ 40 MG IVP ×2 (10:51→21:13)
[2020-07-05 11:38] LABS: Glucose Point of Care 88 mg/dL (70-110)
[2020-07-05] MEDS: metoprolol tartrate 1 mg/1 mL SDV 5 mL 2.5 MG IV ×3 (12:11→23:21)
--- NOTE | 2020-07-05 13:07 | PC.OT ---
OT TREATMENT ATTEMPTED. PATIENT IS SLEEPING SOUNDLY. 1:1 SITTER STATES THAT THE PATIENT HAS NOT EATEN OR DRANK ANYTHING AND HAS REFUSED ALL CARE TODAY. WILL ATTEMPT AGAIN TOMORROW.
--- NOTE | 2020-07-05 13:30 | P.PN_ITS ---
Subjective Subjective: Interval history: She is quite sleepy today, she did receive some Ativan yesterday evening. Her blood pressure remains overly elevated, she does have some diffuse anasarca. She did not take any of her oral medications, spitting them out today. I did start a clonidine patch yesterday. Otherwise she is stable, breathing comfortably, remains weak and somewhat bedbound. Medications: Reviewed: Yes Medication Review Details: Current Medications Albuterol/Ipratropium (Ipratropium-Albuterol 3 Ml Neb) 3 ml INHALATION Q6H PRN PRN Reason: SHORTNESS OF BREATH Last Admin: 06/20/20 02:01 Dose: 3 ml Documented by: Aspirin (Aspirin 81 Mg Ec Tablet) 81 mg PO DAILY [facility] Last Admin: 06/19/20 09:04 Dose: 81 mg Documented by: Atorvastatin Calcium (Atorvastatin 40 Mg Tablet) 20 mg PO BEDTIME [facility] Last Admin: 06/19/20 21:04 Dose: 20 mg Documented by: Clopidogrel Bisulfate (Clopidogrel 75 Mg Tablet) 75 mg PO DAILY [facility] Last Admin: 06/19/20 09:04 Dose: 75 mg Documented by: Dextrose (Dextrose 50% Syringe 50 Ml) 25 ml IVP ONCE PRN; Protocol PRN Reason: hypoglycemia protocol Dextrose (Dextrose 50% Syringe 50 Ml) 50 ml IVP PRN PRN; Protocol PRN Reason: hypoglycemia protocol Famotidine (Famotidine 20 Mg/2 Ml Inj) 40 mg IVP Q12H [facility] Last Admin: 06/19/20 23:48 Dose: 40 mg Documented by: Glucagon (Glucagon 1 Mg/Ml Inj 1 Ml) 1 mg IM ONCE PRN; Protocol PRN Reason: Adult Acute Hypoglycemia Prot. Dopamine HCl/Dextrose (Intropin Drip) 400 mg in 250 mls @ 9.525 mls/hr IV CONT [facility]; Protocol Last Titration: 06/20/20 00:12 Dose: 0 mcg/kg/min, 0 mls/hr Documented by: Fentanyl 1,000 mcg/ Sodium (Chloride) 100 mls @ 0 mls/hr IV .Q0M [facility]; Protocol Last Titration: 06/20/20 04:39 Dose: 50 mcg/hr, 5 mls/hr Documented by: Midazolam HCl 100 mg/ Sodium (Chloride) 100 mls @ 0 mls/hr IV .Q0M [facility]; Protocol Last Admin: 06/19/20 03:41 Dose: 1 mg/hr, 1 mls/hr Documented by: Dextrose (D5w) 500 mls @ 100 mls/hr IV ONCE PRN; Protocol PRN Reason: Adult Acute Hypoglycemia Prot Vancomycin HCl 750 mg/ Sodium (Chloride) 250 mls @ 250 mls/hr IV Q48H [facility]; Protocol Last Infusion: 06/19/20 14:32 Dose: Infused Documented by: Imipenem/Cilastatin Sodium 250 (mg/ Sodium Chloride) 100 mls @ 200 mls/hr IV Q12H [facility]; Protocol Last Infusion: 06/20/20 00:40 Dose: Infused Documented by: Insulin Human Regular 250 unit (/ Sodium Chloride) 252.5 mls @ 0 mls/hr IV .Q0M [facility]; Protocol Last Titration: 06/20/20 05:11 Dose: 5 unit/hr, 5.1 mls/hr Documented by: Vasopressin 100 unit/ Sodium (Chloride) 100 mls @ 0 mls/hr IV .Q0M [facility]; Protocol Last Admin: 06/19/20 14:53 Dose: 0.04 unit/min, 2.4 mls/hr Documented by: Norepinephrine Bitartrate 8 mg (/ Dextrose) 508 mls @ 0 mls/hr IV .Q0M [facility]; Protocol Last Admin: 06/20/20 04:39 Dose: 12 mcg/min, 45.7 mls/hr Documented by: Albumin Human (Albumin) 12.5 gm in 50 mls @ 60 mls/hr IV PRN PRN PRN Reason: Hypotension and/or symptomatic Insulin Aspart (Insulin Aspart 100 Unit/1 Ml) 0 unit SUBCUT WM&BEDTIME [facility]; Protocol Last Admin: 06/19/20 21:05 Dose: Not Given Documented by: Lanolin (Lanolin Oint 7 Gm) 1 applic TOPICAL PRN PRN PRN Reason: DRYNESS Last Admin: 06/20/20 03:07 Dose: 1 applic Documented by: Senna/Docusate Sodium (Sennosides-Docusate Tablet) 1 tab PO DAILY [facility] Last Admin: 06/19/20 09:04 Dose: 1 tab Documented by: Vitals/I&O/Wt Last Vital Signs Temp 97.4 F L 07/05/20 04:00 Pulse 68 07/05/20 08:00 Resp 21 H 07/05/20 08:00 BP 192/73 07/05/20 08:00 Pulse Ox 100 07/05/20 08:00 07/04/20 07/05/20 07/05/20 22:59 06:59 14:59 Intake Total 290 / 530 75 / 605 0 / 0 Output Total 500 / 500 150 / 650 Balance -210 / 30 -75 / -45 0 / 0 Weight last 48 hrs Weight 56.79 kg Weight 56.79 kg Physical Exam Narrative: EXAM NARRATIVE: Constitutional: Awake, comfortable HEENT: Wet mucosa, no jvp, non icteric Lungs: Bilaterally diminished and poor effort in all lung zones CVS: S1 S2, no murmurs Abdo: Soft, BS ok Ext 4: Global anasarca, peripheral perfusion with no cyanosis Neurological: Grossly non-focal Data : 07/05/20 04:37 07/05/20 04:37 Micro: Microbiology 07/01/20 10:55 Urine Culture - Final Urine,Clean Catch Mia albicans A&P Additional A&P Information 1. ERUM She is now recovering from renal failure, with minor fluctuation in serum creatinine between 1.5 and 1.8mg/dL. She does have global edema but she is breathing comfortably. Close monitoring Avoid usual nephrotoxic agents Strict ins and outs. 2. Hypertension. - iv lasix and iv hydralazine ordered, will need to be encouraged to take oral meds 3. Sepsis status post Covid pneumonitis She has now completed therapy for this and is making a recovery. Remains on Primaxin 4. Chemistry Non critical aberration We will continue to monitor. Kiran Stephens MD Nephrology [phone] Patient seen and examined via telemedicine, with the assistance of the bedside RN > 25 min spent in evaluation and mgmt of patient Attestations Medical Necessity Statement*: eval for ERUM Procedures Arterial Line Size (Gauge): 18 Coding Level of Care Code Acute Memory Care Program Director for Chg Eliot
[2020-07-05] MEDS: hyDRALAzine 20 mg/mL INJ 1 mL 10 MG IVP (14:21)
[2020-07-05] MEDS: FUROsemide 10 mg/mL SDV 10mL 60 MG IVP (14:22)
[2020-07-05 17:01] LABS: Glucose Point of Care 91 mg/dL (70-110)
[2020-07-05 20:37] LABS: Glucose Point of Care 80 mg/dL (70-110)
[2020-07-05] MEDS: hyDRALAzine 50 mg Tablet 100 MG PO (21:16)
[2020-07-05] MEDS: duloxetine 30 mg Capsule PO (21:17)
[2020-07-05] MEDS: mirtazapine 15 mg Tablet PO (21:17)
[2020-07-05] MEDS: atorvastatin 40 mg Tablet 20 MG PO (21:17)
[2020-07-05] MEDS: cloNIDine 0.1 mg Tablet PO (21:22)
--- NOTE | 2020-07-05 22:05 | XRR_ITS ---
PROCEDURE INFORMATION: Exam: XR Abdomen, 1 View Exam date and time: 07/05/2020 10:24 PM Age: 69 years old Clinical indication: Abdominal pain; Prior surgery; Surgery date: 6+ months; TECHNIQUE: Imaging protocol: XR of the abdomen. Views: Frontal supine view of the abdomen. 1 View. COMPARISON: No relevant prior studies available. FINDINGS: Gastrointestinal tract: No dilated bowel loops identified to suggest obstruction. Bones/joints: Mild degenerative changes of the lumbar spine. 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 There is associated femoral head flattening bilaterally, consistent with osteonecrosis (more pronounced on the left). XR/XR KUB portable [id number] IMPRESSION: 1. No dilated bowel loops identified to suggest obstruction.
[2020-07-05] MEDS: nitroglycerin 1 gm/inch oint Pkt 1 INCH TOPICAL (23:21)
[2020-07-05 23:28] LABS: Lactic Sepsis W/Reflex 0.8 mmol/L (0.5-2.2)
[2020-07-06] VITALS (53 sets, daily range): BP systolic 142–209; BP diastolic 56–142; PULSE 75–114; RESP 15–32; TEMP 36.7; O2SAT 83–100
[2020-07-06] MEDS: nitroglycerin 1 gm/inch oint Pkt 1 INCH TOPICAL ×4 (03:39→20:42)
[2020-07-06 07:09] LABS: Glucose Point of Care 89 mg/dL (70-110)
--- NOTE | 2020-07-06 10:09 | CTR_ITS ---
PROCEDURE INFORMATION: Exam: CT Head Without Contrast Exam date and time: 07/06/2020 11:12 AM Age: 69 years old Clinical indication: Altered mental status/memory loss; Additional info: AMS TECHNIQUE: Imaging protocol: Computed tomography of the head without contrast. Radiation optimization: All CT scans at this facility use at least one of these dose optimization techniques: automated exposure control; mA and/or kV adjustment per patient size (includes targeted exams where dose is matched to clinical indication); or iterative reconstruction. COMPARISON: CT head wo con* [id number] 06/25/2020 10:46 AM RADIATION DOSE METRICS: Total DLP (mGy-cm): 841.12 FINDINGS: Brain: Extensive hypodensity is seen in the periventricular cerebral white matter. This change is nonspecific but is most likely secondary to chronic ischemia within microvascular distributions. Yoon white matter distinction is maintained throughout the brain. No radiographic evidence of intracranial hemorrhage. No radiographic evidence of acute intracranial pathology. Cerebral ventricles: Ventricles are enlarged on the basis of mild diffuse cerebral volume loss. Bones/joints: Unremarkable. No acute fracture. Paranasal sinuses: Small amount of fluid left maxillary sinus Mastoid air cells: Visualized mastoid air cells are well aerated. Soft tissues: Unremarkable. Other findings: No other intra or extra-axial masses, lesions or collections. CT/CT head wo con* [id number] IMPRESSION: No radiographic evidence of acute intracranial pathology. Extensive small vessel ischemic changes within the white matter. Findings appear stable from the previous CT. Consider MRI if indicated clinically. Radiation Dose CTDIVOL = (mGy): DLP = 841.12 (mGy-cm)
[2020-07-06] MEDS: cloNIDine 0.1 mg Tablet PO (10:12)
--- NOTE | 2020-07-06 10:35 | PC.SOCIAL ---
IM follow up has been communicated to granddaughter no questions voiced. Plan to dc Wednesday.
--- NOTE | 2020-07-06 10:39 | PM.PN ---
Subjective Subjective: Interval history: Remains poorly interactive, refusing most of her medications, did manage to take some of her pills today. Received intravenous Lasix yesterday with robust diuresis. Breathing comfortably, still has edema in her arms and legs. Blood pressure remains elevated. Medications: Reviewed: Yes Medication Review Details: Current Medications Albuterol/Ipratropium (Ipratropium-Albuterol 3 Ml Neb) 3 ml INHALATION Q6H PRN PRN Reason: SHORTNESS OF BREATH Last Admin: 06/20/20 02:01 Dose: 3 ml Documented by: Aspirin (Aspirin 81 Mg Ec Tablet) 81 mg PO DAILY [facility] Last Admin: 06/19/20 09:04 Dose: 81 mg Documented by: Atorvastatin Calcium (Atorvastatin 40 Mg Tablet) 20 mg PO BEDTIME [facility] Last Admin: 06/19/20 21:04 Dose: 20 mg Documented by: Clopidogrel Bisulfate (Clopidogrel 75 Mg Tablet) 75 mg PO DAILY [facility] Last Admin: 06/19/20 09:04 Dose: 75 mg Documented by: Dextrose (Dextrose 50% Syringe 50 Ml) 25 ml IVP ONCE PRN; Protocol PRN Reason: hypoglycemia protocol Dextrose (Dextrose 50% Syringe 50 Ml) 50 ml IVP PRN PRN; Protocol PRN Reason: hypoglycemia protocol Famotidine (Famotidine 20 Mg/2 Ml Inj) 40 mg IVP Q12H [facility] Last Admin: 06/19/20 23:48 Dose: 40 mg Documented by: Glucagon (Glucagon 1 Mg/Ml Inj 1 Ml) 1 mg IM ONCE PRN; Protocol PRN Reason: Adult Acute Hypoglycemia Prot. Dopamine HCl/Dextrose (Intropin Drip) 400 mg in 250 mls @ 9.525 mls/hr IV CONT [facility]; Protocol Last Titration: 06/20/20 00:12 Dose: 0 mcg/kg/min, 0 mls/hr Documented by: Fentanyl 1,000 mcg/ Sodium (Chloride) 100 mls @ 0 mls/hr IV .Q0M [facility]; Protocol Last Titration: 06/20/20 04:39 Dose: 50 mcg/hr, 5 mls/hr Documented by: Midazolam HCl 100 mg/ Sodium (Chloride) 100 mls @ 0 mls/hr IV .Q0M [facility]; Protocol Last Admin: 06/19/20 03:41 Dose: 1 mg/hr, 1 mls/hr Documented by: Dextrose (D5w) 500 mls @ 100 mls/hr IV ONCE PRN; Protocol PRN Reason: Adult Acute Hypoglycemia Prot Vancomycin HCl 750 mg/ Sodium (Chloride) 250 mls @ 250 mls/hr IV Q48H [facility]; Protocol Last Infusion: 06/19/20 14:32 Dose: Infused Documented by: Imipenem/Cilastatin Sodium 250 (mg/ Sodium Chloride) 100 mls @ 200 mls/hr IV Q12H [facility]; Protocol Last Infusion: 06/20/20 00:40 Dose: Infused Documented by: Insulin Human Regular 250 unit (/ Sodium Chloride) 252.5 mls @ 0 mls/hr IV .Q0M [facility]; Protocol Last Titration: 06/20/20 05:11 Dose: 5 unit/hr, 5.1 mls/hr Documented by: Vasopressin 100 unit/ Sodium (Chloride) 100 mls @ 0 mls/hr IV .Q0M [facility]; Protocol Last Admin: 06/19/20 14:53 Dose: 0.04 unit/min, 2.4 mls/hr Documented by: Norepinephrine Bitartrate 8 mg (/ Dextrose) 508 mls @ 0 mls/hr IV .Q0M [facility]; Protocol Last Admin: 06/20/20 04:39 Dose: 12 mcg/min, 45.7 mls/hr Documented by: Albumin Human (Albumin) 12.5 gm in 50 mls @ 60 mls/hr IV PRN PRN PRN Reason: Hypotension and/or symptomatic Insulin Aspart (Insulin Aspart 100 Unit/1 Ml) 0 unit SUBCUT WM&BEDTIME [facility]; Protocol Last Admin: 06/19/20 21:05 Dose: Not Given Documented by: Lanolin (Lanolin Oint 7 Gm) 1 applic TOPICAL PRN PRN PRN Reason: DRYNESS Last Admin: 06/20/20 03:07 Dose: 1 applic Documented by: Senna/Docusate Sodium (Sennosides-Docusate Tablet) 1 tab PO DAILY [facility] Last Admin: 06/19/20 09:04 Dose: 1 tab Documented by: Vitals/I&O/Wt Last Vital Signs Temp 98.0 F 07/06/20 04:00 Pulse 84 07/06/20 10:07 Resp 15 07/06/20 10:07 BP 180/84 07/06/20 10:12 Pulse Ox 100 07/06/20 10:07 07/05/20 07/06/20 07/06/20 22:59 06:59 14:59 Intake Total 0 / 0 Output Total 620 / 1160 1600 / 2760 900 / 900 Balance -620 / -1160 -1600 / -2760 -900 / -900 Weight last 48 hrs Weight 53.161 kg Weight 56.79 kg Physical Exam Narrative: EXAM NARRATIVE: Constitutional: Awake, comfortable HEENT: Wet mucosa, no jvp, non icteric Lungs: Bilaterally diminished and poor effort in all lung zones CVS: S1 S2, no murmurs Abdo: Soft, BS ok Ext 4: Global anasarca, peripheral perfusion with no cyanosis Neurological: Grossly non-focal Data : 07/05/20 04:37 07/05/20 04:37 A&P Additional A&P Information 1. ERUM No new labs, booked for the am She is now recovering from renal failure, with minor fluctuation in serum creatinine between 1.5 and 1.8mg/dL. She does have global edema but she is breathing comfortably. Close monitoring Avoid usual nephrotoxic agents Strict ins and outs. 2. Hypertension. - will need to be encouraged to take oral meds; if she continues to refuse will give iv 3. Sepsis status post Covid pneumonitis She has now completed therapy for this and is making a recovery. Remains on Primaxin 4. Chemistry am labs Kiran Stephens MD Nephrology [phone] Patient seen and examined via telemedicine, with the assistance of the bedside RN > 25 min spent in evaluation and mgmt of patient Attestations Medical Necessity Statement*: eval for renal failure Procedures Arterial Line Size (Gauge): 18 Coding Level of Care Code Acute Django Developer for Chg Fwstefano
[2020-07-06 10:58] LABS: Glucose Point of Care 86 mg/dL (70-110)
[2020-07-06] MEDS: famotidine 20 mg/2 mL INJ 40 MG IVP ×2 (12:43→20:44)
[2020-07-06] MEDS: metoprolol tartrate 1 mg/1 mL SDV 5 mL 2.5 MG IV (12:44)
--- NOTE | 2020-07-06 14:05 | PC.OT ---
OT tx attempted at this time. Pt wakes to therapists voice but she does not keep her eyes open for long. She is resistant and states whoa,whoa whoa when therapist pulls down blankets and attempts to place warm washcloth in her hand to wash face/hands. Pt does not respond to therapists questions when asked if she would like a drink or if she was in pain. Pt left in care of 1:1 sitter. OT to be attempted again tomorrow.
--- NOTE | 2020-07-06 14:44 | PM.PN ---
Subjective Subjective: Interval history: No acute events overnight. Patient continues to remain nonverbal. Has minimal oral intake. She is following simple commands unable to answer her name but on asking about diet and medication she keeps saying no. Blood pressure continues to remain high. Vitals/I&O/Wt Last Vital Signs Temp 98.0 F 07/06/20 04:00 Pulse 87 07/06/20 12:00 Resp 17 07/06/20 12:00 BP 175/76 07/06/20 12:00 Pulse Ox 83 L 07/06/20 12:00 07/05/20 07/06/20 07/06/20 22:59 06:59 14:59 Intake Total 0 / 0 Output Total 620 / 1160 1600 / 2760 900 / 900 Balance -620 / -1160 -1600 / -2760 -900 / -900 Weight last 48 hrs Weight 53.161 kg Weight 56.79 kg Physical Exam Narrative: EXAM NARRATIVE: General: No acute distress, AO x2, slow to respond, frail, appears severely ill, ecchymosis present all over the anterior chest field, left IJ central line present. HEENT: PERRLA, pupils bilaterally equal and reactive Chest: Occasional crackles of the lung springer, normal vesicular breath sounds, occasional coarse crackles present over the lung springer, pleural rub present CVS: S1-S2 regular, no murmurs, no tachycardia, no gallops, no rubs Abdomen: Soft, nontender, no organomegaly, bowel sounds present Neuro: No focal deficits, no facial deformity, AO x3, power 3/5 in all limbs Extremities: Pulses bilaterally present, 1+ pedal edema present Data : 07/07/20 03:07 07/07/20 03:07 Micro: Microbiology 07/01/20 12:00 Blood Culture - Final Blood NO GROWTH AFTER 5 DAYS A&P Assessment and plan (1) Acute hypoactive delirium due to multiple etiologies: Status: Acute (2) Altered mental status: Status: Acute (3) Acute respiratory failure with hypoxia: Status: Acute (4) Hypertensive urgency: Status: Acute (5) Septic shock: Status: Acute (6) Metabolic acidosis: Status: Acute (7) Acute kidney injury superimposed on chronic kidney disease: Status: Acute (8) Hyperkalemia: Status: Acute (9) New onset of congestive heart failure: Status: Acute (10) COVID-19: Status: Acute Additional A&P Information Altered mental status: Patient having decreased mentation and decreased oral intake for last 36 hours. Patient refusing oral medications. No more sedatives. Last Ativan 0.5 given on July 04 at 10:30 PM. This could be multifactorial. Could be related to the Ativan given on though unlikely that patient will still have the effect more than 24 hours post the dose. Patient has not had any fever or seizure-like activities. Can be 2/2 PRESS syndrome given fluctuating BP during hospitalisation and elevated BP for last 72 hrs. Will rule out etiologies by checking CBC, CMP, ammonia levels, TSH, vitamin B12, folate, ABG, CT head. We will also consult psychiatry for possible catatonia because of prolonged traumatic hospitalization. If all the blood work and CT head within normal limits and patient does not improve in next 24 hours we will consult neurology and get MRI brain. Acute Hypoxic respiratory failure 2/2 COVID-19 pneumonia, PTX, superimposed bacterial infection: Resolved. Currently saturating well on room air. We will continue to monitor. DuoNebs every 6 hours as needed. Patient has been on antibiotics for multiple days. Antibiotics stopped 48 hours ago. We will continue to monitor for worsening leukocytosis or fevers. History of tension pneumothorax during this hospitalization for which patient had chest tube and was removed around 7 days ago. Patient continues to have serosanguineous discharge from chest tube insertion site. We will consult surgery for possible suture. Till then continue to dress with OptiForm. Hypertension: Blood pressure extremely elevated. Patient is on multiple antihypertensives including high-dose hydralazine 100 every 8, clonidine 0.1 twice daily, amlodipine 10 mg. For now stop amlodipine start patient on home dose of nifedipine, continue hydralazine. Make clonidine 0.1 patch every 72 hours. We will consult with nephrology. Hydralazine 10 mg IV every 4 hours as needed for diastolic blood pressure more than 100 mmHg. Acute kidney injury:Most likely secondary to ATN from severe disease. Patient had required dialysis earlier in the admission not anymore. Creatinine has remained stable between 1.4-1.8 with BUN improving. Diabetes Mellitus with hyperglycemia mild DKA on arrival: Now resolved. Continue insulin SQ - Goal Blood sugar 140-180 - Repeat labs in am Acute anemia - Multi-factorial - Acute blood loss from CT in setting of renal disease - Hb 8.3 - > 6.8 - . 7.3 - s/p 2 units PRBC transfusion on 06/23 as well as 1 U PRBC on 06/29 - Monitor H/H - Continue to hold anticoagulation/Antiplatelets Coronary artery disease s/p CABG PVD s/p b/l femoral bypass: We will restart aspirin for now. Hold off on Plavix for now. Continue home dose of statin. Echocardiogram shows preserved ejection fraction. Monitor on telemetry. Hx of Breast cancer - S/P chemo > 2 year prior - No new recommendation GI ppx - Pepcid 20 mg IV daily DVT ppx - SCDs only due to anemia Condition: Fair Code status- D.N.R/DNI Discharge planning: Patient has been accepted at [facility]. Patient will be accepted on Wednesday. We will plan to discharge as per the evaluation and work-up of altered mental status. Patient's family members including Ms. Stout and her has been updated regarding worsening of her mental status over the last 36 hours. All the questions were answered. Patient's family got a little agitated regarding why the patient got Ativan 0.5 on 14th evening and they believe that patient's mental status changes most likely because of that medication. I explained to them in detail that now it has been more than 36 hours post the dose of Ativan and that medication is most likely out of her system and the chances of her mental status changes because of that medication are very low. Also discussed not follow-up on her blood work and CT head concerning for changes in mental status have come back normal. We also discussed that for now we are not going to give her any other antianxiety medications. Attestations Medical Necessity Statement*: Patient requires further hospitalization for management of altered mental status, resolving acute hypoxic respiratory failure due to COVID-19 pneumonia, severe generalized deconditioning because of prolonged hospitalization by safe discharge planning is sought. Time Spent in Patient Care: Greater than 35 minutes (>than 50% of time spent in counselling and/or direct pt care on unit). Procedures Arterial Line Size (Gauge): 18 Coding Level of Care Code Acute Cloth Designer for [facility] Fwd Diagnoses Acute hypoactive delirium due to multiple etiologies F05 Altered mental status R41.82 Acute respiratory failure with hypoxia J96.01 Hypertensive urgency I16.0 Septic shock A41.9; R65.21 Metabolic acidosis E87.2 Acute kidney injury superimposed on chronic kidney disease N17.9; N18.9 Hyperkalemia E87.5 New onset of congestive heart failure I50.9 COVID-19 U07.1
[2020-07-06 15:34] LABS: Free T4 Free Thyroxine 1.98 ng/dL (0.82-1.77); T3 Free 2.4 PG/ML (2.0-4.4); Thyroid Stimulating Hormone 1.33 uIU/mL (0.27-4.20)
[2020-07-06 15:40] LABS: Folate Level 8.2 ng/mL (4.8-37.3)
[2020-07-06 16:07] LABS: Vitamin B12 541 pg/mL (232-1245)
[2020-07-06 16:08] LABS: Glucose Point of Care 80 mg/dL (70-110)
--- NOTE | 2020-07-06 17:02 | PM.PSYCN ---
Providers/Reason for Consult Consulting Physican/Specialty*: Reg Turpin DO Reason for Consult*: Patient is not eating or participating in care Attending Physician: Niko Love MD Psych Consult HPI History of Present Illness Thomas Rain is a 69 year old female transferred from outside facility with acute respiratory failure with hypoxia requiring intubation secondary to COVID pneumonia as well as acute on chronic kidney failure. Psychiatry consulted secondary to concerns for depression as evident by refusing to participate in care, not eating. Patient is unable to participate in interview, able to grunt her first name after significant effort, unable to answer any questions, lying in bed, staring past interviewer and unable to follow commands other than stating her name. Unable to identify from chart review any past psychiatric history although reportedly had had some depressive symptoms although do not see any mention on H&P at time of admission of any psychiatric history or any psychiatric home medications. Review of Systems General: Reports: ROS unobtainable due to medical condition Meds Current Medications: Current Medications Generic Name Dose Route Start Last Admin Trade Name Juanita PRN Reason Stop Dose Admin Acetaminophen 650 mg 07/01/20 02:02 07/01/20 02:32 Acetaminophen 32 5 Mg Tablet PO 650 mg Q6H PRN Administration MILD PAIN Albuterol/Ipratrop ium 3 ml 06/19/20 03:38 06/26/20 08:10 Ipratropium-Albu terol 3 Ml Neb INHALATION 3 ml Q6H PRN Administration SHORTNESS OF WENDY TH Aspirin 81 mg 06/19/20 09:00 07/06/20 10:33 Aspirin 81 Mg Ec Tablet PO Not Given DAILY IGOR Atorvastatin Calci um 20 mg 06/19/20 21:00 07/05/20 21:17 Atorvastatin 40 Mg Tablet PO 20 mg BEDTIME IGOR Administration Clonidine HCl 0.1 mg 07/04/20 10:20 07/06/20 10:12 Clonidine 0.1 Mg Tablet PO 0.1 mg TID PRN Administration SBP more than 170 mmhg Clonidine HCl 1 patch 07/04/20 23:00 07/05/20 00:04 Clonidine 0.2 Mg /24 Hr Patch TRANSDERMA 1 patch Q7D IGOR Administration Clopidogrel Bisulf ate 75 mg 06/19/20 09:00 06/19/20 09:04 Clopidogrel 75 M g Tablet PO 75 mg DAILY IGOR Administration Duloxetine HCl 30 mg 07/05/20 19:30 07/06/20 10:34 Duloxetine 30 Mg Capsule PO Not Given DAILY [facility] Famotidine 40 mg 06/19/20 23:15 07/06/20 12:43 Famotidine 20 Mg /2 Ml Inj IVP 40 mg Q12H IGOR Administration Fluconazole 200 mg 07/04/20 11:00 07/06/20 10:34 Fluconazole 100 Mg Tablet PO 07/10/20 10:59 Not Given DAILY [facility] Hydralazine HCl 100 mg 07/03/20 15:00 07/06/20 16:29 Hydralazine 50 M g Tablet PO Not Given TID [facility] Insulin Aspart 0 unit 06/21/20 06:00 07/06/20 12:26 Insulin Aspart 1 00 Unit/1 Ml SUBCUT Not Given TIDWM [facility] Protocol Lanolin 1 applic 06/20/20 02:20 06/20/20 03:07 Lanolin Oint 7 G m TOPICAL 1 applic PRN PRN Administration DRYNESS Metoprolol Succina te 50 mg 06/30/20 09:00 07/06/20 10:35 Metoprolol Succi anahy Er (24 Hr) 50 Mg Tablet PO Not Given DAILY [facility] Metoprolol Tartrat e 2.5 mg 06/25/20 15:52 07/06/20 12:44 Metoprolol Tartr ate 1 Mg/1 Ml Sdv 5 Ml IV 2.5 mg Q6H PRN Administration Hypertension Nifedipine 90 mg 07/05/20 09:00 07/06/20 10:35 Nifedipine Er (2 4 Hr) 30 Mg Tablet PO Not Given DAILY [facility] Nitroglycerin 1 inch 07/05/20 22:15 07/06/20 10:36 Nitroglycerin 1 Gm/Inch Oint Pkt TOPICAL 1 inch Q6H [facility] Administration Senna/Docusate Sod ium 1 tab 06/19/20 09:00 07/06/20 10:35 Sennosides-Docus ate Tablet PO Not Given DAILY [facility] Spironolactone 25 mg 07/02/20 09:00 07/06/20 10:35 Spironolactone 2 5 Mg Tablet PO Not Given BID [facility] PFSH NPU PFSH: Medical History Breast cancer, left Coronary atherosclerosis GERD (gastroesophageal reflux disease) Hyperlipidemia Hypertensive disorder Myocardial infarction Ovarian cancer Disseminated Surgical History H/O abdominal hysterectomy H/O heart artery stent S/P femoral-femoral bypass surgery Bilateral femoral bypass S/P lumpectomy of breast Family History Other Unknown family medical history Social History Smoking and tobacco status: former smoker Alcohol intake: never Substance/Drug Use: never Household members: family Housing: House Other Psychiatric History: Other Psychiatric History: Unable to obtain at this time, did not see any mention of psychiatric history and chart review Mental Status Exam MSE Comments: Patient is obtunded, staring straight ahead, does grunt her name after significant effort but otherwise unable to participate in interview. Psychomotor activity is decreased, no agitation Speech per above, just utters her name once otherwise nonverbal Unable to state current mood, constricted affect, not labile Obtunded, unable to assess orientation Unable to assess thought process or content but does not appear to be attending to any internal stimuli Vitals/I&O/Wt Last Vital Signs Temp 98.0 F 07/06/20 04:00 Pulse 106 H 07/06/20 16:00 Resp 19 H 07/06/20 16:00 BP 191/79 07/06/20 16:00 Pulse Ox 100 07/06/20 16:00 07/06/20 07/06/20 07/06/20 06:59 14:59 22:59 Intake Total 0 / 0 Output Total 1600 / 2760 900 / 900 Balance -1600 / -2760 -900 / -900 Weight last 48 hrs Weight 53.161 kg Weight 56.79 kg Data NPU Micro: Micro: Microbiology 07/01/20 12:00 Blood Culture - Fi nal Blood NO GROWTH AFTER 5 DAYS Microbiology 07/01/20 12:00 Blood Blood Culture - Final NO GROWTH AFTER 5 DAYS A&P Assessment and plan (1) Acute respiratory failure with hypoxia: Status: Acute (2) Acute kidney injury superimposed on chronic kidney disease: Status: Acute (3) New onset of congestive heart failure: Status: Acute Additional A&P Information Patient with multiple acute medical issues with recent acute respiratory failure with hypoxia requiring intubation as well as acute on chronic kidney injury. Psychiatrist consulted for concerns of depression although patient appears to have evolving medical issues that do not appear to be secondary depression. Patient was started on low-dose duloxetine yesterday. RECOMMEND continuation of duloxetine 30 mg daily, given patient's chronic renal failure this dosage would likely provide adequate level for any antidepressant effect Psychiatry will be available for follow-up reassessment although this appears to be secondary to evolving medical issue Attestations NPU Medical Necessity Statement*: Patient continues to have acute medical issues requiring ongoing hospital care Coding Level of Care Code Acute Consultative Sales Associate for [facility] Diagnoses Acute respiratory failure with hypoxia J96.01 Acute kidney injury superimposed on chronic kidney disease N17.9; N18.9 New onset of congestive heart failure I50.9
[2020-07-06] MEDS: dextrose 5%-sod chloride 0.9% 1,000 ML 30 ML IV (18:15)
--- NOTE | 2020-07-06 19:08 | PC.NURSE ---
Patient has been offered several types of clear liquids and also pudding and applesauce by nurse and nurse aide. Patient turns her face away and says no . Attempted to give first dose po clonidine crushed and mised in 2 mls water this morning and was able to get half in the patient's mouth using a a 3ml syringe. Patient spit out the rest.. Physician is aware that patient is refusing liquids andfood and meds. This afternoon OT attempted to help patient wash face, hands and attempted oral care. OT reports little success in engaging patient and states they will try again tomorrow.
[2020-07-06 20:11] LABS: Ammonia 23 umol/L (11-51)
[2020-07-06 20:16] LABS: Glucose Point of Care 91 mg/dL (70-110)
[2020-07-06] MEDS: hyDRALAzine 20 mg/mL INJ 1 mL 10 MG IVP (20:44)
[2020-07-07] VITALS (43 sets, daily range): BP systolic 138–194; BP diastolic 53–97; PULSE 77–126; RESP 14–25; TEMP 36.4–37.3; O2SAT 93–100
[2020-07-07] MEDS: nitroglycerin 1 gm/inch oint Pkt 1 INCH TOPICAL (03:47)
[2020-07-07 04:46] LABS: Basophils % 0.1 %; Eosinophils # 0.2 10^3/uL (0.0-0.8); Eosinophils % 1.6 %; Hematocrit 25.2 % (37.0-47.0); Hemoglobin 8.2 g/dL (11.5-15.3); Lymphocytes # 0.6 10^3/uL (0.8-4.8); Lymphocytes % 4.7 %; Mean Corpuscular HGB Conc 32.5 g/dL (30.0-36.0); Mean Corpuscular Hemoglobin 29.4 pg (28.0-34.0); Mean Corpuscular Volume 90.3 fL (81-99); Mean Platelet Volume 11.4 fL (7.4-10.4); Monocytes # 0.5 10^3/uL (0.2-0.9); Neutrophils % 88.9 %; Nucleated Red Blood Cells % 0 %; Platelet Count 129 10^3/cmm (130-400); Red Blood Count 2.79 10^6/uL (4.1-5.3); Red Cell Distribution Width 15.1 % (12.1-15.1); White Blood Count 11.6 10^3/uL (4.0-10.0)
[2020-07-07 05:10] LABS: Alanine Aminotransferase 12 U/L (0-33); Albumin Level 2.2 g/dL (3.5-5.2); Alkaline Phosphatase 113 IU/L (35-105); Anion Gap 14.5 (5-19); Aspartate Amino Transferase 18 U/L (0-32); Blood Urea Nitrogen 29 mg/dL (8-23); Calcium 7.9 mg/dL (8.5-10.5); Carbon Dioxide 24 mmol/L (22-29); Chloride 106 mmol/L (98-107); Globulin 2.5 g/dL (1.3-4.6); Glomerular Filtration Rate 29.9 mL/min (90-130); Glucose 117 mg/dL (65-115); Osmolality Calculated 299 mOsm/kg (285-295); Potassium 3.5 mmol/L (3.5-5.1); Sodium 141 mmol/L (136-145); Total Bilirubin 1.2 mg/dL (0.15-1.2); Total Protein 4.7 g/dL (6.6-8.7)
[2020-07-07 07:33] LABS: Glucose Point of Care 136 mg/dL (70-110)
[2020-07-07] MEDS: hyDRALAzine 20 mg/mL INJ 1 mL 10 MG IVP (09:17)
--- NOTE | 2020-07-07 10:01 | MRR_ITS ---
PROCEDURE INFORMATION: Exam: MR Head Without Contrast Exam date and time: 07/07/2020 11:47 AM Age: 69 years old Clinical indication: Altered mental status/memory loss; Additional info: Possible press syndrome TECHNIQUE: Imaging protocol: MR of the head without contrast. COMPARISON: CT head wo con* [id number] 07/06/2020 11:22 AM FINDINGS: Brain: No bleed, mass, or shift of structures. Basilar cisterns are normal. No diffusion restricted segments. Pre-pontine region, suprasellar region, and cerebellar angles are normal. No acute intracranial process. Brain is atrophic. Extensive altered/abnormal areas of signal intensity within the periventricular white matter likely the radiographic manifestation of small vessel ischemic disease. Cerebral ventricles: Normal. No ventriculomegaly. Sella: Sella normal. Bones/joints: Clivus normal. Calvarium is normal marrow signal. Paranasal sinuses: mucosal thickening within the right and left maxillary sinuses. Opacification/mucosal thickening in the sphenoid sinus. Mastoid air cells: Opacification of a few mastoid air cells Orbital cavity: Unremarkable. Soft tissues: Soft tissues are unremarkable Other findings: Diploe is normal. Tectum normal. MR/MR head wo con* [id number] IMPRESSION: 1. No acute intracranial process. 2. Brain is atrophic. 3. Extensive altered/abnormal areas of signal intensity within the periventricular white matter likely the radiographic manifestation of small vessel ischemic disease.
--- NOTE | 2020-07-07 10:03 | P.PN_ITS ---
Subjective Subjective: Interval history: Documents overnight. Today morning on examination patient lying comfortably in bed in left lateral position. She opens up her eyes on my entering the room and talking to her. She continues to have similar mental status as yesterday. Patient sat up with us at bedside with physical therapist today and got oral care and drank a few sips of juice but ref used to take oral medications. Patient denies to take any oral diet. She is able to tell me who she is but for every other question the answer continues to remain NO. Patient has remained afebrile, saturating 100% on room air with blood pressures above 175 systolics. Vitals/I&O/Wt Last Vital Signs Temp 98.2 F 07/07/20 07:13 Pulse 98 07/07/20 08:59 Resp 16 07/07/20 08:59 BP 170/70 07/07/20 07:13 Pulse Ox 97 07/07/20 08:59 07/06/20 07/07/20 07/07/20 22:59 06:59 14:59 Intake Total 360 / 360 0 / 360 Output Total 300 / 1200 1000 / 2200 Balance 60 / -840 -1000 / -1840 Weight last 48 hrs Weight 50.859 kg Weight 53.161 kg Physical Exam Narrative: EXAM NARRATIVE: General: No acute distress, AO x2, slow to respond, frail, appears severely ill, ecchymosis present all over the anterior chest field, left IJ central line present. HEENT: PERRLA, pupils bilaterally equal and reactive Chest: Occasional crackles of the lung springre, normal vesicular breath sounds, occasional coarse crackles present over the lung springer, pleural rub present CVS: S1-S2 regular, no murmurs, no tachycardia, no gallops, no rubs Abdomen: Soft, nontender, no organomegaly, bowel sounds present Neuro: No focal deficits, no facial deformity, AO x3, power 3/5 in all limbs Extremities: Pulses bilaterally present, 1+ pedal edema present Data : 07/07/20 03:07 07/07/20 03:07 Micro: Microbiology 07/01/20 12:00 Blood Culture - Final Blood NO GROWTH AFTER 5 DAYS A&P Assessment and plan (1) Acute hypoactive delirium due to multiple etiologies: Status: Acute (2) Altered mental status: Status: Acute (3) Acute respiratory failure with hypoxia: Status: Acute (4) Hypertensive urgency: Status: Acute (5) Septic shock: Status: Acute (6) Metabolic acidosis: Status: Acute (7) Acute kidney injury superimposed on chronic kidney disease: Status: Acute (8) Hyperkalemia: Status: Acute (9) New onset of congestive heart failure: Status: Acute (10) COVID-19: Status: Acute Additional A&P Information Altered mental status: Patient having decreased mentation and decreased oral intake for last 36 hours. Patient refusing oral medications. No more sedatives. Last Ativan 0.5 given on July 04 at 10:30 PM. This could be multifactorial. Could be related to the Ativan given on though unlikely that patient will still have the effect more than 24 hours post the dose. Patient has not had any fever or seizure-like activities. High likely that this can be secondary to press syndrome as patient's blood pressure has been fluctuant and elevated over the last 72 hours. Blood work including CBC, CMP, ammonia levels, TSH, vitamin B12, folate, ABG, CT head within normal limits. Will do MRI brain. We will start patient on nicardipine drip for better blood pressure control. We will try to keep blood pressure between systolic 140 to 150 mmHg. Acute Hypoxic respiratory failure 2/2 COVID-19 pneumonia, PTX, superimposed bacterial infection: Resolved. Currently saturating well on room air. We will continue to monitor. DuoNebs every 6 hours as needed. Patient has been on antibiotics for multiple days. Antibiotics stopped 48 hours ago. We will continue to monitor for worsening leukocytosis or fevers. History of tension pneumothorax during this hospitalization for which patient had chest tube and was removed around 7 days ago. Patient continues to have serosanguineous discharge from chest tube insertion site. We will consult surgery for possible suture. Till then continue to dress with OptiForm. Hypertension: Blood pressure extremely elevated. Patient is on multiple antihypertensives including high-dose hydralazine 100 every 8, clonidine 0.1 twice daily, amlodipine 10 mg. Patient has not been able to take any oral medications for last 2 days. Continue with clonidine patch. Start patient on nicardipine drip. Can use hydralazine 10 mg IV every 4 hours as needed for systolic blood pressure more than 150 mmHg. Target blood pressure between 140 to 150/80 to 90 mmHg Acute kidney injury:Most likely secondary to ATN from severe disease. Patient had required dialysis earlier in the admission not anymore. Creatinine has remained stable between 1.4-1.8 with BUN improving. Diabetes Mellitus with hyperglycemia mild DKA on arrival: Now resolved. Continue insulin SQ - Goal Blood sugar 140-180 - Repeat labs in am Acute anemia - Multi-factorial - Acute blood loss from CT in setting of renal disease - Hb 8.3 - > 6.8 - . 7.3 - s/p 2 units PRBC transfusion on 06/23 as well as 1 U PRBC on 06/29 - Monitor H/H - Continue to hold anticoagulation/Antiplatelets Coronary artery disease s/p CABG PVD s/p b/l femoral bypass: We will restart aspirin for now. Hold off on Plavix for now. Continue home dose of statin. Echocardiogram shows preserved ejection fraction. Monitor on telemetry. Hx of Breast cancer - S/P chemo > 2 year prior - No new recommendation GI ppx - Pepcid 20 mg IV daily DVT ppx - SCDs only due to anemia Code status- D.N.R/DNI Discharge planning: Patient has been accepted at [facility]. Patient will be accepted on Wednesday. We will plan to discharge as per the evaluation and work-up of altered mental status. Discussed in detail with both Ms. Casiano and Ms. Stout regarding patient's treatment plan going forward and need of an MRI for a possible press syndrome. All the questions were answered. Patient's family a lot more relaxed today as c ompared to yesterday. Patient remains critically sick. Attestations Medical Necessity Statement*: Requires further hospitalization for management of altered mental status most likely secondary to press syndrome, multiple comorbidities while safe discharge planning is sought. Time Spent in Patient Care: Greater than 35 minutes (>than 50% of time spent in counselling and/or direct pt care on unit) . Procedures Arterial Line Size (Gauge): 18 Coding Level of Care Code Acute Boiler Control Technician for [facility] Diagnoses Acute hypoactive delirium due to multiple etiologies F05 Altered mental status R41.82 Acute respiratory failure with hypoxia J96.01 Hypertensive urgency I16.0 Septic shock A41.9; R65.21 Metabolic acidosis E87.2 Acute kidney injury superimposed on chronic kidney disease N17.9; N18.9 Hyperkalemia E87.5 New onset of congestive heart failure I50.9 COVID-19 U07.1
[2020-07-07 11:03] LABS: Glucose Point of Care 144 mg/dL (70-110)
--- NOTE | 2020-07-07 11:14 | P.PN_ITS ---
Subjective Subjective: Interval history: Remains poorly interactive, refusing most of her medications, did manage to take some of her pills today. Breathing comfortably, still has edema in her arms and legs. Blood pressure remains elevated. Medications: Reviewed: Yes Medication Review Details: Current Medications Albuterol/Ipratropium (Ipratropium-Albuterol 3 Ml Neb) 3 ml INHALATION Q6H PRN PRN Reason: SHORTNESS OF BREATH Last Admin: 06/20/20 02:01 Dose: 3 ml Documented by: Aspirin (Aspirin 81 Mg Ec Tablet) 81 mg PO DAILY IGOR Last Admin: 06/19/20 09:04 Dose: 81 mg Documented by: Atorvastatin Calcium (Atorvastatin 40 Mg Tablet) 20 mg PO BEDTIME IGOR Last Admin: 06/19/20 21:04 Dose: 20 mg Documented by: Clopidogrel Bisulfate (Clopidogrel 75 Mg Tablet) 75 mg PO DAILY IGOR Last Admin: 06/19/20 09:04 Dose: 75 mg Documented by: Dextrose (Dextrose 50% Syringe 50 Ml) 25 ml IVP ONCE PRN; Protocol PRN Reason: hypoglycemia protocol Dextrose (Dextrose 50% Syringe 50 Ml) 50 ml IVP PRN PRN; Protocol PRN Reason: hypoglycemia protocol Famotidine (Famotidine 20 Mg/2 Ml Inj) 40 mg IVP Q12H IGOR Last Admin: 06/19/20 23:48 Dose: 40 mg Documented by: Glucagon (Glucagon 1 Mg/Ml Inj 1 Ml) 1 mg IM ONCE PRN; Protocol PRN Reason: Adult Acute Hypoglycemia Prot. Dopamine HCl/Dextrose (Intropin Drip) 400 mg in 250 mls @ 9.525 mls/hr IV CONT IGOR; Protocol Last Titration: 06/20/20 00:12 Dose: 0 mcg/kg/min, 0 mls/hr Documented by: Fentanyl 1,000 mcg/ Sodium (Chloride) 100 mls @ 0 mls/hr IV .Q0M IGOR; Protocol Last Titration: 06/20/20 04:39 Dose: 50 mcg/hr, 5 mls/hr Documented by: Midazolam HCl 100 mg/ Sodium (Chloride) 100 mls @ 0 mls/hr IV .Q0M IGOR; Pr otocol Last Admin: 06/19/20 03:41 Dose: 1 mg/hr, 1 mls/hr Documented by: Dextrose (D5w) 500 mls @ 100 mls/hr IV ONCE PRN; Protocol PRN Reason: Adult Acute Hypoglycemia Prot Vancomycin HCl 750 mg/ Sodium (Chloride) 250 mls @ 250 mls/hr IV Q48H IGOR; Protocol Last Infusion: 06/19/20 14:32 Dose: Infused Documented by: Imipenem/Cilastatin Sodium 250 (mg/ Sodium Chloride) 100 mls @ 200 mls/hr IV Q12H IGOR; Protocol Last Infusion: 06/20/20 00:40 Dose: Infused Documented by: Insulin Human Regular 250 unit (/ Sodium Chloride) 252.5 mls @ 0 mls/hr IV .Q0M IGOR; Protocol Last Titration: 06/20/20 05:11 Dose: 5 unit/hr, 5.1 mls/hr Documented by: Vasopressin 100 unit/ Sodium (Chloride) 100 mls @ 0 mls/hr IV .Q0M IGOR; Protocol Last Admin: 06/19/20 14:53 Dose: 0.04 unit/min, 2.4 mls/hr Documented by: Norepinephrine Bitartrate 8 mg (/ Dextrose) 508 mls @ 0 mls/hr IV .Q0M IGOR; Pro tocol Last Admin: 06/20/20 04:39 Dose: 12 mcg/min, 45.7 mls/hr Documented by: Albumin Human (Albumin) 12.5 gm in 50 mls @ 60 mls/hr IV PRN PRN PRN Reason: Hypotension and/or symptomatic Insulin Aspart (Insulin Aspart 100 Unit/1 Ml) 0 unit SUBCUT WM&BEDTIME IGOR; Protocol Last Admin: 06/19/20 21:05 Dose: Not Given Documented by: Lanolin (Lanolin Oint 7 Gm) 1 applic TOPICAL PRN PRN PRN Reason: DRYNESS Last Admin: 06/20/20 03:07 Dose: 1 applic Documented by: Senna/Docusate Sodium (Sennosides-Docusate Tablet) 1 tab PO DAILY IGOR Last Admin: 06/19/20 09:04 Dose: 1 tab Documented by: Vitals/I&O/Wt Last Vital Signs Temp 98.2 F 07/07/20 07:13 Pulse 98 07/07/20 08:59 Resp 16 07/07/20 08:59 BP 170/70 07/07/20 07:13 Pulse Ox 97 07/07/20 08:59 07/06/20 07/07/20 07/07/20 22:59 06:59 14:59 Intake Total 360 / 360 0 / 360 Output Total 300 / 1200 1000 / 2200 Balance 60 / -840 -1000 / -1840 Weight last 48 hrs Weight 50.859 kg Weight 53.161 kg Physical Exam Narrative: EXAM NARRATIVE: Constitutional: Awake, comfortable HEENT: Wet mucosa, no jvp, non icteric Lungs: Bilaterally diminished and poor effort in all lung zones CVS: S1 S2, no murmurs Abdo: Soft, BS ok Ext 4: Global anasarca, peripheral perfusion with no cyanosis Neurological: Grossly non-focal Data : 07/07/20 03:07 07/07/20 03:07 Micro: Microbiology 07/01/20 12:00 Blood Culture - Final Blood NO GROWTH AFTER 5 DAYS A&P Additional A&P Information 1. ERUM She is now recovering from renal failure, with minor fluctuation in serum creatinine. She does have global edema but she is breathing comfortably. Defer diuresis given poor oral intake Close monitoring Avoid usual nephrotoxic agents Strict ins and outs. 2. Hypertension. - will need to be encouraged to take oral meds; DC oral and start iv Metoprolol 3. Sepsis status post Covid pneumonitis She has now completed therapy for this and is making a recovery. 4. Chemistry Well balanced 5. Depression and poor interaction. Duloxetine started, for MRI May need palliative care chaz Stephens MD Nephrology [phone] Patient seen and examined via telemedicine, with the assistance of the bedside RN > 25 min spent in evaluation and mgmt of patient Attestations Medical Necessity Statement*: ERUM/HTN mgmt Procedures Arterial Line Size (Gauge): 18 Coding Level of Care Code Acute Utility Bill Collector for Chg Fwstefano
[2020-07-07] MEDS: famotidine 20 mg/2 mL INJ 40 MG IVP (12:30)
[2020-07-07] MEDS: metoprolol tartrate 1 mg/1 mL SDV 5 mL 5 MG IV (12:55)
--- NOTE | 2020-07-07 14:50 | PC.NURSE ---
Verbal order received to start patient on Cardene gtt to maintain BP at a goal of 150 systolic, RBVO. Nurse to continue to monitor.
[2020-07-07] MEDS: nicardipine 20 MG/200 ML PREMIX 50 MG IV ×2 (15:00→22:26)
--- NOTE | 2020-07-07 15:45 | PC.NURSE ---
Dr. Love updated on patient condition. Patient maintaining goal SBP of 150-160s on 3 mg/hr Cardene gtt. Telephone order to titrate gtt to maintain SBP of 140. RBTO. Nurse to continue to monitor.
[2020-07-07 16:50] LABS: Glucose Point of Care 113 mg/dL (70-110)
[2020-07-07] MEDS: dextrose 5%-sod chloride 0.9% 1,000 ML 30 ML IV (17:43)
[2020-07-07] MEDS: nicardipine 20 MG/200 ML PREMIX 75 MG IV (18:22)
--- NOTE | 2020-07-07 20:46 | PC.NURSE ---
Patient's mentation continues to remain where the patient is alert to person only. Pt is adamantly refusing to allow staff to check her blood sugar and she is also refusing to take any of her medications PO. Pt repeatedly tell staff to leave her alone and she just wants to sleep. Spoke with Dr. Simon regarding this patient's refusal to take PO medications and the fact that the patient is febrile. Received verbal order for 650 Tylenol rectal suppository which the patient has refused.
[2020-07-08] VITALS (58 sets, daily range): BP systolic 107–167; BP diastolic 51–89; PULSE 84–117; RESP 14–31; TEMP 36.6–37.3; O2SAT 94–97
[2020-07-08] MEDS: nicardipine 20 MG/200 ML PREMIX 50 MG IV (02:51)
[2020-07-08] MEDS: lanolin oint 7 gm 1 APPLIC TOPICAL (05:49)
[2020-07-08 06:11] LABS: Glucose Point of Care 138 mg/dL (70-110)
[2020-07-08] MEDS: nicardipine 20 MG/200 ML PREMIX 100 MG IV ×4 (06:12→12:42)
[2020-07-08 11:02] LABS: Glucose Point of Care 167 mg/dL (70-110)
--- NOTE | 2020-07-08 12:00 | PC.NURSE ---
Patient assisted into chair by PT. Family mario alberto on [employer]. Patient agreeable to take oral medications. Dr. Esparza notified. Verbal order received to administer all PO morning medications that patient will take, prioritize procardia and hydralazine. Continue to monitor BP. Goal is to keep SBP <160. Titrate Cardene gtt off. If needed administer 5 mg IV metoprolol in 1 hour if SBP>160. RBVO.
[2020-07-08] MEDS: NIFEdipine ER (24 hr) 30 mg Tablet 90 MG PO (12:07)
[2020-07-08] MEDS: duloxetine 30 mg Capsule PO (12:07)
[2020-07-08] MEDS: hyDRALAzine 50 mg Tablet 100 MG PO ×2 (12:08→21:02)
[2020-07-08] MEDS: sennosides-docusate Tablet 1 TAB PO (12:15)
[2020-07-08] MEDS: spironolactone 25 mg Tablet PO ×2 (12:15→17:36)
[2020-07-08] MEDS: fluconazole 100 mg Tablet 200 MG PO (12:15)
[2020-07-08] MEDS: aspirin 81 mg EC Tablet PO (12:15)
[2020-07-08] MEDS: famotidine 20 mg/2 mL INJ 40 MG IVP ×2 (12:35→23:18)
--- NOTE | 2020-07-08 13:11 | PC.NURSE ---
Dr. Esparza updated on patient condition. BP 107/72 HR 97. Cardene gtt at 5 mg/hr. Verbal order to stop gtt at this time. Nurse to continue to monitor.
--- NOTE | 2020-07-08 15:22 | DCPLANNER ---
Called Pt's granddaughter, Argelia with an update on pt. IMM completed with Argelia on 07/08/20 @ [id number].
--- NOTE | 2020-07-08 15:33 | P.PN_ITS ---
Subjective Subjective: Interval history: Thomas is doing very well today with no more complaints, she seems to be a little more lucid, interactive with staff members. Denies any pain or discomfort. Still has some diffuse swelling. She is actually taking her pills now her blood pressure is much better controlled. Eating and drinking most of what is on the tray. Medications: Reviewed: Yes Medication Review Details: Current Medications Albuterol/Ipratropium (Ipratropium-Albuterol 3 Ml Neb) 3 ml INHALATION Q6H PRN PRN Reason: SHORTNESS OF BREATH Last Admin: 06/20/20 02:01 Dose: 3 ml Documented by: Aspirin (Aspirin 81 Mg Ec Tablet) 81 mg PO DAILY IGOR Last Admin: 06/19/20 09:04 Dose: 81 mg Documented by: Atorvastatin Calcium (Atorvastatin 40 Mg Tablet) 20 mg PO BEDTIME IGOR Last Admin: 06/19/20 21:04 Dose: 20 mg Documented by: Clopidogrel Bisulfate (Clopidogrel 75 Mg Tablet) 75 mg PO DAILY IGOR Last Admin: 06/19/20 09:04 Dose: 75 mg Documented by: Dextrose (Dextrose 50% Syringe 50 Ml) 25 ml IVP ONCE PRN; Protocol PRN Reason: hypoglycemia protocol Dextrose (Dextrose 50% Syringe 50 Ml) 50 ml IVP PRN PRN; Protocol PRN Reason: hypoglycemia protocol Famotidine (Famotidine 20 Mg/2 Ml Inj) 40 mg IVP Q12H IGOR Last Admin: 06/19/20 23:48 Dose: 40 mg Documented by: Glucagon (Glucagon 1 Mg/Ml Inj 1 Ml) 1 mg IM ONCE PRN; Protocol PRN Reason: Adult Acute Hypoglycemia Prot. Dopamine HCl/Dextrose (Intropin Drip) 400 mg in 250 mls @ 9.525 mls/hr IV CONT IGOR; Protocol Last Titration: 06/20/20 00:12 Dose: 0 mcg/kg/min, 0 mls/hr Documented by: Fentanyl 1,000 mcg/ Sodium (Chloride) 100 mls @ 0 mls/hr IV .Q0M IGOR; Protocol Last Titration: 06/20/20 04:39 Dose: 50 mcg/hr, 5 mls/hr Documented by: Midazolam HCl 100 mg/ Sodium (Chloride) 100 mls @ 0 mls/hr IV .Q0M IGOR; Protocol Last Admin: 06/19/20 03:41 Dose: 1 mg/hr, 1 mls/hr Documented by: Dextrose (D5w) 500 mls @ 100 mls/hr IV ONCE PRN; Protocol PRN Reason: Adult Acute Hypoglycemia Prot Vancomycin HCl 750 mg/ Sodium (Chloride) 250 mls @ 250 mls/hr IV Q48H IGOR; Protocol Last Infusion: 06/19/20 14:32 Dose: Infused Documented by: Imipenem/Cilastatin Sodium 250 (mg/ Sodium Chloride) 100 mls @ 200 mls/hr IV Q12H IGOR; Protocol Last Infusion: 06/20/20 00:40 Dose: Infused Documented by: Insulin Human Regular 250 unit (/ Sodium Chloride) 252.5 mls @ 0 mls/hr IV .Q0M IGOR; Protocol Last Titration: 06/20/20 05:11 Dose: 5 unit/hr, 5.1 mls/hr Documented by: Vasopressin 100 unit/ Sodium (Chloride) 100 mls @ 0 mls/hr IV .Q0M IGOR; Protocol Last Admin: 06/19/20 14:53 Dose: 0.04 unit/min, 2.4 mls/hr Documented by: Norepinephrine Bitartrate 8 mg (/ Dextrose) 508 mls @ 0 mls/hr IV .Q0M IGOR; Protocol Last Admin: 06/20/20 04:39 Dose: 12 mcg/min, 45.7 mls/hr Documented by: Albumin Human (Albumin) 12.5 gm in 50 mls @ 60 mls/hr IV PRN PRN PRN Reason: Hypotension and/or symptomatic Insulin Aspart (Insulin Aspart 100 Unit/1 Ml) 0 unit SUBCUT WM&BEDTIME PENDING SALE TO [facility]; Protocol Last Admin: 06/19/20 21:05 Dose: Not Given Documented by: Lanolin (Lanolin Oint 7 Gm) 1 applic TOPICAL PRN PRN PRN Reason: DRYNESS Last Admin: 06/20/20 03:07 Dose: 1 applic Documented by: Senna/Docusate Sodium (Sennosides-Docusate Tablet) 1 tab PO DAILY PENDING SALE TO [facility] Last Admin: 06/19/20 09:04 Dose: 1 tab Documented by: Vitals/I&O/Wt Last Vital Signs Temp 98.7 F 07/08/20 12:00 Pulse 97 07/08/20 13:45 Resp 22 H 07/08/20 13:45 BP 123/57 07/08/20 13:45 Pulse Ox 94 07/08/20 12:00 07/08/20 07/08/20 07/08/20 06:59 14:59 22:59 Intake Total 400.000 / 1507.500 762.084 / 762.084 Output Total 0 / 300 Balance 400.000 / 1207.500 762.084 / 762.084 Weight last 48 hrs Weight 50.859 kg Weight 50.859 kg Physical Exam Narrative: EXAM NARRATIVE: Constitutional: Awake, comfortable HEENT: Wet mucosa, no jvp, non icteric Lungs: Bilaterally diminished and poor effort in all lung zones CVS: S1 S2, no murmurs Abdo: Soft, BS ok Ext 4: Global anasarca, peripheral perfusion with no cyanosis Neurological: Grossly non-focal Data : 07/07/20 03:07 07/07/20 03:07 A&P Additional A&P Information 1. ERUM No new labs She is now recovering from renal failure, with minor fluctuation in serum creatinine. She does have global edema but she is breathing comfortably. Defer diuresis given poor oral intake Close monitoring Avoid usual nephrotoxic agents Strict ins and outs. 2. Hypertension. Better control with better oral intake 3. Sepsis status post Covid pneumonitis She has now completed therapy for this and is making a recovery. 4. Chemistry Well balanced 5. Depression and poor interaction. Duloxetine started - likely DC tomorrow if she remains stable Kiran Stephens MD Nephrology [phone] Patient seen and examined via telemedicine, with the assistance of the bedside RN > 25 min spent in evaluation and mgmt of patient Attestations Medical Necessity Statement*: eval for ERUM Procedures Arterial Line Size (Gauge): 18 Coding Level of Care Code Acute Expediter Service Order for Chg Eliot
[2020-07-08 16:48] LABS: Glucose Point of Care 181 mg/dL (70-110)
--- NOTE | 2020-07-08 17:30 | PM.PN ---
Subjective Subjective: Interval history: The patient is doing better today. However she is still on nicardipine drip. Refused her blood pressure medications this morning. No other active complaints. Medications: Reviewed: Yes Medication Review Details: Generic Name Dose Route Start Last Admin Trade Name Freq PRN Reason Stop Dose Admin Acetaminophen 650 mg 07/01/20 02:02 07/01/20 02:32 Acetaminophen 32 5 Mg Tablet PO 650 mg Q6H PRN Administration MILD PAIN Albuterol/Ipratrop ium 3 ml 06/19/20 03:38 06/26/20 08:10 Ipratropium-Albu terol 3 Ml Neb INHALATION 3 ml Q6H PRN Administration SHORTNESS OF WENDY TH Aspirin 81 mg 06/19/20 09:00 07/08/20 12:15 Aspirin 81 Mg Ec Tablet PO 81 mg DAILY IGOR Administration Atorvastatin Calci um 20 mg 06/19/20 21:00 07/07/20 20:35 Atorvastatin 40 Mg Tablet PO Not Given BEDTIME IGOR Clonidine HCl 0.1 mg 07/04/20 10:20 07/06/20 10:12 Clonidine 0.1 Mg Tablet PO 0.1 mg TID PRN Administration SBP more than 170 mmhg Clonidine HCl 1 patch 07/04/20 23:00 07/05/20 00:04 Clonidine 0.2 Mg /24 Hr Patch TRANSDERMA 1 patch Q7D IGOR Administration Clopidogrel Bisulf ate 75 mg 06/19/20 09:00 06/19/20 09:04 Clopidogrel 75 M g Tablet PO 75 mg DAILY IGOR Administration Duloxetine HCl 30 mg 07/05/20 19:30 07/08/20 12:07 Duloxetine 30 Mg Capsule PO 30 mg DAILY IGOR Administration Famotidine 40 mg 06/19/20 23:15 07/08/20 12:35 Famotidine 20 Mg /2 Ml Inj IVP 40 mg Q12H IGOR Administration Fluconazole 200 mg 07/04/20 11:00 07/08/20 12:15 Fluconazole 100 Mg Tablet PO 07/10/20 10:59 200 mg DAILY IGOR Administration Hydralazine HCl 100 mg 07/03/20 15:00 07/08/20 15:15 Hydralazine 50 M g Tablet PO Not Given TID IGOR Hydralazine HCl 10 mg 07/06/20 18:11 07/07/20 09:17 Hydralazine 20 M g/Ml Inj 1 Ml IVP 10 mg Q4H PRN Administration SBP more than 150 mmhg Dextrose/Sodium Ch loride 1,000 mls @ 30 ml s/hr 07/06/20 18:15 07/07/20 17:43 Dextrose 5%-Sod Chloride 0.9% IV 30 mls/hr .Q24H IGOR Administration Nicardipine/Sodium Chloride 20 mg in 200 mls @ 0 mls/hr 07/07/20 15:00 07/08/20 13:11 Cardene IV 0 mg/hr .Q0M IGOR 0 mls/hr Titration Protocol Per Protocol Insulin Aspart 0 unit 06/21/20 06:00 07/08/20 12:34 Insulin Aspart 1 00 Unit/1 Ml SUBCUT 4 unit TIDWM IGOR Administration Protocol Lanolin 1 applic 06/20/20 02:20 07/08/20 05:49 Lanolin Oint 7 G m TOPICAL 1 applic PRN PRN Administration DRYNESS Metoprolol Tartrat e 2.5 mg 06/25/20 15:52 07/06/20 12:44 Metoprolol Tartr ate 1 Mg/1 Ml Sdv 5 Ml IV 2.5 mg Q6H PRN Administration Hypertension Metoprolol Tartrat e 5 mg 07/07/20 11:13 07/07/20 12:55 Metoprolol Tartr ate 1 Mg/1 Ml Sdv 5 Ml IV 5 mg Q4H PRN Administration HOLD FOR BP <110/ 70 Nifedipine 90 mg 07/05/20 09:00 07/08/20 12:07 Nifedipine Er (2 4 Hr) 30 Mg Tablet PO 90 mg DAILY IGOR Administration Senna/Docusate Sod ium 1 tab 06/19/20 09:00 07/08/20 12:15 Sennosides-Docus ate Tablet PO 1 tab DAILY IGOR Administration Spironolactone 25 mg 07/02/20 09:00 07/08/20 12:15 Spironolactone 2 5 Mg Tablet PO 25 mg BID IGOR Administration Vitals/I&O/Wt Last Vital Signs Temp 98.8 F 07/08/20 16:00 Pulse 94 07/08/20 16:30 Resp 28 H 07/08/20 16:30 BP 134/59 07/08/20 16:30 Pulse Ox 97 07/08/20 16:00 07/08/20 07/08/20 07/08/20 06:59 14:59 22:59 Intake Total 400.000 / 1507.500 762.084 / 762.084 240 / 1002.084 Output Total 0 / 300 250 / 250 Balance 400.000 / 1207.500 762.084 / 762.084 -10 / 752.084 Weight last 48 hrs Weight 50.859 kg Weight 50.859 kg Physical Exam Narrative: EXAM NARRATIVE: Awake alert. No acute distress. Mood and affect are appropriate. Skin is warm and dry. Moist mucous brains. Eyes Luz Maria, extraocular muscle intact Neck supple. No JVD Lungs clear bilaterally. No respiratory distress Heart S1, S2, regular Abdomen soft, nontender, bowel sounds are present Extremities no no cyanosis or calf tenderness. Normal capillary refill Moves all extremities. Data : 07/07/20 03:07 07/07/20 03:07 A&P Assessment and plan (1) Acute hypoactive delirium due to multiple etiologies: Status: Acute (2) Altered mental status: Status: Acute (3) Acute respiratory failure with hypoxia: Status: Acute (4) Hypertensive urgency: Status: Acute (5) Septic shock: Status: Acute (6) Metabolic acidosis: Status: Acute (7) Acute kidney injury superimposed on chronic kidney disease: Status: Acute (8) Hyperkalemia: Status: Acute (9) New onset of congestive heart failure: Status: Acute (10) COVID-19: Status: Acute Acute Hypoxic respiratory failure - Etiology multi-factorial - COVID-19 pneumonia, PTX, superimposed bacterial - S/P Extubation - Weaned to 2 L of o2 via NC Septic shock due to COVID-19 Pneumonia - Improving - Suspected superimposed Bacterial Pneumonia - Procalcitonin 16.44 -> 15.48 - > 4.04 - Renal dosing of meds - Lactic Acid 1.7 on admit - 06/19 - Sputum culture - Negative - 06/19 - Blood culture x 2 - NGTD - 07/01: Blood Culture Negative - 06/19 - Urine culture - negative - 07/01: Urine analysis : Yeast - 07/01: Urine culture Yeast ( Likely contaminant ) - Repeat Urine culture ordered on 07/01 - Follow C.T Chest without Contrast.( 07/02 ) - Vancomycin discotinued on 07/03 - Primixin 250 mg IV q12 hr Discontinued on ( 07/03 ) - Caspofungin started on 07/01 stopped on 07/03 - Will switch her to I.V Fluconazole for 5 days can be switched to PO on DC -Dexamethasone stopped on 06/30 -Source unknown -Afebrile Left sided tension pneumothorax with development of SQ emphysema :Resolved - Noted on admission - Left -sided chest tube was placed - 06/21 - Helmich valve placed - Removed on 06/22 - C.T Chest without Contrast : ( 07/02 ) There is a trace of air seen in the anteromedial left pleural space, series 2, image [id number]. This is consistent with minimal residual of previously noted left pneumothorax, seen on 06/21/2020. Mild nonspecific ground-glass infiltrates throughout both lungs. These infiltrates have improved/decreased when compared to 06/21/2020. Small bilateral pleural effusions. Minimal residual left anterior chest wall emphysema noted, related to previous chest tube. Acute kidney injury / ATN on CKD stage 3 on HD - Creatinine baseline 1.4- > Cr. 4.1 - > 3.1 - Nephrology consulted - Femoral HD catheter removed - Right IJ HD cath :Removed - HD on 06/21/19 - per nephrology:No Need for H.D now Diabetes Mellitus with hyperglycemia mild DKA on arrival - AG metabolic acidosis - Multi-factorial component of acidosis - continue insulin SQ - Goal Blood sugar 140-180 - Repeat labs in am Acute anemia - Multi-factorial - Acute blood loss from CT in setting of renal disease - Hb 8.3 - > 6.8 - . 7.3 - s/p 2 units PRBC transfusion on 06/23 as well as 1 U PRBC on 06/29 - Monitor H/H - Continue to hold anticoagulation/Antiplatelets Bradycardia -Sinus bradycardia -Currently asymptomatic -Monitor On Tele -TSH: 0.22 -Monitor electrolytes (K>4 , Mg>2 ) -Hypertensive urgency (Resolved ) Nicardipine drip stopped on 06/30 Amlodipine 10 mg po daily Hydralazine 100 mg po q8 h daily Clonidine 0.1 mg q12 h daily Spironlactone 25 mg po BID Coronary artery disease s/p CABG / PVD s/p b/l femoral bypass / Hypertension - Holding aspirin 81 mg PO daily and Plavix 75 mg PO daily - Will resume once hemoglobin stabilizes and no further invasive procedures - ECHO - pEF - Continue Lipitor 20 mg PO daily - Monitor on tele Hx of Breast cancer - S/P chemo > 2 year prior - No new recommendation FEN - Tube feeding - Dietary consulted - Pulmcal 1.2 at 20ml/hr - Will increase to goal based on residuals and recs GI ppx - Pepcid 20 mg IV daily DVT ppx - SCDs only due to anemia Procedures lines: Right radial artery Left central line Santoyo catheter will be placed Left chest tube Condition: Fair Code status- D.N.R Disposition :Home , Anticipated Dc in 2 days . Additional A&P Information Altered mental status: Patient having decreased mentation and decreased oral intake for last 36 hours. Patient refusing oral medications. No more sedatives. Last Ativan 0.5 given on July 04 at 10:30 PM. This could be multifactorial. Could be related to the Ativan given on though unlikely that patient will still have the effect more than 24 hours post the dose. Patient has not had any fever or seizure-like activities. High likely that this can be secondary to press syndrome as patient's blood pressure has been fluctuant and elevated over the last 72 hours. Blood work including CBC, CMP, ammonia levels, TSH, vitamin B12, folate, ABG, CT head within normal limits. Will do MRI brain. We will start patient on nicardipine drip for better blood pressure control. We will try to keep blood pressure between systolic 140 to 150 mmHg. Acute Hypoxic respiratory failure 2/2 COVID-19 pneumonia, PTX, superimposed bacterial infection: Resolved. Currently saturating well on room air. We will continue to monitor. DuoNebs every 6 hours as needed. Patient has been on antibiotics for multiple days. Antibiotics stopped 48 hours ago. We will continue to monitor for worsening leukocytosis or fevers. History of tension pneumothorax during this hospitalization for which patient had chest tube and was removed around 7 days ago. Patient continues to have serosanguineous discharge from chest tube insertion site. We will consult surgery for possible suture. Till then continue to dress with OptiForm. Hypertension: Blood pressure extremely elevated. Patient is on multiple antihypertensives including high-dose hydralazine 100 every 8, clonidine 0.1 twice daily, amlodipine 10 mg. Patient has not been able to take any oral medications for last 2 days. Continue with clonidine patch. Start patient on nicardipine drip. Can use hydralazine 10 mg IV every 4 hours as needed for systolic blood pressure more than 150 mmHg. Target blood pressure between 140 to 150/80 to 90 mmHg Acute kidney injury:Most likely secondary to ATN from severe disease. Patient had required dialysis earlier in the admission not anymore. Creatinine has remained stable between 1.4-1.8 with BUN improving. Diabetes Mellitus with hyperglycemia mild DKA on arrival: Now resolved. Continue insulin SQ - Goal Blood sugar 140-180 - Repeat labs in am Acute anemia - Multi-factorial - Acute blood loss from CT in setting of renal disease - Hb 8.3 - > 6.8 - . 7.3 - s/p 2 units PRBC transfusion on 06/23 as well as 1 U PRBC on 06/29 - Monitor H/H - Continue to hold anticoagulation/Antiplatelets Coronary artery disease s/p CABG PVD s/p b/l femoral bypass: We will restart aspirin for now. Hold off on Plavix for now. Continue home dose of statin. Echocardiogram shows preserved ejection fraction. Monitor on telemetry. Hx of Breast cancer - S/P chemo > 2 year prior - No new recommendation GI ppx - Pepcid 20 mg IV daily DVT ppx - SCDs only due to anemia Code status- D.N.R/DNI Discharge planning: Patient has been accepted at [facility]. Patient will be accepted on Wednesday. We will plan to discharge as per the evaluation and work-up of altered mental status. Discussed in detail with both Ms. Casiano and Evelio Argelia regarding patient's treatment plan going forward and need of an MRI for a possible press syndrome. All the questions were answered. Patient's family a lot more relaxed today as compared to yesterday. [place] Altered mental status. Probably related to hypertensive encephalopathy. Currently improving. Hypertensive emergency. Discussed with the patient and the family. The family will try to convince her to start taking her medications. We will stop nicardipine drip. We will continue as needed coverage as well. We will continue adjusting her maintenance medications. Possible discharge tomorrow. Generalized deconditioning and debilitated state. Probably she require fdc facility placement. Discussed with the physical therapy and case management. Acute kidney injury requiring hemodialysis. Currently her renal function is improved. Continue monitoring. Appreciate help from nephrology team. Status post Covid pneumonia, pneumothorax. Status post intubation/extubation/chest tube. Currently stable. Continue close monitoring. Anemia. Stable. Folic acid is decreased. We will start replacing. Thrombocytopenia. Mild and stable. Continue monitoring. History of coronary artery disease. Stable. Continue current management. On aspirin and Plavix, Lipitor. DVT prophylaxis. Teds and SCDs. On dual antiplatelet therapy. Concerned about possible bleeding. The plan of care was discussed with the patient and the family. Discussed with multidisciplinary team. They verbalized understanding and agreement. Attestations Medical Necessity Statement*: Assessing patient's discharge needs and adjusting her blood pressure medications. Possible discharge tomorrow Procedures Arterial Line Size (Gauge): 18 Coding Level of Care Code Acute Surgical Consultant for g Fwd Diagnoses Acute hypoactive delirium due to multiple etiologies F05 Altered mental status R41.82 Acute respiratory failure with hypoxia J96.01 Hypertensive urgency I16.0 Septic shock A41.9; R65.21 Metabolic acidosis E87.2 Acute kidney injury superimposed on chronic kidney disease N17.9; N18.9 Hyperkalemia E87.5 New onset of congestive heart failure I50.9 COVID-19 U07.1
[2020-07-08] MEDS: cilostazol 100 mg Tablet 50 MG PO (17:34)
[2020-07-08] MEDS: dextrose 5%-sod chloride 0.9% 1,000 ML 30 ML IV (17:44)
[2020-07-08 19:40] LABS: Glucose Point of Care 120 mg/dL (70-110)
--- NOTE | 2020-07-08 20:43 | PC.NURSE ---
Chandlerter called this nurse to the doorway of this patient's room. The sitter stated that the patient was telling her that she was uncomfortable with me being in her room and caring for her. She did allow me to check her finger stick blood sugar. The patient told the sitter that she did not want me back in her room. The patient was overheard asking the sitter who let him in this place the sitter explained to the patient that I was one of the nurses here. At this time Jaclyn TREVINO has been made aware of this situation and she has agreed to assume care of this patient.
[2020-07-08] MEDS: atorvastatin 40 mg Tablet 20 MG PO (21:02)
[2020-07-09] VITALS (66 sets, daily range): BP systolic 69–166; BP diastolic 44–78; PULSE 62–126; RESP 15–44; TEMP 36.2–37.3; O2SAT 90–100
[2020-07-09] MEDS: acetaminophen 325 mg Tablet 650 MG PO ×2 (01:47→15:37)
--- NOTE | 2020-07-09 03:00 | PM.ACPR ---
Procedure/Consent Procedure Narrative: Right radial artery was accessed after ACLS code for monitoring of blood gas and hypotension, ultrasound was used to locate right radial artery, art line was placed without any complications estimated blood loss 1 to 2 mL Acute Procedures Arterial Line: Time out performed: Yes Size (Gauge): 18 Technique used: direct puncture technique Post-Procedure: dry sterile dressing placed Patient tolerated procedure: no complications Complications: none Site: right
--- NOTE | 2020-07-09 03:05 | PM.ACPR ---
Procedure/Consent Procedure Narrative: Right radial arterial access after ACLS code Acute Procedures Arterial Line: Time out performed: Yes Size (Gauge): 18 Technique used: other (Ultrasound-guided right radial artery access) Post-Procedure: dry sterile dressing placed Patient tolerated procedure: well Complications: none Site: right Additional comments: Right radial arterial line was placed to monitor blood pressure and obtain blood gas after her ACLS code Right radial artery access was obtained with Arrow art line, ultrasound technique was used to locate arterial pulsation, blood return was obtained with first attempt, guidewire passed without any resistance, art line was secured, guidewire removed, line was secured with sterile dressing, estimated blood loss 1 to 2 mL
[2020-07-09 04:28] LABS: Basophils % 0.3 %; Eosinophils # 0.1 10^3/uL (0.0-0.8); Eosinophils % 0.9 %; Hematocrit 22.6 % (37.0-47.0); Hemoglobin 7.2 g/dL (11.5-15.3); Lymphocytes # 0.8 10^3/uL (0.8-4.8); Mean Corpuscular HGB Conc 31.9 g/dL (30.0-36.0); Mean Corpuscular Hemoglobin 28.7 pg (28.0-34.0); Mean Platelet Volume 11.2 fL (7.4-10.4); Monocytes # 0.4 10^3/uL (0.2-0.9); Monocytes % 4.5 %; Neutrophils # 7.73 10^3/uL (1.8-7.7); Nucleated Red Blood Cells % 0 %; Platelet Count 112 10^3/cmm (130-400); Red Blood Count 2.51 10^6/uL (4.1-5.3); Red Cell Distribution Width 15.2 % (12.1-15.1); White Blood Count 9.1 10^3/uL (4.0-10.0)
[2020-07-09 04:57] LABS: Magnesium 1.3 mg/dL (1.7-2.3)
[2020-07-09 06:37] LABS: Albumin Level 2.5 g/dL (3.5-5.2); Anion Gap 19.1 (5-19); Blood Urea Nitrogen 21 mg/dL (8-23); Calcium 7.3 mg/dL (8.5-10.5); Carbon Dioxide 18 mmol/L (22-29); Chloride 107 mmol/L (98-107); Chol HDL Ratio 2.56 mg/dL (0.0-4.40); Cholesterol 82 mg/dL (0-200); Glomerular Filtration Rate 29.9 mL/min (90-130); Glucose 143 mg/dL (65-115); HDL Cholesterol 32 mg/dL (60-100); LDL Cholesterol Calculated 25 mg/dL (50-129); LDL HDL Ratio 0.78 RATIO (0.00-3.22); Potassium 3.1 mmol/L (3.5-5.1); Sodium 141 mmol/L (136-145); Triglycerides 123 mg/dL (0-150)
[2020-07-09 06:49] LABS: Glucose Point of Care 150 mg/dL (70-110)
[2020-07-09] MEDS: cilostazol 100 mg Tablet 50 MG PO (09:32)
[2020-07-09] MEDS: hyDRALAzine 50 mg Tablet 100 MG PO ×2 (09:32→15:37)
[2020-07-09] MEDS: NIFEdipine ER (24 hr) 30 mg Tablet 90 MG PO (09:32)
[2020-07-09] MEDS: duloxetine 30 mg Capsule PO (09:32)
[2020-07-09] MEDS: aspirin 81 mg EC Tablet PO (09:33)
[2020-07-09] MEDS: spironolactone 25 mg Tablet PO (09:33)
[2020-07-09] MEDS: folic acid 1 mg Tablet PO (09:33)
[2020-07-09] MEDS: atorvastatin 40 mg Tablet 20 MG PO (09:33)
[2020-07-09] MEDS: fluconazole 100 mg Tablet 200 MG PO (09:37)
[2020-07-09 10:58] LABS: Glucose Point of Care 194 mg/dL (70-110)
[2020-07-09] MEDS: famotidine 20 mg/2 mL INJ 40 MG IVP (11:37)
[2020-07-09] MEDS: potassium chloride ER 20 mEq Tablet PO (11:37)
--- NOTE | 2020-07-09 12:10 | PM.PN ---
Subjective Subjective: Interval history: Thomas is doing very well today with no more complaints, she seems to be a little more lucid, interactive with staff members. Denies any pain or discomfort. Still has some diffuse swelling. She is actually taking her pills now her blood pressure is much better controlled. Eating and drinking most of what is on the tray. Medications: Reviewed: Yes Medication Review Details: Current Medications Albuterol/Ipratropium (Ipratropium-Albuterol 3 Ml Neb) 3 ml INHALATION Q6H PRN PRN Reason: SHORTNESS OF BREATH Last Admin: 06/20/20 02:01 Dose: 3 ml Documented by: Aspirin (Aspirin 81 Mg Ec Tablet) 81 mg PO DAILY IGOR Last Admin: 06/19/20 09:04 Dose: 81 mg Documented by: Atorvastatin Calcium (Atorvastatin 40 Mg Tablet) 20 mg PO BEDTIME IGOR Last Admin: 06/19/20 21:04 Dose: 20 mg Documented by: Clopidogrel Bisulfate (Clopidogrel 75 Mg Tablet) 75 mg PO DAILY IGOR Last Admin: 06/19/20 09:04 Dose: 75 mg Documented by: Dextrose (Dextrose 50% Syringe 50 Ml) 25 ml IVP ONCE PRN; Protocol PRN Reason: hypoglycemia protocol Dextrose (Dextrose 50% Syringe 50 Ml) 50 ml IVP PRN PRN; Protocol PRN Reason: hypoglycemia protocol Famotidine (Famotidine 20 Mg/2 Ml Inj) 40 mg IVP Q12H IGOR Last Admin: 06/19/20 23:48 Dose: 40 mg Documented by: Glucagon (Glucagon 1 Mg/Ml Inj 1 Ml) 1 mg IM ONCE PRN; Protocol PRN Reason: Adult Acute Hypoglycemia Prot. Dopamine HCl/Dextrose (Intropin Drip) 400 mg in 250 mls @ 9.525 mls/hr IV CONT IGOR; Protocol Last Titration: 06/20/20 00:12 Dose: 0 mcg/kg/min, 0 mls/hr Documented by: Fentanyl 1,000 mcg/ Sodium (Chloride) 100 mls @ 0 mls/hr IV .Q0M IGOR; Protocol Last Titration: 06/20/20 04:39 Dose: 50 mcg/hr, 5 mls/hr Documented by: Midazolam HCl 100 mg/ Sodium (Chloride) 100 mls @ 0 mls/hr IV .Q0M IGOR; Protocol Last Admin: 06/19/20 03:41 Dose: 1 mg/hr, 1 mls/hr Documented by: Dextrose (D5w) 500 mls @ 100 mls/hr IV ONCE PRN; Protocol PRN Reason: Adult Acute Hypoglycemia Prot Vancomycin HCl 750 mg/ Sodium (Chloride) 250 mls @ 250 mls/hr IV Q48H IGOR; Protocol Last Infusion: 06/19/20 14:32 Dose: Infused Documented by: Imipenem/Cilastatin Sodium 250 (mg/ Sodium Chloride) 100 mls @ 200 mls/hr IV Q12H IGOR; Protocol Last Infusion: 06/20/20 00:40 Dose: Infused Documented by: Insulin Human Regular 250 unit (/ Sodium Chloride) 252.5 mls @ 0 mls/hr IV .Q0M IGOR; Protocol Last Titration: 06/20/20 05:11 Dose: 5 unit/hr, 5.1 mls/hr Documented by: Vasopressin 100 unit/ Sodium (Chloride) 100 mls @ 0 mls/hr IV .Q0M IGOR; Protocol Last Admin: 06/19/20 14:53 Dose: 0.04 unit/min, 2.4 mls/hr Documented by: Norepinephrine Bitartrate 8 mg (/ Dextrose) 508 mls @ 0 mls/hr IV .Q0M IGOR; Protocol Last Admin: 06/20/20 04:39 Dose: 12 mcg/min, 45.7 mls/hr Documented by: Albumin Human (Albumin) 12.5 gm in 50 mls @ 60 mls/hr IV PRN PRN PRN Reason: Hypotension and/or symptomatic Insulin Aspart (Insulin Aspart 100 Unit/1 Ml) 0 unit SUBCUT WM&BEDTIME [facility]; Protocol Last Admin: 06/19/20 21:05 Dose: Not Given Documented by: Lanolin (Lanolin Oint 7 Gm) 1 applic TOPICAL PRN PRN PRN Reason: DRYNESS Last Admin: 06/20/20 03:07 Dose: 1 applic Documented by: Senna/Docusate Sodium (Sennosides-Docusate Tablet) 1 tab PO DAILY [facility] Last Admin: 06/19/20 09:04 Dose: 1 tab Documented by: Vitals/I&O/Wt Last Vital Signs Temp 99.2 F 07/09/20 11:11 Pulse 120 H 07/09/20 11:11 Resp 27 H 07/09/20 11:11 BP 113/54 07/09/20 11:11 Pulse Ox 96 07/09/20 11:11 07/08/20 07/09/20 07/09/20 22:59 06:59 14:59 Intake Total 1080.5 / 1842.584 250 / 2092.584 Output Total 250 / 250 150 / 400 Balance 830.5 / 1592.584 100 / 1692.584 Weight last 48 hrs Weight 50.859 kg Physical Exam Narrative: EXAM NARRATIVE: Constitutional: Awake, comfortable HEENT: Wet mucosa, no jvp, non icteric Lungs: Bilaterally diminished and poor effort in all lung zones CVS: S1 S2, no murmurs Abdo: Soft, BS ok Ext 4: Global anasarca, peripheral perfusion with no cyanosis Neurological: Grossly non-focal Data : 07/09/20 03:24 07/09/20 03:24 A&P Additional A&P Information 1. ERUM Creatinine stable now, likely her new baseline Close monitoring Avoid usual nephrotoxic agents Strict ins and outs. 2. Hypertension. Better control with better oral intake 3. Sepsis status post Covid pneumonitis She has now completed therapy for this and is making a recovery. 4. Chemistry Will give some Kphos, on replacement magnesium 5. Depression and poor interaction. Duloxetine started - Renal issues resolved, will sign off at this time, thank you Kiran Stephens MD Nephrology [phone] Patient seen and examined via telemedicine, with the assistance of the bedside RN > 25 min spent in evaluation and mgmt of patient Attestations Medical Necessity Statement*: review for ERUM Procedures Arterial Line Size (Gauge): 18 Coding Level of Care Code Acute Marine Fisheries Technician for Chg [place]
--- NOTE | 2020-07-09 14:50 | PM.PN ---
Subjective Subjective: Interval history: Patient is more awake and alert today. Feeling better. Denies any active complaints. She ate this morning and took all her medications. Medications: Reviewed: Yes Medication Review Details: Generic Name Dose Route Start Last Admin Trade Name Juanita PRN Reason Stop Dose Admin Acetaminophen 650 mg 07/01/20 02:02 07/09/20 01:47 Acetaminophen 32 5 Mg Tablet PO 650 mg Q6H PRN Administration MILD PAIN Aspirin 81 mg 06/19/20 09:00 07/09/20 09:33 Aspirin 81 Mg Ec Tablet PO 81 mg DAILY IGOR Administration Atorvastatin Calci um 20 mg 06/19/20 21:00 07/08/20 21:02 Atorvastatin 40 Mg Tablet PO 20 mg BEDTIME IGOR Administration Atorvastatin Calci um 20 mg 07/09/20 09:00 07/09/20 09:33 Atorvastatin 40 Mg Tablet PO 20 mg DAILY IGOR Administration Cilostazol 50 mg 07/08/20 18:00 07/09/20 09:32 Cilostazol 100 M g Tablet PO 50 mg BID IGOR Administration Clonidine HCl 0.1 mg 07/04/20 10:20 07/06/20 10:12 Clonidine 0.1 Mg Tablet PO 0.1 mg TID PRN Administration SBP more than 170 mmhg Clonidine HCl 1 patch 07/04/20 23:00 07/05/20 00:04 Clonidine 0.2 Mg /24 Hr Patch TRANSDERMA 1 patch Q7D IGOR Administration Clopidogrel Bisulf ate 75 mg 06/19/20 09:00 06/19/20 09:04 Clopidogrel 75 M g Tablet PO 75 mg DAILY IGOR Administration Duloxetine HCl 30 mg 07/05/20 19:30 07/09/20 09:32 Duloxetine 30 Mg Capsule PO 30 mg DAILY IGOR Administration Famotidine 40 mg 06/19/20 23:15 07/09/20 11:37 Famotidine 20 Mg /2 Ml Inj IVP 40 mg Q12H IGOR Administration Fluconazole 200 mg 07/04/20 11:00 07/09/20 09:37 Fluconazole 100 Mg Tablet PO 07/10/20 10:59 200 mg DAILY IGOR Administration Folic Acid 1 mg 07/09/20 09:00 07/09/20 09:33 Folic Acid 1 Mg Tablet PO 1 mg DAILY IGOR Administration Hydralazine HCl 100 mg 07/03/20 15:00 07/09/20 09:32 Hydralazine 50 M g Tablet PO 100 mg TID IGOR Administration Hydralazine HCl 10 mg 07/06/20 18:11 07/07/20 09:17 Hydralazine 20 M g/Ml Inj 1 Ml IVP 10 mg Q4H PRN Administration SBP more than 150 mmhg Dextrose/Sodium Ch loride 1,000 mls @ 30 ml s/hr 07/06/20 18:15 07/08/20 17:44 Dextrose 5%-Sod Chloride 0.9% IV 30 mls/hr .Q24H IGOR Administration Nicardipine/Sodium Chloride 20 mg in 200 mls @ 0 mls/hr 07/07/20 15:00 07/08/20 13:11 Cardene IV 0 mg/hr .Q0M IGOR 0 mls/hr Titration Protocol Per Protocol Potassium Phosphat e 40 meq/ 109.0909 mls @ 25 mls/hr 07/09/20 13:15 07/09/20 13:42 Sodium Chloride IV 07/09/20 21:14 25 mls/hr Q4H IGOR Administration Insulin Aspart 0 unit 06/21/20 06:00 07/09/20 11:38 Insulin Aspart 1 00 Unit/1 Ml SUBCUT 6 unit TIDWM IGOR Administration Protocol Lanolin 1 applic 06/20/20 02:20 07/08/20 05:49 Lanolin Oint 7 G m TOPICAL 1 applic PRN PRN Administration DRYNESS Metoprolol Tartrat e 2.5 mg 06/25/20 15:52 07/06/20 12:44 Metoprolol Tartr ate 1 Mg/1 Ml Sdv 5 Ml IV 2.5 mg Q6H PRN Administration Hypertension Metoprolol Tartrat e 5 mg 07/07/20 11:13 07/07/20 12:55 Metoprolol Tartr ate 1 Mg/1 Ml Sdv 5 Ml IV 5 mg Q4H PRN Administration HOLD FOR BP <110/ 70 Nifedipine 90 mg 07/05/20 09:00 07/09/20 09:32 Nifedipine Er (2 4 Hr) 30 Mg Tablet PO 90 mg DAILY IGOR Administration Spironolactone 25 mg 07/02/20 09:00 07/09/20 09:33 Spironolactone 2 5 Mg Tablet PO 25 mg BID IGOR Administration Vitals/I&O/Wt Last Vital Signs Temp 99.2 F 07/09/20 11:11 Pulse 120 H 07/09/20 11:11 Resp 27 H 07/09/20 11:11 BP 113/54 07/09/20 11:11 Pulse Ox 96 07/09/20 11:11 07/08/20 07/09/20 07/09/20 22:59 06:59 14:59 Intake Total 1080.5 / 1842.584 250 / 2092.584 120 / 120 Output Total 250 / 250 150 / 400 Balance 830.5 / 1592.584 100 / 1692.584 120 / 120 Weight last 48 hrs Weight 50.859 kg Physical Exam Narrative: EXAM NARRATIVE: Awake alert. No acute distress. Mood and affect are appropriate. Skin is warm and dry. Moist mucous brains. Eyes Luz Maria, extraocular muscle intact Neck supple. No JVD Lungs clear bilaterally. No respiratory distress Heart S1, S2, regular Abdomen soft, nontender, bowel sounds are present Extremities no no cyanosis or calf tenderness. Normal capillary refill Moves all extremities. Data : 07/09/20 03:24 07/09/20 03:24 A&P Assessment and plan (1) Acute hypoactive delirium due to multiple etiologies: Status: Acute (2) Altered mental status: Status: Acute (3) Acute respiratory failure with hypoxia: Status: Acute (4) Hypertensive urgency: Status: Acute (5) Septic shock: Status: Acute (6) Metabolic acidosis: Status: Acute (7) Acute kidney injury superimposed on chronic kidney disease: Status: Acute (8) Hyperkalemia: Status: Acute (9) New onset of congestive heart failure: Status: Acute (10) COVID-19: Status: Acute Acute Hypoxic respiratory failure - Etiology multi-factorial - COVID-19 pneumonia, PTX, superimposed bacterial - S/P Extubation - Weaned to 2 L of o2 via NC Septic shock due to COVID-19 Pneumonia - Improving - Suspected superimposed Bacterial Pneumonia - Procalcitonin 16.44 -> 15.48 - > 4.04 - Renal dosing of meds - Lactic Acid 1.7 on admit - 06/19 - Sputum culture - Negative - 06/19 - Blood culture x 2 - NGTD - 07/01: Blood Culture Negative - 06/19 - Urine culture - negative - 07/01: Urine analysis : Yeast - 07/01: Urine culture Yeast ( Likely contaminant ) - Repeat Urine culture ordered on 07/01 - Follow C.T Chest without Contrast.( 07/02 ) - Vancomycin discotinued on 07/03 - Primixin 250 mg IV q12 hr Discontinued on ( 07/03 ) - Caspofungin started on 07/01 stopped on 07/03 - Will switch her to I.V Fluconazole for 5 days can be switched to PO on DC -Dexamethasone stopped on 06/30 -Source unknown -Afebrile Left sided tension pneumothorax with development of SQ emphysema :Resolved - Noted on admission - Left -sided chest tube was placed - 06/21 - Helmich valve placed - Removed on 06/22 - C.T Chest without Contrast : ( 07/02 ) There is a trace of air seen in the anteromedial left pleural space, series 2, image [id number]. This is consistent with minimal residual of previously noted left pneumothorax, seen on 06/21/2020. Mild nonspecific ground-glass infiltrates throughout both lungs. These infiltrates have improved/decreased when compared to 06/21/2020. Small bilateral pleural effusions. Minimal residual left anterior chest wall emphysema noted, related to previous chest tube. Acute kidney injury / ATN on CKD stage 3 on HD - Creatinine baseline 1.4- > Cr. 4.1 - > 3.1 - Nephrology consulted - Femoral HD catheter removed - Right IJ HD cath :Removed - HD on 06/21/19 - per nephrology:No Need for H.D now Diabetes Mellitus with hyperglycemia mild DKA on arrival - AG metabolic acidosis - Multi-factorial component of acidosis - continue insulin SQ - Goal Blood sugar 140-180 - Repeat labs in am Acute anemia - Multi-factorial - Acute blood loss from CT in setting of renal disease - Hb 8.3 - > 6.8 - . 7.3 - s/p 2 units PRBC transfusion on 06/23 as well as 1 U PRBC on 06/29 - Monitor H/H - Continue to hold anticoagulation/Antiplatelets Bradycardia -Sinus bradycardia -Currently asymptomatic -Monitor On Tele -TSH: 0.22 -Monitor electrolytes (K>4 , Mg>2 ) -Hypertensive urgency (Resolved ) Nicardipine drip stopped on 06/30 Amlodipine 10 mg po daily Hydralazine 100 mg po q8 h daily Clonidine 0.1 mg q12 h daily Spironlactone 25 mg po BID Coronary artery disease s/p CABG / PVD s/p b/l femoral bypass / Hypertension - Holding aspirin 81 mg PO daily and Plavix 75 mg PO daily - Will resume once hemoglobin stabilizes and no further invasive procedures - ECHO - pEF - Continue Lipitor 20 mg PO daily - Monitor on tele Hx of Breast cancer - S/P chemo > 2 year prior - No new recommendation FEN - Tube feeding - Dietary consulted - Pulmcal 1.2 at 20ml/hr - Will increase to goal based on residuals and recs GI ppx - Pepcid 20 mg IV daily DVT ppx - SCDs only due to anemia Procedures lines: Right radial artery Left central line Santoyo catheter will be placed Left chest tube Condition: Fair Code status- D.N.R Disposition :Home , Anticipated Dc in 2 days . Additional A&P Information Altered mental status: Patient having decreased mentation and decreased oral intake for last 36 hours. Patient refusing oral medications. No more sedatives. Last Ativan 0.5 given on July 04 at 10:30 PM. This could be multifactorial. Could be related to the Ativan given on though unlikely that patient will still have the effect more than 24 hours post the dose. Patient has not had any fever or seizure-like activities. High likely that this can be secondary to press syndrome as patient's blood pressure has been fluctuant and elevated over the last 72 hours. Blood work including CBC, CMP, ammonia levels, TSH, vitamin B12, folate, ABG, CT head within normal limits. Will do MRI brain. We will start patient on nicardipine drip for better blood pressure control. We will try to keep blood pressure between systolic 140 to 150 mmHg. Acute Hypoxic respiratory failure 2/2 COVID-19 pneumonia, PTX, superimposed bacterial infection: Resolved. Currently saturating well on room air. We will continue to monitor. DuoNebs every 6 hours as needed. Patient has been on antibiotics for multiple days. Antibiotics stopped 48 hours ago. We will continue to monitor for worsening leukocytosis or fevers. History of tension pneumothorax during this hospitalization for which patient had chest tube and was removed around 7 days ago. Patient continues to have serosanguineous discharge from chest tube insertion site. We will consult surgery for possible suture. Till then continue to dress with OptiForm. Hypertension: Blood pressure extremely elevated. Patient is on multiple antihypertensives including high-dose hydralazine 100 every 8, clonidine 0.1 twice daily, amlodipine 10 mg. Patient has not been able to take any oral medications for last 2 days. Continue with clonidine patch. Start patient on nicardipine drip. Can use hydralazine 10 mg IV every 4 hours as needed for systolic blood pressure more than 150 mmHg. Target blood pressure between 140 to 150/80 to 90 mmHg Acute kidney injury:Most likely secondary to ATN from severe disease. Patient had required dialysis earlier in the admission not anymore. Creatinine has remained stable between 1.4-1.8 with BUN improving. Diabetes Mellitus with hyperglycemia mild DKA on arrival: Now resolved. Continue insulin SQ - Goal Blood sugar 140-180 - Repeat labs in am Acute anemia - Multi-factorial - Acute blood loss from CT in setting of renal disease - Hb 8.3 - > 6.8 - . 7.3 - s/p 2 units PRBC transfusion on 06/23 as well as 1 U PRBC on 06/29 - Monitor H/H - Continue to hold anticoagulation/Antiplatelets Coronary artery disease s/p CABG PVD s/p b/l femoral bypass: We will restart aspirin for now. Hold off on Plavix for now. Continue home dose of statin. Echocardiogram shows preserved ejection fraction. Monitor on telemetry. Hx of Breast cancer - S/P chemo > 2 year prior - No new recommendation GI ppx - Pepcid 20 mg IV daily DVT ppx - SCDs only due to anemia Code status- D.N.R/DNI Discharge planning: Patient has been accepted at [facility]. Patient will be accepted on Wednesday. We will plan to discharge as per the evaluation and work-up of altered mental status. Discussed in detail with both Ms. Casiano and Evelio Argelia regarding patient's treatment plan going forward and need of an MRI for a possible press syndrome. All the questions were answered. Patient's family a lot more relaxed today as compared to yesterday. [place] Altered mental status. Probably related to hypertensive encephalopathy. Currently improving. Hypertensive emergency. The blood pressure is better controlled. She is taking her medications. Generalized deconditioning and debilitated state. Probably she require [facility] facility placement. Discussed with the physical therapy and case management. Acute kidney injury requiring hemodialysis. Currently her renal function is improved. Continue monitoring. Appreciate help from nephrology team. Status post Covid pneumonia, pneumothorax. Status post intubation/extubation/chest tube. Currently stable. Continue close monitoring. Anemia. Stable. Folic acid is decreased. Continue replacement. Thrombocytopenia. Mild and stable. Continue monitoring. History of coronary artery disease. Stable. Continue current management. On aspirin and Plavix, Lipitor. DVT prophylaxis. Teds and SCDs. On dual antiplatelet therapy. Concerned about possible bleeding. Discussed with the multidisciplinary team. Waiting for placement arrangements. The patient and the family are agreeable with the plan of care. Attestations Medical Necessity Statement*: Waiting for placement. Medically ready for discharge. Procedures Arterial Line Size (Gauge): 18 Coding Level of Care Code Acute Brick Setter Operator for g Fwd Diagnoses Acute hypoactive delirium due to multiple etiologies F05 Altered mental status R41.82 Acute respiratory failure with hypoxia J96.01 Hypertensive urgency I16.0 Septic shock A41.9; R65.21 Metabolic acidosis E87.2 Acute kidney injury superimposed on chronic kidney disease N17.9; N18.9 Hyperkalemia E87.5 New onset of congestive heart failure I50.9 COVID-19 U07.1
--- NOTE | 2020-07-09 16:22 | XR_ITS ---
WS: [id number] Portable AP upright chest, 07/09/2020 Clinical Data: SHORTNESS OF BREATH, INCREASED RESPIRATORY RATE Comparison: Portable chest, 07/04/2020 Findings: The heart remains enlarged. There is no change in the patchy bilateral interstitial pulmona ry opacities. The left internal jugular venous catheter has not changed. The aortic arch shows calcif ication and tortuosity. There are midline sternotomy sutures. Monitor leads are on the chest wall. Th ere are bilateral small pleural effusions. XR/XR chest 1V portable [id number] Impression: No change from previous chest x-ray.
[2020-07-09 17:14] LABS: Glucose Point of Care 246 mg/dL (70-110)
[2020-07-09 17:28] LABS: Urine Appearance Cloudy (CLEAR); Urine Color Brown (Yellow)
[2020-07-09 17:30] LABS: Sulfosalicylic Acid Urine Positive (Negative); pH Urine 9 (5-7)
--- NOTE | 2020-07-09 17:30 | PC.NURSE ---
Notified Dr. Esparza on pt's respiratory status is labored and desaturation in 86% on 2 L Pt is awake, verbally talking to nurse with significant shortness of breath noted upon talking. Check BP-86/53 (64), HR-95, coarse crackles noted on her left lung. Increase oxygen to 5 L/min NC. Notified Dr. Esparza to come to pt's room right now via voalte. Received verbal orders to start fluid 1 L bolus NS. and continue NS at 75 ml. Chest xray and ABG notified to in person. Received to Hold CT scan of head.
[2020-07-09 17:31] LABS: Bilirubin Urine Neg (Negative); Blood Urine 2+ (Negative); Glucose Urine UA Norm (Normal); Ketones Urine Negative (Negative); Leukocyte Esterase Urine 2+ (Negative); Nitrate Urine Positive (Negative); Protein Urine 1+ (Negative)
[2020-07-09 17:33] LABS: Basophils % 0.3 %; Eosinophils % 0.1 %; Hematocrit 24.6 % (37.0-47.0); Hemoglobin 7.6 g/dL (11.5-15.3); Lymphocytes # 1.1 10^3/uL (0.8-4.8); Lymphocytes % 9.1 %; Mean Corpuscular HGB Conc 30.9 g/dL (30.0-36.0); Mean Corpuscular Hemoglobin 28.7 pg (28.0-34.0); Mean Corpuscular Volume 92.8 fL (81-99); Mean Platelet Volume 10.5 fL (7.4-10.4); Monocytes # 0.3 10^3/uL (0.2-0.9); Monocytes % 2.6 %; Neutrophils # 10.18 10^3/uL (1.8-7.7); Nucleated Red Blood Cells % 0 %; Platelet Count 134 10^3/cmm (130-400); Red Blood Count 2.65 10^6/uL (4.1-5.3); Red Cell Distribution Width 15.4 % (12.1-15.1); White Blood Count 11.7 10^3/uL (4.0-10.0)
[2020-07-09 17:34] LABS: Add Urine Microscopic? YES; Urobilinogen Urine Norm (Negative)
[2020-07-09 17:39] LABS: Add Urine Culture? Yes; Bacteria Urine 4+ /hpf; Squamous Epithelial Cell Urine 0-4 /hpf (0-5); WBC Urine TOO NUMEROUS TO CNT /hpf (0-5)
[2020-07-09 17:54] LABS: ABG PCO2 27.6 mmHg (35-45); ABG PH Result 7.22 (7.35-7.45); Alveolar-Arterial Oxygen Gradi 8.8 mmHg (5-10); Arterial Blood Gas Hematocrit 23.7 % (37-47); Base Excess ABG -14.9 mmol/L (-2.0-2.0); Blood Gas Allen Test Pos; Blood Gas Sample Type Arterial; Carboxyhemoglobin 1.2 %THgb (0.4-20.1); HCO3 ABG 11.4 mmol/L (22-26); HGB O2 Sat 72.2 % (95-100); Ionized Calcium Level - ABG 1.1 mmol/L (1.1-1.4); Methemoglobin 1.2 % (0.4-1.5); Potassium Level - ABG 4.8 mmol/L (3.5-5.0); Total Hemoglobin 7.7 g/dL (12-16)
[2020-07-09 17:55] LABS: Blood Gas Sample Site Radial, left
[2020-07-09 18:02] LABS: Oxygen Device RA
--- NOTE | 2020-07-09 18:13 | PC.NURSE ---
call RT for BIPAP order
[2020-07-09 18:19] LABS: Alanine Aminotransferase 15 U/L (0-33); Albumin Level 2.3 g/dL (3.5-5.2); Alkaline Phosphatase 132 IU/L (35-105); Anion Gap 26.3 (5-19); Aspartate Amino Transferase 19 U/L (0-32); Blood Urea Nitrogen 26 mg/dL (8-23); Calcium 7.3 mg/dL (8.5-10.5); Carbon Dioxide 12 mmol/L (22-29); Chloride 108 mmol/L (98-107); Globulin 2.1 g/dL (1.3-4.6); Glomerular Filtration Rate 22.1 mL/min (90-130); Glucose 241 mg/dL (65-115); Osmolality Calculated 307 mOsm/kg (285-295); Potassium 4.3 mmol/L (3.5-5.1); Sodium 142 mmol/L (136-145); Total Bilirubin 1.2 mg/dL (0.15-1.2); Total Protein 4.4 g/dL (6.6-8.7)
--- NOTE | 2020-07-09 18:20 | PC.NURSE ---
Talked to Dr. Esparza regarding BP low and to hold BP meds for now. BP-91/53.
[2020-07-09 18:22] LABS: Troponin T (5th) Once 91 ng/L (0-10)
--- NOTE | 2020-07-09 18:30 | PC.NURSE ---
Report called to ICU Talked to Yazmin for hand off report.
--- NOTE | 2020-07-09 18:47 | PC.NURSE ---
PATIENT NOTED TO BE IN RESPIRATORY DISTRESS AROUND 1630 THIS EVENING. CHEST TUBE SITE IS NOTED TO HAVE COPIOUS AMOUNTS OF DRAINAGE. PATIENT WAS EXTREMELY ANXIOUS. DR. GOTTLIEB CALLED TO BEDSIDE. ORDERS TO FOLLOW. PATIENT CARE TRANSFERRED TO NURSE JUAN RN AT APPROXIMATELY 1700.
--- NOTE | 2020-07-09 19:00 | PC.NURSE ---
Dr Esparza talking to family on the phone Nurse Ashley talked to the family regarding the changes on pt's condition, the administration of BIPAP and transfer to ICU. Dr. Esparza also talk to the family to informed them.
--- NOTE | 2020-07-09 19:11 | PC.NURSE ---
Received verbal order from Dr Esparza to obtain Stat Lactic acid level. RBVO
--- NOTE | 2020-07-09 19:13 | P.PN_ITS ---
Subjective Subjective: Interval history: The patient developed pretty sudden respiratory distress about an hour ago associated with distress, weakness, hypotension. I was called to reevaluate her. Vitals/I&O/Wt Last Vital Signs Temp 97.2 F L 07/09/20 16:31 Pulse 99 07/09/20 18:40 Resp 34 H 07/09/20 18:40 BP 131/67 07/09/20 16:31 Pulse Ox 97 07/09/20 18:40 07/09/20 07/09/20 07/09/20 06:59 14:59 22:59 Intake Total 250 / 2092.584 120 / 120 Output Total 150 / 400 85 / 85 Balance 100 / 1692.584 120 / 120 -85 / 35 Weight last 48 hrs Weight 50.859 kg Physical Exam Narrative: EXAM NARRATIVE: The patient is confused in mild distress. Examination reveals bilateral crackles and tachypnea. Follows instructions. Confused. Skin is warm and dry. Normal capillary refill at this point. Heart S1-S2 regular Data : 07/09/20 17:22 07/09/20 17:22 A&P Additional A&P Information Please see my progress note from today regarding problem list. This evaluation revealed acute hypoxic respiratory failure and severe sepsis with possible septic shock. Chest x-ray reveals bilateral airspace changes concerning for possible aspiration or pneumonia. I doubt pulmonary edema. The patient also has urinary tract infection. Discussed with the family twice. Discussed with Argelia who is patient's granddaughter and healthcare proxy. She is rescinding DNR order. Changing the patient to full code and transferring her to ICU. We started BiPAP which the patient tolerates okay. Hypoxia is resolving. Her oxygen saturation is in higher 90s. This respiratory distress currently. Starting her on Zosyn and linezolid due to severe sepsis. Will order blood cultures and urine culture. Checking lactic acid level. Giving her a bolus of normal saline 1 L and continuing at 75 cc/h. I am concerned about possible fluid overload. Additional boluses might be necessary. Discussed with night Dr. Dr. Mccord. He will follow up on lactic acid level and check on the patient in ICU. I appreciate his help. The plan of care was discussed with the nursing staff. Critical care time spent on this encounter is 60 minutes. Attestations Medical Necessity Statement*: Patient developed a critical condition. Requires ICU transfer. Procedures Arterial Line Size (Gauge): 18 Coding Level of Care Code Acute Building Construction Contractor for Ezra Mccabe
[2020-07-09] MEDS: piperacillin-tazobactam 3.375 GM in sodium chloride 0.9% (plus) 50 ML IV (19:16)
[2020-07-09] MEDS: sodium chloride 0.9% 1,000 ML 75 ML IV (19:17)
--- NOTE | 2020-07-09 19:36 | PC.NURSE ---
Clonidine patch removed per Dr Esparza Removed the patch on her posterior back dated at 07/05/20.
[2020-07-09] MEDS: sodium chloride 0.9% 1,000 ML 999 ML IV (19:47)
[2020-07-09 19:58] LABS: Lactate (Lactic Acid level) 11.1 mmol/L (0.5-2.2)
--- NOTE | 2020-07-09 20:30 | PC.NURSE ---
Arrived on shift with this patient having orders to transfer to ICU. Gerard RN advised that the patient had significant changes today regarding her respiratory status. Upon my entrance to the room the patient was found to have been placed on bi-pap at some point today. The patient was receiving a liter bolus of NS due to hypotension. The patient was alert and responsive. Report was called to ICU. Respiratory was notified that we we going to transfer the patient. While calling respiratory it was noted on the monitor that the patient was in quadra-jemini and then she went into bi-jemini. She then was noted to be bradycardic with a HR of 56. We immediately went to the patient's side and the patient was found to be unresponsive. A rapid response was called then during a pulse check it was noted no pulse was found and a code was called. CPR and the code was initiated. Code team arrived. Patient intubated and received 1 mg Epinepherine and 1 amp of bicarb and calcium chloride. Pt transfered to ICU where ICU staff assumed care.
[2020-07-09 20:47] LABS: Glucose Point of Care 211 mg/dL (70-110)
--- NOTE | 2020-07-09 20:49 | P.PNCC_ITS ---
Critical Care Event Note Critical Care Event The high probability of a clinically significant, sudden or life threatening deterioration of the patient's [] system(s) required my full and direct attention, intervention and personal management. The critical care time is as shown. This time is in addition to time spent performing any reported procedures but includes the following: [x] Data and vital sign review and interpretation [x] Patient assessment, examination and intervention [x] Documentation [x] Medication orders and management Critical Care Time Critical Care Time: Code activated: Yes Critical Care Time (min): 35 Procedures Arterial Line Size (Gauge): 18 Intubation Sedative: none Laryngoscope: Wilmar ET tube size: 8 ET tube uncuffed: Yes Tube secured depth (cm): 24 Tube secured location: teeth Tube placement confirmation: visualized tube passing through cords, no breath sounds over epigastrium and confirmation by capnometry Patient tolerated procedure: well Intubation complications: none Additional comments: Responded to a floor code. Dr. Salmon made 1 attempt intubate patient and she did have quite a bit of swelling and was a difficult ablation. I took over and was able to intubate her on my first attempt. She had no hypoxia. She did return from her code and is being transferred to the ICU. X-ray showed a slight right mainstem intubation and had them pulled the ET tube back 1.5 cm Coding Level of Care Code Acute Obstetrical Anesthesiologist for Ezra Mccabe
--- NOTE | 2020-07-09 20:54 | XRR_ITS ---
PROCEDURE INFORMATION: Exam: XR Chest, 1 View Exam date and time: 07/09/2020 9:05 PM Age: 69 years old Clinical indication: Device placement; Ett placement (vent status); Additional info: Et tube repositioned TECHNIQUE: Imaging protocol: XR of the chest Views: 1 view. COMPARISON: CR XR chest 1V portable [id number] 07/09/2020 5:00 PM FINDINGS: Tubes, catheters and devices: Endotracheal tube is in position approximately 3 cm above the rylan. External pacer leads are noted. There is a left jugular central venous catheter with its tip in the superior vena cava not significantly changed. Lungs: Bilateral pulmonary infiltrates are not significantly changed compared with the examination done earlier today. Pleural space: No pneumothorax is identified. There is some focal pleural thickening laterally at the right lung base adjacent to the right 8th rib. Heart/Mediastinum: Unremarkable. No cardiomegaly. Bones/joints: Sternotomy wires and mediastinal surgical clips are present, consistent with previous coronary arterial bypass grafting. XR/XR chest 1V portable [id number] IMPRESSION: 1. Satisfactory position of endotracheal tube. 2. No change in bilateral pulmonary infiltrates.
--- NOTE | 2020-07-09 20:56 | PM.EVENT ---
Event Note Event Note: Response note: When I responded to the code Dr. Salmon was doing chest compression, reportedly patient was put on BiPAP at the time of shift change, she was being given 1 L normal saline bolus for hypotension, family made her full code, Dr. Andrews gave an update as well Patient had ROSC achieved after 15 minutes of code as soon as endotracheal tube was placed by Dr. Gonzalez. Rhythm was sinus, blood pressure 160/70, saturation 95%, BMV, during code she was given 1 dose of epi, considering high lactic acidemia 1 amp of bicarb and calcium chloride was given Patient was able to open her eyes & response to verbal commands, she was able to squeeze my fingers on command, nodding her head and blinking her eyes appropriately, hypothermia protocol not indicated Of note, during intubation vocal cord swelling was noticed which most likely is the cause of respiratory distress and hypoxia induced PEA PLan: Transferred to ICU I have updated the family, currently patient is on CMV PEEP 5 FiO2 80% tidal volume 350 patient is breathing above the vent respiratory rate 38, will sedate her with fentanyl avoid propofol, Chest x-ray showing bilateral infiltrates left greater than right, left-sided pleural effusion, endotracheal tube was retracted 1cm, she is currently saturating 100% currently we are waiting for fentanyl GT, clonidine patch was removed from her back, second chest x-ray showing satisfactory placement of endotracheal tube Considering metabolic acidosis bilateral infiltrate I will start her on hospital-acquired pneumonia regimen will use linezolid cefepime and Zosyn renally dosed with a question of blood gas repeat lactic acid obtain blood culture, sputum cultures
[2020-07-09 21:16] LABS: ABG PH Result 7.24 (7.35-7.45); Arterial Blood Gas Hematocrit 21.7 % (37-47); Base Excess ABG -17.9 mmol/L (-2.0-2.0); Blood Gas Allen Test Pos; Blood Gas Operator Identificat JB; Blood Gas Sample Site Radial, right; Blood Gas Sample Type Arterial; Blood Gas Tidal Volume 0.35; HCO3 ABG 7.8 mmol/L (22-26); Oxygen Device VENT
[2020-07-09 21:17] LABS: ABG PCO2 18.4 mmHg (35-45)
--- NOTE | 2020-07-09 21:38 | PC.NURSE ---
Unable to obtain axillary temperature. Dr. Mccord notified. SHANNAN michel.
[2020-07-09 21:50] LABS: Lactic Sepsis W/Reflex 13.7 mmol/L (0.5-2.2)
[2020-07-09] MEDS: cefepime 1,000 MG in sodium chloride 0.9% (plus) 50 ML 100 MG IV (21:58)
[2020-07-09 23:07] LABS: Reflex Lactate Order REFLEX LACTIC ORDERD
[2020-07-09] MEDS: linezolid premix 600 MG/300 ML PREMIX 300 MG IV (23:35)
[2020-07-09 23:50] LABS: Hematocrit 21.6 % (37.0-47.0); Mean Corpuscular HGB Conc 29.2 g/dL (30.0-36.0); Mean Corpuscular Hemoglobin 29.3 pg (28.0-34.0); Mean Corpuscular Volume 100.5 fL (81-99); Platelet Count 103 10^3/cmm (130-400); Red Blood Count 2.15 10^6/uL (4.1-5.3); Red Cell Distribution Width 15.7 % (12.1-15.1)
[2020-07-10] VITALS (49 sets, daily range): BP systolic 50–107; BP diastolic 27–56; PULSE 58–115; RESP 19–29; TEMP 34.9–36; O2SAT 93–100
[2020-07-10 00:05] LABS: Lactic Acid level (Lactate) 13.2 mmol/L (0.5-2.2)
[2020-07-10 00:06] LABS: Anion Gap 29.8 (5-19); Blood Urea Nitrogen 24 mg/dL (8-23); Carbon Dioxide 10 mmol/L (22-29); Chloride 111 mmol/L (98-107); Glomerular Filtration Rate 22.1 mL/min (90-130); Glucose 198 mg/dL (65-115); Osmolality Calculated 312 mOsm/kg (285-295); Potassium 4.8 mmol/L (3.5-5.1); Sodium 146 mmol/L (136-145)
[2020-07-10 00:19] LABS: Hemoglobin 6.3 g/dL (11.5-15.3)
--- NOTE | 2020-07-10 00:20 | PC.NURSE ---
Critical labs of Hgb and lactate called to Dr. Mccord. Dr. Mccord also notified that pt has had no urine output since transferred to ICU.
[2020-07-10 00:49] LABS: Absolute Segmented Neutrophil 6.7 10/cmm (1.6-7.1); Segmented Neutrophils 84 %; Total Cells Counted 100 (0-100)
[2020-07-10 00:50] LABS: Absolute Neutrophil 6.9 10^3/cmm (1.4-6.5); Anisocytosis 1+; Band Neutrophils Absolute 0.2 10^3/cmm (0.0-1.2); Eosinophils 0 %; Hypochromasia 2+; Lymphocytes 12 %; Macrocytosis 1+; Monocytes Absolute 0.2 10^3/cmm (0.1-0.6); Platelet Estimate Decreased (Normal)
[2020-07-10 01:09] LABS: Glucose Point of Care 185 mg/dL (70-110)
[2020-07-10] MEDS: phenylephrine inj 25 MG in sodium chloride 0.9% 250 ML 24.2 MG IV (01:10)
[2020-07-10] MEDS: sodium chloride 0.9% (100 ml) 100 ML 15 ML (01:52)
[2020-07-10] MEDS: sodium bicarbonate 150 MEQ in dextrose 5% 1,000 ML 100 MEQ IV (03:28)
[2020-07-10 03:50] LABS: Magnesium 1.5 mg/dL (1.7-2.3)
--- NOTE | 2020-07-10 04:15 | PC.NURSE ---
Pt had Approximately 5 second pause and then PEA. Code called and CPR initiated with return of pulse and rhythm. Atropine, Epenephrine, and 2 amps sodium biarb given. Pt currently maxed out on Phenylephrine, levophed and dopamine. Bolus infusing. Arterial line placed at bedside by Dr. Mccord. BP 50/29. Family called by Dr. Mccord.
[2020-07-10] MEDS: sodium chloride 0.9% 1,000 ML 999 ML IV (04:33)
[2020-07-10] MEDS: DOPamine drip 400 MG/250 ML PREMIX 38.1 MG IV ×2 (04:33→08:48)
[2020-07-10] MEDS: sodium chloride 0.9% 500 ML 999 ML IV (04:34)
[2020-07-10] MEDS: phenylephrine inj 25 MG in sodium chloride 0.9% 250 ML 121.2 MG IV ×3 (05:06→10:06)
[2020-07-10 05:07] LABS: ABG PCO2 23.7 mmHg (35-45); Alveolar-Arterial Oxygen Gradi 23.3 mmHg (5-10); Arterial Blood Gas Hematocrit 26.5 % (37-47); Base Excess ABG -19.3 mmol/L (-2.0-2.0); Blood Gas Allen Test Pos; Blood Gas Operator Identificat JB; Blood Gas Sample Type Arterial; Blood Gas Tidal Volume 0.35; Carboxyhemoglobin 0.8 %THgb (0.4-20.1); HCO3 ABG 8.1 mmol/L (22-26); HGB O2 Sat 89.8 % (95-100); Ionized Calcium Level - ABG 0.9 mmol/L (1.1-1.4); Methemoglobin 0.8 % (0.4-1.5); Oxygen Device VENT; Oxygen Saturation ABG 91.3; PO2 ABG 77.5 mmHg (80.0-100.0); Potassium Level - ABG 5.8 mmol/L (3.5-5.0); Total Hemoglobin 8.6 g/dL (12-16)
[2020-07-10] MEDS: EPINEPHrine 2.5 MG in sodium chloride 0.9% 250 ML 60.6 MG IV ×2 (05:07→09:04)
[2020-07-10 05:08] LABS: ABG PH Result 7.14 (7.35-7.45)
[2020-07-10 05:09] LABS: Basophils % 0.3 %; Hematocrit 25.6 % (37.0-47.0); Hemoglobin 7.3 g/dL (11.5-15.3); Lymphocytes # 0.5 10^3/uL (0.8-4.8); Lymphocytes % 7.2 %; Mean Corpuscular HGB Conc 28.5 g/dL (30.0-36.0); Mean Corpuscular Hemoglobin 28.9 pg (28.0-34.0); Mean Corpuscular Volume 101.2 fL (81-99); Mean Platelet Volume 10.7 fL (7.4-10.4); Monocytes # 0.3 10^3/uL (0.2-0.9); Monocytes % 4.1 %; Neutrophils # 5.99 10^3/uL (1.8-7.7); Neutrophils % 86.8 %; Nucleated Red Blood Cells # 0.1 /100WBC; Nucleated Red Blood Cells % 0.9 %; Platelet Count 74 10^3/cmm (130-400); Red Blood Count 2.53 10^6/uL (4.1-5.3); White Blood Count 6.9 10^3/uL (4.0-10.0)
--- NOTE | 2020-07-10 05:23 | PC.NURSE ---
Dr Mccord notified of pt's continued hypotension 50/30. Epinephrine drip added. Pt currently maxed out doses for epi, norepi, phenylephrine and dopamine. Pt's family en route.
[2020-07-10 05:27] LABS: Albumin Level 1.5 g/dL (3.5-5.2); Anion Gap 36.3 (5-19); Blood Urea Nitrogen 27 mg/dL (8-23); Calcium 6.4 mg/dL (8.5-10.5); Chloride 106 mmol/L (98-107); Glomerular Filtration Rate 18.7 mL/min (90-130); Glucose 329 mg/dL (65-115); Potassium 6.3 mmol/L (3.5-5.1); Sodium 144 mmol/L (136-145)
--- NOTE | 2020-07-10 05:29 | ECG_ITS ---
[facility] Test Date: 2020-07-10 Pat Name: Thomas Rain Department: Room: ICU04 Gender: Female Rn Clinical Trials: bart PLATT: 1950 Requested By: Candice Mccord Order Number: [id number] Marianna MD: José Luis Unger M.D. Measurements Intervals [place] Rate: 107 P: NE: QRS: 80 QRSD: 113 T: -73 QT: 328 QTc: 439 Interpretive Statements SUPRAVENTRICULAR TACHYCARDIA PROBABLE INFERIOR MYOCARDIAL INFARCTION [35 ms Q WAVE IN II/aVF], OF INDETERMINATE AGE Compared to ECG 06/19/2020 10:20:59 Myocardial infarct finding now present Supraventricular rhythm no longer present T-wave abnormality no longer present Electronically Signed On 07-10-2020 18:01:39 LAWN CARE WORKER by José Luis Unger M.D. [id number]
[2020-07-10 06:07] LABS: Carbon Dioxide 8 mmol/L (22-29); Phosphorus 11.7 mg/dL (2.5-4.5)
--- NOTE | 2020-07-10 06:18 | PC.NURSE ---
Critical labs called to Dr. Mccord, potassium, phosphorus and CO2. Dr. Mccord also updated on pt's status. BP continues to run 50/30 while maxed out on dopamine, epi, levo and nelida. No new orders received.
[2020-07-10 06:51] LABS: Glucose Point of Care 253 mg/dL (70-110)
--- NOTE | 2020-07-10 07:15 | PC.NURSE ---
Pt's cuff SBP in 60-70's. Art line SBP 40-50's. Dr henry.
--- NOTE | 2020-07-10 08:06 | PC.OT ---
OT TREATMENT WITHHELD TODAY DUE TO DECLINE IN PATIENT STATUS.
[2020-07-10] MEDS: piperacillin-tazobactam 3.375 GM in sodium chloride 0.9% (plus) 50 ML IV (08:18)
--- NOTE | 2020-07-10 08:30 | PC.NURSE ---
Pt's family arrived at bedside. Distraught. Chaplains counseled. Pleasant. Questions asked and answered. Wanting to maintain full code status.
--- NOTE | 2020-07-10 08:59 | PC.SOCIAL ---
IMM Not Updated Pt. coded overnight and transitioned to ICU, currently on vent. IMM not given.
--- NOTE | 2020-07-10 09:30 | PC.CHAP ---
Pastoral Care Encounter/Spiritual Assessment Type of Contact [] Declined astronomy instructor visit [] Patient/Family/Request visit [] Outpatient visit [] Follow-up visit [] Physician referral [] Code/Alert [] Routine visit [] Staff referral [] Actively dying [] Patient sleeping [x] Family support [] [] Out of room [] Palliative care [] [] Receiving care in room [] Pre-surgical visit [] Trauma [] Long length of stay [x] ICU visit [] Other: Relational/Emotional Strength [] Patient feels connected with others/family/visitors/staff [] Distress [] Loneliness/isolation [] Abandonment Spirituality of Patient [x] Person of Mildred [] Attends Rastafarian of their Mildred [x] Believes in Prayer [x] Reads Bible or Sikh materials [] There are Spiritual issues to be addressed Hide Or Skin Buffer Interventions [x] Prayer [] Active listening [] Non-anxious presence [] Spiritual/emotional support [] Crisis/trauma care [] Spiritual counseling [] Bereavement support [] Provided bereavement packet [] Provided Bible/devotional materials [] Provided toy/stuffed animal, coloring book to patient or family member [] Provided Communion [] Anointing/[place] [] Salvation [x] Completed spiritual assessment [] Other: Impact on Illness or Injury [] Angry [] Fearful [] Anxious [] Often cries [] Exhaustion [] Unable to work [] Unable to attend adventist [] Unable to walk/stand [] Unable to read [] Unable to drive [] Unable to eat/drink [] Unable to sleep [] Unable to be with family [] Patient intubated [] Other: Summary 5 family members present with patient... daughter, granddaughters.. patient disnt going to recover.. comfort care... Time spent with patient 25 min
--- NOTE | 2020-07-10 10:15 | PC.NURSE ---
Pt's family educated that pt was maxed out on four pressors and cautioned that outcome could be poor. Family stated it was in God's hands and He can turn it around. Family very pleasant.
[2020-07-10] MEDS: fluconazole 100 mg Tablet 200 MG PO (10:25)
[2020-07-10] MEDS: clopidogrel 75 mg Tablet PO (10:25)
[2020-07-10] MEDS: aspirin 81 mg EC Tablet PO (10:25)
[2020-07-10] MEDS: folic acid 1 mg Tablet PO (10:26)
[2020-07-10] MEDS: cefepime 1,000 MG in sodium chloride 0.9% (plus) 50 ML 100 MG IV (10:27)
[2020-07-10] MEDS: linezolid premix 600 MG/300 ML PREMIX 300 MG IV (10:27)
[2020-07-10] MEDS: pantoprazole 40 mg SDV IV (10:28)
--- NOTE | 2020-07-10 10:45 | PC.NURSE ---
Pt's cuff SBP dropped to 40's. Art line SBP maintaining 40's. called. Arrived on unit. Ordered 500ml bolus of NS. Started using bag hanging.
--- NOTE | 2020-07-10 11:55 | PC.NURSE ---
No pulse detected. No HR auscultated. PEA on monitor. Time of 1155.
--- NOTE | 2020-07-10 12:26 | PM.PN ---
Subjective Subjective: Interval history: Events noted, status post cardiac arrest, intubated and ventilated on maximum dose combination vasopressor agents in the ICU. While rounding, she went into cardiac arrest again. Medications: Reviewed: Yes Medication Review Details: Generic Name Dose Route Start Last Admin Trade Name Freq PRN Reason Stop Dose Admin Acetaminophen 650 mg 07/01/20 02:02 07/09/20 01:47 Acetaminophen 32 5 Mg Tablet PO 650 mg Q6H PRN Administration MILD PAIN Aspirin 81 mg 06/19/20 09:00 07/09/20 09:33 Aspirin 81 Mg Ec Tablet PO 81 mg DAILY IGOR Administration Atorvastatin Calci um 20 mg 06/19/20 21:00 07/08/20 21:02 Atorvastatin 40 Mg Tablet PO 20 mg BEDTIME IGOR Administration Atorvastatin Calci um 20 mg 07/09/20 09:00 07/09/20 09:33 Atorvastatin 40 Mg Tablet PO 20 mg DAILY IGOR Administration Cilostazol 50 mg 07/08/20 18:00 07/09/20 09:32 Cilostazol 100 M g Tablet PO 50 mg BID IGOR Administration Clonidine HCl 0.1 mg 07/04/20 10:20 07/06/20 10:12 Clonidine 0.1 Mg Tablet PO 0.1 mg TID PRN Administration SBP more than 170 mmhg Clonidine HCl 1 patch 07/04/20 23:00 07/05/20 00:04 Clonidine 0.2 Mg /24 Hr Patch TRANSDERMA 1 patch Q7D IGOR Administration Clopidogrel Bisulf ate 75 mg 06/19/20 09:00 06/19/20 09:04 Clopidogrel 75 M g Tablet PO 75 mg DAILY IGOR Administration Duloxetine HCl 30 mg 07/05/20 19:30 07/09/20 09:32 Duloxetine 30 Mg Capsule PO 30 mg DAILY IGOR Administration Famotidine 40 mg 06/19/20 23:15 07/09/20 11:37 Famotidine 20 Mg /2 Ml Inj IVP 40 mg Q12H IGOR Administration Fluconazole 200 mg 07/04/20 11:00 07/09/20 09:37 Fluconazole 100 Mg Tablet PO 07/10/20 10:59 200 mg DAILY IGOR Administration Folic Acid 1 mg 07/09/20 09:00 07/09/20 09:33 Folic Acid 1 Mg Tablet PO 1 mg DAILY IGOR Administration Hydralazine HCl 100 mg 07/03/20 15:00 07/09/20 09:32 Hydralazine 50 M g Tablet PO 100 mg TID IGOR Administration Hydralazine HCl 10 mg 07/06/20 18:11 07/07/20 09:17 Hydralazine 20 M g/Ml Inj 1 Ml IVP 10 mg Q4H PRN Administration SBP more than 150 mmhg Dextrose/Sodium Ch loride 1,000 mls @ 30 ml s/hr 07/06/20 18:15 07/08/20 17:44 Dextrose 5%-Sod Chloride 0.9% IV 30 mls/hr .Q24H IGOR Administration Nicardipine/Sodium Chloride 20 mg in 200 mls @ 0 mls/hr 07/07/20 15:00 07/08/20 13:11 Cardene IV 0 mg/hr .Q0M IGOR 0 mls/hr Titration Protocol Per Protocol Potassium Phosphat e 40 meq/ 109.0909 mls @ 25 mls/hr 07/09/20 13:15 07/09/20 13:42 Sodium Chloride IV 07/09/20 21:14 25 mls/hr Q4H IGOR Administration Insulin Aspart 0 unit 06/21/20 06:00 07/09/20 11:38 Insulin Aspart 1 00 Unit/1 Ml SUBCUT 6 unit TIDWM IGOR Administration Protocol Lanolin 1 applic 06/20/20 02:20 07/08/20 05:49 Lanolin Oint 7 G m TOPICAL 1 applic PRN PRN Administration DRYNESS Metoprolol Tartrat e 2.5 mg 06/25/20 15:52 07/06/20 12:44 Metoprolol Tartr ate 1 Mg/1 Ml Sdv 5 Ml IV 2.5 mg Q6H PRN Administration Hypertension Metoprolol Tartrat e 5 mg 07/07/20 11:13 07/07/20 12:55 Metoprolol Tartr ate 1 Mg/1 Ml Sdv 5 Ml IV 5 mg Q4H PRN Administration HOLD FOR BP <110/ 70 Nifedipine 90 mg 07/05/20 09:00 07/09/20 09:32 Nifedipine Er (2 4 Hr) 30 Mg Tablet PO 90 mg DAILY IGOR Administration Spironolactone 25 mg 07/02/20 09:00 07/09/20 09:33 Spironolactone 2 5 Mg Tablet PO 25 mg BID IGOR Administration Vitals/I&O/Wt Last Vital Signs Temp 96.6 F L 07/10/20 04:15 Pulse 104 H 07/10/20 04:15 Resp 20 H 07/10/20 11:12 BP 50/29 07/10/20 04:00 Pulse Ox 98 07/10/20 04:15 07/09/20 07/10/20 07/10/20 22:59 06:59 14:59 Intake Total 1186.5689 / 1306.5689 969.876 / 2276.4449 1414.295 / 1414.295 Output Total 85 / 85 0 / 85 Balance 1101.5689 / 1221.5689 969.876 / 2191.4449 1414.295 / 1414.295 Physical Exam Narrative: EXAM NARRATIVE: Constitutional: Intubated and vented HEENT: Wet mucosa, no jvp, non icteric Lungs: Bilaterally diminished and poor effort in all lung zones CVS: S1 S2, no murmurs Abdo: Soft, BS ok Ext 4: Global anasarca, peripheral perfusion with no cyanosis Neurological: on vent Data : 07/10/20 04:52 07/10/20 04:52 Micro: Microbiology 07/10/20 04:52 Blood Culture - Preliminary Blood SPECIMEN COLLECTED 07/09/20 20:42 Blood Culture - Preliminary Blood SPECIMEN COLLECTED A&P Additional A&P Information 1. ERUM Overt renal failure with hyperkalemia and acidosis. At this time she is too unstable to receive renal replacement therapy. If she does survive this, we will treat medically. Currently on bicarb infusion. Avoid usual nephrotoxic agents Strict ins and outs. 2. 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
--- NOTE | 2020-07-10 12:30 | PC.NURSE ---
MTS notified of pt's . [employer] [place] contact center associate. Pt not a candidate. Released.
--- NOTE | 2020-07-10 12:48 | PM.DDS ---
Discharge Providers DDS Date of Admission: 06/19/20 00:21 Date Summary Completed: 07/10/20 Attending Provider at Admission: Candice Mccord MD Time of : 11:55 Attending Provider at Discharge: Moe JESUS Diagnoses Hospital Diagnoses (1) Acute hypoactive delirium due to multiple etiologies: (2) Altered mental status: (3) Acute respiratory failure with hypoxia: (4) Hypertensive urgency: (5) Septic shock: (6) Metabolic acidosis: (7) Acute kidney injury superimposed on chronic kidney disease: (8) Hyperkalemia: (9) New onset of congestive heart failure: (10) COVID-19: Reason for Visit Reason for Visit: covid, pneumonia Summary Date and Time of Date of : 07/10/20 Time of : 11:55 Summary Summary: Please see patient's H&P, consult notes, progress notes, procedure notes for more details. Problem list: Severe sepsis and septic shock secondary to bilateral pneumonia and COVID-19 infection. Acute hypoxic respiratory failure secondary to pneumonia and septic shock. Acute metabolic encephalopathy secondary to #1 Status post cardiac arrest and CPR x2 Additional diagnosis: Acute kidney injury requiring hemodialysis, pneumothorax, anemia, thrombocytopenia, history of coronary artery disease and uncontrolled hypertension. Yesterday the patient's condition decompensated suddenly and unexpectedly after slow improvement and long hospitalization. The patient was found to have new/worsening bilateral pneumonia with associated septic shock and acute respiratory failure. The patient was transferred to ICU after CPR due to cardiac arrest and intubation. She required multiple pressors. Received IV fluids in different boluses. The family was notified yesterday after changes in the condition were noticed. After long discussions with Argelia, her granddaughter who is also her healthcare proxy and speaker for the family patient status was changed to full code per family wishes. The family arrived from [place] at this morning. After long discussions with me and nursing staff, realizing patient's critical condition and terminal status the family requested DNR. They spent some time with the patient before she at 1145 on July 10, 2020. I answered to all their questions to the best of my knowledge. They verbalized satisfaction with the conversation and agreement with the management plan. Critical care time spent on this encounter is 60 minutes today. Additional Data Confirmation of as documented by pronouncing clinician: no pulse, no respirations, no heart sounds and pupils fixed and dilated Family: at bedside and contacted Additional persons at bedside: nursing staff Attending/PCP notified?: I am attending Was code activated?: No Autopsy requested?: No Advance directives?: Yes Hospice patient?: No Discharge Plan Discharge Patient Disposition: Home Condition: Stable Prescriptions: No Action losartan 50 mg tablet 50 mg PO DAILY RF: 0 cilostazol 50 mg tablet 50 mg PO BID RF: 0 nifedipine 90 mg tablet extended release 90 mg PO DAILY RF: 0 potassium chloride 10 mEq tablet extended release 10 meq PO DAILY RF: 0 clopidogrel 75 mg tablet 75 mg PO DAILY RF: 0 pantoprazole 40 mg tablet,delayed release (DR/EC) 40 mg PO DAILY RF: 0 rosuvastatin 5 mg tablet 5 mg PO DAILY RF: 0 aspirin 81 mg Tablet,Chewable 81 mg PO DAILY RF: 0 DS Attestations Time Spent in /Discharge Care*: critical care time Quality - AMI: AMI present?: No Quality - Stroke: CVA present?: No Quality - VTE: VTE present?: No Coding Level of Care Code 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
--- NOTE | 2020-07-10 13:00 | PC.NURSE ---
Auscultated for HR for 5 minutes. None present. Pt transferred to [facility] [place]. Family to call this evening after returning to home. Pt has home policy planned. Will call to name home of choice.
[2020-07-10 13:27] LABS: Glucose Point of Care 376 mg/dL (70-110)
--- NOTE | 2020-07-10 13:38 | PC.CHAP ---
Pastoral Care Encounter/Spiritual Assessment Type of Contact [] Declined medical safety director visit [] Patient/Family/Request visit [] Outpatient visit [] Follow-up visit [] Physician referral [] Code/Alert [] Routine visit [] Staff referral [] Actively dying [] Patient sleeping [x] Family support [x] [] Out of room [] Palliative care [] [] Receiving care in room [] Pre-surgical visit [] Trauma [] Long length of stay [] ICU visit [] Other: Relational/Emotional Strength [] Patient feels connected with others/family/visitors/staff [] Distress [] Loneliness/isolation [] Abandonment Spirituality of Patient [] Person of Mildred [] Attends Scientology of their Mildred [] Believes in Prayer [] Reads Bible or Jain materials [] There are Spiritual issues to be addressed Substitute [employer] Nurse Interventions [x] Prayer [x] Active listening [x] Non-anxious presence [x] Spiritual/emotional support [] Crisis/trauma care [x] Spiritual counseling [x] Bereavement support [] Provided bereavement packet [] Provided Bible/devotional materials [] Provided toy/stuffed animal, coloring book to patient or family member [] Provided Communion [] Anointing/[place] [] Salvation [] Completed spiritual assessment [] Other: Impact on Illness or Injury [] Angry [] Fearful [] Anxious [] Often cries [] Exhaustion [] Unable to work [] Unable to attend orthodoxy [] Unable to walk/stand [] Unable to read [] Unable to drive [] Unable to eat/drink [] Unable to sleep [] Unable to be with family [] Patient intubated [] Other: Summary Prayed with family before they headed home. Family doing well. Time spent with patient 10 min
== END 2020-07-10 11:55 | disposition expired | DRG 870 ==
LOC: ICU 06-27 08:07 → CSU 06-29 15:57 → ICU 07-09 20:29
PROVIDERS: Hospitalist; Internal Medicine; Internal Medicine Nephrology; Student in an Organized Health Care Education/Training Program; Admitting Provider Internal Medicine; Visit Provider Internal Medicine
DX: A41.9 Sepsis, unspecified organism (principal); E11.10 Type 2 diabetes mellitus with ketoacidosis without coma; R65.21 Severe sepsis with septic shock; U07.1 COVID-19; J12.82 Pneumonia due to coronavirus disease 2019; J15.9 Unspecified bacterial pneumonia; N17.0 Acute kidney failure with tubular necrosis; J96.01 Acute respiratory failure with hypoxia; J93.0 Spontaneous tension pneumothorax; G93.41 Metabolic encephalopathy; I13.0 Hypertensive heart and chronic kidney disease with heart failure and stage 1 through stage 4 chronic kidney disease, or unspecified chronic kidney disease; E87.2 Acidosis; F05 Delirium due to known physiological condition; Y95 Nosocomial condition; Z98.890 Other specified postprocedural states; Z85.3 Personal history of malignant neoplasm of breast; Z85.43 Personal history of malignant neoplasm of ovary; E83.51 Hypocalcemia; I25.10 Atherosclerotic heart disease of native coronary artery without angina pectoris; Z95.5 Presence of coronary angioplasty implant and graft; Z95.1 Presence of aortocoronary bypass graft; K21.9 Gastro-esophageal reflux disease without esophagitis; E78.5 Hyperlipidemia, unspecified; E11.22 Type 2 diabetes mellitus with diabetic chronic kidney disease; N18.30 Chronic kidney disease, stage 3 unspecified; I50.9 Heart failure, unspecified; I25.2 Old myocardial infarction; Z90.710 Acquired absence of both cervix and uterus; Z87.891 Personal history of nicotine dependence; E11.65 Type 2 diabetes mellitus with hyperglycemia; R00.1 Bradycardia, unspecified; E11.51 Type 2 diabetes mellitus with diabetic peripheral angiopathy without gangrene; I95.9 Hypotension, unspecified; Z92.21 Personal history of antineoplastic chemotherapy; Z66 Do not resuscitate; D64.9 Anemia, unspecified; T68.XXXA Hypothermia, initial encounter; T81.82XA Emphysema (subcutaneous) resulting from a procedure, initial encounter; Y82.8 Other medical devices associated with adverse incidents; I16.0 Hypertensive urgency; F32.9 Major depressive disorder, single episode, unspecified; I46.9 Cardiac arrest, cause unspecified
CPT/HCPCS: 12345; 36415; 36416; 36430; 36592; 36600; 70450; 70551; 71045; 71250; 74018; 80048; 80051; 80053; 80061; 80069; 80202; 81001; 82009; 82140; 82306; 82310; 82330; 82436; 82550; 82570; 82607; 82652; 82728; 82746; 82803; 82805; 82962; 83010; 83605; 83615; 83735; 83880; 83970; 84100; 84133; 84145; 84300; 84439; 84443; 84481; 84484; 85007; 85014; 85018; 85025; 85049; 85378; 85384; 85610; 85730; 86140; 86403; 86706; 86803; 86850; 86900; 86920; 87040; 87070; 87077; 87086; 87186; 87205; 87340; 90935; 93005; 93306; 94002; 94003; 94640; 94660; 94799; 96372; 97163; 97167; 97530; 97535; A4570; C1751; C1752; C9113; J0171; J0360; J0461; J0610; J0637; J0692; J0743; J1100; J1265; J1450; J1644; J1815; J1940; J2020; J2060; J2250; J2370; J2543; J2930; J3010; J3370; J3475; J3490; J7030; J7040; J7050; J7512; P9016; Q3014